=== PATIENT | female | born 1950 | race Caucasian/White ===

== ENCOUNTER 2016-06-30 11:40 | Emergency (ER) | payer OTHER ==
[2016-06-30 11:46] VITALS: BP 141/83; PULSE 83; TEMP 97.4; BMI 33.4
[2016-06-30 13:00] LABS: PROTHROMBIN TIME (PATIENT) 47.1 SEC (10.2-13.0)
[2016-06-30 13:02] LABS: INR 4.33 (0.82-1.09)
[2016-06-30 13:04] LABS: MEAN CELL VOLUME 87.9 fl (80-96); MEAN PLT VOLUME 10.8 fl (7.5-11.1); PLATELET COUNT 291 K/MM3 (134-434); WHITE BLOOD COUNT 7.3 K/mm3 (4.0-10.0)
[2016-06-30 13:07] LABS: ALBUMIN 3.8 g/dl (3.5-5.0); BILIRUBIN,TOTAL 0.4 mg/dl (0.2-1.0); CALCIUM 9.3 mg/dl (8.4-10.2); CREATININE 1.1 mg/dl (0.6-1.3); TOT PROT 6.5 g/dl (6.4-8.3)
[2016-06-30 13:09] LABS: RDW 14.8 % (11.6-15.6)
[2016-06-30 13:45] LABS: PLATELET ESTIMATE ADEQUATE (NORMAL)
[2016-06-30 13:49] LABS: PLATELET COMMENT2 MOD GIANT PLTS
--- NOTE | 2016-06-30 13:51 | PDOC ---
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 Yesterday, she was sitting on the toilet for a prolonged period of time, using her phone and her legs got numb because of sitting for too long. When she stood up, she was surprised that her legs were so numb and she stumbled , twisting her right ankle and foot. She now complains of swelling in the right lateral ankle as well as the entire foot. She also has pain to that area , moderate, increased with weightbearing. The swelling has progressed since yesterday. She also has some ecchymosis down in the area of the toes. She denies falling or hitting her head. She states she stumbled and held onto the wall and did not fall. There was no chest pain, no dizziness, and no syncope. The numbness in her bilateral legs resolved after a few minutes after getting up from the toilet. Patient takes 10 mg of Coumadin every day, and then she takes a day off on Sundays. Today is supposed to be her day off. REVIEW OF SYSTEMS: GENERAL/CONSTITUTIONAL: No fever or chills. No weakness. No weight change. No head injury. HEAD, EYES, EARS, NOSE AND THROAT: No change in vision. No ear pain or discharge. No sore throat. CARDIOVASCULAR: No chest pain or shortness of breath. Positive history of prior valve replacements. RESPIRATORY: No cough, wheezing, or hemoptysis. GASTROINTESTINAL: No nausea, vomiting, diarrhea or constipation. No rectal bleeding. GENITOURINARY: No dysuria, frequency, or change in urination. MUSCULOSKELETAL: No joint or muscle swelling or pain. No neck or back pain. Positive for right ankle and foot swelling and pain, increased with walking. SKIN AND BREASTS: No rash or easy bruising. NEUROLOGIC: No headache, vertigo, loss of consciousness, or loss of sensation. PSYCHIATRIC: No depression or anxiety. ENDOCRINE: No increased thirst. No abnormal weight change. HEMATOLOGIC/LYMPHATIC: No anemia, easy bleeding, or history of blood clots. Patient takes anticoagulants for her valve replacement surgery. Currently on Coumadin. ALLERGIC/IMMUNOLOGIC: No hives or skin allergy. No latex allergy. Past History - Past Medical History Allergies/Adverse Reactions: Allergies Allergy/AdvReac Type Severity Reaction Status Date / Time No Known Allergies Allergy Verified 06/30/16 11:41 Home Medications: Ambulatory Orders Levothyroxine [Synthroid -] 150 mcg PO DAILY 06/05/15 Warfarin Sodium [Coumadin] 10 mg PO ASDIR 06/05/15 Metoprolol Tartrate [Lopressor -] 50 mg PO DAILY 06/30/16 Cardiac Disorders: Yes (RHEMATIC FEVER, MITRIAL AND AORTIC VALVE REPLACEMENT) Thyroid Disease: Yes - Surgical History Cardiac Surgery: Yes (AORTIC AND MITRIAL VALVE REPLACEMENT ARTIFICIAL) - Psycho/Social/Smoking Cessation Hx Anxiety: No Suicidal Ideation: No Smoking History: Never smoked Have you smoked in the past 12 months: No Hx Alcohol Use: No Drug/Substance Use Hx: No Substance Use Type: None Hx Substance Use Treatment: No *Physical Exam - Vital Signs Last Vital Signs Temp Pulse Resp BP Pulse Ox 97.4 F L 83 16 141/83 100 06/30/16 11:41 06/30/16 11:41 06/30/16 11:41 06/30/16 11:41 06/30/16 11:41 - Physical Exam Comments: 06/30/16 15:02 GENERAL: The patient is awake, alert, and fully oriented, in no acute distress. No signs of head trauma. HEAD: Normal with no signs of trauma. EYES: Pupils equal, round and reactive to light, extraocular movements intact, sclera anicteric, conjunctiva clear. ENT: Ears normal, nares patent, oropharynx clear without exudates. Moist mucous membranes. NECK: Normal range of motion, supple without lymphadenopathy, JVD, or masses. No cervical spine tenderness. LUNGS: Breath sounds equal, clear to auscultation bilaterally. No wheezes, and no crackles. HEART: Regular rate and rhythm, normal S1 and S2 without murmur, rub or gallop. Positive mechanical click. ABDOMEN: Soft, nontender, normoactive bowel sounds. No guarding, no rebound. No masses. EXTREMITIES: Normal range of motion, no edema in the left leg. No clubbing or cyanosis. No cords, erythema. The right calf is normal above the ankle. The right ankle is notable for intact skin, no medial tenderness, but positive swelling and tenderness over the lateral malleolus. The right foot is diffusely swollen, with increased tenderness over the lateral midfoot. There is ecchymosis of all of the toes. Sensation is intact. Pulses are 2+ throughout down to the dorsalis pedis. Capillary refill is less than 2 seconds , brisk in all of the toes. NEUROLOGICAL: Cranial nerves II through XII grossly intact. Normal speech, limping gait. PSYCH: Normal mood, normal affect. SKIN: Warm, Dry, normal turgor, no rashes or lesions noted. ED Treatment Course - LABORATORY CBC & Chemistry Diagram: 06/30/16 12:10 06/30/16 12:10 - ADDITIONAL ORDERS Additional order review: Laboratory Results 06/30/16 06/30/16 12:10 12:10 INR 4.33 H* D Sodium 139 Potassium 4.5 Chloride 106 Carbon Dioxide 28 Anion Gap 5 L BUN 19 H Creatinine 1.1 D Creat Clearance w eGFR 49.69 Random Glucose 114 H Calcium 9.3 Total Bilirubin 0.4 D AST 28 ALT 22 Alkaline Phosphatase 78 Total Protein 6.5 Albumin 3.8 06/30/16 12:10 RBC 4.90 MCV 87.9 MCHC 33.0 RDW 14.8 MPV 10.8 - RADIOLOGY Radiology Studies Ordered: Category Date Time Status ANKLE & FOOT-RIGHT* [RAD] Stat Radiology 06/30/16 11:54 Completed Medical Decision Making - Medical Decision Making 06/30/16 15:03 Patient is a 65-year-old woman who presents after twisting her right ankle and foot with a right lower extremity injury. She has been on Coumadin for a long time status post valve replacement 15 years ago. She states she has not checked her INR for a couple of months and she was overdue for blood work. On examination, there is mild to moderate swelling of the right lateral malleolus and the foot. There is no tense swelling. There is only very mild localized ecchymosis of the dorsal toes. X-rays of the right ankle and foot show an old healed avulsion fracture of the distal tip of the fibula. The right foot shows a comminuted mildly displaced fracture of the fifth metatarsal. Laboratory workup is notable for normal CBC and chemistries. The INR is elevated to 4.33. Patient states today's her day off so her INR should be done by tomorrow. She will not take Coumadin today and will restart tomorrow, and she states she will discuss these results with her customer account administrator tomorrow to consider any possible necessary dose changes. I discussed the x-ray findings with Dr. Jc, orthopedic surgery. Wei bandage was applied to the right foot with a stiff soled shoe and with crutches with partial weightbearing. Patient will follow-up with Dr. Jc this week. She will elevate, ice, and use the shoe with crutches. *DC/Admit/Observation/Transfer Diagnosis at time of Disposition: Fracture of metatarsal bone of right foot Qualifiers: Encounter type: initial encounter Metatarsal bone: fifth Fracture type: closed Fracture alignment: displaced Qualified Code(s): S92.351A - Displaced fracture of fifth metatarsal bone, right foot, initial encounter for closed fracture - Discharge Dispostion Condition at time of disposition: Stable Admit: No - Referrals Referrals: Antonio Jc MD [Staff Physician] - 3 days - Patient Instructions Printed Discharge Instructions: DI for Foot Fracture Additional Instructions: You were evaluated today for a fracture to your right foot. The ankle shows no new fracture, only an old healed fracture from the past. The foot x-ray shows a comminuted fracture of the shaft of the right fifth metatarsal. An Wei bandage and a hard soled shoe has been placed. Use this during the day. Take it off at night. Use crutches to help support your weight until the fracture pain and swelling improves. Rest at home. Elevate the foot as much as possible to reduce pain and swelling. Apply ice packs for 20 minutes every few hours for the first 2 or 3 days after the injury. Take Tylenol if needed for pain. Follow-up with Dr. Jc, orthopedic surgeon, in a few days. Called the number tomorrow after 9 AM to schedule your follow-up appointment. His office is on the lower level in the [facility]. For any severe or progressive problems, return to the emergency department. The INR level today is 4.33. This is a bit higher than it should be. Do not take any Coumadin today. Tomorrow you can restart your dose at 10 mg daily. Be sure to call Dr. Guthrie tomorrow to ask about adjusting your dose. Coumadin must be managed very carefully to make sure your blood is not too sick and not too thin. You have a copy of all of the blood results included in your discharge papers. These results should be shown to your doctor at your follow- up appointment.
== END 2016-06-30 13:59 | disposition short-term general hospital (02) ==
LOC: FER 11:40
DX: S92.351A Displaced fracture of fifth metatarsal bone, right foot, initial encounter for closed fracture (principal); X58.XXXA Exposure to other specified factors, initial encounter; Y93.89 Activity, other specified; Y92.002 Bathroom of unspecified non-institutional (private) residence as the place of occurrence of the external cause; I51.9 Heart disease, unspecified; Z95.2 Presence of prosthetic heart valve; Z79.01 Long term (current) use of anticoagulants; E07.9 Disorder of thyroid, unspecified
CPT/HCPCS: 36415; 73610-TC-RT; 73630-TC-RT; 80053; 85027; 85610; 99283-25

== ENCOUNTER 2016-12-14 07:22 | Emergency (ER) | payer OTHER ==
[2016-12-14 07:37] VITALS: BP 140/83; PULSE 89; TEMP 97.5; BMI 31.9
--- NOTE | 2016-12-14 07:43 | PDOC ---
History of Present Illness - General Chief Complaint: Injury Stated Complaint: LEFT LEG PAIN Time Seen by Provider: 12/14/16 07:36 History Source: Patient - History of Present Illness Initial Comments: 12/14/16 07:44 pt presents to the ED complaining of left ankle and knee pain after mechanical trip and fall yesterday. Patient was able to ambulate immediately after the injury and has been able to ambulate since then. Presents today because the swelling has gotten worse since the injury and she is concerned that she may have a fracture. Also complaining of dysuria, urgency and frequency, along with intermittent fevers for the last week. Patient was in [facility] last week and states that she was seen by a physician there and given augmentin for UTI, without relief of her symptoms. States that she was vomiting last week, but has not vomited for > 24 hours. Denies flank pain or abdominal pain. Past History - Travel Traveled outside of the country in the last 30 days: Yes If so, where?: [facility] - Past Medical History Allergies/Adverse Reactions: Allergies Allergy/AdvReac Type Severity Reaction Status Date / Time No Known Allergies Allergy Verified 12/14/16 07:24 Home Medications: Ambulatory Orders Levothyroxine [Synthroid -] 150 mcg PO DAILY 06/05/15 Warfarin Sodium [Coumadin] 10 mg PO ASDIR 06/05/15 Metoprolol Tartrate [Lopressor -] 50 mg PO PRN PRN 06/30/16 Cardiac Disorders: Yes (RHEMATIC FEVER, MITRIAL AND AORTIC VALVE REPLACEMENT) Thyroid Disease: Yes Other medical history: hypothyroidism, valve replacement - Surgical History Cardiac Surgery: Yes (AORTIC AND MITRIAL VALVE REPLACEMENT ARTIFICIAL) - Psycho/Social/Smoking Cessation Hx Anxiety: No Suicidal Ideation: No Smoking History: Never smoked Have you smoked in the past 12 months: No Information on smoking cessation initiated: No Hx Alcohol Use: No Drug/Substance Use Hx: No Substance Use Type: None Hx Substance Use Treatment: No Review of Systems - Review of Systems Able to Perform ROS?: Yes Is the patient limited Senegalese proficient: No Constitutional: Yes: Chills, Diaphoresis, Fever, Malaise HEENTM: No: Symptoms Reported, See HPI, Eye Pain, Blurred Vision, Tearing, Recent change in vision, Double Vision, Cataracts, Ear Pain, Ocular Prothesis, Ear Discharge, Nose Pain, Nose Congestion, Tinnitus, Nose Bleeding, Hearing Loss , Throat Pain, Throat Swelling, Mouth Pain, Dental Problems, Difficulty Swallowing, Mouth Swelling, Other Cardiac (ROS): No: Symptoms Reported, See HPI, Chest Pain, Edema, Irregular Heart Rate, Lightheadedness, Palpitations, Syncope, Chest Tightness, Other ABD/GI: Yes: Nausea, Vomiting : Yes: Burning, Dysuria, Frequency, Urgency Musculoskeletal: No: Symptoms Reported, See HPI, Back Pain, Gout, Joint Pain, Joint Swelling, Muscle Pain, Muscle Weakness, Neck Pain, Joint Stiffness, Other All Other Systems: Reviewed and Negative *Physical Exam - Vital Signs Last Vital Signs Temp Pulse Resp BP Pulse Ox 97.5 F L 89 20 140/83 96 12/14/16 07:23 12/14/16 07:23 12/14/16 07:23 12/14/16 07:23 12/14/16 07:23 - Physical Exam General Appearance: Yes: Nourished, Appropriately Dressed Neck: positive: Trachea midline, Supple Respiratory/Chest: positive: Lungs Clear, Normal Breath Sounds Cardiovascular: positive: Regular Rhythm, Regular Rate Gastrointestinal/Abdominal: positive: Flat, Soft. negative: Normal Bowel Sounds , Tender, Organomegaly, Pulsatile Mass, Increased Bowel Sounds, Decreased BS, Protuberent, Distended, Guarding, Rebound, Tenderness, Hernia, Mass, Hepatomegaly, Spleenomegaly, Other Musculoskeletal: positive: Normal Inspection, Other (L knee--full ROM without deformity, small lateral ecchymosis. L ankle full ROM, no deformity, + mild tenderness over the dorsum of the foot. ). negative: CVA Tenderness, CVA Tenderness (R), CVA Tenderness (L), Decreased Range of Motion, Muscle Spasm, Vertebral Tenderness Neurologic: positive: Fully Oriented, Alert, Normal Mood/Affect Medical Decision Making - Medical Decision Making 12/14/16 07:52 pt presents to the ED complaining of l knee and l ankle pain and dysuria, urgency and frequency. PAtient is able to ambulate and does not require xray by [place] ankle or knee rules, but is requesting xray. Since patient remains symptomatic after several days of augmentin for UTI, will check UA and change antibiotic if UA is positive. 12/14/16 09:24 xrays are negative for fracture. UA is negative. WIll discharge home. *DC/Admit/Observation/Transfer Diagnosis at time of Disposition: Knee pain Qualifiers: Chronicity: acute Laterality: left Qualified Code(s): M25.562 - Pain in left knee - Discharge Dispostion Disposition: HOME Condition at time of disposition: Good Admit: No - Patient Instructions Printed Discharge Instructions: DI for Knee Pain Additional Instructions: return to the ED for new or changing symptoms, severe knee or ankle pain unable to walk, severe abdominal pain, nausea, vomiting or fever. Take the antibiotic prescribed for your UTI until it is all gone. You can take motrin or tylenol for pain.
[2016-12-14 08:50] LABS: URINE APPEARANCE Clear; URINE BILIRUBIN Negative (NEGATIVE); URINE BLOOD Negative (NEGATIVE); URINE COLOR AMBER; URINE GLUCOSE (UA) Negative (NEGATIVE); URINE KETONE Negative (NEGATIVE); URINE LEUK ESTERASE Negative (NEGATIVE); URINE NITRITE Negative (NEGATIVE); URINE PROTEIN Negative (NEGATIVE); URINE UROBILINOGEN 0.2 (0.2-1.0)
== END 2016-12-14 09:44 | disposition home or self-care (01) ==
LOC: FER 07:22
DX: M25.562 Pain in left knee (principal); W18.39XA Other fall on same level, initial encounter; Y93.89 Activity, other specified; Y92.9 Unspecified place or not applicable; E07.9 Disorder of thyroid, unspecified; Z95.2 Presence of prosthetic heart valve; Z79.01 Long term (current) use of anticoagulants; I00 Rheumatic fever without heart involvement
CPT/HCPCS: 73562-TC-LT; 73610-TC-LT; 81003; 99282-25

== ENCOUNTER 2016-12-30 13:22 | Emergency (ER) | payer OTHER ==
--- NOTE | 2016-12-30 13:25 | PDOC ---
History of Present Illness <Emelyn Bergman - Last Filed: 12/30/16 15:08> - General History Source: Patient Exam Limitations: No Limitations - History of Present Illness Initial Comments: 12/30/16 13:47 66 yo female with rheumatic heart disease presents with swelling at the lateral and medial maleolus 2 weeks after leg injury. Also co intermittent fevers, saw her doctor, (s/pValve replacement) was told they think it is a virus but if the fevers persist she will need a blood culture. Last INR was 4.5 and that was on the 25 of December. Worried she may have a blood clot. Timing/Duration: changing over time, other (Roughly 2 weeks, Cough, Dyspnea and Fever) Severity: moderate Modifying Factors: improves with: other (Nothing seems to make it worse and better) Associated Symptoms: denies: denies symptoms Aspirin Received prior to arrival: No: no aspirin today <Bimal Elaine - Last Filed: 12/30/16 15:48> - General Chief Complaint: Pain, Acute Stated Complaint: LEFT LEG PAIN/SWELLING Time Seen by Provider: 12/30/16 13:25 Past History <Emelyn Bergman - Last Filed: 12/30/16 15:08> - Travel Traveled outside of the country in the last 30 days: Yes If so, where?: [facility] Close contact w/someone who was outside of country & ill: No - Past Medical History Cardiac Disorders: Yes (RHEMATIC FEVER, MITRIAL AND AORTIC VALVE REPLACEMENT) Thyroid Disease: Yes - Surgical History Cardiac Surgery: Yes (AORTIC AND MITRIAL VALVE REPLACEMENT ARTIFICIAL) - Suicide/Smoking/Psychosocial Hx Smoking History: Never smoked Have you smoked in the past 12 months: No Hx Alcohol Use: No Drug/Substance Use Hx: No Substance Use Type: None Hx Substance Use Treatment: No <Bimal Elaine - Last Filed: 12/30/16 15:48> - Past Medical History Allergies/Adverse Reactions: Allergies Allergy/AdvReac Type Severity Reaction Status Date / Time No Known Allergies Allergy Verified 12/30/16 13:23 Home Medications: Ambulatory Orders Levothyroxine [Synthroid -] 150 mcg PO DAILY 06/05/15 Warfarin Sodium [Coumadin] 10 mg PO ASDIR 06/05/15 Metoprolol Tartrate [Lopressor -] 50 mg PO PRN PRN 06/30/16 Review of Systems - Review of Systems Constitutional: Yes: See HPI HEENTM: No: Symptoms Reported Respiratory: Yes: See HPI, Cough Cardiac (ROS): Yes: See HPI ABD/GI: No: Symptoms Reported : No: Symptoms Reported Musculoskeletal: No: Symptoms Reported Integumentary: No: Symptoms Reported Neurological: No: Symptoms reported, Ataxia Psychiatric: No: Anxiety Endocrine: No: Symptoms Reported Hematologic/Lymphatic: No: Symptoms Reported All Other Systems: Reviewed and Negative <Bimal Elaine - Last Filed: 12/30/16 15:48> *Physical Exam - Vital Signs Last Vital Signs Temp Pulse Resp BP Pulse Ox 98.5 F 93 H 18 160/94 99 12/30/16 13:22 12/30/16 13:22 12/30/16 13:22 12/30/16 13:22 12/30/16 13:22 <Emelyn Bergman - Last Filed: 12/30/16 15:08> - Physical Exam General Appearance: Yes: Nourished. No: Apparent Distress HEENT: positive: Normal ENT Inspection Neck: positive: Supple. negative: Tender, Lymphadenopathy (R), Lymphadenopathy (L) Respiratory/Chest: positive: Lungs Clear, Normal Breath Sounds. negative: Chest Tender Cardiovascular: positive: Regular Rhythm, Regular Rate. negative: Murmur Gastrointestinal/Abdominal: positive: Normal Bowel Sounds, Flat, Soft Lymphatic: negative: Adenopathy, Tenderness Musculoskeletal: positive: Normal Inspection Extremity: positive: Normal Capillary Refill, Normal Inspection Integumentary: positive: Normal Color, Dry, Warm Neurologic: positive: Fully Oriented, Alert, Normal Mood/Affect <Bimal Elaine - Last Filed: 12/30/16 15:48> Heart Score/ECG Review - ECG Intrepretation Comment:: 12/30/16 14:[address] Elaine Normal sinus rhythm Normal EKG Vent rate 83 bpm <Emelyn Bergman - Last Filed: 12/30/16 15:08> ED Treatment Course - LABORATORY CBC & Chemistry Diagram: 12/30/16 14:06 12/30/16 14:06 - ADDITIONAL ORDERS Additional order review: Laboratory Results 12/30/16 12/30/16 14:06 14:06 PT with INR 24.8 H INR 2.25 H D Sodium 139 Potassium 3.9 Chloride 107 Carbon Dioxide 27 Anion Gap 5 L BUN 16 Creatinine 0.8 D Creat Clearance w eGFR > 60 Random Glucose 94 Calcium 8.8 Total Bilirubin 0.5 D AST 24 ALT 19 Alkaline Phosphatase 84 Creatine Kinase 60 Total Protein 7.0 Albumin 3.6 12/30/16 14:06 RBC 4.39 MCV 89.6 MCHC 31.6 L RDW 15.9 H MPV 9.0 D Neutrophils % 72.6 Lymphocytes % 17.2 D Monocytes % 8.5 Eosinophils % 1.4 Basophils % 0.3 - RADIOLOGY Radiograph Interpretation: 12/30/16 15:08 Chest X-Ray Reported by: Hiren Darling MD Impression: No significant change or acute lung disease is present. 12/30/16 15:10 Vascular Exam: Impression: There is no evidence of deep venous thrombosis in the left lower extremity Reported by: Hiren Darling M.D. <Emelyn Bergman - Last Filed: 12/30/16 15:08> - LABORATORY CBC & Chemistry Diagram: 12/30/16 14:06 12/30/16 14:06 <Bimal Elaine - Last Filed: 12/30/16 15:48> Medical Decision Making - Medical Decision Making 12/30/16 15:35 All testing here today is negative. Patient has no symptoms x swelling at lateral and medial maleoli left ankle. Will print all results for patient to take to her PMD. Will also refer her to Ortho here locally. <Bimal Elaine - Last Filed: 12/30/16 15:48> *DC/Admit/Observation/Transfer <Emelyn Bergman - Last Filed: 12/30/16 15:08> - Discharge Dispostion Admit: No <Bimal Elaine - Last Filed: 12/30/16 15:48> Diagnosis at time of Disposition: Ankle swelling Qualifiers: Laterality: left Qualified Code(s): M25.472 - Effusion, left ankle; M25.472 - Effusion, left ankle - Discharge Dispostion Disposition: HOME Condition at time of disposition: Stable - Referrals Referrals: Chivo Miles MD [Staff Physician] - - Patient Instructions Printed Discharge Instructions: DI for Ankle Sprain Additional Instructions: Mrs. العلي, Take all of your test results to your doctor..... or at least call her and let her know these results. We did take a blood culture. Those results are not available yet. Follow up with Dr. Miles regarding your ankle (Or call your insurance company to find out who you can see on their dime. Return to us if any problems. Best- Dr. Bimal Elaine
[2016-12-30 13:27] VITALS: TEMP 98.5; BMI 32.6
[2016-12-30 14:19] LABS: BASOPHIL 0.3 % (0-2.0); EOSINOPHIL 1.4 % (0-4.5); MCH 28.3 pg (25.7-33.7); MCHC 31.6 g/dl (32.0-36.0); MEAN CELL VOLUME 89.6 fl (80-96); NEUTROPHILS 72.6 % (42.8-82.8); PLATELET COUNT 317 K/MM3 (134-434); RDW 15.9 % (11.6-15.6); WHITE BLOOD COUNT 7.5 K/mm3 (4.0-10.8)
[2016-12-30 14:28] LABS: INR 2.25 (0.82-1.09); PROTHROMBIN TIME (PATIENT) 24.8 SEC (10.2-13.0)
[2016-12-30 14:33] LABS: ALBUMIN 3.6 g/dl (3.5-5.0); ALK PHOS 84 U/L (32-92); ANION GAP 5 (8-16); BILIRUBIN,TOTAL 0.5 mg/dl (0.2-1.0); CALCIUM 8.8 mg/dl (8.4-10.2); CO2 27 mmol/L (22-28); CPK 60 IU/L (26-192); CREATININE 0.8 mg/dl (0.6-1.3); GLUCOSE,RANDOM 94 mg/dl (74-106); SGOT/AST 24 U/L (10-42); SGPT/ALT 19 U/L (10-40)
[2016-12-30 15:11] LABS: PH,URINE 5.5 (4.5-8); URINE APPEARANCE Clear; URINE BILIRUBIN Negative (NEGATIVE); URINE GLUCOSE (UA) Negative (NEGATIVE); URINE KETONE Negative (NEGATIVE); URINE LEUK ESTERASE Negative (NEGATIVE); URINE NITRITE Negative (NEGATIVE); URINE PROTEIN Negative (NEGATIVE); URINE UROBILINOGEN 0.2 (0.2-1.0)
[2016-12-30 15:14] LABS: URINE BLOOD 1+ (NEGATIVE); URINE COLOR YELLOW
[2016-12-30 15:34] LABS: URINE MUCUS 2+
[2016-12-30 16:32] VITALS: BP 116/75; PULSE 72
[2016-12-30 19:03] LABS: TROPONIN I (DFP) < 0.03 ng/ml (0.03-0.50)
--- NOTE | 2016-12-31 20:21 | EKG ---
Test Reason : Blood Pressure : / mmHG Vent. Rate : 083 BPM Atrial Rate : 083 BPM P-R Int : 148 ms QRS Dur : 098 ms QT Int : 404 ms P-R-T Axes : 072 040 074 degrees QTc Int : 474 ms NORMAL SINUS RHYTHM NONSPECIFIC ST AND T WAVE ABNORMALITY NO PREVIOUS ECGS AVAILABLE REPEAT EKG IF CLINICALLY INDICATED Confirmed by MARGIE KUNZ MD ([id number]) on 12/31/2016 8:20:43 PM Referred By: CARLOTTA SANTIAGO Confirmed By:MARGIE KUNZ MD
== END 2016-12-30 15:55 | disposition home or self-care (01) ==
LOC: FER 13:22
DX: M25.472 Effusion, left ankle (principal); I34.1 Nonrheumatic mitral (valve) prolapse; E07.9 Disorder of thyroid, unspecified
CPT/HCPCS: 36415; 71010-TC; 80053; 81003; 81015; 83605; 83880; 84484; 85025; 85610; 87040; 87086; 93005; 93971-TC; 99283-25

== ENCOUNTER 2017-03-14 03:07 | Inpatient (IN) | payer OTHER ==
--- NOTE | 2017-03-14 03:09 | PDOC ---
History of Present Illness <Brayan Cunningham - Last Filed: 03/14/17 09:24> <Dhara Ramirez - Last Filed: 03/15/17 23:50> - General Chief Complaint: Irregular Heart Beat Stated Complaint: RAPID HEART BEAT Time Seen by Provider: 03/14/17 03:08 - History of Present Illness Initial Comments: 03/14/17 03:56 This 66-year-old woman with a history of rheumatic heart disease (AVR[place]VR [place] [facility] [place] and atrial fibrillation with RVR last year presents with 2 day history of palpitations. Patient states that 2 days ago she had relatively sudden onset of sensation of rapid heartbeat. No clear history of exertion/exercise prior to onset. Patient states that she has had intermittent cough/fever for the last 2 months and thinks the arrhythmia may be related to the cough. The palpitations have been continuous and last 48 hours; she denies shortness of breath/lightheadedness/chest pain/LE edema. She had originally planned to come to the hospital yesterday but changed her mind. The patient is taking her warfarin and thyroxine as prescribed but has not been taking her metoprolol daily (denied side effects,stating that she was not sure she was supposed to be taking it every day). Besides intermittent cough and fever for the last few months, patient has had a few episodes of minor trauma (first when she was visiting [facility] in the summer and more recently when she returned and slipped in her bathroom). Because of the pain in her lower extremities, the patient's activity has decreased and she has gained a significant amount of weight recently The patient's supervisor compounding and finishing is Dr. Maria Luisa Guthrie; she saw her approximately one month ago ;there was no change in medications Patient denies smoking/daily alcohol use/other recreational drug use 03/14/17 04:46 (Dhara Ramirez) Past History <Brayan Cunningham - Last Filed: 03/14/17 09:24> - Past Medical History Cardiac Disorders: Yes (RHEMATIC FEVER, MITRIAL AND AORTIC VALVE REPLACEMENT) Thyroid Disease: Yes - Surgical History Cardiac Surgery: Yes (AORTIC AND MITRIAL VALVE REPLACEMENT ARTIFICIAL) - Suicide/Smoking/Psychosocial Hx Smoking History: Never smoked Have you smoked in the past 12 months: No Hx Alcohol Use: No Drug/Substance Use Hx: No Substance Use Type: None Hx Substance Use Treatment: No <JamesDhara Conrad - Last Filed: 03/15/17 23:50> - Past Medical History Allergies/Adverse Reactions: Allergies Allergy/AdvReac Type Severity Reaction Status Date / Time No Known Allergies Allergy Verified 12/30/16 13:23 Home Medications: Ambulatory Orders Levothyroxine [Synthroid -] 150 mcg PO DAILY 06/05/15 Warfarin Sodium [Coumadin] 10 mg PO ASDIR 06/05/15 Metoprolol Succinate [Toprol XL -] 25 mg PO BID #60 tab.sr.24h 03/15/17 Review of Systems <OctavioBrayan - Last Filed: 03/14/17 09:24> - Review of Systems Able to Perform ROS?: Yes <Dhara Ramirez - Last Filed: 03/15/17 23:50> - Review of Systems Comments:: 12 point review of systems is negative except for what is noted in the history of present illness (Dhara Ramirez) *Physical Exam <OctavioBrayan - Last Filed: 03/14/17 09:24> <Dhara Ramirez - Last Filed: 03/15/17 23:50> - Vital Signs Last Vital Signs Temp Pulse Resp BP Pulse Ox 98.2 F 77 18 111/62 96 03/15/17 13:00 03/15/17 13:00 03/15/17 13:00 03/15/17 13:00 03/15/17 09:00 - Physical Exam Comments: GENERAL: Adult female, alert and oriented 3, in no acute distress HEAD: Normal with no signs of trauma. EYES: PERRLA, EOMI, sclera anicteric, conjunctiva clear. ENT: Ears normal, nares patent, oropharynx clear without exudates. Dry mucous membranes. NECK: Normal range of motion, supple without lymphadenopathy, JVD, or masses. LUNGS: Breath sounds equal, clear to auscultation bilaterally. No wheezes, and no crackles. HEART: Rapid rate, faint mechanical click at systole; no murmurs or rubs ABDOMEN:.normal bowel sounds No guarding,tenderness or rebound.No masses No distention. EXTREMITIES: Normal range of motion, no edema. No clubbing or cyanosis. No erythema, or tenderness. NEUROLOGICAL: Cranial nerves II through XII grossly intact. Normal speech. No focal neurological deficits. MUSCULOSKELETAL: Back non-tender to palpation, no CVA tenderness SKIN: Warm, Dry, normal turgor, no rashes or lesions noted. 12-lead electrocardiogram performed. This shows an atrial flutter rhythm with 2 :1 AV conduction Morphology is very similar to electrocardiogram tracing dated 02/26/16 when patient presented with previous episode of palpitations (Dhara Ramirez) ED Treatment Course - LABORATORY CBC & Chemistry Diagram: 03/14/17 03:17 03/14/17 03:36 <Brayan Cunningham - Last Filed: 03/14/17 09:24> - LABORATORY CBC & Chemistry Diagram: 03/15/17 05:05 03/15/17 10:30 <Dhara Ramirez - Last Filed: 03/15/17 23:50> - ADDITIONAL ORDERS Additional order review: 03/14/17 03:17 RBC 4.78 MCV 86.0 MCHC 32.3 RDW 16.3 H MPV 10.3 Neutrophils % 57.9 D Lymphocytes % 28.8 D Monocytes % 9.8 Eosinophils % 2.6 D Basophils % 0.9 - RADIOLOGY Radiology Studies Ordered: Category Date Time Status CHEST X-RAY PORTABLE* [RAD] Stat Radiology 03/14/17 06:34 Completed - Medications Given in the ED: ED Medications Discontinued Medications Generic Name Dose Route Start Last Admin Trade Name Freq PRN Reason Stop Dose Admin Diltiazem HCl 10 mg 03/14/17 03:51 03/14/17 03:54 Cardizem Injection - IVPUSH 03/14/17 03:52 10 mg ONCE ONE Administration Diltiazem HCl 10 mg 03/14/17 04:03 03/14/17 04:06 Cardizem Injection - IVPUSH 03/14/17 04:04 10 mg ONCE ONE Administration Diltiazem HCl 25 mg 03/14/17 04:29 03/14/17 04:32 Cardizem Injection - IVPUSH 03/14/17 04:30 25 mg ONCE ONE Administration Diltiazem HCl 125 mg/ Dextrose 125 mls @ 5 mls/hr 03/14/17 04:45 03/14/17 13: 27 IVPB 10 mg/hr TITR JOSH 10 mls/hr Protocol Administration 5 MG/HR Sodium Chloride 500 mls @ 500 mls/hr 03/14/17 05:53 12/15/17 05:57 Normal Saline - IV 03/14/17 06:52 500 mls/hr ASDIR STA Administration Levothyroxine Sodium 150 mcg 03/15/17 07:00 03/15/17 06:01 Synthroid - PO 150 mcg DAILY@0700 JOSH Administration Metoprolol Succinate 25 mg 03/14/17 11:30 03/15/17 09:31 Toprol Xl - PO 25 mg BID JOSH Administration Metoprolol Tartrate 5 mg 03/14/17 09:23 03/14/17 09:30 Lopressor Injection - IVPUSH 5 mg Q4H PRN Administration TACHYCARDIA Warfarin Sodium 10 mg 03/14/17 18:00 03/14/17 17:29 Coumadin - PO 10 mg [id number]@1800 JOSH Administration Progress Note <Brayan Cunningham - Last Filed: 03/14/17 09:24> <Dhara Ramirez - Last Filed: 03/15/17 23:50> - Progress Note Progress Note: 66-year-old woman with a history of atrial fibrillation with rapid ventricular response approximately 1 year ago. During that admission, rate control was achieved with diltiazem but patient ultimately required elective cardioversion for return to normal sinus rhythm [ seen by Colin/Rosy/Vikram group]. Patient had no episodes of palpitations or rapid/irregular heartbeat from her discharge last year until 2 days ago. Of note, patient has not been taking her beta saúl as prescribed (reasons unclear; states that she was unsure it was supposed to be a daily medication) On presentation, the patient is in no distress and denies associated symptoms . Vital signs notable for blood pressure of 132/93 and pulse oximetry of 98% on room air on presentation. (Dhara Ramirez) Medical Decision Making <Brayan Cunningham - Last Filed: 03/14/17 09:24> <Dhara Ramirez - Last Filed: 03/15/17 23:50> - Medical Decision Making 03/14/17 09:24 Received a call from [facility] patient. Recommends Lopressor IV 5 mg every 4 hours for elevated (Brayan Cunningham) 03/14/17 04:04 Because patient had episode of hypotension after 20 mg diltiazem IV push last year, initial dose of diltiazem given now was 10 mg IVP. After 15 minutes, rhythm continues to be a flutter with a rate of 148/minute Second dose of 10 mg diltiazem IVP ordered 03/14/17 04:29 No change in rhythm or rate after second dose of diltiazem 10 mg IVP Blood pressure stable at 118/97 Diltiazem 25 mg IVP to be given. 03/14/17 04:38 Heart rhythm/rate responds to bolus of diltiazem 25 mg with decrease of rate to 80s/min. Monitor appears to be NSR with PACs . BP stable at 115/79 03/14/17 04:44 Heart rate now 100-120/min with rare brief runs to 140/min Diltiazem infusion at 5 mg per hour to be started, with titration to rate and BP 03/14/17 04:57 Laboratory evaluation reveals essentially normal CBC INR is therapeutic at 3.45 Electrolytes unremarkable; renal function normal (17/0.8); troponin not elevated at 0.03 Interestingly, TSH is markedly elevated at 15.4 [pt now admits to variable compliance with daily thyroxine] 03/14/17 05:34 Case discussed with DARIUSZ Rainey. Patient to be admitted to telemetry, Kosta Gonzalez (Dr. Samuel), 4W Room 421 03/14/17 05:54 Heart rate now consistently at 148/minute; blood pressure 101/78 Patient given normal saline bolus 500 mL IV Diltiazem infusion had been at 5 mg/hr for the last hour; infusion increased now to 10mg/hr;BP 117/77 03/14/17 06:[address] Shaw. Patient will be kept NPO for cardioversion, planned for today. 03/14/17 06:38 Heart rate continues to be an 146/minute and blood pressure 120/85 Diltiazem infusion increased to 15 mg/hr (Dhara Ramirez) *DC/Admit/Observation/Transfer <Brayan Cunningham - Last Filed: 03/14/17 09:24> - Discharge Dispostion Admit: Yes <Dhara Ramirez - Last Filed: 03/15/17 23:50> Diagnosis at time of Disposition: Atrial flutter with rapid ventricular response - Discharge Dispostion Condition at time of disposition: Improved
[2017-03-14 03:19] VITALS: BMI 31.9
[2017-03-14] MEDS ORDERED: dilTIAZem HCL 50 MG/10 ML - 10 ML VIAL ONE ×2 (03:50→04:46)
[2017-03-14] MEDS ORDERED: dilTIAZem HCL 50 MG/10 ML - 10 ML VIAL IVPUSH ONE ×3 (03:51→04:29)
[2017-03-14 04:11] LABS: BASO % 0.9 % (0-2.0); EOS % 2.6 % (0-4.5); MCH 27.8 pg (25.7-33.7); MCHC 32.3 g/dl (32.0-36.0); MEAN PLT VOLUME 10.3 fl (7.5-11.1); NEUT % 57.9 % (42.8-82.8); PLATELET COUNT 347 K/MM3 (134-434); RDW 16.3 % (11.6-15.6); WHITE BLOOD COUNT 7.4 K/mm3 (4.0-10.0)
[2017-03-14 04:45] LABS: INR 3.45 (0.82-1.09)
[2017-03-14 04:48] LABS: CPK 124 IU/L (26-192); TROPONIN I 0.03 ng/ml (0.00-0.05)
[2017-03-14 04:51] LABS: ANION GAP 5 (8-16); CO2 28 mmol/L (22-28); CREATININE 0.8 mg/dl (0.6-1.3); GLUCOSE,RANDOM 130 mg/dl (74-106)
[2017-03-14 04:52] LABS: ALBUMIN 3.1 g/dl (3.5-5.0); ALK PHOS 96 U/L (32-92); BILIRUBIN,TOTAL 0.4 mg/dl (0.2-1.0); CALCIUM 8.5 mg/dl (8.4-10.2); SGOT/AST 31 U/L (10-42); SGPT/ALT 26 U/L (10-40); TOT PROT 6.8 g/dl (6.4-8.3)
[2017-03-14] MEDS: DILTIAZEM INJECTION 125 MG in DEXTROSE 5%-WATER - 100 ML IVPB SCH ×2 (04:56→13:27)
[2017-03-14] MEDS ORDERED: SODIUM CHLORIDE 500 ML IV STA (05:53)
[2017-03-14] MEDS ORDERED: WARFARIN NA 10 MG TABLET (FP) PO SCH ×2 (08:15→18:00)
[2017-03-14 09:13] LABS: URINE APPEARANCE Clear; URINE BILIRUBIN Negative (NEGATIVE); URINE GLUCOSE (UA) Negative (NEGATIVE); URINE KETONE Negative (NEGATIVE); URINE NITRITE Negative (NEGATIVE); URINE PROTEIN Negative (NEGATIVE); URINE UROBILINOGEN 0.2 (0.2-1.0)
[2017-03-14 09:16] LABS: URINE BACTERIA MODERATE /hpf (NEGATIVE); URINE BLOOD 1+ (NEGATIVE); URINE COLOR YELLOW; URINE LEUK ESTERASE 1+ (NEGATIVE)
[2017-03-14] MEDS ORDERED: METOPROLOL TARTRATE 5 MG/5 ML VIAL IVPUSH PRN ×2 (09:23→18:00)
[2017-03-14] MEDS ORDERED: METOPROLOL TARTRATE 5 MG/5 ML VIAL ONE (09:27)
[2017-03-14 09:34] LABS: ANION GAP 5 (8-16); CHOLESTEROL 124 mg/dl; CO2 23 mmol/L (22-28); CPK 70 IU/L (26-192); CREATININE 0.7 mg/dl (0.6-1.3); GLUCOSE,RANDOM 106 mg/dl (74-106); MAGNESIUM 1.8 mg/dL (1.8-2.4); PHOSPHOROUS 3.6 mg/dl (2.5-4.6)
[2017-03-14 09:44] LABS: TROPONIN I 0.03 ng/ml (0.00-0.05)
[2017-03-14] MEDS ORDERED: LEVOTHYROXINE NA 150 MCG TABLET PO SCH (10:00)
[2017-03-14] MEDS: METOPROLOL SUCCINATE 25 MG TAB.SR.24H (FP) PO SCH ×2 (11:29→21:27)
--- NOTE | 2017-03-14 11:48 | HP ---
CHIEF COMPLAINT: Palpitations Director Of Student Aid: Dr Maria Luisa Guthrie HISTORY OF PRESENT ILLNESS: Ms. العلي is a 66yo F with a PMHx of Paroxysmal Atrial Fibrillation (s/p cardioversion by Dr Santiago in Jan 2016 on last admission with conversion to sinus rhythm), Rheumatic Heart Disease (s/p AVR and MVR mechanical valve replacement), and Hypothyroidism who presented with palpitations and irregular heart rate for the past 2-3 days associated with fatigue. She sees Director Of Student Aid regularly, and has been told her rhythm was normal. Prior EKG from December 2016 shows normal sinus rhythm. Recently, she denies alcohol binge, overtaking synthyroid tablets, dehydration, etc. She states she had mild cough a couple of days ago with residual clear/white sputum, but denies any other signs of infection, and denies sick contacts. In the ER, her EKG showed atrial flutter with 2:1 AV conduction with rapid ventricular response in the 140s, with stable BPs. She was given Lopressor and Cardizem pushes with some resolution, and ultimately started on Cardizem drip when transferred to the floors. She currently still complains of intermittent palpitations, but is otherwise asymptomatic. Recent Travel: [facility] in Nov 2016 PAST MEDICAL HISTORY: Atrial Fibrillation, Hypothyroidism PAST SURGICAL HISTORY: Cardioversion in Jan 2016 Social History: Smoking: Denies Alcohol: Denies Drugs: Denies Allergies: No Known Allergies Allergy (Verified 12/30/16 13:23) HOME MEDICATIONS: Home Medications Medication Instructions Recorded Levothyroxine [Synthroid -] 150 mcg PO DAILY 06/05/15 Warfarin Sodium [Coumadin] 10 mg PO ASDIR 06/05/15 REVIEW OF SYSTEMS CONSTITUTIONAL: Absent: fever, chills, diaphoresis, generalized weakness, malaise, loss of appetite, weight change HEENT: Absent: rhinorrhea, nasal congestion, throat pain, throat swelling, difficulty swallowing, mouth swelling, ear pain, eye pain, visual changes CARDIOVASCULAR: Absent: chest pain, syncope, lightheadedness, peripheral edema Present: palpitations, irregular heart rate RESPIRATORY: Absent: cough, shortness of breath, dyspnea with exertion, orthopnea, wheezing, stridor, hemoptysis GASTROINTESTINAL: Absent: abdominal pain, abdominal distension, nausea, vomiting, diarrhea, constipation, melena, hematochezia GENITOURINARY: Absent: dysuria, frequency, urgency, hesitancy, hematuria, flank pain, genital pain MUSCULOSKELETAL: Absent: myalgia, arthralgia, joint swelling, back pain, neck pain SKIN: Absent: rash, itching, pallor HEMATOLOGIC/IMMUNOLOGIC: Absent: easy bleeding, easy bruising, lymphadenopathy, frequent infections ENDOCRINE: Absent: unexplained weight gain, unexplained weight loss, heat intolerance, cold intolerance NEUROLOGIC: Absent: headache, focal weakness or paresthesias, dizziness, unsteady gait, seizure, mental status changes, bladder or bowel incontinence PSYCHIATRIC: Absent: anxiety, depression, suicidal or homicidal ideation, hallucinations. PHYSICAL EXAMINATION Vital Signs Temperature 98 F 03/14/17 11:15 Pulse Rate 95 H 03/14/17 11:15 Respiratory Rate 18 03/14/17 11:15 Blood Pressure 100/60 03/14/17 11:15 O2 Sat by Pulse Oximetry (%) 100 03/14/17 12:08 GEN: AAOx3, NAD, lying comfortably, smiling HEENT: PERRLA, EOMi CV: S1, S2, tachycardic rate, irregularly irregular rhythm, no murmur LUNG: CTABL ABD: Soft, NT, ND, normoactive BS MSK: No edema, no erythema NEURO: CN 2-12 intact, no sensation or MSK deficits Laboratory Last Values WBC 7.4 K/mm3 (4.0-10.0) 03/14/17 03:17 RBC 4.78 M/mm3 (3.60-5.2) 03/14/17 03:17 Hgb 13.3 GM/dL (10.7-15.3) 03/14/17 03:17 Hct 41.1 % (32.4-45.2) 03/14/17 03:17 MCV 86.0 fl (80-96) 03/14/17 03:17 MCH 27.8 pg (25.7-33.7) 03/14/17 03:17 MCHC 32.3 g/dl (32.0-36.0) 03/14/17 03:17 RDW 16.3 % (11.6-15.6) H 03/14/17 03:17 Plt Count 347 K/MM3 (134-434) 03/14/17 03:17 MPV 10.3 fl (7.5-11.1) 03/14/17 03:17 Neutrophils % 57.9 % (42.8-82.8) D 03/14/17 03:17 Lymphocytes % 28.8 % (8-40) D 03/14/17 03:17 Monocytes % 9.8 % (3.8-10.2) 03/14/17 03:17 Eosinophils % 2.6 % (0-4.5) D 03/14/17 03:17 Basophils % 0.9 % (0-2.0) 03/14/17 03:17 PT with INR 39.00 SEC (9.98-11.88) H 03/14/17 03:36 INR 3.45 (0.82-1.09) H D 03/14/17 03:36 Sodium 143 mmol/L (136-145) 03/14/17 03:36 Potassium 4.4 mmol/L (3.5-5.1) 03/14/17 03:36 Chloride 110 mmol/L (98-107) H 03/14/17 03:36 Carbon Dioxide 28 mmol/L (22-28) 03/14/17 03:36 Anion Gap 5 (8-16) L 03/14/17 03:36 BUN 17 mg/dl (7-18) 03/14/17 03:36 Creatinine 0.8 mg/dl (0.6-1.3) 03/14/17 03:36 Creat Clearance w eGFR > 60 (>60) 03/14/17 03:36 Random Glucose 130 mg/dl (74-106) H D 03/14/17 03:36 Calcium 8.5 mg/dl (8.4-10.2) 03/14/17 03:36 Phosphorus 3.6 mg/dl (2.5-4.6) 03/14/17 05:02 Magnesium 1.8 mg/dL (1.8-2.4) 03/14/17 05:02 Total Bilirubin 0.4 mg/dl (0.2-1.0) 03/14/17 03:36 AST 31 U/L (10-42) D 03/14/17 03:36 ALT 26 U/L (10-40) D 03/14/17 03:36 Alkaline Phosphatase 96 U/L (32-92) H 03/14/17 03:36 Creatine Kinase Cancelled 03/14/17 08:50 Troponin I 0.03 ng/ml (0.00-0.05) 03/14/17 05:02 Total Protein 6.8 g/dl (6.4-8.3) 03/14/17 03:36 Albumin 3.1 g/dl (3.5-5.0) L 03/14/17 03:36 Triglycerides 54 mg/dl (35-160) 03/14/17 05:02 Cholesterol 124 mg/dl 03/14/17 05:02 Total LDL Cholesterol 74 mg/dL (5-100) 03/14/17 05:02 HDL Cholesterol 39 mg/dl (29-89) 03/14/17 05:02 TSH 15.40 uIU/ml (0.358-3.74) H D 03/14/17 03:36 Urine Color Yellow 03/14/17 09:06 Urine Appearance Clear 03/14/17 09:06 Urine pH 5.0 (4.5-8) 03/14/17 09:06 Ur Specific Dewart >= 1.030 (1.005-1.025) H 03/14/17 09:06 Urine Protein Negative (NEGATIVE) 03/14/17 09:06 Urine Glucose (UA) Negative (NEGATIVE) 03/14/17 09:06 Urine Ketones Negative (NEGATIVE) 03/14/17 09:06 Urine Blood 1+ (NEGATIVE) H 03/14/17 09:06 Urine Nitrite Negative (NEGATIVE) 03/14/17 09:06 Urine Bilirubin Negative (NEGATIVE) 03/14/17 09:06 Urine Urobilinogen 0.2 (0.2-1.0) 03/14/17 09:06 Ur Leukocyte Esterase 1+ (NEGATIVE) H 03/14/17 09:06 Urine RBC 3-5 /hpf (0-3) 03/14/17 09:06 Urine WBC 3-5 (0-5) 03/14/17 09:06 Ur Epithelial Cells Few /HPF 03/14/17 09:06 Urine Bacteria Moderate /hpf (NEGATIVE) 03/14/17 09:06 Active Medications Generic Name Dose Route Start Last Admin Trade Name Freq PRN Reason Stop Dose Admin Diltiazem HCl 125 mg/ Dextrose 125 mls @ 5 mls/hr 03/14/17 04:45 03/14/17 13: 27 IVPB 10 mg/hr TITR JOSH 10 mls/hr Protocol Administration 5 MG/HR Metoprolol Succinate 25 mg 03/14/17 11:30 03/14/17 11:29 Toprol Xl - PO 25 mg BID JOSH Administration Metoprolol Tartrate 5 mg 03/14/17 09:23 03/14/17 09:30 Lopressor Injection - IVPUSH 5 mg Q4H PRN Administration TACHYCARDIA Warfarin Sodium 10 mg 03/14/17 18:00 Coumadin - PO [email or web address] [facility] ASSESSMENT/PLAN: 66yo F with PMHx of Paroxysmal Atrial Fibrillation who had a cardioversion procedure Jan 2016 with successful conversion to normal sinus rhythm. She presented to the ER with conversion back into Atrial flutter with RVR # Atrial Flutter w/ RVR - Patient had cardioversion procedure in Jan 2016, now re-converted into Aflutter. Likely secondary to noncompliance with home Metoprolol, patient admits to forgetting to take her medications. Was started on Cardizem drip. Since cardioversion has converted into NSR, weaned off Cardizem drip and switched to Toprol XL 25 BID. Lopressor PRN for tachycardia # Rheumatic HD - S/p MVR and AVR mechanical valve replacement. INR goal 2.5-3.5. Currently therapeutic, can continue Coumadin schedule. Her schedule is 10mg daily except Friday. # Hypothyroidism - TSH is high, possibly due to some medication non-compliance and improper followup with Turntable Worker for medication adjustment. Complains of weight gain, but attributes that to subjective immobility since injury to L foot. Will obtain T3/T4. Will continue current dose, and encourage outpatient Endocrine followup # Asymptomatic Bacteriuria - Monitor for symptoms, no need for antibiotics # FEN - No IVF, elec WNL, NPO for cardioversion # PPx - On Coumadin, no GI needed, no PT needed as patient is ambulatory # Dispo - Admit to Telemetry. Cardioversion today. d/w Dr Barbara Mcgowan MD - PGy1 Internal Medicine Resident Visit type - Emergency Visit Emergency Visit: No - New Patient This patient is new to me today: No - Critical Care Critical Care patient: No
--- NOTE | 2017-03-14 12:30 | CON.CARD ---
Consult Consult Specialty:: Cardiology Referred by:: Hospitalist Medicine Reason for Consultation:: Palpitations - History of Present Illness Chief Complaint: Rapid afib History of Present Illness: 66 y/o female with a past medical history of rheumatic fever (childhood), replacement of aortic and mitral valves in 1999 (rebuck) with mechanical valves, paroxysmal atrial fibrillation presented with palpitations, found to be in rapid atrial flutter 140s with supratherapeutic INR started on Cardizem gtt. She denies associated sxs of dyspnea, chest tightness, near or true syncope, orthopnea, PND, LE edema, change in exercise capacity, admits to noncompliance with metoprolol and Synthroid. Plan for DCCV without LARS-guidance given therapeutic INR. - History Source History Provided By: Patient Limitations to Obtaining History: No Limitations - Past Medical History Cardio/Vascular: Yes: AFIB ...: No - Past Surgical History Past Surgical History: Yes: Valve Replacement - Alcohol/Substance Use Hx Alcohol Use: No - Smoking History Smoking history: Never smoked Have you smoked in the past 12 months: No Home Medications - Allergies Allergies/Adverse Reactions: Allergies Allergy/AdvReac Type Severity Reaction Status Date / Time No Known Allergies Allergy Verified 12/30/16 13:23 - Home Medications Home Medications: Ambulatory Orders Levothyroxine [Synthroid -] 150 mcg PO DAILY 06/05/15 Warfarin Sodium [Coumadin] 10 mg PO ASDIR 06/05/15 Review of Systems - Review of Systems Cardiovascular: reports: Palpitations Vital Signs: Vital Signs Temperature 98 F 03/14/17 11:15 Pulse Rate 95 H 03/14/17 11:15 Respiratory Rate 18 03/14/17 11:15 Blood Pressure 100/60 03/14/17 11:15 O2 Sat by Pulse Oximetry (%) 100 03/14/17 12:08 Constitutional: Yes: No Distress, Calm Neck: Yes: Supple Respiratory: Yes: Regular, CTA Bilaterally Gastrointestinal: Yes: Normal Bowel Sounds, Soft, Abdomen, Obese Cardiovascular: Yes: Tachycardia, Pulse Irregular JVD: No Carotid Bruit: No Heart Sounds: Yes: S1, S2 Murmur: Yes: Systolic Murmur, Grade 1 Edema: No - Other Data Labs, Other Data: CBC, BMP 03/14/17 03:17 03/14/17 05:02 INR, PTT INR 3.45 (0.82-1.09) H D 03/14/17 03:36 Troponin, BNP 03/14/17 03/14/17 03/14/17 03:36 05:02 05:02 Troponin I 0.03 0.03 0.03 03/14/17 08:50 Troponin I Cancelled Troponin, BNP 03/14/17 03/14/17 03/14/17 03:36 05:02 05:02 Troponin I 0.03 0.03 0.03 03/14/17 08:50 Troponin I Cancelled Imaging - Results Chest X-ray: Report Reviewed (Cardiomegaly, prior OHS) Problem List - Problems (1) Atrial flutter with rapid ventricular response Code(s): I48.92 - UNSPECIFIED ATRIAL FLUTTER (2) History of cardioversion Code(s): Z98.89 - OTHER SPECIFIED POSTPROCEDURAL STATES * DO NOT USE * (3) Hypothyroidism Code(s): E03.9 - HYPOTHYROIDISM, UNSPECIFIED Qualifiers: Hypothyroidism type: unspecified Qualified Code(s): E03.9 - Hypothyroidism , unspecified (4) Palpitations Code(s): R00.2 - PALPITATIONS (5) Rheumatic heart disease Code(s): I09.9 - RHEUMATIC HEART DISEASE, UNSPECIFIED (6) S/P heart valve replacement with mechanical valve Code(s): Z95.2 - PRESENCE OF PROSTHETIC HEART VALVE (7) Noncompliance with medication regimen Code(s): Z91.14 - PATIENT'S OTHER NONCOMPLIANCE WITH MEDICATION REGIMEN Assessment/Plan 05/23/2015 TTE: Normal LV and RV size and fxn with cLVH, LAE, normal mech mitral and aortic ([facility]), mild TR, tr AR, RVSP 24 mmHg 02/27/2016 Echo: Normal LV size with mild decrease LV fxn, mild LAE mech MVR, mod TR, RVSP 40-50 mmHg, mech AV, mild AR, [place] 1. Paroxysmal atrial flutter with recurrence -> NSR post DCCV referable to noncompliance 2. Rheumatic heart disease post mechanical AVR and MVR with therapeutic INR 3. Hypothyroidism 4. Medication noncompliance PLAN: 1. Resume Lopressor 50 bid, patient admitted not taking Toprol at home 2. Coumadin per INR goal 3.0-3.5, titrate Synthroid per TSH 3. July d/c with f/u with her industrial coffee grinder Dr. Maria Luisa Guthrie at [facility] , emphasized importance of medication compliance. 4. Initiate USHA-I/ARB per primary industrial coffee grinder
--- NOTE | 2017-03-14 14:44 | PN ---
Progress Note (short form) - Note Progress Note: Procedure Note: Cardioversion Indication: Rapid Aflutter with difficulty maintaining rate-control despite Cardizem gtt Procedure: After informed consent obtained, propofol induction provided by anesthesia, successful cardioversion after 2nd cardioversion attempt at 150J. LARS-guidance not warranted due to long-term therapeutic anticoagulation with coumadin for mechanical mitral and aortic valve Complications: None Telemetry: Shows spiritism of sinus rhythm, f/u EKG Recommendations: Wean off Cardizem gtt, continue Toprol XL, emphasized importance of compliance, consider PSG to r/o OSAS. Problem List - Problems (1) Atrial flutter with rapid ventricular response Code(s): I48.92 - UNSPECIFIED ATRIAL FLUTTER (2) History of cardioversion Code(s): Z98.89 - OTHER SPECIFIED POSTPROCEDURAL STATES * DO NOT USE * (3) Hypothyroidism Code(s): E03.9 - HYPOTHYROIDISM, UNSPECIFIED Qualifiers: Hypothyroidism type: unspecified Qualified Code(s): E03.9 - Hypothyroidism , unspecified (4) Palpitations Code(s): R00.2 - PALPITATIONS (5) Rheumatic heart disease Code(s): I09.9 - RHEUMATIC HEART DISEASE, UNSPECIFIED (6) S/P heart valve replacement with mechanical valve Code(s): Z95.2 - PRESENCE OF PROSTHETIC HEART VALVE (7) Noncompliance with medication regimen Code(s): Z91.14 - PATIENT'S OTHER NONCOMPLIANCE WITH MEDICATION REGIMEN
--- NOTE | 2017-03-14 15:58 | PN ---
Teaching Attending Note Name of Resident: Huang Mcgowan ATTENDING PHYSICIAN STATEMENT I saw and evaluated the patient. I reviewed the resident's note and discussed the case with the resident. I agree with the resident's findings and plan as documented. SUBJECTIVE:66yo F with PMH rheumatic fever s/p mechanical AV and MV valves, afib on coumadin, hypothyroid presented to the ER with palpitations x2 days. assoc with generalized fatigue and chest discomfort during this time. states she is compliant with coumadin and LT4 but does not take her beta saúl becasue she did not want to. 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 states she suffered from URI like symptoms in november after traveling back from [facility] where she was for 2 months. did not take any abx and no sick contacts. states she had cardioversion January 2016 which was successful. denies CP, sob, fever, chilsl, cough, orthopena, N/V/C/D, dysuria. denies Tobacco, ETOH or illicit drug use dose also admit to 30 lb weight gain this year after injury to her ankle which made her less mobile. + dry scaly skin OBJECTIVE: Last Vital Signs Temp Pulse Resp BP Pulse Ox 97.5 F L 65 18 110/55 100 03/14/17 14:50 03/14/17 15:30 03/14/17 15:30 03/14/17 15:30 03/14/17 15:30 General NAD CV tachycardic irregular Lungs CTA B/L no wheezing/rales/rhonchi Abdomen SOft NT/ND obese Extremities no pedal edema ASSESSMENT AND PLAN: 66yo F with PMH rheumatic fever s/p mechanical AV and MV valves, afib on coumadin, hypothyroid presented to the ER with palpitations x2 days and found to be in afib with RVR 1. Afib with RVR- Tele admission. HR 140's after multiple cardizem IVP doses and started on cardizem ggt. trend cardiac enzymes. NPO for cardioversion today. INR therapeutic for goal 2.5-3.5. will resume coumadin. Cardio consulted. f/u recommends post procedure. CXR and UA negative. no signs suggestive of infection 2. Hypothyroid- TSH elevated. claims compliance and have some symptoms suggestive of hypothyroidism. check T3/T4. if low will increase synthroid dose. 3. Obesity- BMI 32. counseled on need for weight reduction and excercise. risks regarding weight discussed. verbalized agreement and wishes to adhere to heathy lifestyle. dietary teaching 4. DVT ppx- coumadin
[2017-03-15] MEDS ORDERED: LEVOTHYROXINE NA 150 MCG TABLET PO SCH ×3 (07:00)
[2017-03-15 07:05] LABS: BASO % 0.9 % (0-2.0); EOS % 2.7 % (0-4.5); MCH 27.1 pg (25.7-33.7); MCHC 31.4 g/dl (32.0-36.0); MEAN PLT VOLUME 9.7 fl (7.5-11.1); NEUT % 57.2 % (42.8-82.8); PLATELET COUNT 301 K/MM3 (134-434); RDW 16.1 % (11.6-15.6); WHITE BLOOD COUNT 5.5 K/mm3 (4.0-10.0)
[2017-03-15 07:22] LABS: PROTHROMBIN TIME (PATIENT) 48.8 SEC (9.98-11.88)
[2017-03-15 07:25] LABS: INR 4.32 (0.82-1.09)
[2017-03-15] MEDS: METOPROLOL SUCCINATE 25 MG TAB.SR.24H (FP) PO SCH (09:31)
[2017-03-15 11:04] LABS: ANION GAP 6 (8-16); CALCIUM 8.2 mg/dL (8.5-10.1); CO2 27 mmol/L (21-32); CREATININE 0.8 mg/dL (0.55-1.02); GLUCOSE,RANDOM 87 mg/dL (74-106)
[2017-03-15 11:06] LABS: FREE T4 1.03 ng/dl (0.76-1.46)
--- NOTE | 2017-03-15 12:28 | PN ---
Progress Note, Physician Chief Complaint: Not in distress History of Present Illness: Patient was seen and examined. Awake and alert. Chart was reviewed Denies chest pain, SOB or palpitations Remains in sinus rhythm - Current Medication List Current Medications: Active Medications Levothyroxine Sodium (Synthroid -) 150 mcg PO DAILY@0700 [facility] Last Admin: 03/15/17 06:01 Dose: 150 mcg Metoprolol Succinate (Toprol Xl -) 25 mg PO BID [facility] Last Admin: 03/15/17 09:31 Dose: 25 mg Metoprolol Tartrate (Lopressor Injection -) 5 mg IVPUSH Q4H PRN PRN Reason: TACHYCARDIA Warfarin Sodium (Coumadin -) 10 mg PO MoTuWeThFrSa@1800 [facility] Last Admin: 03/14/17 17:29 Dose: 10 mg - Objective Vital Signs: Vital Signs Temperature 98 F 03/15/17 05:00 Pulse Rate 77 03/15/17 05:00 Respiratory Rate 18 03/15/17 05:00 Blood Pressure 142/83 03/15/17 05:00 O2 Sat by Pulse Oximetry (%) 100 03/14/17 21:00 Constitutional: Yes: Well Nourished Eyes: Yes: PERRL HENT: Yes: Atraumatic Neck: Yes: Supple Cardiovascular: Yes: Regular Rate and Rhythm, S1, S2 Respiratory: Yes: Regular, CTA Bilaterally Gastrointestinal: Yes: Normal Bowel Sounds, Soft. No: Tenderness Edema: No Additional Findings/Remarks: Review of Systems Cardiovascular: As noted above Respiratory: denies: denies: Cough or Sputum Production Gastrointestinal: denies: Nausea, Vomiting, Diarrhea, Constipation or Abdominal Discomfort Musculoskeletal: No Symptoms Reported Endocrine: No Symptoms Reported Labs: CBC, BMP 03/15/17 05:05 03/15/17 10:30 INR, PTT INR 4.32 (0.82-1.09) H* 03/15/17 05:05 Problem List - Problems (1) Atrial fibrillation, rapid Code(s): I48.91 - UNSPECIFIED ATRIAL FIBRILLATION (2) Atrial flutter with rapid ventricular response Code(s): I48.92 - UNSPECIFIED ATRIAL FLUTTER (3) History of cardioversion Code(s): Z98.89 - OTHER SPECIFIED POSTPROCEDURAL STATES * DO NOT USE * (4) Hypothyroidism Code(s): E03.9 - HYPOTHYROIDISM, UNSPECIFIED Qualifiers: Hypothyroidism type: unspecified Qualified Code(s): E03.9 - Hypothyroidism , unspecified (5) Noncompliance with medication regimen Code(s): Z91.14 - PATIENT'S OTHER NONCOMPLIANCE WITH MEDICATION REGIMEN (6) Rheumatic heart disease Code(s): I09.9 - RHEUMATIC HEART DISEASE, UNSPECIFIED (7) S/P heart valve replacement with mechanical valve Code(s): Z95.2 - PRESENCE OF PROSTHETIC HEART VALVE Assessment/Plan 1. Paroxysmal atrial flutter with recurrence - in sinus rhythm post synchronized cardioversion 2. Rheumatic heart disease post mechanical AVR and MVR with therapeutic INR 3. Hypothyroidism 4. Medication noncompliance PLAN: 1. Continue Lopressor 50 bid 2. Coumadin per INR goal 3.0-3.5 3. Follow up with her dispatcher street department Dr. Maria Luisa Guthrie at [facility] and emphasized the importance of medication compliance. 4. Initiate USHA-I/ARB as per primary dispatcher street department Further plans are to follow Discharge planning Dani Gallegos MD
--- NOTE | 2017-03-15 13:54 | PN ---
Progress Note (short form) - Note Progress Note: c/o Current Medications Generic Name Dose Route Start Last Admin Trade Name Harpal PRN Reason Stop Dose Admin Levothyroxine Sodium 150 mcg 03/15/17 07:00 03/15/17 06:01 Synthroid - PO 150 mcg DAILY@0700 [facility] Administration Metoprolol Succinate 25 mg 03/14/17 11:30 03/15/17 09:31 Toprol Xl - PO 25 mg BID [facility] Administration Metoprolol Tartrate 5 mg 03/14/17 18:00 Lopressor Injection - IVPUSH Q4H PRN TACHYCARDIA Warfarin Sodium 10 mg 03/14/17 18:00 03/14/17 17:29 Coumadin - PO 10 mg MoTuWeThFrSa@1800 [facility] Administration Last Vital Signs Temp Pulse Resp BP Pulse Ox 98 F 77 18 142/83 100 03/15/17 05:00 03/15/17 05:00 03/15/17 05:00 03/15/17 05:00 03/14/17 21:00 General NAD CV tachycardic irregular Lungs CTA B/L no wheezing/rales/rhonchi Abdomen SOft NT/ND obese Extremities no pedal edema ASSESSMENT AND PLAN: 66yo F with PMH rheumatic fever s/p mechanical AV and MV valves, afib on coumadin, hypothyroid presented to the ER with palpitations x2 days and found to be in afib with RVR 1. Afib with RVR- Tele admission. HR 140's after multiple cardizem IVP doses and started on cardizem ggt. trend cardiac enzymes. NPO for cardioversion today. INR therapeutic for goal 2.5-3.5. will resume coumadin. Cardio consulted. f/u recommends post procedure. CXR and UA negative. no signs suggestive of infection 2. Hypothyroid- TSH elevated. claims compliance and have some symptoms suggestive of hypothyroidism. check T3/T4. if low will increase synthroid dose. 3. Obesity- BMI 32. counseled on need for weight reduction and excercise. risks regarding weight discussed. verbalized agreement and wishes to adhere to heathy lifestyle. dietary teaching 4. DVT ppx- coumadin
--- NOTE | 2017-03-15 14:16 | DS ---
Physical Exam: SUBJECTIVE: Patient seen and examined. asymptomatic. denies CP, SOB, fever, chills, palpitations, N/V/C/D OBJECTIVE: Vital Signs Period Temp Pulse Resp BP Sys/Gonzalez Pulse Ox Last 24 Hr 97.5 F-98.9 F 65-77 18-20 93-142/47-83 100-100 PHYSICAL EXAM GENERAL: The patient is awake, alert, and fully oriented, in no acute distress. HEAD: Normal with no signs of trauma. EYES: PERRL, extraocular movements intact, sclera anicteric, conjunctiva clear. ENT: Ears normal, nares patent, oropharynx clear without exudates, moist mucous membranes. NECK: Trachea midline, full range of motion, supple. LUNGS: Breath sounds equal, clear to auscultation bilaterally, no wheezes, no crackles, no accessory muscle use. HEART: Regular rate and rhythm, S1, S2 without murmur, rub or gallop. ABDOMEN: Soft, nontender, nondistended, normoactive bowel sounds, no guarding, no rebound, no hepatosplenomegaly, no masses. EXTREMITIES: 2+ pulses, warm, well-perfused, no edema. NEUROLOGICAL: Cranial nerves II through XII grossly intact. Normal speech, gait not observed. PSYCH: Normal mood, normal affect. SKIN: Warm, dry, normal turgor, no rashes or lesions noted. LABS Laboratory Results - last 24 hr 03/15/17 03/15/17 03/15/17 05:05 05:05 10:30 WBC 5.5 RBC 4.36 Hgb 11.8 D Hct 37.5 MCV 86.0 MCH 27.1 MCHC 31.4 L RDW 16.1 H Plt Count 301 MPV 9.7 Neutrophils % 57.2 Lymphocytes % 29.2 Monocytes % 10.0 Eosinophils % 2.7 Basophils % 0.9 PT with INR 48.80 H INR 4.32 H* Sodium 143 Potassium 4.7 Chloride 110 H Carbon Dioxide 27 Anion Gap 6 L BUN 18 Creatinine 0.8 Random Glucose 87 D Calcium 8.2 L Free T4 1.03 HOSPITAL COURSE: Date of Admission:03/14/17 Date of Discharge: 03/15/17 Admitting diagnosis: Afib with RVR Pre hospital course 66yo F with PMH rheumatic fever s/p mechanical AV and MV valves, afib on coumadin, hypothyroid presented to the ER with palpitations x2 days. assoc with generalized fatigue and chest discomfort during this time. states she is compliant with coumadin and LT4 but does not take her beta saúl becasue she did not want to. 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 states she suffered from URI like symptoms in november after traveling back from [facility] where she was for 2 months. did not take any abx and no sick contacts. states she had cardioversion January 2016 which was successful. denies CP, sob, fever, chilsl, cough, orthopena, N/V/C/D, dysuria. denies Tobacco, ETOH or illicit drug use dose also admit to 30 lb weight gain this year after injury to her ankle which made her less mobile. + dry scaly skin Subsequent hospital course Admitted to telemetry. was unable to control HR on Cardizem IVP or drip. went for cardioversion x 2nd cardioversion attempt at 150J. Currently in NSR. re- started on toprol. INR became elevated on day of discharge to 4.3. instructed to hold tonights coumadin and have INR repeated on Friday. TSH also elevated however T4 normal. continued home synthroid dose. d/c home Minutes to complete discharge: 40 Discharge Summary Reason For Visit: RAPID HEART BEAT Current Active Problems Atrial flutter with rapid ventricular response (Acute) Noncompliance with medication regimen (Acute) Condition: Improved - Instructions Diet, Activity, Other Instructions: You were admitted to the hospital due to your heart rate being very fast. You were cardioverted with good response and now in normal rhythm Your INR was high today. Hold tonights dose and have your level repeated on Friday It is important you take your medication as prescribed. refer to medication list for details Return to the ER if you develop chest pain, shortness of breath or palpitations Follow up for INR check on Friday. See your primary care doctor in 1 week. You should have your TSH repeated in 4 weeks. Your level here was elevated Referrals: Maria Luisa Guthrie [Non Staff, Medical] - Disposition: HOME - Home Medications Comprehensive Discharge Medication List: Ambulatory Orders Levothyroxine [Synthroid -] 150 mcg PO DAILY 06/05/15 Warfarin Sodium [Coumadin] 10 mg PO ASDIR 06/05/15 Metoprolol Succinate [Toprol XL -] 25 mg PO BID #60 tab.sr.24h 03/15/17 This patient is new to me today: No Emergency Visit: Yes ED Registration Date: 03/14/17 Care time: The patient presented to the Emergency Department on the above date and was hospitalized for further evaluation of their emergent condition. Critical Care patient: No - Discharge Referral Referred to [facility] No
[2017-03-15 15:44] VITALS: BP 111/62; PULSE 77; TEMP 98.2
--- NOTE | 2017-03-16 17:34 | EKG ---
Test Reason : Blood Pressure : / mmHG Vent. Rate : 148 BPM Atrial Rate : 296 BPM P-R Int : 000 ms QRS Dur : 096 ms QT Int : 290 ms P-R-T Axes : 000 020 159 degrees QTc Int : 455 ms POOR DATA QUALITY, INTERPRETATION MAY BE ADVERSELY AFFECTED ATRIAL FLUTTER WITH 2:1 A-V CONDUCTION NONSPECIFIC ST AND T WAVE ABNORMALITY ABNORMAL ECG WHEN COMPARED WITH ECG OF 30-DEC-2016 14:40, ATRIAL FLUTTER HAS REPLACED SINUS RHYTHM VENT. RATE HAS INCREASED BY [address] AND T WAVE ABNORMALITY are now present Confirmed by RASHEED VILLEGAS MD ([id number] on 03/16/2017 5:34:17 PM Referred By: MISSY Confirmed By:RASHEED VILLEGAS MD
--- NOTE | 2017-03-18 01:50 | EKG ---
Test Reason : Blood Pressure : / mmHG Vent. Rate : 066 BPM Atrial Rate : 066 BPM P-R Int : 140 ms QRS Dur : 092 ms QT Int : 456 ms P-R-T Axes : 095 034 109 degrees QTc Int : 478 ms SINUS RHYTHM WITH MARKED SINUS ARRHYTHMIA NONSPECIFIC ST AND T WAVE ABNORMALITY ABNORMAL ECG WHEN COMPARED WITH ECG OF 30-DEC-2016 14:40, NO SIGNIFICANT CHANGE WAS FOUND Confirmed by GENIE OBRIEN, ARTEM ([id number]) on 03/18/2017 1:50:13 AM Referred By: Confirmed By:ARTEM PRESCOTT MD
== END 2017-03-15 14:39 | disposition home or self-care (01) | DRG 310 ==
LOC: FER 03:07 → J4W 10:33
PROVIDERS: ADMIT Internal Medicine; ATTEND Internal Medicine
PROC: 5A2204Z Restoration of Cardiac Rhythm, Single (ICD-10-PCS; principal; 2017-03-14 13:30)
DX: I48.91 Unspecified atrial fibrillation (principal); I48.92 Unspecified atrial flutter; E03.9 Hypothyroidism, unspecified; I09.9 Rheumatic heart disease, unspecified; I10 Essential (primary) hypertension; E66.8 Other obesity; Z68.32 Body mass index [BMI] 32.0-32.9, adult; Z79.01 Long term (current) use of anticoagulants; Z91.14 Patient's other noncompliance with medication regimen; Z95.2 Presence of prosthetic heart valve
CPT/HCPCS: 36415; 71010-TC; 80048; 80053; 80061; 81003; 81015; 82550; 83036; 83721; 83735; 84100; 84439; 84443; 84481; 84484; 85025; 85610; 93005; 93010; 99285-25

== ENCOUNTER 2017-05-04 10:39 | Emergency (ER) | payer OTHER ==
[2017-05-04 10:46] VITALS: BMI 33.4
--- NOTE | 2017-05-04 11:34 | PDOC ---
History of Present Illness - General Chief Complaint: Cold Symptoms Stated Complaint: FEVER, COUGH Time Seen by Provider: 05/04/17 11:15 History Source: Patient Exam Limitations: No Limitations - History of Present Illness Initial Comments: 05/04/17 11:27 The patient is a 66F with a PMH of rheumatic heart disease (AVR/MVR mechanical [facility] 1999) and atrial fibrillation with RVR (on coumadin) who presents to the ER with 3 days of fevers and cough. The patient states that Friday during the day she worked out, showered, and went outside to wait for the bus. After waiting for a while, she felt extremely cold /2 weather. She then went home and continued to feel cold with a sore throat. She also had a nonproductive cough and fevers which peaked yesterday. She has been taking tylenol every 6 hours for her fever and aches and dayquil to feel better. She says she feels a little bit better today but is not 100% and is continuing to have fevers. She denies CP, SOB, nausea, vomiting, dysuria, abdominal pain, but admits to increased urinary frequency. Past History - Past Medical History Allergies/Adverse Reactions: Allergies Allergy/AdvReac Type Severity Reaction Status Date / Time No Known Allergies Allergy Verified 05/04/17 10:40 Home Medications: Ambulatory Orders Levothyroxine [Synthroid -] 150 mcg PO DAILY 06/05/15 Warfarin Sodium [Coumadin] 10 mg PO ASDIR 06/05/15 Metoprolol Succinate [Toprol XL -] 25 mg PO BID #60 tab.sr.24h 03/15/17 Oseltamivir Phosphate [Tamiflu -] 75 mg PO DAILY #10 capsule 05/04/17 Anemia: No Asthma: No Cancer: No Cardiac Disorders: Yes (RHEMATIC FEVER, MITRIAL AND AORTIC VALVE REPLACEMENT) CVA: No COPD: No CHF: No Dementia: No Diabetes: No GI Disorders: No HTN: No Hypercholesterolemia: No Liver Disease: No Seizures: No Thyroid Disease: Yes - Surgical History Abdominal Surgery: No Appendectomy: No Cardiac Surgery: Yes (AORTIC AND MITRIAL VALVE REPLACEMENT ARTIFICIAL) Cholecystectomy: No Lung Surgery: No Neurologic Surgery: No Orthopedic Surgery: No - Suicide/Smoking/Psychosocial Hx Smoking History: Never smoked Have you smoked in the past 12 months: No Hx Alcohol Use: No Drug/Substance Use Hx: No Substance Use Type: None Hx Substance Use Treatment: No Review of Systems - Review of Systems Able to Perform ROS?: Yes Comments:: 05/04/17 11:37 GENERAL/CONSTITUTIONAL: Positive for fevers. No chills. No weakness. HEAD, EYES, EARS, NOSE AND THROAT: No change in vision. No ear pain or discharge. No sore throat. CARDIOVASCULAR: No chest pain, palpitations, or lightheadedness. RESPIRATORY: Positive for nonproductive cough. No wheezing, shortness of breath , or hemoptysis. GASTROINTESTINAL: No nausea, vomiting, diarrhea, constipation, or abdominal pain. GENITOURINARY: Positive for increased frequency. No dysuria, hematuria, or change in urination. MUSCULOSKELETAL: No joint or muscle swelling or pain. No neck or back pain. SKIN: No rash or lesions. NEUROLOGIC: No headache, numbness, tingling, weakness, loss of consciousness, or change in strength/sensation. ENDOCRINE: No increased thirst. No abnormal weight change. HEMATOLOGIC/LYMPHATIC: No anemia, easy bleeding, or history of blood clots. ALLERGIC/IMMUNOLOGIC: No hives or skin allergy. Is the patient limited Amharic proficient: No *Physical Exam - Vital Signs Last Vital Signs Temp Pulse Resp BP Pulse Ox 101.8 F H 96 H 18 139/78 97 05/04/17 10:40 05/04/17 10:40 05/04/17 10:40 05/04/17 10:40 05/04/17 10:40 - Physical Exam Comments: 05/04/17 11:41 GENERAL: Well developed, well nourished. Awake and alert. No acute distress. HEENT: Normocephalic, atraumatic. Hearing grossly normal. Moist mucous membranes. PERRLA, EOMI. No conjunctival pallor. Sclera are non-icteric. Oropharynx is mildly erythematous. NECK: Supple. Full ROM. No JVD. No lymphadenopathy. CARDIOVASCULAR: Regular rate and rhythm, mechanical valves appreciated. No murmurs, rubs, or gallops. PULMONARY: No evidence of respiratory distress. Decreased lung sounds in LL lobe and SHEY lobe. No wheezing, rales or rhonchi. ABDOMINAL: Soft. Non-tender. Non-distended. No rebound or guarding. GENITOURINARY: No CVA tenderness bilaterally. MUSCULOSKELETAL: Normal range of motion at all joints. No bony deformities or tenderness. EXTREMITIES: No cyanosis. No clubbing. No edema. No calf tenderness. SKIN: Warm and dry. Normal capillary refill. No rashes. No jaundice. NEUROLOGICAL: Alert, awake, appropriate. Cranial nerves 2-12 intact. Normal speech. Gait is normal without ataxia. PSYCHIATRIC: Cooperative. Good eye contact. Appropriate mood and affect. ED Treatment Course - LABORATORY CBC & Chemistry Diagram: 05/04/17 11:31 05/04/17 11:31 - RADIOLOGY Radiology Studies Ordered: Category Date Time Status CHEST PA & LAT [RAD] Stat Radiology 05/04/17 11:26 Ordered Medical Decision Making - Medical Decision Making 05/04/17 11:42 The patient is a 66F with a PMH of valve replacement and a-fib on coumadin who presents with a fever and nonproductive cough x 3 days. She has been taking tylenol q 6 hours and her fever has not been broken. I am concerned for the flu , a pneumonia, or a URI. Pending labs and imaging. 05/04/17 12:31 Pt is Flu B positive. CXR negative. Will d/c with tamiflu and instructions on what to return for. 05/04/17 13:18 Due to the patient's recurrent fever and mechanical valve, I am concerned for endocarditis. Dr. Cleveland Mathias (pt's accounts payable supervisor) is technical assistance consultant. 05/04/17 13:30 [address] have spoken [address] Guthrie regarding our concern for endocarditis and she recommends sending blood cultures and calling the patient ([phone]) if the results are positive. I have ordered blood cx and will f/u with the patient if positive. Pt agrees and is ready for d/c. *DC/Admit/Observation/Transfer Diagnosis at time of Disposition: Influenza - Discharge Dispostion Disposition: HOME Condition at time of disposition: Stable Admit: No - Prescriptions Prescriptions: Oseltamivir Phosphate [Tamiflu -] 75 mg PO DAILY #10 capsule - Referrals - Patient Instructions Printed Discharge Instructions: Influenza Additional Instructions: Please return to the ER if symptoms persist, worsen, or new symptoms arise. Please follow up with your primary care physician in 2-3 days. Please return to the ER if you have any signs or symptoms of chest pain, shortness of breath, uncontrollable fever, chills, nausea, vomiting, numbness, tingling, or weakness in any part of your body, changes in vision, or slurred speech. - Post Discharge Activity
[2017-05-04] MEDS ORDERED: SODIUM CHLORIDE 0.9% 1000 ML INFUS.BAG IV ONE (11:35)
[2017-05-04 11:42] LABS: PH,URINE 5.5 (4.5-8); URINE BILIRUBIN Negative (NEGATIVE); URINE GLUCOSE (UA) Negative (NEGATIVE); URINE KETONE Negative (NEGATIVE); URINE NITRITE Negative (NEGATIVE); URINE UROBILINOGEN 0.2 (0.2-1.0)
[2017-05-04 11:45] LABS: URINE APPEARANCE HAZY; URINE BLOOD 3+ (NEGATIVE); URINE COLOR YELLOW; URINE LEUK ESTERASE 1+ (NEGATIVE); URINE PROTEIN 1+ (NEGATIVE)
[2017-05-04 11:51] LABS: AMORP URATES FEW /hpf (NONE SEEN); EPI CELLS MODERATE /HPF
[2017-05-04 11:52] LABS: URINE BACTERIA FEW /hpf (NEGATIVE)
[2017-05-04 12:35] LABS: BASO % 0.6 % (0-2.0); EOS % 1.4 % (0-4.5); HEMATOCRIT 39.7 % (32.4-45.2); HEMOGLOBIN 13.1 GM/dl (10.7-15.3); LYMPH % 13.1 % (8-40); MCH 28.4 pg (25.7-33.7); MEAN CELL VOLUME 86.2 fl (80-96); MEAN PLT VOLUME 10.2 fl (7.5-11.1); MONO % 14.4 % (3.8-10.2); NEUT % 70.5 % (42.8-82.8); PLATELET COUNT 252 K/MM3 (134-434); RBC 4.61 M/mm3 (3.60-5.2); RDW 15.4 % (11.6-15.6); WHITE BLOOD COUNT 4.4 K/mm3 (4.0-10.8)
[2017-05-04] MEDS ORDERED: OSELTAMIVIR PHOSPHATE 75 MG CAPSULE PO ONE (12:40)
[2017-05-04 12:44] LABS: PROTHROMBIN TIME (PATIENT) 48.8 SEC (10.2-13.0)
[2017-05-04 12:48] LABS: ALBUMIN 3.5 g/dl (3.5-5.0); ALK PHOS 71 U/L (32-92); ANION GAP 6 (8-16); BILIRUBIN,TOTAL 0.4 mg/dl (0.2-1.0); BLOOD UREA NITROGEN 11 mg/dl (7-18); CALCIUM 8.9 mg/dl (8.4-10.2); CHLORIDE 103 mmol/L (98-107); CO2 26 mmol/L (22-28); CREATININE 0.8 mg/dl (0.6-1.3); GLUCOSE,RANDOM 99 mg/dl (74-106); POTASSIUM 4.1 mmol/L (3.5-5.1); SGOT/AST 33 U/L (10-42); SGPT/ALT 25 U/L (10-40); SODIUM 135 mmol/L (136-145); TOT PROT 6.8 g/dl (6.4-8.3)
[2017-05-04 12:52] LABS: INR 4.49 (0.82-1.09)
[2017-05-04 13:04] VITALS: BP 109/45; PULSE 87; TEMP 100.1
[2017-05-04] MEDS ORDERED: OSELTAMIVIR PHOSPHATE 75 MG CAPSULE ONE (13:08)
== END 2017-05-04 14:03 | disposition home or self-care (01) ==
LOC: FER 10:39
PROC: 3E0337Z Introduction of Electrolytic and Water Balance Substance into Peripheral Vein, Percutaneous Approach (ICD-10-PCS; principal; 2017-05-04)
DX: J11.1 Influenza due to unidentified influenza virus with other respiratory manifestations (principal); I48.91 Unspecified atrial fibrillation; Z79.01 Long term (current) use of anticoagulants; I51.9 Heart disease, unspecified
CPT/HCPCS: 36415; 71046-TC-FY; 80053; 81003; 81015; 83605; 85025; 85610; 87040; 87804; 99283-25

== ENCOUNTER 2017-05-07 04:12 | Inpatient (IN) | payer OTHER ==
--- NOTE | 2017-05-07 04:40 | PDOC ---
History of Present Illness - General Chief Complaint: Irregular Heart Beat Stated Complaint: Palpitations Time Seen by Provider: 05/07/17 04:31 History Source: Patient Exam Limitations: No Limitations - History of Present Illness Initial Comments: 05/07/17 04:50 This is a 66-year-old female with history of hypertension, high cholesterol, atrial fibrillation that is intermittent and has required cardioversion 2 in the past. The most recent cardioversion was 2 months ago in February at [facility]. Patient was here a couple a days ago for a viral upper respiratory type illness and was started on Tamiflu patient said that she has had progressive palpitations over the last 2 days worse last night to the point she was unable to sleep secondary to the palpitations and feeling short of breath every time she laid down. Patient said she has some mild left-sided chest tightness but denies any nausea or diaphoresis. PAST MEDICAL HISTORY: As per history of present illness PAST SURGICAL HISTORY: no significant history FAMILY HISTORY: no pertinant history SOCIAL HISTORY: Pt lives with family and is retired MEDICATIONS: reviewed ALLERGIES: As per nursing notes Review of Systems General: No fevers or chills, no weakness, no weight loss HEENT: No change in vision. No sore throat,. No ear pain CardioVascular: + chest pain and shortness of breath Respiratory:+ cough, or wheezing. Gastrointestinal: no nausea, vomitting, diarrhea or constipation, No rectal bleeding Genitourinary: No dysuria, hematuria, or frequency Musculoskeletal: No joint or muscle pain or swelling Neurologic: No headache, vertigo, dizziness or loss of consciousness Psychiatric: nor depression Skin: No rashes or easy bruising Endocrine: no increased thirst or abnormal weight change Allergic: no skin or latex allergy All other systems reviewed and normal Exam: General: Well-nourished well-developed individual, no acute distress HEENT: Throat: Normal, tonsils normal, no erythema or exudate Neck: Supple, no meningeal signs, no lymphadenopathy Eyes::Pupils equal reactive and round, extraocular motion intact Chest: Nontender to palpation Cardiac: , irregularly irregular tachycardia, no murmurs rubs or gallops Respiratory: Lungs clear to auscultation bilateral Abdomen: Soft, nondistended, normal bowel sounds, nontender to palpation diffusely Extremities: Warm, dry, no cyanosis, clubbing, or edema Skin: No rashes Neuro: Alert and oriented x3, CN II - XII intact, nonfocal exam with normal strength, normal sensation, normal reflexes, normal gait, Psych: Normal mood and affect Medical decision making this is a 66-year-old female comes in complaining of palpitations. Patient has a history of rapid A. fib in the past 2 requiring cardioversion. Patient has some mild chest discomfort and shortness of breath otherwise her blood pressure is normal. Patient's heart rate is approximately 142 We'll obtain a workup including CBC, comp PT and cardiac enzymes Chest x-ray and EKG ordered We will give is to release by mouth Cardizem 120 mg We'll reassess and review the results of the workup 05/07/17 05:15 Chest x-ray shows some mild increase in pulmonary vasculature ?? Mild CHF EKG was done at 05/07/17 05:17 shows rapid atrial flutter with a 2-[address] conduction some mild ST depressions laterally most likely rate related 05/07/17 06:06 Reassessment: Patient remains unchanged but clinically stable. Heart rate still is rapid at approximately 150 patient is being given Cardizem at this time. 05/07/17 07:00 Patient remains clinically stable heart rate still approximately 150 Patient will be admitted to a observation telemetry bed may need cardioversion. Care of this patient was transferred to at 7am Case discussed in detail with oncoming Emergency Physician including history, physical exam and ancillary studies. Oncoming Emergency Physician has assumed care for the patient and will complete the evaluation and treatment. Patient is aware of the plan. Pt is clinically unchanged and stable. Past History - Past Medical History Allergies/Adverse Reactions: Allergies Allergy/AdvReac Type Severity Reaction Status Date / Time No Known Allergies Allergy Verified 05/07/17 04:16 Home Medications: Ambulatory Orders Levothyroxine [Synthroid -] 150 mcg PO DAILY 06/05/15 Warfarin Sodium [Coumadin] 10 mg PO ASDIR 06/05/15 Metoprolol Succinate [Toprol XL -] 25 mg PO BID #60 tab.sr.24h 03/15/17 Oseltamivir Phosphate [Tamiflu -] 75 mg PO DAILY #10 capsule 05/04/17 Anemia: No Asthma: No Cancer: No Cardiac Disorders: Yes (RHEMATIC FEVER, MITRIAL AND AORTIC VALVE REPLACEMENT) CVA: No COPD: No CHF: No Dementia: No Diabetes: No GI Disorders: No HTN: No Hypercholesterolemia: No Liver Disease: No Seizures: No Thyroid Disease: Yes - Surgical History Abdominal Surgery: No Appendectomy: No Cardiac Surgery: Yes (AORTIC AND MITRIAL VALVE REPLACEMENT ARTIFICIAL) Cholecystectomy: No Lung Surgery: No Neurologic Surgery: No Orthopedic Surgery: No - Suicide/Smoking/Psychosocial Hx Smoking History: Never smoked Have you smoked in the past 12 months: No Hx Alcohol Use: No Drug/Substance Use Hx: No Substance Use Type: None Hx Substance Use Treatment: No Cardiac Specific PMH - Complaint Specific PMHX Pacemaker: No *Physical Exam - Vital Signs Last Vital Signs Temp Pulse Resp BP Pulse Ox 98.7 F 154 H 22 117/75 98 05/07/17 04:19 05/07/17 06:05 05/07/17 06:05 05/07/17 06:05 05/07/17 06:05 ED Treatment Course - LABORATORY CBC & Chemistry Diagram: 05/07/17 05:26 05/07/17 05:26 - ADDITIONAL ORDERS Additional order review: Laboratory Results 05/07/17 05:26 Creatine Kinase 282 H Troponin I 0.04 - RADIOLOGY Radiology Studies Ordered: Category Date Time Status CHEST X-RAY PORTABLE* [RAD] Stat Radiology 05/07/17 04:41 Taken - Medications Given in the ED: ED Medications Discontinued Medications Generic Name Dose Route Start Last Admin Trade Name Freq PRN Reason Stop Dose Admin Diltiazem HCl 120 mg 05/07/17 05:31 05/07/17 06:04 Cardizem - PO 05/07/17 05:32 120 mg ONCE ONE Administration *DC/Admit/Observation/Transfer Diagnosis at time of Disposition: Atrial flutter with rapid ventricular response - Referrals Referrals: Grayson Perdue MD [Primary Care Provider] - - Patient Instructions - Post Discharge Activity
[2017-05-07] MEDS ORDERED: dilTIAZem HCL 60 MG TABLET (FP) PO ONE (05:31)
[2017-05-07 06:00] LABS: BASO % 0.5 % (0-2.0); EOS % 1.5 % (0-4.5); MCH 27.2 pg (25.7-33.7); MCHC 31.8 g/dl (32.0-36.0); MEAN CELL VOLUME 85.5 fl (80-96); MEAN PLT VOLUME 10.5 fl (7.5-11.1); MONO % 11.8 % (3.8-10.2); NEUT % 59.2 % (42.8-82.8); PLATELET COUNT 302 K/MM3 (134-434); RBC 4.79 M/mm3 (3.60-5.2); RDW 16.6 % (11.6-15.6); WHITE BLOOD COUNT 5.1 K/mm3 (4.0-10.0)
[2017-05-07 06:44] LABS: ALBUMIN 3.5 g/dl (3.4-5.0); ANION GAP 6 (8-16); BLOOD UREA NITROGEN 24 mg/dL (7-18); CALCIUM 8.4 mg/dL (8.5-10.1); CHLORIDE 109 mmol/L (98-107); CO2 29 mmol/L (21-32); GLUCOSE,RANDOM 102 mg/dL (74-106); POTASSIUM 4.3 mmol/L (3.5-5.1); SODIUM 144 mmol/L (136-145)
[2017-05-07 06:47] LABS: ALK PHOS 80 U/L (45-117); BILIRUBIN,TOTAL 0.7 mg/dL (0.2-1.0); CREATININE 0.8 mg/dL (0.55-1.02); SGOT/AST 38 U/L (15-37); SGPT/ALT 37 U/L (12-78); TOT PROT 6.9 g/dl (6.4-8.2)
[2017-05-07] MEDS ORDERED: METOPROLOL TARTRATE 50 MG TABLET (FP) PO STA (07:16)
[2017-05-07] MEDS ORDERED: SODIUM CHLORIDE 1,000 ML IV ONE (07:35)
--- NOTE | 2017-05-07 08:00 | PDOC ---
*Physical Exam - Vital Signs Last Vital Signs Temp Pulse Resp BP Pulse Ox 98.7 F 153 H 18 94/56 97 05/07/17 04:19 05/07/17 07:29 05/07/17 07:29 05/07/17 07:29 05/07/17 07:29 - Physical Exam General Appearance: Yes: Nourished, Moderate Distress, Obese HEENT: positive: WILMER Neck: positive: Supple Respiratory/Chest: positive: Normal Breath Sounds (except for few ronchi at the left base) Cardiovascular: positive: Tachycardia Musculoskeletal: positive: Normal Inspection Extremity: positive: Normal Capillary Refill, Normal Inspection, Normal Range of Motion Integumentary: positive: Normal Color, Dry, Warm Neurologic: positive: Fully Oriented, Alert, Normal Mood/Affect Heart Score/ECG Review - ECG Impressions Comment:: Atrial flutter with 2:1 conduction rate 155-160 05/08/17 17:37 ED Treatment Course - LABORATORY CBC & Chemistry Diagram: 05/07/17 05:26 05/07/17 05:26 - ADDITIONAL ORDERS Additional order review: Laboratory Results 05/07/17 05/07/17 05:26 05:26 Sodium 144 Potassium 4.3 Chloride 109 H Carbon Dioxide 29 Anion Gap 6 L BUN 24 H Creatinine 0.8 Creat Clearance w eGFR > 60 Random Glucose 102 Calcium 8.4 L Total Bilirubin 0.7 D AST 38 H ALT 37 Alkaline Phosphatase 80 Creatine Kinase 282 H Creatine Kinase Index 0.6 CK-MB (CK-2) 1.724 Troponin I 0.04 Total Protein 6.9 Albumin 3.5 05/07/17 05:26 RBC 4.79 MCV 85.5 MCHC 31.8 L RDW 16.6 H MPV 10.5 Neutrophils % 59.2 Lymphocytes % 27.0 Monocytes % 11.8 H Eosinophils % 1.5 Basophils % 0.5 - Medications Given in the ED: ED Medications Discontinued Medications Generic Name Dose Route Start Last Admin Trade Name Freq PRN Reason Stop Dose Admin Diltiazem HCl 120 mg 05/07/17 05:31 05/07/17 06:04 Cardizem - PO 05/07/17 05:32 120 mg ONCE ONE Administration Medical Decision Making - Critical Care Time Total Critical Care Time (minutes): 30 Critical Care Statement: The care of this patient involved high complexity decision making to prevent further life threatening deterioration of the patient 's condition and/or to evaluate & treat vital organ system(s) failure or risk of failure. - Medical Decision Making Patient seen by me at shift change in am from my colleague Dr Dickens. rate maintained in the high range despite po medication given earlier. Hypotensive .Fluid challenge iv given without any improvement in BP or heart rate. Called cardiology Consult, Given iv push diltiazem, then iv drip which was able to control the rate and to improve perfusion Patient decided to be admitted on a telemetry bed at [facility] Awaiting bed availability 05/08/17 17:40 05/08/17 17:42 *DC/Admit/Observation/Transfer Diagnosis at time of Disposition: Atrial flutter with rapid ventricular response - Discharge Dispostion Condition at time of disposition: Guarded Admit: Yes - Referrals - Patient Instructions - Post Discharge Activity
[2017-05-07 08:26] LABS: PROTHROMBIN TIME (PATIENT) 48.8 SEC (9.98-11.88)
[2017-05-07 08:30] LABS: INR 4.32 (0.82-1.09)
[2017-05-07] MEDS ORDERED: dilTIAZem HCL 50 MG/10 ML - 10 ML VIAL ONE (08:36)
[2017-05-07] MEDS: dilTIAZem HCL 50 MG/10 ML - 10 ML VIAL IVPUSH ONE ×2 (08:52→12:18)
[2017-05-07] MEDS ORDERED: dilTIAZem HCL 50 MG/10 ML - 10 ML VIAL IVPUSH ONE ×2 (09:29→09:32)
--- NOTE | 2017-05-07 10:00 | CON.CARD ---
Consult Consult Specialty:: Cardiology Referred by:: ER Reason for Consultation:: Palpitations, rapid aflutter - History of Present Illness Chief Complaint: Palpitations History of Present Illness: 66 y/o female with a past medical history of rheumatic fever (childhood), replacement of aortic and mitral valves in 1999 ([place]) with mechanical valves, paroxysmal atrial fibrillation/flutter post DCCV presented with palpitations, found to be in rapid atrial flutter 140s with supratherapeutic INR , given IV Cardizem for rate-control. She denies associated sxs of dyspnea, chest tightness, near or true syncope, orthopnea, PND, LE edema, change in exercise capacity, admits to noncompliance with metoprolol. - History Source History Provided By: Patient Limitations to Obtaining History: No Limitations - Past Medical History Cardio/Vascular: Yes: AFIB - Past Surgical History Past Surgical History: Yes: Valve Replacement - Alcohol/Substance Use Hx Alcohol Use: No - Smoking History Smoking history: Never smoked Have you smoked in the past 12 months: No Home Medications - Allergies Allergies/Adverse Reactions: Allergies Allergy/AdvReac Type Severity Reaction Status Date / Time No Known Allergies Allergy Verified 05/07/17 04:16 - Home Medications Home Medications: Ambulatory Orders Levothyroxine [Synthroid -] 150 mcg PO DAILY 06/05/15 Warfarin Sodium [Coumadin] 10 mg PO ASDIR 06/05/15 Metoprolol Succinate [Toprol XL -] 25 mg PO BID #60 tab.sr.24h 03/15/17 Oseltamivir Phosphate [Tamiflu -] 75 mg PO DAILY #10 capsule 05/04/17 Review of Systems - Review of Systems Cardiovascular: reports: Palpitations Vital Signs: Vital Signs Temperature 98.7 F 05/07/17 04:19 Pulse Rate 155 H 05/07/17 09:43 Respiratory Rate 18 05/07/17 09:43 Blood Pressure 96/59 05/07/17 09:43 O2 Sat by Pulse Oximetry (%) 100 05/07/17 08:53 Constitutional: Yes: No Distress, Calm Respiratory: Yes: Regular, Diminished Gastrointestinal: Yes: Normal Bowel Sounds, Soft Cardiovascular: Yes: Tachycardia, Pulse Irregular JVD: No Carotid Bruit: No Heart Sounds: Yes: S1, S2 ([place] mechanical valve sounds) Murmur: Yes: Systolic Murmur, Grade 1 Edema: No - Other Data Labs, Other Data: CBC, BMP 05/07/17 05:26 05/07/17 05:26 INR, PTT INR 4.32 (0.82-1.09) H* 05/07/17 05:26 Troponin, BNP 05/07/17 05/07/17 05:26 08:33 Troponin I 0.04 0.03 Troponin, BNP 05/07/17 05/07/17 05:26 08:33 Troponin I 0.04 0.03 Aflutter @ 153 Ejection Fraction %: LVEF > or = 40 % Imaging - Results Chest X-ray: Pending Problem List - Problems (1) Atrial flutter with rapid ventricular response Code(s): I48.92 - UNSPECIFIED ATRIAL FLUTTER (2) History of cardioversion Code(s): Z98.89 - OTHER SPECIFIED POSTPROCEDURAL STATES * DO NOT USE * (3) Hypothyroidism Code(s): E03.9 - HYPOTHYROIDISM, UNSPECIFIED Qualifiers: Hypothyroidism type: unspecified Qualified Code(s): E03.9 - Hypothyroidism , unspecified (4) Influenza Code(s): J11.1 - FLU DUE TO UNIDENTIFIED INFLUENZA VIRUS W OTH RESP MANIFEST (5) Noncompliance with medication regimen Code(s): Z91.14 - PATIENT'S OTHER NONCOMPLIANCE WITH MEDICATION REGIMEN (6) Palpitations Code(s): R00.2 - PALPITATIONS (7) Rheumatic heart disease Code(s): I09.9 - RHEUMATIC HEART DISEASE, UNSPECIFIED (8) S/P heart valve replacement with mechanical valve Code(s): Z95.2 - PRESENCE OF PROSTHETIC HEART VALVE (9) Supratherapeutic INR Code(s): R79.1 - ABNORMAL COAGULATION PROFILE Assessment/Plan 05/23/2015 TTE: Normal LV and RV size and fxn with cLVH, LAE, normal mech mitral and aortic ([facility]), mild TR, tr AR, RVSP 24 mmHg 02/27/2016 Echo: Normal LV size with mild decrease LV fxn, mild LAE mech MVR, mod TR, RVSP 40-50 mmHg, mech AV, mild AR, CO 1. Paroxysmal atrial flutter with recurrence and RVR 2. Rheumatic heart disease post mechanical AVR and MVR with supratherapeutic INR 3. Hypothyroidism 4. Medication noncompliance 5. Recent flu PLAN: 1. Continue Lopressor 25 bid, check TSH 2. Hold coumadin per INR goal 3.0-3.5 3. Follow up with her roadway technician Dr. Maria Luisa Guthrie at [facility] and emphasized the importance of medication compliance. 4. Initiate USHA-I/ARB as per primary roadway technician 5. Thank you for consulltatuive opportunity
[2017-05-07] MEDS ORDERED: METOPROLOL TARTRATE 50 MG TABLET (FP) ONE (10:20)
[2017-05-07] MEDS: METOPROLOL TARTRATE 25 MG TABLET (FP) PO SCH ×2 (10:24→21:43)
[2017-05-07] MEDS ORDERED: METOPROLOL TARTRATE 5 MG/5 ML VIAL IVPUSH ONE (11:33)
[2017-05-07] MEDS ORDERED: IPRATROPIUM BR 0.02% 0.5 MG/2.5 ML VIAL.NEB. NEB ONE (11:52)
[2017-05-07] MEDS ORDERED: SODIUM CHLORIDE 1,000 ML IV STA (12:00)
--- NOTE | 2017-05-07 15:49 | HP ---
CHIEF COMPLAINT: Palpitations, SOB PCP: HISTORY OF PRESENT ILLNESS: 66 year-old female with a PMH significant for HTN, HLD, rheumatic heart disease s/p mechanical atrial and mitral valves, afib/aflutter with RVR on coumadin, and hypothyroidism. Patient has undergone cardioversion x 2, most recently 2106. Patient has a history of noncompliance with meds. Patient presented to the ED on 05/04/17 with fever and cough. She was febrile to 101.8 and was found to be positive for Influenza B. She was discharged on Tamiflu. Blood cultures were drawn, no growth to date. An ECG was not done during that visit. Patient presented to the [place] ED today for evaluation of left-sided chest tightness, palpitations, and shortness of breath when lying down x 2 days. ECG showed rapid aflutter @ 150bpm with 2-1 AV conduction. Patient was afebrile. Repeat flu swab was negative. ER course was notable for: (1) ECG: rapid aflutter @ 150bpm with 2-1 AV conduction (2) CXR: mild cephalization (3) Diltazem 120 PO x 1; diltiazem 10mg IV x 2; metoprolol 5mg IVP x 1 Recent Travel: No PAST MEDICAL HISTORY: Hypertension Hyperlipidemia Rheumatic heart disease Hypothyroidism Afib/aflutter with RVR s/p cardioversion x 2 Influenza B (05/04/17) PAST SURGICAL HISTORY: Mechanical atrial and mitral valves ([facility] 1999) Social History: Smoking: Alcohol: Drugs: Family History: Allergies No Known Allergies Allergy (Verified 05/07/17 04:16) HOME MEDICATIONS: Home Medications Medication Instructions Recorded Levothyroxine [Synthroid -] 150 mcg PO DAILY 06/05/15 Warfarin Sodium [Coumadin] 10 mg PO ASDIR 06/05/15 Metoprolol Succinate [Toprol XL -] 25 mg PO BID #60 tab.sr.24h 03/15/17 Oseltamivir Phosphate [Tamiflu -] 75 mg PO DAILY #10 capsule 05/04/17 REVIEW OF SYSTEMS CONSTITUTIONAL: Absent: fever, chills, diaphoresis, generalized weakness, malaise, loss of appetite, weight change HEENT: Absent: rhinorrhea, nasal congestion, throat pain, throat swelling, difficulty swallowing, mouth swelling, ear pain, eye pain, visual changes CARDIOVASCULAR: +chest tightness, SOB, palpitations Absent: syncope, irregular heart rate, lightheadedness, peripheral edema RESPIRATORY: Absent: cough, shortness of breath, dyspnea with exertion, orthopnea, wheezing, stridor, hemoptysis GASTROINTESTINAL: Absent: abdominal pain, abdominal distension, nausea, vomiting, diarrhea, constipation, melena, hematochezia GENITOURINARY: Absent: dysuria, frequency, urgency, hesitancy, hematuria, flank pain, genital pain MUSCULOSKELETAL: Absent: myalgia, arthralgia, joint swelling, back pain, neck pain SKIN: Absent: rash, itching, pallor HEMATOLOGIC/IMMUNOLOGIC: Absent: easy bleeding, easy bruising, lymphadenopathy, frequent infections ENDOCRINE: Absent: unexplained weight gain, unexplained weight loss, heat intolerance, cold intolerance NEUROLOGIC: Absent: headache, focal weakness or paresthesias, dizziness, unsteady gait, seizure, mental status changes, bladder or bowel incontinence PSYCHIATRIC: Absent: anxiety, depression, suicidal or homicidal ideation, hallucinations. PHYSICAL EXAMINATION Vital Signs Temperature 98.7 F 05/07/17 11:50 Pulse Rate 128 H 05/07/17 15:30 Respiratory Rate 18 05/07/17 15:30 Blood Pressure 93/55 05/07/17 15:30 O2 Sat by Pulse Oximetry (%) 98 05/07/17 15:30 GENERAL: Awake, alert, and fully oriented, in no acute distress. HEAD: Normal with no signs of trauma. EYES: Pupils equal, round and reactive to light, extraocular movements intact, sclera anicteric, conjunctiva clear. No lid lag. EARS, NOSE, THROAT: Ears normal, nares patent, oropharynx clear without exudates. Moist mucous membranes. NECK: Normal range of motion, supple without lymphadenopathy, JVD, or masses. LUNGS: Breath sounds equal, clear to auscultation bilaterally. No wheezes, and no crackles. No accessory muscle use. HEART: Irregular, tachycardic, S1, S2 ABDOMEN: Soft, nontender, not distended, normoactive bowel sounds, no guarding, no rebound, no masses. MUSCULOSKELETAL: Normal range of motion at all joints. No bony deformities or tenderness. No CVA tenderness. UPPER EXTREMITIES: 2+ pulses, warm, well-perfused. No cyanosis. No clubbing. No peripheral edema. LOWER EXTREMITIES: 2+ pulses, warm, well-perfused. No calf tenderness. No peripheral edema. NEUROLOGICAL: Cranial nerves II-XII intact. Normal speech. Laboratory Results - last 24 hr 05/07/17 05/07/17 05/07/17 05:26 05:26 05:26 WBC 5.1 RBC 4.79 Hgb 13.0 D Hct 41.0 MCV 85.5 MCH 27.2 MCHC 31.8 L RDW 16.6 H Plt Count 302 MPV 10.5 Neutrophils % 59.2 Lymphocytes % 27.0 Monocytes % 11.8 H Eosinophils % 1.5 Basophils % 0.5 PT with INR 48.80 H INR 4.32 H* Sodium 144 Potassium 4.3 Chloride 109 H Carbon Dioxide 29 Anion Gap 6 L BUN 24 H Creatinine 0.8 Creat Clearance w eGFR > 60 Random Glucose 102 Calcium 8.4 L Total Bilirubin 0.7 D AST 38 H ALT 37 Alkaline Phosphatase 80 Creatine Kinase Creatine Kinase Index CK-MB (CK-2) Troponin I Total Protein 6.9 Albumin 3.5 TSH 05/07/17 05/07/17 05/07/17 05:26 08:33 08:33 WBC RBC Hgb Hct MCV MCH MCHC RDW Plt Count MPV Neutrophils % Lymphocytes % Monocytes % Eosinophils % Basophils % PT with INR INR Sodium Potassium Chloride Carbon Dioxide Anion Gap BUN Creatinine Creat Clearance w eGFR Random Glucose Calcium Total Bilirubin AST ALT Alkaline Phosphatase Creatine Kinase 282 H Creatine Kinase Index 0.6 CK-MB (CK-2) 1.724 Troponin I 0.04 0.03 Total Protein Albumin TSH 2.49 05/07/17 08:33 WBC RBC Hgb Hct MCV MCH MCHC RDW Plt Count MPV Neutrophils % Lymphocytes % Monocytes % Eosinophils % Basophils % PT with INR INR Sodium Potassium Chloride Carbon Dioxide Anion Gap BUN Creatinine Creat Clearance w eGFR Random Glucose Calcium Total Bilirubin AST ALT Alkaline Phosphatase Creatine Kinase 238 H Creatine Kinase Index 0.8 CK-MB (CK-2) 2.0 Troponin I Total Protein Albumin TSH Imaging 05/23/2015 TTE: Normal LV and RV size and fxn with cLVH, LAE, normal mech mitral and aortic ([facility]), mild TR, tr AR, RVSP 24 mmHg 02/27/2016 Echo: Normal LV size with mild decrease LV fxn, mild LAE, mech MVR, mod TR, RVSP 40-50 mmHg, mech AV, mild AR, ID ASSESSMENT/PLAN 66 year-old female with a PMH significant for HTN, HLD, rheumatic fever s/p mechanical atrial and mitral valves, afib/aflutter with RVR on coumadin, and hypothyroidism. Admitted for paroxysmal afib/aflutter with RVR. Also diagnosed on 05/04 with influenza B. 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 Maria Luisa Guthrie at [facility] Rheumatic heart disease s/p mechanical AVR and MVR --INR goal 3-3.5 Hypothyroidism --check TSH Influenza B --flu swab positive 05/04 --resume Tamiflu; will need to clarify with patient how many doses she has actually taken Hypertension --continue metoprolol Hyperlipidemia --not on statin FEN Fluids: PO intake adequate Electrolytes: replete as indicated Nutrition: low sodium DVT prophylaxis: on coumadin, INR supratherapeutic, hold dose tonight Dispo: continues to require inpatient care. Full code. Visit type - Emergency Visit Emergency Visit: Yes ED Registration Date: 05/07/17 Care time: The patient presented to the Emergency Department on the above date and was hospitalized for further evaluation of their emergent condition. - New Patient This patient is new to me today: Yes Date on this admission: 05/07/17 - Critical Care Critical Care patient: No
--- NOTE | 2017-05-07 16:53 | EKG ---
Test Reason : Blood Pressure : / mmHG Vent. Rate : 154 BPM Atrial Rate : 308 BPM P-R Int : 000 ms QRS Dur : 096 ms QT Int : 312 ms P-R-T Axes : 000 015 141 degrees QTc Int : 499 ms POOR DATA QUALITY, INTERPRETATION MAY BE ADVERSELY AFFECTED ATRIAL FLUTTER WITH 2:1 A-V CONDUCTION vs SVT WHEN COMPARED WITH ECG OF 14-MAR-2017 14:50, ATRIAL FLUTTER HAS REPLACED SINUS RHYTHM VENT. RATE HAS INCREASED BY [address] NOW DEPRESSED IN ANTERIOR LEADS T WAVE INVERSION NOW EVIDENT IN INFERIOR LEADS T WAVE INVERSION MORE EVIDENT IN LATERAL LEADS Confirmed by MD AMENA, RYNE ([id number]) on 05/07/2017 4:53:18 PM Referred By: MD YANCEY Confirmed By:RYNE BECKWITH MD
[2017-05-07 17:12] VITALS: BMI 33.4
[2017-05-07] MEDS ORDERED: DILTIAZEM INJECTION 125 MG in DEXTROSE 5%-WATER - 100 ML IVPB SCH ×2 (17:45→17:47)
[2017-05-07] MEDS: dilTIAZem HCL 50 MG/10 ML - 10 ML VIAL IVPUSH PRN (18:35)
[2017-05-08] MEDS: dilTIAZem HCL 50 MG/10 ML - 10 ML VIAL IVPUSH PRN (02:21)
--- NOTE | 2017-05-08 02:30 | HOSP ---
Subjective - Review of Symptoms Events since last encounter: Hospitalist Encounter Notified by RN that the patient reports feeling lightheaded and weak A 66 year-old female with a PMH significant for HTN, HLD, rheumatic fever s/p mechanical atrial and mitral valves, afib/aflutter with RVR on coumadin, and hypothyroidism. Admitted for paroxysmal afib/aflutter with RVR. Also diagnosed on 05/04 with influenza B. No focal deficits NIHSS 0 P- 142, R 18, BP 110/66 Pt denies CP, SOB P Cardizem IVP, per cardiology recommendation Pending Cardioversion today Will continue to monitor Cardiovascular: Yes: Palpitations, Light Headedness Neurological: Yes: Weakness Physical Examination Vital Signs: Vital Signs Temperature 98.2 F 05/07/17 20:05 Pulse Rate 142 H 05/08/17 02:26 Respiratory Rate 20 05/08/17 02:26 Blood Pressure 110/66 05/08/17 02:26 O2 Sat by Pulse Oximetry (%) 95 05/07/17 22:00 Constitutional: Yes: Well Nourished, Mild Distress, Obese Eyes: Yes: WNL, Conjunctiva Clear, PERRL HENT: Yes: WNL, Atraumatic, Normocephalic Neck: Yes: WNL, Supple, Trachea Midline Cardiovascular: Yes: Tachycardia, Pulse Irregular, S1, S2 Respiratory: Yes: CTA Bilaterally Gastrointestinal: Yes: Soft, Abdomen, Obese Edema: No Peripheral Pulses WNL: Yes Neurological: Yes: WNL, Alert, Oriented ...Motor Strength: WNL, LUE (5/5), LLE (5/5), RUE (5/5), RLE (5/5) Psychiatric: Yes: WNL, Alert, Oriented Labs: CBC, BMP 05/07/17 05:26 05/07/17 05:26 Laboratory Results - last 24 hr 05/07/17 05/07/17 05/07/17 05:26 05:26 05:26 WBC 5.1 RBC 4.79 Hgb 13.0 D Hct 41.0 MCV 85.5 MCH 27.2 MCHC 31.8 L RDW 16.6 H Plt Count 302 MPV 10.5 Neutrophils % 59.2 Lymphocytes % 27.0 Monocytes % 11.8 H Eosinophils % 1.5 Basophils % 0.5 PT with INR 48.80 H INR 4.32 H* Sodium 144 Potassium 4.3 Chloride 109 H Carbon Dioxide 29 Anion Gap 6 L BUN 24 H Creatinine 0.8 Creat Clearance w eGFR > 60 Random Glucose 102 Calcium 8.4 L Total Bilirubin 0.7 D AST 38 H ALT 37 Alkaline Phosphatase 80 Creatine Kinase Creatine Kinase Index CK-MB (CK-2) Troponin I Total Protein 6.9 Albumin 3.5 TSH 05/07/17 05/07/17 05/07/17 05:26 08:33 08:33 WBC RBC Hgb Hct MCV MCH MCHC RDW Plt Count MPV Neutrophils % Lymphocytes % Monocytes % Eosinophils % Basophils % PT with INR INR Sodium Potassium Chloride Carbon Dioxide Anion Gap BUN Creatinine Creat Clearance w eGFR Random Glucose Calcium Total Bilirubin AST ALT Alkaline Phosphatase Creatine Kinase 282 H Creatine Kinase Index 0.6 CK-MB (CK-2) 1.724 Troponin I 0.04 0.03 Total Protein Albumin TSH 2.49 05/07/17 08:33 WBC RBC Hgb Hct MCV MCH MCHC RDW Plt Count MPV Neutrophils % Lymphocytes % Monocytes % Eosinophils % Basophils % PT with INR INR Sodium Potassium Chloride Carbon Dioxide Anion Gap BUN Creatinine Creat Clearance w eGFR Random Glucose Calcium Total Bilirubin AST ALT Alkaline Phosphatase Creatine Kinase 238 H Creatine Kinase Index 0.8 CK-MB (CK-2) 2.0 Troponin I Total Protein Albumin TSH Current Medications Generic Name Dose Route Start Last Admin Trade Name Freq PRN Reason Stop Dose Admin Diltiazem HCl 10 mg 05/07/17 10:14 05/08/17 02:21 Cardizem Injection - IVPUSH 10 mg Q4H PRN Administration TACHYCARDIA Diltiazem HCl 125 mg/ Dextrose 125 mls @ 5 mls/hr 05/07/17 17:47 05/07/17 23: 23 IVPB 15 mg/hr TITR JOSH 15 mls/hr Protocol Titration 5 MG/HR Levothyroxine Sodium 150 mcg 05/08/17 07:00 Synthroid - PO DAILY@0700 [facility] Metoprolol Tartrate 25 mg 05/07/17 10:15 05/07/17 21:43 Lopressor - PO 25 mg BID JOSH Administration Oseltamivir Phosphate 75 mg 05/08/17 10:00 Tamiflu - PO 05/13/17 09:59 DAILY [facility] Critical Care Total Critical Care Time (in minutes): 35 Critical Care Statement: The care of this patient involved high complexity decision making to prevent further life threatening deterioration of the patient 's condition and/or to evaluate & treat vital organ system(s) failure or risk of failure.
[2017-05-08] MEDS: LEVOTHYROXINE NA 150 MCG TABLET PO SCH (06:31)
[2017-05-08] MEDS ORDERED: OSELTAMIVIR PHOSPHATE 75 MG CAPSULE PO SCH (10:00)
[2017-05-08] MEDS ORDERED: PROPOFOL 20 ML ONE ×2 (10:12)
--- NOTE | 2017-05-08 11:48 | PN ---
Progress Note, Physician Chief Complaint: Events noted Atrial flutter with rapid ventricular response for synchronized cardioversion History of Present Illness: Patient was seen and examined. Awake and alert. Chart was reviewed Denies chest pain or SOB Rapid ventricular response - Current Medication List Current Medications: Active Medications Diltiazem HCl (Cardizem Injection -) 10 mg IVPUSH Q4H PRN PRN Reason: TACHYCARDIA Last Admin: 05/08/17 02:21 Dose: 10 mg Diltiazem HCl 125 mg/ Dextrose 125 mls @ 5 mls/hr IVPB TITR JOSH; 5 MG/HR PRN Reason: Protocol Last Titration: 05/07/17 23:23 Dose: 15 mg/hr, 15 mls/hr Levothyroxine Sodium (Synthroid -) 150 mcg PO DAILY@0700 [facility] Last Admin: 05/08/17 06:31 Dose: 150 mcg Metoprolol Tartrate (Lopressor -) 25 mg PO BID [facility] Last Admin: 05/07/17 21:43 Dose: 25 mg Oseltamivir Phosphate (Tamiflu -) 75 mg PO DAILY [facility] Stop: 05/13/17 09:59 - Objective Vital Signs: Vital Signs Temperature 98.5 F 05/08/17 10:00 Pulse Rate 70 05/08/17 11:00 Respiratory Rate 18 05/08/17 11:00 Blood Pressure 108/75 05/08/17 11:00 O2 Sat by Pulse Oximetry (%) 100 05/08/17 11:00 Constitutional: Yes: Well Nourished Eyes: Yes: PERRL HENT: Yes: Atraumatic Neck: Yes: Supple Cardiovascular: Yes: Regular Rate and Rhythm, Tachycardia, S1, S2 Respiratory: Yes: CTA Bilaterally Gastrointestinal: Yes: Normal Bowel Sounds, Soft. No: Tenderness Edema: No Additional Findings/Remarks: - Review of Systems Constitutional: denies: Chills, Fever Cardiovascular: denies: Shortness of Breath. denies: Chest Pain, Palpitations Respiratory: Denies: SOB, SOB on Exertion. denies: Cough, denies: Hemoptysis, PND Gastrointestinal: denies: Vomiting. denies: Abdominal Pain, Constipation, Diarrhea, Melena, Nausea, Rectal Bleeding Genitourinary: denies: Dysuria, Hematuria Musculoskeletal: denies: Back Pain, Joint Pain Neurological: denies: Weakness. denies: Dizziness, Headache, Seizure, Syncope Labs: CBC, BMP 05/07/17 05:26 05/07/17 05:26 INR, PTT INR 4.32 (0.82-1.09) H* 05/07/17 05:26 Problem List - Problems (1) Atrial flutter with rapid ventricular response Code(s): I48.92 - UNSPECIFIED ATRIAL FLUTTER (2) History of cardioversion Code(s): Z98.89 - OTHER SPECIFIED POSTPROCEDURAL STATES * DO NOT USE * (3) Hypothyroidism Code(s): E03.9 - HYPOTHYROIDISM, UNSPECIFIED Qualifiers: Hypothyroidism type: unspecified Qualified Code(s): E03.9 - Hypothyroidism , unspecified (4) Influenza Code(s): J11.1 - FLU DUE TO UNIDENTIFIED INFLUENZA VIRUS W OTH RESP MANIFEST (5) Noncompliance with medication regimen Code(s): Z91.14 - PATIENT'S OTHER NONCOMPLIANCE WITH MEDICATION REGIMEN (6) Palpitations Code(s): R00.2 - PALPITATIONS (7) Rheumatic heart disease Code(s): I09.9 - RHEUMATIC HEART DISEASE, UNSPECIFIED (8) S/P heart valve replacement with mechanical valve Code(s): Z95.2 - PRESENCE OF PROSTHETIC HEART VALVE Assessment/Plan 1. Paroxysmal atrial flutter with recurrence - rapid ventricular response 2. Rheumatic heart disease post mechanical AVR and MVR with supratherapeutic INR 3. Hypothyroidism 4. Medication noncompliance 5. Recent influenza PLAN: 1. Continue Metoprolol but switch to ER 25 mg BID for now and emphasized importance of compliance. Otherwise, in view of multiple episode of AF and cardioversion attempt, anti-arrhythmic such as Sotalol may be considered. Discontinue Cardizem drip 2. Continue Coumadin per INR goal 3.0-3.5 3. Follow up with her surgical nurse practitioner Dr. Maria Luisa Guthrie at [facility] who will resume further care as outpatient 4. Can be initiated on ACEI or ARB at the discretion of primary surgical nurse practitioner as outpatient 5. Continue Tamiflu Further plans are to follow Dani Gallegos MD
[2017-05-08] MEDS: METOPROLOL TARTRATE 25 MG TABLET (FP) PO SCH (11:54)
--- NOTE | 2017-05-08 12:00 | EKG ---
Test Reason : Blood Pressure : / mmHG Vent. Rate : 063 BPM Atrial Rate : 063 BPM P-R Int : 146 ms QRS Dur : 094 ms QT Int : 442 ms P-R-T Axes : 071 043 119 degrees QTc Int : 452 ms SINUS RHYTHM WITH PREMATURE SUPRAVENTRICULAR COMPLEXES NONSPECIFIC ST AND T WAVE ABNORMALITY ABNORMAL ECG WHEN COMPARED WITH ECG OF 08-MAY-2017 09:11, SINUS RHYTHM HAS REPLACED ATRIAL FLUTTER VENT. RATE HAS DECREASED BY 77 BPM Confirmed by BRYANT CRUZ MD ([id number]) on 05/08/2017 11:59:32 AM Referred By: ARTEM PRESCOTT Confirmed By:BRYANT CRUZ MD
--- NOTE | 2017-05-08 12:50 | PN ---
Physical Exam: SUBJECTIVE: Patient seen and examined oob to chair eating lunch. Feels quite well. 24 hours events: Rapid afib/aflutter overnight to 150's Cardizem drip started, rate remained elevated Cardioverted this morning In sinus rhythm OBJECTIVE: Vital Signs Period Temp Pulse Resp BP Sys/Gonzalez Pulse Ox Last 24 Hr 97.4 F-98.5 F 63-142 18-22 92-140/55-83 95-100 Neuro: A&Ox 3; speech clear, moving all extremities CV: S1, S2, rrr Pulm: CTA Abd: soft, not tender, not distended Upper Ext: 2+ pulses, warm, well-perfused, no edema Lower Ext: 2+ pulses, warm, well-perfused, no edema CBCD WBC 5.1 K/mm3 (4.0-10.0) 05/07/17 05:26 RBC 4.79 M/mm3 (3.60-5.2) 05/07/17 05:26 Hgb 13.0 GM/dL (10.7-15.3) D 05/07/17 05:26 Hct 41.0 % (32.4-45.2) 05/07/17 05:26 MCV 85.5 fl (80-96) 05/07/17 05:26 MCHC 31.8 g/dl (32.0-36.0) L 05/07/17 05:26 RDW 16.6 % (11.6-15.6) H 05/07/17 05:26 Plt Count 302 K/MM3 (134-434) 05/07/17 05:26 MPV 10.5 fl (7.5-11.1) 05/07/17 05:26 CMP Sodium 144 mmol/L (136-145) 05/07/17 05:26 Potassium 4.3 mmol/L (3.5-5.1) 05/07/17 05:26 Chloride 109 mmol/L (98-107) H 05/07/17 05:26 Carbon Dioxide 29 mmol/L (21-32) 05/07/17 05:26 Anion Gap 6 (8-16) L 05/07/17 05:26 BUN 24 mg/dL (7-18) H 05/07/17 05:26 Creatinine 0.8 mg/dL (0.55-1.02) 05/07/17 05:26 Creat Clearance w eGFR > 60 (>60) 05/07/17 05:26 Calcium 8.4 mg/dL (8.5-10.1) L 05/07/17 05:26 Total Bilirubin 0.7 mg/dL (0.2-1.0) D 05/07/17 05:26 AST 38 U/L (15-37) H 05/07/17 05:26 ALT 37 U/L (12-78) 05/07/17 05:26 Alkaline Phosphatase 80 U/L (45-117) 05/07/17 05:26 Total Protein 6.9 g/dl (6.4-8.2) 05/07/17 05:26 Albumin 3.5 g/dl (3.4-5.0) 05/07/17 05:26 Laboratory Results - last 24 hr 05/08/17 05/08/17 05:23 20:35 PT with INR 35.90 H INR 3.18 H TSH 3.09 Active Medications Generic Name Dose Route Start Last Admin Trade Name Freq PRN Reason Stop Dose Admin Diltiazem HCl 10 mg 05/07/17 10:14 05/08/17 02:21 Cardizem Injection - IVPUSH 10 mg Q4H PRN Administration TACHYCARDIA Levothyroxine Sodium 150 mcg 05/08/17 07:00 05/08/17 06:31 Synthroid - PO 150 mcg DAILY@0700 JOSH Administration Metoprolol Succinate 25 mg 05/08/17 12:00 Toprol Xl - PO BID JOSH Oseltamivir Phosphate 75 mg 05/08/17 10:00 Tamiflu - PO 05/13/17 09:59 DAILY JOSH Imaging 05/23/2015 TTE: Normal LV and RV size and fxn with cLVH, LAE, normal mech mitral and aortic ([facility]), mild TR, tr AR, RVSP 24 mmHg 02/27/2016 Echo: Normal LV size with mild decrease LV fxn, mild LAE, mech MVR, mod TR, RVSP 40-50 mmHg, mech AV, mild AR, VT ASSESSMENT/PLAN 66 year-old female with a PMH significant for HTN, HLD, rheumatic fever s/p mechanical atrial and mitral valves, afib/aflutter with RVR on coumadin, and hypothyroidism. Admitted for paroxysmal afib/aflutter with RVR. Also diagnosed on 05/04 with influenza B. Paroxysmal Afib/aflutter with RVR --rate to 150's on admission with systolic BP's in 90's; PO and IVP diltiazem given in ED with little improvement in rate --cardioverted this morning, now in sinus rhythm --switch metoprolol to Toprol XL 25mg BID --INR therapeutic @ 3.14; give warfarin 7.5mg tonight; recheck INR in am and adjust dosing --outpatient follow up with blind hanger Dr. Maria Luisa Guthrie at [facility] Rheumatic heart disease s/p mechanical AVR and MVR --INR goal 3-3.5 Hypothyroidism --TSH wnl; continue current dosing Influenza B --flu swab positive 05/04 --afebrile, no leukocytosis, 05/07 CXR negative for infiltrate, no antibiotics --Tamiflu: 5th and 6th doses given today; last dose 05/10 evening Hypertension --Toprol XL Hyperlipidemia --not on statin FEN Fluids: PO intake adequate Electrolytes: replete as indicated Nutrition: low sodium DVT prophylaxis: on coumadin, INR therapeutic Dispo: continues to require inpatient care. Full code. Visit type - Emergency Visit Emergency Visit: Yes ED Registration Date: 05/08/17 Care time: The patient presented to the Emergency Department on the above date and was hospitalized for further evaluation of their emergent condition. - New Patient This patient is new to me today: No - Critical Care Critical Care patient: No
[2017-05-08] MEDS: metoPROLOL SUCCINATE 25 MG TAB.SR.24H (FP) PO SCH ×2 (13:36→22:14)
--- NOTE | 2017-05-08 16:55 | EKG ---
Test Reason : Blood Pressure : / mmHG Vent. Rate : 153 BPM Atrial Rate : 312 BPM P-R Int : 000 ms QRS Dur : 084 ms QT Int : 328 ms P-R-T Axes : 000 043 164 degrees QTc Int : 523 ms Likely ATRIAL FLUTTER WITH VARIABLE A-V BLOCK WHEN COMPARED WITH ECG OF 07-MAY-2017 05:17, NO SIGNIFICANT CHANGE WAS FOUND Confirmed by MD AMENA, RYNE ([id number]) on 05/08/2017 4:54:45 PM Referred By: DONATO DRISCOLL Confirmed By:RYNE BECKWITH MD
[2017-05-08 21:39] LABS: INR 3.18 (0.82-1.09); PROTHROMBIN TIME (PATIENT) 35.9 SEC (9.98-11.88)
[2017-05-08] MEDS ORDERED: WARFARIN NA 7.5 MG TABLET (FP) PO ONE (22:00)
[2017-05-08] MEDS: OSELTAMIVIR PHOSPHATE 75 MG CAPSULE PO SCH (22:19)
[2017-05-09] MEDS ORDERED: PT OWN MED DRAWER 7, Y5N ONE (06:20)
[2017-05-09] MEDS: LEVOTHYROXINE NA 150 MCG TABLET PO SCH (06:25)
[2017-05-09 07:47] LABS: INR 2.78 (0.82-1.09); PROTHROMBIN TIME (PATIENT) 31.4 SEC (9.98-11.88)
[2017-05-09 08:20] LABS: BASO % 0.3 % (0-2.0); EOS % 2.1 % (0-4.5); HEMATOCRIT 36.2 % (32.4-45.2); HEMOGLOBIN 11.4 GM/dL (10.7-15.3); LYMPH % 35.1 % (8-40); MCH 26.9 pg (25.7-33.7); MCHC 31.5 g/dl (32.0-36.0); MEAN CELL VOLUME 85.5 fl (80-96); MEAN PLT VOLUME 10.3 fl (7.5-11.1); MONO % 9.4 % (3.8-10.2); NEUT % 53.1 % (42.8-82.8); PLATELET COUNT 262 K/MM3 (134-434); RBC 4.23 M/mm3 (3.60-5.2); RDW 16.8 % (11.6-15.6); WHITE BLOOD COUNT 4.3 K/mm3 (4.0-10.0)
--- NOTE | 2017-05-09 09:06 | PN ---
Physical Exam: SUBJECTIVE: Patient seen and examined at the bedside. She c/o of persistent cough, non productive, causes chest discomfort. OBJECTIVE: Saline mist treatment for dry cough Tele shows R with PVCs s/p cardioversion on 05/08/17 INR 2.78, increased Coumadin to 10mg Vital Signs Period Temp Pulse Resp BP Sys/Gonzalez Pulse Ox Last 24 Hr 97.1 F-99.0 F 63-140 18-22 92-140/55-75 98-100 GENERAL: The patient is awake, alert, and fully oriented, in no acute distress. HEAD: Normal with no signs of trauma. EYES: PERRL, extraocular movements intact, sclera anicteric, conjunctiva clear. No ptosis. ENT: Ears normal, nares patent, oropharynx clear without exudates, moist mucous membranes. NECK: Trachea midline, full range of motion, supple. LUNGS: Breath sounds equal, diminished bilaterally, dry cough, no wheezing, no accessory muscle use HEART: Regular rate and rhythm, S1, S2 without murmur, rub or gallop. ABDOMEN: Soft, nontender, nondistended, normoactive bowel sounds, no guarding, no rebound, no hepatosplenomegaly, no masses. EXTREMITIES: no edema. NEUROLOGICAL: Normal speech, steady gait PSYCH: Normal mood, normal affect. SKIN: Warm, dry, normal turgor, no rashes or lesions noted Laboratory Results - last 24 hr 05/08/17 05/09/17 05/09/17 20:35 06:20 06:20 WBC 4.3 RBC 4.23 Hgb 11.4 D Hct 36.2 MCV 85.5 MCH 26.9 MCHC 31.5 L RDW 16.8 H Plt Count 262 MPV 10.3 Neutrophils % 53.1 Lymphocytes % 35.1 D Monocytes % 9.4 Eosinophils % 2.1 Basophils % 0.3 PT with INR 35.90 H 31.40 H INR 3.18 H 2.78 H Magnesium 05/09/17 06:20 WBC RBC Hgb Hct MCV MCH MCHC RDW Plt Count MPV Neutrophils % Lymphocytes % Monocytes % Eosinophils % Basophils % PT with INR INR Magnesium 2.0 Active Medications Generic Name Dose Route Start Last Admin Trade Name Freq PRN Reason Stop Dose Admin Diltiazem HCl 10 mg 05/07/17 10:14 05/08/17 02:21 Cardizem Injection - IVPUSH 10 mg Q4H PRN Administration TACHYCARDIA Levothyroxine Sodium 150 mcg 05/08/17 07:00 05/09/17 06:25 Synthroid - PO 150 mcg DAILY@0700 JOSH Administration Metoprolol Succinate 25 mg 05/08/17 12:00 05/08/17 22:14 Toprol Xl - PO 25 mg BID JOSH Administration Oseltamivir Phosphate 75 mg 05/08/17 22:00 05/08/17 22:19 Tamiflu - PO 05/13/17 21:59 Not Given BID JOSH ASSESSMENT/PLAN:
[2017-05-09] MEDS: OSELTAMIVIR PHOSPHATE 75 MG CAPSULE PO SCH (09:09)
[2017-05-09] MEDS: metoPROLOL SUCCINATE 25 MG TAB.SR.24H (FP) PO SCH (09:09)
[2017-05-09] MEDS ORDERED: guaiFENesin 200 MG/10 ML 10 ML UNIT-DOSE CUPS PO PRN (09:09)
[2017-05-09 09:35] LABS: ALBUMIN 3.2 g/dl (3.4-5.0); ANION GAP 8 (8-16); BILIRUBIN,TOTAL 0.4 mg/dL (0.2-1.0); BLOOD UREA NITROGEN 20 mg/dL (7-18); CALCIUM 8.1 mg/dL (8.5-10.1); CHLORIDE 109 mmol/L (98-107); CO2 26 mmol/L (21-32); CREATININE 0.8 mg/dL (0.55-1.02); GLUCOSE,RANDOM 91 mg/dL (74-106); POTASSIUM 4.7 mmol/L (3.5-5.1); SGOT/AST 62 U/L (15-37); SGPT/ALT 78 U/L (12-78); SODIUM 143 mmol/L (136-145); TOT PROT 6.4 g/dl (6.4-8.2)
[2017-05-09 09:36] LABS: ALK PHOS 84 U/L (45-117)
--- NOTE | 2017-05-09 10:53 | PN ---
Progress Note, Physician History of Present Illness: No further palpitations and remains in sinus rhythm post DCCV. - Current Medication List Current Medications: Active Medications Diltiazem HCl (Cardizem Injection -) 10 mg IVPUSH Q4H PRN PRN Reason: TACHYCARDIA Last Admin: 05/08/17 02:21 Dose: 10 mg Guaifenesin (Robitussin -) 10 ml PO Q6H PRN PRN Reason: COUGH Levothyroxine Sodium (Synthroid -) 150 mcg PO DAILY@0700 [facility] Last Admin: 05/09/17 06:25 Dose: 150 mcg Metoprolol Succinate (Toprol Xl -) 25 mg PO BID [facility] Last Admin: 05/09/17 09:09 Dose: 25 mg Oseltamivir Phosphate (Tamiflu -) 75 mg PO BID [facility] Stop: 05/13/17 21:59 Last Admin: 05/09/17 09:09 Dose: 75 mg Sodium Chloride (Normal Saline For Inhalation -) 3 ml IH RQID [facility] Warfarin Sodium (Coumadin -) 10 mg PO DAILY@1800 [facility] - Objective Vital Signs: Vital Signs Temperature 97.1 F L 05/09/17 05:55 Pulse Rate 68 05/09/17 05:55 Respiratory Rate 20 05/09/17 05:55 Blood Pressure 110/58 05/09/17 05:55 O2 Sat by Pulse Oximetry (%) 98 05/08/17 22:00 Constitutional: Yes: No Distress, Calm Neck: Yes: Supple Cardiovascular: Yes: Regular Rate and Rhythm, Other ([place] mechanical valve sounds) Respiratory: Yes: Regular, CTA Bilaterally Gastrointestinal: Yes: Normal Bowel Sounds, Soft, Abdomen, Obese Edema: No Labs: CBC, BMP 05/09/17 06:20 05/09/17 09:10 INR, PTT INR 2.78 (0.82-1.09) H 05/09/17 06:20 - ....Imaging EKG: Report Reviewed (SR @ 63 Tele: PAF->SR) Problem List - Problems (1) Atrial flutter with rapid ventricular response Code(s): I48.92 - UNSPECIFIED ATRIAL FLUTTER (2) History of cardioversion Code(s): Z98.89 - OTHER SPECIFIED POSTPROCEDURAL STATES * DO NOT USE * (3) Hypothyroidism Code(s): E03.9 - HYPOTHYROIDISM, UNSPECIFIED Qualifiers: Hypothyroidism type: unspecified Qualified Code(s): E03.9 - Hypothyroidism , unspecified (4) Influenza Code(s): J11.1 - FLU DUE TO UNIDENTIFIED INFLUENZA VIRUS W OTH RESP MANIFEST (5) Noncompliance with medication regimen Code(s): Z91.14 - PATIENT'S OTHER NONCOMPLIANCE WITH MEDICATION REGIMEN (6) Palpitations Code(s): R00.2 - PALPITATIONS (7) Rheumatic heart disease Code(s): I09.9 - RHEUMATIC HEART DISEASE, UNSPECIFIED (8) S/P heart valve replacement with mechanical valve Code(s): Z95.2 - PRESENCE OF PROSTHETIC HEART VALVE Assessment/Plan 05/23/2015 TTE: Normal LV and RV size and fxn with cLVH, LAE, normal mech mitral and aortic ([facility]), mild TR, tr AR, RVSP 24 mmHg 02/27/2016 Echo: Normal LV size with mild decrease LV fxn, mild LAE mech MVR, mod TR, RVSP 40-50 mmHg, mech AV, mild AR, NE 1. Paroxysmal atrial flutter with recurrence and RVR 2. Rheumatic heart disease post mechanical AVR and MVR with supratherapeutic INR 3. Hypothyroidism 4. Medication noncompliance 5. Recent flu PLAN: 1. Continue Toprol XL 25 bid 2. Continue coumadin per INR goal 3.0-3.5 3. Follow up with her elevator serviceman Dr. Maria Luisa Guthrie at [facility] 2017 and emphasized the importance of medication compliance. 4. Initiate USHA-I/ARB as per primary elevator serviceman 5. Complete Tamiflu course
[2017-05-09] MEDS: SODIUM CHLORIDE FOR INHALATION 3 ML VIAL.NEB IH SCH ×2 (11:44→15:52)
--- NOTE | 2017-05-09 14:17 | EKG ---
Test Reason : Blood Pressure : / mmHG Vent. Rate : 140 BPM Atrial Rate : 280 BPM P-R Int : 000 ms QRS Dur : 088 ms QT Int : 298 ms P-R-T Axes : 000 041 167 degrees QTc Int : 454 ms ATRIAL FLUTTER WITH 2:1 A-V CONDUCTION ST ELEVATION CONSIDER INFERIOR INJURY OR ACUTE INFARCT Consider right ventricular involvement in acute inferior infarct ABNORMAL ECG WHEN COMPARED WITH ECG OF 07-MAY-2017 08:20, ST NOW DEPRESSED IN LATERAL LEADS Confirmed by BUDDY DOUGLAS MD ([id number]) on 05/09/2017 2:17:26 PM Referred By: [facility] Confirmed By:BUDDY DOUGLAS MD
--- NOTE | 2017-05-09 15:32 | PN ---
Physical Exam: SUBJECTIVE: Patient seen and examined OBJECTIVE: Vital Signs Period Temp Pulse Resp BP Sys/Gonzalez Pulse Ox Last 24 Hr 97.1 F-98.8 F 63-82 20-20 109-137/58-73 96-98 GENERAL: The patient is awake, alert, and fully oriented, in no acute distress. HEAD: Normal with no signs of trauma. EYES: PERRL, extraocular movements intact, sclera anicteric, conjunctiva clear. No ptosis. ENT: Ears normal, nares patent, oropharynx clear without exudates, moist mucous membranes. NECK: Trachea midline, full range of motion, supple. LUNGS: Breath sounds equal, clear to auscultation bilaterally, no wheezes, no crackles, no accessory muscle use. HEART: Regular rate and rhythm, S1, S2 without murmur, rub or gallop. ABDOMEN: Soft, nontender, nondistended, normoactive bowel sounds, no guarding, no rebound, no hepatosplenomegaly, no masses. EXTREMITIES: 2+ pulses, warm, well-perfused, no edema. NEUROLOGICAL: Cranial nerves II through XII grossly intact. Normal speech, gait not observed. PSYCH: Normal mood, normal affect. SKIN: Warm, dry, normal turgor, no rashes or lesions noted Laboratory Results - last 24 hr 05/08/17 05/09/17 05/09/17 20:35 06:20 06:20 WBC 4.3 RBC 4.23 Hgb 11.4 D Hct 36.2 MCV 85.5 MCH 26.9 MCHC 31.5 L RDW 16.8 H Plt Count 262 MPV 10.3 Neutrophils % 53.1 Lymphocytes % 35.1 D Monocytes % 9.4 Eosinophils % 2.1 Basophils % 0.3 PT with INR 35.90 H 31.40 H INR 3.18 H 2.78 H Sodium Potassium Chloride Carbon Dioxide Anion Gap BUN Creatinine Creat Clearance w eGFR Random Glucose Calcium Magnesium Total Bilirubin AST ALT Alkaline Phosphatase Total Protein Albumin 05/09/17 05/09/17 06:20 09:10 WBC RBC Hgb Hct MCV MCH MCHC RDW Plt Count MPV Neutrophils % Lymphocytes % Monocytes % Eosinophils % Basophils % PT with INR INR Sodium 143 Potassium 4.7 Chloride 109 H Carbon Dioxide 26 Anion Gap 8 BUN 20 H Creatinine 0.8 Creat Clearance w eGFR > 60 Random Glucose 91 Calcium 8.1 L Magnesium 2.0 Total Bilirubin 0.4 D AST 62 H ALT 78 Alkaline Phosphatase 84 Total Protein 6.4 Albumin 3.2 L Active Medications Generic Name Dose Route Start Last Admin Trade Name Freq PRN Reason Stop Dose Admin Diltiazem HCl 10 mg 05/07/17 10:14 05/08/17 02:21 Cardizem Injection - IVPUSH 10 mg Q4H PRN Administration TACHYCARDIA Guaifenesin 10 ml 05/09/17 09:09 Robitussin - PO Q6H PRN COUGH Levothyroxine Sodium 150 mcg 05/08/17 07:00 05/09/17 06:25 Synthroid - PO 150 mcg DAILY@0700 JOSH Administration Metoprolol Succinate 25 mg 05/08/17 12:00 05/09/17 09:09 Toprol Xl - PO 25 mg BID JOSH Administration Oseltamivir Phosphate 75 mg 05/08/17 22:00 05/09/17 09:09 Tamiflu - PO 05/13/17 21:59 75 mg BID JOSH Administration Sodium Chloride 3 ml 05/09/17 12:00 05/09/17 11:44 Normal Saline For Inhalation - IH 3 ml RQID JOSH Administration Warfarin Sodium 10 mg 05/09/17 18:00 Coumadin - PO DAILY@1800 [facility] ASSESSMENT/PLAN:
--- NOTE | 2017-05-09 15:35 | DS ---
Physical Exam: SUBJECTIVE: Patient seen and examined OBJECTIVE: Saline mist treatment for dry cough Tele shows R with PVCs s/p cardioversion on 05/08/17 INR 2.78, increased Coumadin to 10mg (home dose), recheck INR outpatient Vital Signs Period Temp Pulse Resp BP Sys/Gonzalez Pulse Ox Last 24 Hr 97.1 F-98.8 F 63-82 20-20 109-137/58-73 96-98 PHYSICAL EXAM GENERAL: The patient is awake, alert, and fully oriented, in no acute distress. HEAD: Normal with no signs of trauma. EYES: PERRL, extraocular movements intact, sclera anicteric, conjunctiva clear. ENT: Ears normal, nares patent, oropharynx clear without exudates, moist mucous membranes. NECK: Trachea midline, full range of motion, supple. LUNGS: Breath sounds equal, clear to auscultation bilaterally, no wheezes, no crackles, no accessory muscle use. HEART: Regular rate and rhythm, S1, S2 without murmur, rub or gallop. ABDOMEN: Soft, nontender, nondistended, normoactive bowel sounds, no guarding, no rebound, no hepatosplenomegaly, no masses. EXTREMITIES: 2+ pulses, warm, well-perfused, no edema. NEUROLOGICAL: Cranial nerves II through XII grossly intact. Normal speech, gait not observed. PSYCH: Normal mood, normal affect. SKIN: Warm, dry, normal turgor, no rashes or lesions noted. LABS Laboratory Results - last 24 hr 05/08/17 05/09/17 05/09/17 20:35 06:20 06:20 WBC 4.3 RBC 4.23 Hgb 11.4 D Hct 36.2 MCV 85.5 MCH 26.9 MCHC 31.5 L RDW 16.8 H Plt Count 262 MPV 10.3 Neutrophils % 53.1 Lymphocytes % 35.1 D Monocytes % 9.4 Eosinophils % 2.1 Basophils % 0.3 PT with INR 35.90 H 31.40 H INR 3.18 H 2.78 H Sodium Potassium Chloride Carbon Dioxide Anion Gap BUN Creatinine Creat Clearance w eGFR Random Glucose Calcium Magnesium Total Bilirubin AST ALT Alkaline Phosphatase Total Protein Albumin 05/09/17 05/09/17 06:20 09:10 WBC RBC Hgb Hct MCV MCH MCHC RDW Plt Count MPV Neutrophils % Lymphocytes % Monocytes % Eosinophils % Basophils % PT with INR INR Sodium 143 Potassium 4.7 Chloride 109 H Carbon Dioxide 26 Anion Gap 8 BUN 20 H Creatinine 0.8 Creat Clearance w eGFR > 60 Random Glucose 91 Calcium 8.1 L Magnesium 2.0 Total Bilirubin 0.4 D AST 62 H ALT 78 Alkaline Phosphatase 84 Total Protein 6.4 Albumin 3.2 L HOSPITAL COURSE: Date of Admission:05/08/17 Date of Discharge: 05/09/17 Patient is a 66 year old female with a significant past medical history of hypertensin, hld, rheumatic fever s/p mechanical atrial and mitral valves, afib/ aflutter with RVR on coumadin, and hypothyroidism. She was admitted for paroxysmal afib/aflutter with RVR. Also found to test postive for influenza B and was placed on Tamiflu. Cardiology: Paroxysmal Afib/aflutter with RVR, Cardioverted on , now in SR 80s On Toprol XL 25mg twice per day to continue INR suptherapeutic today @ 2.78, will continue Coumadin 10mg and have INR checked with PCP/corn breeder as an outpatient outpatient follow up with corn breeder Dr. Maria Luisa Guthrie at [facility] on 05/14/2017. Rheumatic heart disease s/p mechanical AVR and MVR On Coumadin 10mg daily, INR goal 3-3.5, 2.78 today Hypothyroidism, chornic On Synthorid Hypertension, controlled On Toprol XL BID ID: Influenza B Last dose of tamiflu on 05/10/2017 Minutes to complete discharge: 60 Discharge Summary Reason For Visit: ATRIAL FLUTTER W RAPID VENTRICULAR RESPONSE Current Active Problems Atrial flutter with rapid ventricular response (Acute) Condition: Stable - Instructions Diet, Activity, Other Instructions: Mrs. Nino: You were admitted to [facility] for rapid atrial fibrillation (rapid irregular heart rate) and influenza B. You are now on a new medication called Toprol XL, this medications is ordered for twice per day. Please do not miss a dose as this is controlling your heart rate. Your INR is 2.78 today, please continue your home dose of Coumadin as ordered and have your INR checked with your primary care doctor or corn breeder. You have 3 more doses left of the Tamiflu for your Influenza B. One dose is due tonight, and two doses are due tomorrow (8am and 8pm) Please continue the medications as outlined on your discharge instructions. Please see your corn breeder: Dr. Maria Luisa Guthrie at [facility] 05/14/2017 , for your appointment. Please call me with any questions [facility] @ [facility] [phone] Referrals: Grayson Perdue MD [Primary Care Provider] - Maria Luisa Guthrie [Non Staff, Medical] - (Dr. Maria Luisa Guthrie at [facility] 05/14/2017 ) Disposition: HOME - Home Medications Comprehensive Discharge Medication List: Ambulatory Orders Levothyroxine [Synthroid -] 150 mcg PO DAILY 06/05/15 Warfarin Sodium [Coumadin] 10 mg PO ASDIR 06/05/15 Metoprolol Succinate [Toprol XL -] 25 mg PO BID #60 tab.sr.24h 03/15/17 Oseltamivir Phosphate [Tamiflu -] 75 mg PO DAILY #10 capsule 05/04/17 This patient is new to me today: Yes Date on this admission: 05/09/17 Emergency Visit: Yes ED Registration Date: 05/08/17 Care time: The patient presented to the Emergency Department on the above date and was hospitalized for further evaluation of their emergent condition. Critical Care patient: No - Discharge Referral Referred to [facility] No
[2017-05-09] MEDS ORDERED: WARFARIN NA 10 MG TABLET (FP) PO SCH (18:00)
[2017-05-09 19:12] VITALS: BP 134/80; PULSE 76; TEMP 97.2
== END 2017-05-09 19:17 | disposition home or self-care (01) | DRG 310 ==
LOC: FER 04:12 → INTOOBSV 16:25 → J4W 16:25 → UNDOADMOB 16:25 → J4W 18:50 → OBSVTOIN 05-08 19:28
PROVIDERS: ADMIT Internal Medicine; ATTEND Nurse Practitioner Family
PROC: 5A2204Z Restoration of Cardiac Rhythm, Single (ICD-10-PCS; principal; 2017-05-08 11:00)
DX: I48.92 Unspecified atrial flutter (principal); J11.1 Influenza due to unidentified influenza virus with other respiratory manifestations; I48.91 Unspecified atrial fibrillation; Z91.14 Patient's other noncompliance with medication regimen; I10 Essential (primary) hypertension; E78.5 Hyperlipidemia, unspecified; Z95.4 Presence of other heart-valve replacement; E66.9 Obesity, unspecified; Z68.33 Body mass index [BMI] 33.0-33.9, adult; Z86.19 Personal history of other infectious and parasitic diseases; E03.9 Hypothyroidism, unspecified
CPT/HCPCS: 36415; 71045-TC; 80053; 82550; 82553; 83735; 84443; 84484; 85025; 85027; 85610; 87804; 93005; 93010; 99285-25; G0378

== ENCOUNTER 2017-05-24 22:08 | Inpatient (IN) | payer OTHER ==
--- NOTE | 2017-05-24 22:11 | PDOC ---
History of Present Illness - General Chief Complaint: Tachycardia Stated Complaint: RAPID HEART BEAT - History of Present Illness Initial Comments: This 66-year-old woman with a history of paroxysmal atrial flutter with RVR, aVR /MVR mechanical valve 2000, HTN, HLD, hypothyroidism and recent flu presents with a few hour history of palpitations. Patient states that she had an increase in cough productive of scant whitish sputum tonight but denies shortness of breath; she also had posterior neck pain and minimal chest pain with onset of palpitations. No nausea/diaphoresis/arm pain. Patient has been taking her medication as prescribed; because of sub therapeutic INR she took a double dose (20 mg) warfarin as per her heavy equipment rental manager's recommendation on 05/14 but otherwise has been taking her usual dose of 10 mg daily. Only other significant change is that she began using elliptical exercise machine yesterday for 15 minutes and 20 minutes today (last exercised about one month ago) Patient was diagnosed with influenza about 3 weeks ago and started on Tamiflu; within 2 days, she was seen here with her usual atrial flutter with RVR and was admitted for 2 days. She ultimately required cardioversion. She followed up with her heavy equipment rental manager, Dr. Maria Luisa Guthrie on 05/14; there were no changes in her medication regimen after her follow-up visit. Past History - Past Medical History Allergies/Adverse Reactions: Allergies Allergy/AdvReac Type Severity Reaction Status Date / Time No Known Allergies Allergy Verified 05/07/17 04:16 Home Medications: Ambulatory Orders Levothyroxine [Synthroid -] 150 mcg PO DAILY 06/05/15 Warfarin Sodium [Coumadin] 10 mg PO ASDIR 06/05/15 Oseltamivir Phosphate [Tamiflu -] 75 mg PO DAILY #10 capsule 05/04/17 Metoprolol Succinate [Toprol XL -] 25 mg PO BID #60 tab.sr.24h 05/09/17 Anemia: No Asthma: No Cancer: No Cardiac Disorders: Yes (RHEUMATIC FEVER, MITRAL AND AORTIC VALVE REPLACEMENT, AFlutter) CVA: No COPD: No CHF: No Dementia: No Diabetes: No GI Disorders: No HTN: No Hypercholesterolemia: No Liver Disease: No Seizures: No Thyroid Disease: Yes - Surgical History Abdominal Surgery: No Appendectomy: No Cardiac Surgery: Yes (AORTIC AND MITRIAL VALVE REPLACEMENT ARTIFICIAL) Cholecystectomy: No Lung Surgery: No Neurologic Surgery: No Orthopedic Surgery: No - Suicide/Smoking/Psychosocial Hx Smoking History: Never smoked Have you smoked in the past 12 months: No Hx Alcohol Use: No Drug/Substance Use Hx: No Substance Use Type: None Hx Substance Use Treatment: No Cardiac Specific PMH - Complaint Specific PMHX Pacemaker: No Review of Systems - Review of Systems Able to Perform ROS?: Yes Comments:: 12 point review of systems is negative except for what is noted in the history of present illness *Physical Exam - Vital Signs Last Vital Signs Temp Pulse Resp BP Pulse Ox 98.7 F 126 H 18 114/80 98 05/24/17 22:14 05/25/17 02:21 05/25/17 02:21 05/25/17 02:21 05/25/17 02:21 - Physical Exam Comments: GENERAL: Adult female, alert and oriented 3, no acute distress; blood pressure 129/84/heart rate 150/oxygenation 99% on room air HEAD: Normal with no signs of trauma. EYES: PERRLA, EOMI, sclera anicteric, conjunctiva clear. ENT: Ears normal, nares patent, oropharynx clear without exudates. Moist mucous membranes. NECK: Normal range of motion, supple without lymphadenopathy, JVD, or masses. LUNGS: Breath sounds equal, clear to auscultation bilaterally. No wheezes, and no crackles. HEART:Regul rhythm, normal S1 and S2 without murmur, rub or gallop. ABDOMEN:.normal bowel sounds No guarding,tenderness or rebound.No masses No distention. EXTREMITIES: Normal range of motion, no edema. No clubbing or cyanosis. No erythema, or tenderness. NEUROLOGICAL: Cranial nerves II through XII grossly intact. Normal speech. No focal neurological deficits. MUSCULOSKELETAL: Back non-tender to palpation, no CVA tenderness SKIN: Warm, Dry, normal turgor, no rashes or lesions noted. 12-lead electrocardiogram performed and interpreted by me: Tracing is consistent with previous episodes of atrial flutter with 2-1 AV conduction at 152 bpm. 05/25/17 00:32 ED Treatment Course - LABORATORY CBC & Chemistry Diagram: 05/24/17 22:26 05/24/17 22:26 - ADDITIONAL ORDERS Additional order review: Laboratory Results 05/24/17 05/24/17 05/24/17 22:26 22:26 22:26 PT with INR 72.7 H INR 6.74 H* Sodium 134 L Potassium 3.6 Chloride 102 Carbon Dioxide 25 Anion Gap 7 L BUN 19 H D Creatinine 0.9 Creat Clearance w eGFR > 60 Random Glucose 114 H Calcium 8.5 Total Bilirubin < 0.5 D AST 29 ALT 25 Alkaline Phosphatase 77 Creatine Kinase 136 Troponin I 0.97 H* Total Protein 6.7 Albumin 3.5 05/24/17 22:26 RBC 4.60 MCV 83.2 MCHC 32.9 RDW 15.6 MPV 9.7 Neutrophils % 69.9 Lymphocytes % 18.1 Monocytes % 10.0 Eosinophils % 1.2 Basophils % 0.8 - RADIOLOGY Radiology Studies Ordered: Category Date Time Status CHEST X-RAY PORTABLE* [RAD] Stat Radiology 05/24/17 22:46 Taken - Medications Given in the ED: ED Medications Discontinued Medications Generic Name Dose Route Start Last Admin Trade Name Freq PRN Reason Stop Dose Admin Diltiazem HCl 10 mg 05/24/17 23:15 05/24/17 23:15 Cardizem Injection - IVPUSH 05/24/17 23:16 10 mg NOW ONE Administration Diltiazem HCl 10 mg 05/25/17 00:27 05/25/17 00:32 Cardizem Injection - IVPUSH 05/25/17 00:28 10 mg ONCE ONE Administration Metoprolol Tartrate 25 mg 05/25/17 01:10 05/25/17 01:15 Lopressor - PO 05/25/17 01:11 25 mg ONCE ONE Administration Medical Decision Making - Medical Decision Making CBC/chemistry profile/cardiac enzymes/INR sent Portable chest x-ray was performed and showed possible mild cephalization of flow; no pneumonia/effusion/pulmonary edema/masses Diltiazem IV has been effective in this patient for rate control. Diltiazem 10 mg IV of administered. Laboratory evaluation notable for supratherapeutic INR 6.4/troponin is elevated at 0.97 Patient was seen by Robb Laws NP for admission to [facility] service 05/25/17 00:49 After patient had first dose of diltiazem 10 mg IV, she had decrease in heart rate to approximately 115-120/min for approximately 1 hour, rising to 140s after this. Since the plan is to keep patient here at [facility] and patients with IV diltiazem drips are not admitted here, will attempt to administer intermittent bolus doses of diltiazem for rate control. Second dose of diltiazem 10 mg IV at approximately 12:30 AM 05/25/17 01:[address] Leiva of [facility] hospitalist service. Heart rate continues to be in 140s/min range, approximately half hour after diltiazem IV bolus. Blood pressure currently 106/89; will add metoprolol 25 mg PO now 05/25/17 02:51 Additional dose of metoprolol 25 mg by mouth will be given now: Heart rate approximately 125-130/min with BP 114/83 *DC/Admit/Observation/Transfer Diagnosis at time of Disposition: Atrial flutter with rapid ventricular response, Supratherapeutic INR - Discharge Dispostion Condition at time of disposition: Guarded Admit: Yes Decision to Admit order Date/Time: Decision to Admit Order Category Date Time Status Decision to Admit to Hospital Routine Admission 05/25/17 01:13 Active - Referrals - Patient Instructions - Post Discharge Activity
[2017-05-24 22:36] LABS: BASO % 0.8 % (0-2.0); EOS % 1.2 % (0-4.5); HEMATOCRIT 38.3 % (32.4-45.2); HEMOGLOBIN 12.6 GM/dl (10.7-15.3); LYMPH % 18.1 % (8-40); MCH 27.4 pg (25.7-33.7); MCHC 32.9 g/dl (32.0-36.0); MEAN CELL VOLUME 83.2 fl (80-96); MEAN PLT VOLUME 9.7 fl (7.5-11.1); NEUT % 69.9 % (42.8-82.8); PLATELET COUNT 370 K/MM3 (134-434); RDW 15.6 % (11.6-15.6); WHITE BLOOD COUNT 7.9 K/mm3 (4.0-10.8)
[2017-05-24 22:51] LABS: ANION GAP 7 (8-16); CALCIUM 8.5 mg/dl (8.4-10.2); CHLORIDE 102 mmol/L (98-107); CO2 25 mmol/L (22-28); GLUCOSE,RANDOM 114 mg/dl (74-106); POTASSIUM 3.6 mmol/L (3.5-5.1); PROTHROMBIN TIME (PATIENT) 72.7 SEC (10.2-13.0); SODIUM 134 mmol/L (136-145)
[2017-05-24 22:54] LABS: INR 6.74 (0.82-1.09)
[2017-05-24 23:06] LABS: ALBUMIN 3.5 g/dl (3.5-5.0); ALK PHOS 77 U/L (32-92); BLOOD UREA NITROGEN 19 mg/dl (7-18); CREATININE 0.9 mg/dl (0.6-1.3); SGOT/AST 29 U/L (10-42); SGPT/ALT 25 U/L (10-40); TOT PROT 6.7 g/dl (6.4-8.3)
[2017-05-24] MEDS ORDERED: dilTIAZem HCL 50 MG/10 ML - 10 ML VIAL IVPUSH ONE (23:15)
[2017-05-24 23:25] LABS: BILIRUBIN,TOTAL < 0.5 mg/dl (0.2-1.0)
[2017-05-25] MEDS ORDERED: ACETAMINOPHEN 325 MG TABLET (FP) PO PRN (00:19)
[2017-05-25] MEDS ORDERED: ONDANSETRON 4 MG/2 ML VIAL IVPB PRN (00:19)
[2017-05-25] MEDS ORDERED: dilTIAZem HCL 50 MG/10 ML - 10 ML VIAL IVPUSH ONE (00:27)
--- NOTE | 2017-05-25 00:27 | HP ---
Admitting History and Physical - Admission Chief Complaint: heart palps History of Present Illness: 66-year-old woman with a history of paroxysmal atrial flutter with RVR, aVR/MVR mechanical valve 1999, HTN, HLD, hypothyroidism and recent flu presents with a few hour history of palpitation. Patient reports symptom onset starting ~8Pm yesterday. She reports just prior to event she was eating spicey foods and began coughing vigorously after. She then felt her heart palpitations. She also reports associated LH, and posterior neck discomfort. She reports earlier in the day she was at the Gym and did light weights and the elliptical machine. She denies associated jaw claudication, sob,CP, vomiting, nausea, sweats. She thinks she might of had some numbness to her L upper shoulder. She reports cardioversion may 102017 She denies melena, or any other bleeding. 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 marked St abn, possible inferior subendocardial injury a/p- 66-year-old woman with a history of paroxysmal atrial flutter with RVR, aVR /MVR mechanical valve 1999, HTN, HLD, hypothyroidism 1. A-flutter w / rvr on AC: 150s in Er, given 20mg cardizem IV. S/P Cardioversion may 10 2017. Cont home BB. Cards consult. 2. Positive Trop in setting of tachyarrhythmia: No sob, CP, ekg jessica/std. Trend trops, Cards consult 3. Supratherapeutic INR: no s/s of bleeding. Trend INR 4. HTN: Cont metoprolol 5. Hypothyroidism: Cont synthroid, check Tsh dvt prophy scd oob, hold chemoprophy given high INR Dispo- obs for aflutter, and supratherapeutic History Source: Patient Limitations to Obtaining History: No Limitations - Past Medical History Cardiovascular: Yes: AFIB - Past Surgical History Past Surgical History: Yes: Valve Replacement - Smoking History Smoking history: Never smoked Have you smoked in the past 12 months: No - Alcohol/Substance Use Hx Alcohol Use: No Home Medications - Allergies Allergies/Adverse Reactions: Allergies Allergy/AdvReac Type Severity Reaction Status Date / Time No Known Allergies Allergy Verified 05/07/17 04:16 - Home Medications Home Medications: Ambulatory Orders Levothyroxine [Synthroid -] 150 mcg PO DAILY 06/05/15 Warfarin Sodium [Coumadin] 10 mg PO ASDIR 06/05/15 Oseltamivir Phosphate [Tamiflu -] 75 mg PO DAILY #10 capsule 05/04/17 Metoprolol Succinate [Toprol XL -] 25 mg PO BID #60 tab.sr.24h 05/09/17 Physical Examination Vital Signs: Vital Signs Temperature 98.7 F 05/24/17 22:14 Pulse Rate 126 H 05/24/17 23:24 Respiratory Rate 17 05/24/17 23:03 Blood Pressure 126/83 05/24/17 23:24 O2 Sat by Pulse Oximetry (%) 98 05/24/17 23:03 Labs: CBC, BMP 05/24/17 22:26 05/24/17 22:26 Visit type - Emergency Visit Emergency Visit: Yes ED Registration Date: 05/25/17 Care time: The patient presented to the Emergency Department on the above date and was hospitalized for further evaluation of their emergent condition. - New Patient This patient is new to me today: Yes Date on this admission: 05/25/17 - Critical Care Critical Care patient: No Hospitalist Screening - Colonoscopy Questionnaire Colonoscopy Questionnaire: Colonoscopy Questionnaire - Patient: 50 - 75 years old and never had a screening colonoscopy: Unknown History of colon or rectal polyps, or CA: Unknown History of IBD, Crohn's disease or UC: Unknown History of abdominal radiation therapy as a child: Unknown - Relative: 1 with colon or rectal CA, or polyps at age 60 or younger: Unknown Colon or rectal CA diagnosed at age 45 or younger: Unknown Multiple relatives with colon or rectal CA: Unknown - Outcome: Screening Result: Negative Screen
[2017-05-25] MEDS ORDERED: METOPROLOL TARTRATE 25 MG TABLET (FP) PO ONE ×3 (01:10→06:08)
[2017-05-25] MEDS ORDERED: METOPROLOL TARTRATE 50 MG TABLET (FP) ONE ×2 (01:13→02:53)
[2017-05-25 04:01] VITALS: BMI 33.3
[2017-05-25 04:08] LABS: URINE APPEARANCE CLEAR; URINE BILIRUBIN NEGATIVE (NEGATIVE); URINE BLOOD 2+ (NEGATIVE); URINE COLOR YELLOW; URINE GLUCOSE (UA) NEGATIVE (NEGATIVE); URINE KETONE NEGATIVE (NEGATIVE); URINE LEUK ESTERASE TRACE (NEGATIVE); URINE NITRITE NEGATIVE (NEGATIVE); URINE PROTEIN NEGATIVE (NEGATIVE); URINE UROBILINOGEN NEGATIVE mg/dL (0.2-1.0)
[2017-05-25 04:28] LABS: ANION GAP 8 (8-16); BILIRUBIN,TOTAL 0.4 mg/dL (0.2-1.0); BLOOD UREA NITROGEN 19 mg/dL (7-18); CALCIUM 7.8 mg/dL (8.5-10.1); CHLORIDE 109 mmol/L (98-107); CO2 24 mmol/L (21-32); CREATININE 0.8 mg/dL (0.55-1.02); GLUCOSE,RANDOM 111 mg/dL (74-106); MAGNESIUM 1.9 mg/dL (1.8-2.4); POTASSIUM 4.2 mmol/L (3.5-5.1); SGOT/AST 23 U/L (15-37); SGPT/ALT 26 U/L (12-78); SODIUM 141 mmol/L (136-145); TOT PROT 6.1 g/dl (6.4-8.2)
[2017-05-25 04:35] LABS: EPI CELLS FEW /HPF (FEW); URINE BACTERIA RARE /hpf (NONE SEEN); URINE MUCUS RARE
[2017-05-25 04:36] LABS: ALK PHOS 80 U/L (45-117)
[2017-05-25] MEDS: LEVOTHYROXINE NA 150 MCG TABLET PO SCH (06:43)
[2017-05-25 09:43] LABS: BASO % 0.7 % (0-2.0); EOS % 1.3 % (0-4.5); HEMATOCRIT 39.3 % (32.4-45.2); HEMOGLOBIN 12.5 GM/dl (10.7-15.3); LYMPH % 21.1 % (8-40); MCH 26.9 pg (25.7-33.7); MCHC 31.8 g/dl (32.0-36.0); MEAN CELL VOLUME 84.6 fl (80-96); MEAN PLT VOLUME 10.1 fl (7.5-11.1); MONO % 9.6 % (3.8-10.2); NEUT % 67.3 % (42.8-82.8); PLATELET COUNT 370 K/MM3 (134-434); RBC 4.64 M/mm3 (3.60-5.2); RDW 15.8 % (11.6-15.6)
[2017-05-25 09:48] LABS: ALBUMIN 3.2 g/dl (3.5-5.0); ALK PHOS 75 U/L (32-92); ANION GAP 4 (8-16); BILIRUBIN,TOTAL 0.6 mg/dl (0.2-1.0); BLOOD UREA NITROGEN 16 mg/dl (7-18); CHLORIDE 108 mmol/L (98-107); CO2 24 mmol/L (22-28); CREATININE 0.8 mg/dl (0.6-1.3); GLUCOSE,RANDOM 115 mg/dl (74-106); SGOT/AST 30 U/L (10-42); SGPT/ALT 28 U/L (10-40); SODIUM 136 mmol/L (136-145); TOT PROT 6.5 g/dl (6.4-8.3)
[2017-05-25] MEDS ORDERED: metoPROLOL SUCCINATE 25 MG TAB.SR.24H (FP) PO SCH (10:00)
[2017-05-25] MEDS ORDERED: METOPROLOL TARTRATE 5 MG/5 ML VIAL IVPUSH ONE (10:23)
[2017-05-25] MEDS ORDERED: METOPROLOL TARTRATE 5 MG/5 ML VIAL ONE (10:32)
--- NOTE | 2017-05-25 10:33 | HOSP ---
Subjective - Review of Symptoms Events since last encounter: Patient known to me from previous admission. In afib with RVR. Received 2 doses diltiazem and 3 doses PO metoprolol in ED. Rate 90-->120s at rest, 150s with ambulation. BP stable. Have arranged for transfer to telemetry in order to start cardizem drip. Spoke with equity manager Dr. Sue. Keep patient NPO for likely cardioversion. INR 7.46, hold anticoagulation. Physical Examination Vital Signs: Vital Signs Temperature 98.1 F 05/25/17 08:07 Pulse Rate 122 H 05/25/17 08:07 Respiratory Rate 20 05/25/17 08:07 Blood Pressure 120/87 05/25/17 08:07 O2 Sat by Pulse Oximetry (%) 99 05/25/17 03:40 Labs: CBC, BMP 05/25/17 07:30 05/25/17 07:30
[2017-05-25] MEDS ORDERED: dilTIAZem HCL 50 MG/10 ML - 10 ML VIAL ONE ×2 (10:44→10:50)
[2017-05-25] MEDS: DILTIAZEM INJECTION 125 MG in DEXTROSE 5%-WATER - 100 ML IVPB SCH (11:13)
[2017-05-25 11:39] LABS: PROTHROMBIN TIME (PATIENT) 80.3 SEC (10.2-13.0)
[2017-05-25 11:40] LABS: INR 7.46 (0.82-1.09)
--- NOTE | 2017-05-25 12:13 | CON.CARD ---
Consult Consult Specialty:: Cardiology Referred by:: Hospitalist Medicine Reason for Consultation:: Recurrent PAF - History of Present Illness Chief Complaint: Palpitations History of Present Illness: 66 y/o female with a past medical history of rheumatic fever (childhood), replacement of aortic and mitral valves in 1999 ([place]) with mechanical valves, paroxysmal atrial fibrillation/flutter post DCCV presented after coughing fit with recurrent palpitations and light-headedness, found to be in rapid atrial flutter 150s with supratherapeutic INR w/o bleeding, started Cardizem gtt for rate-control. She denies associated sxs of dyspnea, chest tightness, true syncope, orthopnea, PND, LE edema, change in exercise capacity, reports compliance with metoprolol, last cardioversion 05/10/2017. 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 formerly [facility], later [facility]- [place] Cargo And Container Inspector : Dr Maria Luisa Almanza - History Source History Provided By: Patient Limitations to Obtaining History: No Limitations - Past Medical History Cardio/Vascular: Yes: AFIB ...: No - Past Surgical History Past Surgical History: Yes: Valve Replacement - Alcohol/Substance Use Hx Alcohol Use: No - Smoking History Smoking history: Never smoked Have you smoked in the past 12 months: No Home Medications - Allergies Allergies/Adverse Reactions: Allergies Allergy/AdvReac Type Severity Reaction Status Date / Time No Known Allergies Allergy Verified 05/07/17 04:16 - Home Medications Home Medications: Ambulatory Orders Levothyroxine [Synthroid -] 150 mcg PO DAILY 06/05/15 Warfarin Sodium [Coumadin] 10 mg PO ASDIR 06/05/15 Oseltamivir Phosphate [Tamiflu -] 75 mg PO DAILY #10 capsule 05/04/17 Metoprolol Succinate [Toprol XL -] 25 mg PO BID #60 tab.sr.24h 05/09/17 Review of Systems - Review of Systems Cardiovascular: reports: Palpitations Neurological: reports: Dizziness Vital Signs: Vital Signs Temperature 98.1 F 05/25/17 08:07 Pulse Rate 92 H 05/25/17 11:57 Respiratory Rate 20 05/25/17 10:45 Blood Pressure 94/60 05/25/17 11:57 O2 Sat by Pulse Oximetry (%) 99 05/25/17 03:40 Constitutional: Yes: No Distress, Calm Neck: Yes: Supple Respiratory: Yes: Regular, CTA Bilaterally Gastrointestinal: Yes: Normal Bowel Sounds, Soft Cardiovascular: Yes: Tachycardia JVD: No Carotid Bruit: No Heart Sounds: Yes: S1, S2 Edema: No - Other Data Labs, Other Data: CBC, BMP 05/25/17 07:30 05/25/17 07:30 INR, PTT INR 7.46 (0.82-1.09) H* 05/25/17 09:00 Troponin, BNP 05/24/17 05/25/17 05/25/17 22:26 02:55 02:55 Troponin I 0.97 H* 0.03 Cancelled Troponin, BNP 05/24/17 05/25/17 05/25/17 22:26 02:55 02:55 Troponin I 0.97 H* 0.03 Cancelled Aflutter @ 152 Imaging - Results Chest X-ray: Report Reviewed (ATX left base) Problem List - Problems (1) Atrial flutter with rapid ventricular response Code(s): I48.92 - UNSPECIFIED ATRIAL FLUTTER (2) Supratherapeutic INR Code(s): R79.1 - ABNORMAL COAGULATION PROFILE (3) History of cardioversion Code(s): Z98.89 - OTHER SPECIFIED POSTPROCEDURAL STATES * DO NOT USE * (4) Hypothyroidism Code(s): E03.9 - HYPOTHYROIDISM, UNSPECIFIED Qualifiers: Hypothyroidism type: unspecified Qualified Code(s): E03.9 - Hypothyroidism , unspecified (5) Palpitations Code(s): R00.2 - PALPITATIONS (6) Rheumatic heart disease Code(s): I09.9 - RHEUMATIC HEART DISEASE, UNSPECIFIED (7) S/P heart valve replacement with mechanical valve Code(s): Z95.2 - PRESENCE OF PROSTHETIC HEART VALVE (8) Demand ischemia Code(s): I24.8 - OTHER FORMS OF ACUTE ISCHEMIC HEART DISEASE Assessment/Plan 05/23/2015 TTE: Normal LV and RV size and fxn with cLVH, LAE, normal mech mitral and aortic ([place]), mild TR, tr AR, RVSP 24 mmHg 02/27/2016 Echo: Normal LV size with mild decrease LV fxn, mild LAE mech MVR, mod TR, RVSP 40-50 mmHg, mech AV, mild AR, [place] 1. Paroxysmal atrial flutter with recurrence and RVR 2. Rheumatic heart disease post mechanical AVR and MVR with supratherapeutic INR 3. Hypothyroidism 4. Previous medication noncompliance 5. Demand ischemia PLAN: 1. Given recurrent PAF on Toprol XL (reports compliance this time), trial of sotalol 80 bid pending LV fxn reassessment, monitor QTc 2. Hold coumadin per INR goal 3.0-3.5 3. Cardizem gtt for rate-control, NPO for DCCV in AM 4. Initiate USHA-I/ARB as per primary residential lawn specialist as hemodynamics tolerate 5. Follow up with her residential lawn specialist Dr. Maria Luisa Guthrie at [facility] and emphasized the importance of medication compliance 6. Thank you for consultative oppportunity
[2017-05-25] MEDS: SOTALOL HCL 80 MG TABLET (FP) PO SCH ×2 (12:25→22:03)
--- NOTE | 2017-05-25 15:23 | HOSP ---
Physical Examination Vital Signs: Vital Signs Temperature 98.1 F 05/25/17 08:07 Pulse Rate 92 H 05/25/17 11:57 Respiratory Rate 20 05/25/17 10:45 Blood Pressure 94/60 05/25/17 11:57 O2 Sat by Pulse Oximetry (%) 99 05/25/17 03:40 Labs: CBC, BMP 05/25/17 07:30 05/25/17 07:30 Hospitalist Encounter Assessment: Received signout from Surjit Hudson NP regarding patient transfer from [facility] to [facility] for likely cardioversion tomorrow. Patient seen, state she feels well, in no distress. Remains in afib with avr 130s, basal rate of cardizem increased to 5 mg as per protocol by primary RN BP stable, close monitoring of same by RN patient NPO for likely cardioversion. INR 7.46, hold anticoagulation, repeat labs in a.m.
[2017-05-25] MEDS ORDERED: SODIUM CHLORIDE 250 ML IV STA (16:53)
--- NOTE | 2017-05-25 18:27 | EKG ---
Test Reason : Blood Pressure : / mmHG Vent. Rate : 098 BPM Atrial Rate : 278 BPM P-R Int : 000 ms QRS Dur : 100 ms QT Int : 390 ms P-R-T Axes : 090 022 125 degrees QTc Int : 497 ms ATRIAL FLUTTER WITH VARIABLE A-V BLOCK WITH PREMATURE VENTRICULAR OR ABERRANTLY CONDUCTED COMPLEXES NONSPECIFIC ST AND T WAVE ABNORMALITY PROLONGED QT ABNORMAL ECG WHEN COMPARED WITH ECG OF 24-MAY-2017 22:12, SIGNIFICANT CHANGES HAVE OCCURRED Confirmed by MD IRLANDA, ADRIEN ([id number]) on 05/25/2017 6:26:38 PM Referred By: Tommy TAVAREZ Confirmed By:ADRIEN FOURNIER MD
--- NOTE | 2017-05-25 18:44 | EKG ---
Test Reason : Blood Pressure : / mmHG Vent. Rate : 152 BPM Atrial Rate : 152 BPM P-R Int : 000 ms QRS Dur : 092 ms QT Int : 326 ms P-R-T Axes : 000 020 238 degrees QTc Int : 518 ms ATRIAL FLUTTER WITH 2 TO [address] ABNORMALITY, POSSIBLE INFERIOR SUBENDOCARDIAL INJURY ABNORMAL ECG WHEN COMPARED WITH ECG OF 08-MAY-2017 10:28, HEART RATE HAS INCREASED BY [address] NOW DEPRESSED IN INFERIOR LEADS ST MORE DEPRESSED LATERAL LEADS T WAVE INVERSION NOW EVIDENT IN INFERIOR LEADS Confirmed by MD IRLANDA, ADRIEN ([id number]) on 05/25/2017 6:44:11 PM Referred By: MISSY Confirmed By:ADRIEN FOURNIER MD
[2017-05-25] MEDS: guaiFENesin 200 MG/10 ML 10 ML UNIT-DOSE CUPS PO PRN (22:03)
[2017-05-26] MEDS: LEVOTHYROXINE NA 150 MCG TABLET PO SCH (06:30)
[2017-05-26 07:15] LABS: PROTHROMBIN TIME (PATIENT) 66.5 SEC (9.98-11.88)
[2017-05-26 08:19] LABS: INR 5.88 (0.82-1.09)
[2017-05-26 08:28] LABS: BASO % 0.5 % (0-2.0); EOS % 2.5 % (0-4.5); HEMATOCRIT 37.2 % (32.4-45.2); HEMOGLOBIN 11.7 GM/dL (10.7-15.3); LYMPH % 27.7 % (8-40); MCH 27.1 pg (25.7-33.7); MCHC 31.3 g/dl (32.0-36.0); MEAN CELL VOLUME 86.5 fl (80-96); MEAN PLT VOLUME 10.2 fl (7.5-11.1); MONO % 11.9 % (3.8-10.2); NEUT % 57.4 % (42.8-82.8); PLATELET COUNT 283 K/MM3 (134-434); RBC 4.31 M/mm3 (3.60-5.2); RDW 16.8 % (11.6-15.6); WHITE BLOOD COUNT 5.5 K/mm3 (4.0-10.0)
[2017-05-26 08:32] LABS: ALBUMIN 2.9 g/dl (3.4-5.0); ALK PHOS 78 U/L (45-117); ANION GAP 5 (8-16); BILIRUBIN,TOTAL 0.5 mg/dL (0.2-1.0); BLOOD UREA NITROGEN 19 mg/dL (7-18); CHLORIDE 111 mmol/L (98-107); CO2 28 mmol/L (21-32); CREATININE 0.8 mg/dL (0.55-1.02); GLUCOSE,RANDOM 88 mg/dL (74-106); POTASSIUM 4.1 mmol/L (3.5-5.1); SGOT/AST 22 U/L (15-37); SGPT/ALT 31 U/L (12-78); SODIUM 144 mmol/L (136-145); TOT PROT 6.1 g/dl (6.4-8.2)
--- NOTE | 2017-05-26 10:25 | PN ---
Progress Note, Physician Chief Complaint: Sinus rhythm has been restored History of Present Illness: Patient was seen and examined. Awake and alert. Chart was reviewed Denies chest pain, SOB or palpitations Sinus rhythm has been restored - Current Medication List Current Medications: Active Medications Acetaminophen (Tylenol -) 650 mg PO Q6H PRN PRN Reason: PAIN Guaifenesin (Robitussin -) 10 ml PO Q6H PRN PRN Reason: COUGH Last Admin: 05/25/17 22:03 Dose: 10 ml Diltiazem HCl 125 mg/ Dextrose 125 mls @ 5 mls/hr IVPB TITR JOSH; 5 MG/HR PRN Reason: Protocol Last Admin: 05/25/17 11:13 Dose: 5 mg/hr, 5 mls/hr Levothyroxine Sodium (Synthroid -) 150 mcg PO DAILY@0700 [facility] Last Admin: 05/26/17 06:30 Dose: 150 mcg Sotalol HCl (Betapace -) 80 mg PO BID [facility] Last Admin: 05/25/17 22:03 Dose: 80 mg - Objective Vital Signs: Vital Signs Temperature 98.1 F 05/26/17 05:35 Pulse Rate 60 05/26/17 05:35 Respiratory Rate 20 05/26/17 05:35 Blood Pressure 105/60 05/26/17 05:35 O2 Sat by Pulse Oximetry (%) 94 L 05/25/17 21:00 Constitutional: Yes: Well Nourished Eyes: Yes: Conjunctiva Clear, PERRL HENT: Yes: Atraumatic Neck: Yes: Supple Cardiovascular: Yes: Regular Rate and Rhythm, Murmur (Soft SM), S1, S2 Respiratory: Yes: CTA Bilaterally Gastrointestinal: Yes: Normal Bowel Sounds, Soft. No: Tenderness Edema: No Labs: CBC, BMP 05/26/17 06:00 05/26/17 06:00 INR, PTT INR 5.88 (0.82-1.09) H* D 05/26/17 06:25 Problem List - Problems (1) Atrial flutter with rapid ventricular response Code(s): I48.92 - UNSPECIFIED ATRIAL FLUTTER (2) Demand ischemia Code(s): I24.8 - OTHER FORMS OF ACUTE ISCHEMIC HEART DISEASE (3) Supratherapeutic INR Code(s): R79.1 - ABNORMAL COAGULATION PROFILE (4) History of cardioversion Code(s): Z98.89 - OTHER SPECIFIED POSTPROCEDURAL STATES * DO NOT USE * (5) Hypothyroidism Code(s): E03.9 - HYPOTHYROIDISM, UNSPECIFIED Qualifiers: Hypothyroidism type: unspecified Qualified Code(s): E03.9 - Hypothyroidism , unspecified (6) Noncompliance with medication regimen Code(s): Z91.14 - PATIENT'S OTHER NONCOMPLIANCE WITH MEDICATION REGIMEN (7) Rheumatic heart disease Code(s): I09.9 - RHEUMATIC HEART DISEASE, UNSPECIFIED (8) S/P heart valve replacement with mechanical valve Code(s): Z95.2 - PRESENCE OF PROSTHETIC HEART VALVE Assessment/Plan 1. Paroxysmal atrial flutter now converted back to sinus rhythm 2. Rheumatic heart disease post mechanical AVR and MVR with supratherapeutic INR 3. Hypothyroidism 4. Previous medication noncompliance 5. Demand ischemia PLAN: 1. Continue Sotalol 80 mg BID and monitor QTc 2. Hold Coumadin per INR goal 3.0-3.5 3. No need for synchronized cardioversion 4. Initiate USHA-I/ARB as per primary picker machine operator as hemodynamics tolerate 5. Follow up with her picker machine operator Dr. Maria Luisa Guthrie at [facility] and emphasized the importance of medication compliance Dani Gallegos MD
[2017-05-26] MEDS: SOTALOL HCL 80 MG TABLET (FP) PO SCH ×2 (11:12→21:43)
[2017-05-26] MEDS: DILTIAZEM INJECTION 125 MG in DEXTROSE 5%-WATER - 100 ML IVPB SCH (11:19)
[2017-05-26] MEDS ORDERED: SODIUM CHLORIDE FOR INHALATION 3 ML VIAL.NEB IH PRN (16:05)
--- NOTE | 2017-05-26 16:05 | PN ---
Physical Exam: SUBJECTIVE: Patient seen and examined at the bedside. Feels good, having dry cough after getting over the flu weeks ago lungs clear, states robitussin helps Denies chest pain, denies shortness of breath OBJECTIVE: converted back to NRS @ 66, cardioversion cancelled by cardiology Saline mists for comfort Monitor INR (goal 3-3.5) Vital Signs Period Temp Pulse Resp BP Sys/Gonzalez Pulse Ox Last 24 Hr 97.3 F-98.6 F 60-118 20-20 80-132/45-77 94-97 GENERAL: The patient is awake, alert, and fully oriented, in no acute distress. HEAD: Normal with no signs of trauma. EYES: PERRL, extraocular movements intact, sclera anicteric, conjunctiva clear. No ptosis. ENT: Ears normal, nares patent, oropharynx clear without exudates, moist mucous membranes. NECK: Trachea midline, full range of motion, supple. LUNGS: Breath sounds equal, clear to auscultation bilaterally, no wheezes, no crackles, no accessory muscle use. HEART: NSR 66s ABDOMEN: Soft, nontender, nondistended, normoactive bowel sounds, no guarding, no rebound, no hepatosplenomegaly, no masses. NEUROLOGICAL: Normal speech, gait not observed. PSYCH: Normal mood, normal affect. SKIN: Warm, dry, normal turgor, no rashes or lesions noted Laboratory Results - last 24 hr 05/26/17 05/26/17 05/26/17 06:00 06:00 06:25 WBC 5.5 RBC 4.31 Hgb 11.7 Hct 37.2 MCV 86.5 MCH 27.1 MCHC 31.3 L RDW 16.8 H Plt Count 283 MPV 10.2 Neutrophils % 57.4 Lymphocytes % 27.7 D Monocytes % 11.9 H Eosinophils % 2.5 Basophils % 0.5 PT with INR 66.50 H INR 5.88 H* D Sodium 144 Potassium 4.1 Chloride 111 H Carbon Dioxide 28 Anion Gap 5 L BUN 19 H Creatinine 0.8 Creat Clearance w eGFR > 60 Random Glucose 88 Calcium 8.0 L Magnesium 2.0 Total Bilirubin 0.5 D AST 22 ALT 31 Alkaline Phosphatase 78 Total Protein 6.1 L Albumin 2.9 L Active Medications Generic Name Dose Route Start Last Admin Trade Name Freq PRN Reason Stop Dose Admin Acetaminophen 650 mg 05/25/17 00:19 Tylenol - PO Q6H PRN PAIN Guaifenesin 10 ml 05/25/17 21:44 05/25/17 22:03 Robitussin - PO 10 ml Q6H PRN Administration COUGH Diltiazem HCl 125 mg/ Dextrose 125 mls @ 5 mls/hr 05/25/17 10:30 05/26/17 11: 19 IVPB Not Given TITR JOSH Protocol 5 MG/HR Levothyroxine Sodium 150 mcg 05/25/17 07:00 05/26/17 06:30 Synthroid - PO 150 mcg DAILY@0700 JOSH Administration Sotalol HCl 80 mg 05/25/17 12:30 05/26/17 11:12 Betapace - PO 80 mg BID JOSH Administration ASSESSMENT/PLAN: Patient is a 66 year old female with a significant past medical history of rheumatic fever in childhood, 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 She presents to the ED on 05/25 with coughing, palpitations and lightheadedness. She was found to be in rapid aflutter in the 150s. Her INR was found to be supratherapeutic on admission. Her last cardioversion was on 05/10/2017. She was recently diagnosed with influenza B on May 04 2017 and treated with tamiflu. Patient states that she was told by her PCP to double up on her Coumadin 10mg after she missed a dose. She normally takes Coumadin 10mg daily, but does not take Coumadin on Sundays. Cardiology: Paroxysmal Afib/aflutter with RVR in 150s Was for a cardioversion today, but cancelled when she converted to NSR 60s Was on a cardizem drip, but stopped after patient converted On Sotalol HCL 80mg BID Continuous cardiac monitoring Echo done, awaiting official read Rheumatic heart disease s/p mechanical AVR and MVR On Coumadin 10mg home dose, INR supratherapeutic on admission, now trending down to 5.88 from 7.46 Continue to hold Coumadin until INR is at goal @ (3-3.5) Patient card hand is at [facility] (Maria Luisa Guthrie) and pt will need close f/u on discharge Hypothyroidism on Synthroid, TSH Hypertension, controlled On Sotalol Hyperlipidemia No not on statin, will need outpatient follow up F.E.N. Fluids: Po intake adequate Electrolytes: monitor Nutrition: low sodium Prophylaxis: DVT: on coumadin, INR supratherapeutic, hold dose tonight and repeat INR in a.m. GI: deferred Disposition: continues to require inpatient care. Full code. Visit type - Emergency Visit Emergency Visit: Yes ED Registration Date: 05/25/17 Care time: The patient presented to the Emergency Department on the above date and was hospitalized for further evaluation of their emergent condition. - New Patient This patient is new to me today: No - Critical Care Critical Care patient: No - Discharge Referral Referred to [facility] Med P.C.: No
[2017-05-26] MEDS: guaiFENesin 200 MG/10 ML 10 ML UNIT-DOSE CUPS PO PRN (21:43)
[2017-05-27] MEDS: LEVOTHYROXINE NA 150 MCG TABLET PO SCH (06:06)
--- NOTE | 2017-05-27 07:04 | EKG ---
Test Reason : Blood Pressure : / mmHG Vent. Rate : 067 BPM Atrial Rate : 067 BPM P-R Int : 150 ms QRS Dur : 096 ms QT Int : 438 ms P-R-T Axes : 072 031 100 degrees QTc Int : 462 ms NORMAL SINUS RHYTHM NONSPECIFIC ST ABNORMALITY WHEN COMPARED WITH ECG OF 25-MAY-2017 15:43, SINUS RHYTHM HAS REPLACED ATRIAL FLUTTER NON-SPECIFIC CHANGE IN ST SEGMENT IN INFERIOR LEADS Confirmed by DELIA MAXWELL MD ([id number]) on 05/26/2017 4:54:47 PM Referred By: ALISSA LIN DR Confirmed By:DELIA MAXWELL MD
[2017-05-27 07:09] LABS: INR 3.35 (0.82-1.09); PROTHROMBIN TIME (PATIENT) 37.9 SEC (9.98-11.88)
[2017-05-27 07:10] LABS: BASO % 0.7 % (0-2.0); EOS % 2.2 % (0-4.5); HEMATOCRIT 37.4 % (32.4-45.2); LYMPH % 26.7 % (8-40); MCH 27.1 pg (25.7-33.7); MCHC 32.1 g/dl (32.0-36.0); MEAN CELL VOLUME 84.5 fl (80-96); MEAN PLT VOLUME 10.1 fl (7.5-11.1); MONO % 10.8 % (3.8-10.2); NEUT % 59.6 % (42.8-82.8); PLATELET COUNT 291 K/MM3 (134-434); RBC 4.43 M/mm3 (3.60-5.2); RDW 16.8 % (11.6-15.6); WHITE BLOOD COUNT 5.9 K/mm3 (4.0-10.0)
[2017-05-27 07:42] LABS: ANION GAP 6 (8-16); BLOOD UREA NITROGEN 20 mg/dL (7-18); CALCIUM 8.1 mg/dL (8.5-10.1); CHLORIDE 108 mmol/L (98-107); CO2 27 mmol/L (21-32); CREATININE 0.8 mg/dL (0.55-1.02); GLUCOSE,RANDOM 87 mg/dL (74-106); POTASSIUM 4.5 mmol/L (3.5-5.1); SGOT/AST 20 U/L (15-37); SGPT/ALT 27 U/L (12-78); SODIUM 141 mmol/L (136-145)
[2017-05-27 07:44] LABS: ALK PHOS 80 U/L (45-117); BILIRUBIN,TOTAL 0.5 mg/dL (0.2-1.0); TOT PROT 6.1 g/dl (6.4-8.2)
--- NOTE | 2017-05-27 08:08 | PN ---
Progress Note (short form) - Note Progress Note: Chief Complaint: Events noted, notes reviewed, denies any chest pain or dyspnea , sinus rhythm is maintained, paroxysmal atrial fibrillation/flutter with spontaneous conversion to sinus rhythm History of Present Illness: Seen and examined on telemetry. Events noted, notes reviewed, denies any chest pain or dyspnea, sinus rhythm is maintained, paroxysmal atrial fibrillation/ flutter with spontaneous conversion to sinus rhythm Patient to be D/C home today and F/U with her parts puller at [facility]/Maria Luisa Guthrie MD, and to discuss option of future RFA of the above noted recurrent arrhythmia Medications: Current Medications Acetaminophen (Tylenol -) 650 mg PO Q6H PRN PRN Reason: PAIN Guaifenesin (Robitussin -) 10 ml PO Q6H PRN PRN Reason: COUGH Last Admin: 05/26/17 21:43 Dose: 10 ml Diltiazem HCl 125 mg/ Dextrose 125 mls @ 5 mls/hr IVPB TITR JOSH; 5 MG/HR PRN Reason: Protocol Last Admin: 05/26/17 11:19 Dose: Not Given Levothyroxine Sodium (Synthroid -) 150 mcg PO DAILY@0700 [facility] Last Admin: 05/27/17 06:06 Dose: 150 mcg Sodium Chloride (Normal Saline For Inhalation -) 3 ml IH Q6H PRN PRN Reason: coughing Sotalol HCl (Betapace -) 80 mg PO BID [facility] Last Admin: 05/26/17 21:43 Dose: 80 mg Review of Systems Cardiovascular: As noted above Respiratory: denies: denies: Cough or Sputum Production Gastrointestinal: denies: Nausea, Vomiting, Diarrhea, Constipation or Abdominal Discomfort Musculoskeletal: No Symptoms Reported Endocrine: No Symptoms Reported Vital Signs: Last Vital Signs Temp Pulse Resp BP Pulse Ox 97.8 F 62 20 120/66 96 05/27/17 06:00 05/27/17 06:00 05/27/17 06:00 05/27/17 06:00 05/26/17 21:00 Intake & Output 05/24/17 05/25/17 05/26/17 05/27/17 23:59 23:59 23:59 23:59 Intake Total 950 840 200 Balance 950 840 200 Weight 220 lb 226 lb 227 lb 227 lb 2 oz Constitutional: No Distress, Calm Neck: Supple negative JVD No bruit Respiratory: Clear to A&P Bilaterally Cardiovascular: Mechanical Clicks Regular Rate Rhythm Grade 1-2/6 CLIFF Gastrointestinal: Soft Benign Normal Bowel Sounds Ext: No Edema Labs: CBC, BMP 05/27/17 06:25 05/27/17 06:25 INR, PTT INR 3.35 (0.82-1.09) H D 05/27/17 06:25 Assessment/Plan ASSESSMENT: 1. Paroxysmal atrial flutter with spontaneous conversion to sinus rhythm on A/C therapy 2. 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 Probale diastolic LV dysfunction with class 0 NYHA calssification lV failure 4. CAD with evidence of demand ischemic injury in context of recurrent paroxysmal atrial flutter with rapid ventricular response 5. Hypothyroidism 6. Prior history of medication administration noncompliance PLAN: 1. Continue Coumadin as per INR, maintain between 2.5-3.5 2. Continue Betapace with close monitoring of QTc 3. As outlined above patient to F/U with her parts puller Dr. Maria Luisa Guthrie/ [facility] [place] for further management and referral for possible atrial flutter RFA, discussed in detail with the patient Beatriz Santiago M.D.
[2017-05-27] MEDS: SOTALOL HCL 80 MG TABLET (FP) PO SCH (10:10)
--- NOTE | 2017-05-27 11:20 | DS ---
Physical Exam: SUBJECTIVE: Patient seen and examined at the bedside. Denies chest pain, denies further coughing. Denies shortness of breath. OBJECTIVE: INR stable @ 3.35 converted back to NRS @ 66, cardioversion cancelled by cardiology Vital Signs Period Temp Pulse Resp BP Sys/Gonzalez Pulse Ox Last 24 Hr 97.3 F-98.9 F 62-71 20-20 90-132/50-73 96 PHYSICAL EXAM GENERAL: The patient is awake, alert, and fully oriented, in no acute distress. HEAD: Normal with no signs of trauma. EYES: PERRL, extraocular movements intact, sclera anicteric, conjunctiva clear. No ptosis. ENT: Ears normal, nares patent, oropharynx clear without exudates, moist mucous membranes. NECK: Trachea midline, full range of motion, supple. LUNGS: Breath sounds equal, clear to auscultation bilaterally, no wheezes, no crackles, no accessory muscle use. HEART: NSR 66s ABDOMEN: Soft, nontender, nondistended, normoactive bowel sounds, no guarding, no rebound, no hepatosplenomegaly, no masses. NEUROLOGICAL: Normal speech, gait not observed. PSYCH: Normal mood, normal affect. SKIN: Warm, dry, normal turgor, no rashes or lesions noted LABS Laboratory Results - last 24 hr 05/27/17 05/27/17 05/27/17 06:25 06:25 06:25 WBC 5.9 RBC 4.43 Hgb 12.0 Hct 37.4 MCV 84.5 MCH 27.1 MCHC 32.1 RDW 16.8 H Plt Count 291 MPV 10.1 Neutrophils % 59.6 Lymphocytes % 26.7 Monocytes % 10.8 H Eosinophils % 2.2 Basophils % 0.7 PT with INR 37.90 H INR 3.35 H D Sodium 141 Potassium 4.5 Chloride 108 H Carbon Dioxide 27 Anion Gap 6 L BUN 20 H Creatinine 0.8 Creat Clearance w eGFR > 60 Random Glucose 87 Calcium 8.1 L Total Bilirubin 0.5 AST 20 ALT 27 Alkaline Phosphatase 80 Total Protein 6.1 L Albumin 3.0 L HOSPITAL COURSE: Date of Admission:05/25/17 Date of Discharge: 05/27/17 Patient is a 66 year old female with a significant past medical history of rheumatic fever in childhood, 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 She presents to the ED on 05/25 with coughing, palpitations and lightheadedness. She was found to be in rapid aflutter in the 150s. Her INR was found to be supratherapeutic on admission. Her last cardioversion was on 05/10/2017. She was recently diagnosed with influenza B on May 04 2017 and treated with tamiflu. Patient states that she was told by her PCP to double up on her Coumadin 10mg after she missed a dose. She normally takes Coumadin 10mg daily, but does not take Coumadin on Sundays. Cardiology: Paroxysmal Afib/aflutter with RVR in 150s Was for a cardioversion yesterday, but cancelled when she converted to NSR 60s Was on a cardizem drip, but stopped after patient converted On Sotalol HCL 80mg BID to continue as an outpatient Echo reviewed Cleared for discharge by cardiology Elevated trop on admission, likely secondary to demand ischemia Cardiology following Rheumatic heart disease s/p mechanical AVR and MVR On Coumadin 10mg home dose, INR supratherapeutic on admission, now @ 3.35 Patient meat boner and slicer is at [facility] (Maria Luisa Guthrie) and pt will need close f/u on discharge Patient to continue home dose of Coumadin with an INR follow up with her PCP Hypothyroidism on Synthroid Hypertension, controlled Hyperlipidemia not on statin, will need outpatient follow up Disposition: Discharge home, outpatient cardiology follow up. full code. Minutes to complete discharge: 60 Discharge Summary Reason For Visit: AFLUTTER WITH RVR/SUPRATHERAPEUTIC INR Current Active Problems Atrial flutter with rapid ventricular response (Acute) Demand ischemia (Acute) Supratherapeutic INR (Acute) Condition: Improved - Instructions Diet, Activity, Other Instructions: Mrs العلي Please continue the Coumadin as you were doing at home, but only take one tablet per day and maintain INR between 2.5-3.5. Continue the Betapace medications (called into you pharmacy) Your INR today is 3.35, therefore, you can re-start the Coumadin tonight. Please see your meat boner and slicer Dr. Maria Luisa Guthrie/[facility]/ [place] for further management. Please call us back with any questions that you may have. Mary Nunez CIRCULAR RIPSAW OPERATOR [facility] [phone] Referrals: Grayson Perdue MD [Primary Care Provider] - (3 - 5 days) Maria Luisa Guthrie [Non Staff, Medical] - (within 3 days after discharge) Disposition: HOME - Home Medications Comprehensive Discharge Medication List: Ambulatory Orders Levothyroxine [Synthroid -] 150 mcg PO DAILY 06/05/15 Warfarin Sodium [Coumadin] 10 mg PO ASDIR 06/05/15 Oseltamivir Phosphate [Tamiflu -] 75 mg PO DAILY #10 capsule 05/04/17 Metoprolol Succinate [Toprol XL -] 25 mg PO BID #60 tab.sr.24h 05/09/17 This patient is new to me today: No Emergency Visit: Yes ED Registration Date: 05/25/17 Care time: The patient presented to the Emergency Department on the above date and was hospitalized for further evaluation of their emergent condition. Critical Care patient: No - Discharge Referral Referred to [facility] Med P.C.: No
--- NOTE | 2017-05-27 11:28 | EKG ---
Test Reason : Blood Pressure : / mmHG Vent. Rate : 066 BPM Atrial Rate : 066 BPM P-R Int : 150 ms QRS Dur : 098 ms QT Int : 468 ms P-R-T Axes : 066 033 092 degrees QTc Int : 490 ms NORMAL SINUS RHYTHM PROLONGED QT ABNORMAL ECG WHEN COMPARED WITH ECG OF 26-MAY-2017 11:06, NO SIGNIFICANT CHANGE WAS FOUND Confirmed by MD Tompkins Daniel ([id number]) on 05/27/2017 11:28:08 AM [facility] Confirmed By:Migue Tompkins MD
[2017-05-27 11:29] VITALS: BP 132/84; PULSE 70; TEMP 98
== END 2017-05-27 13:38 | disposition home or self-care (01) | DRG 309 ==
LOC: FER 22:08 → FM/S 05-25 02:25 → J4W 05-25 14:51
PROVIDERS: ADMIT Internal Medicine; ATTEND Nurse Practitioner Family
DX: I48.92 Unspecified atrial flutter (principal); I24.8 Other forms of acute ischemic heart disease; I10 Essential (primary) hypertension; E78.5 Hyperlipidemia, unspecified; E03.9 Hypothyroidism, unspecified; Z95.2 Presence of prosthetic heart valve; I48.0 Paroxysmal atrial fibrillation; Z91.14 Patient's other noncompliance with medication regimen; R79.1 Abnormal coagulation profile
CPT/HCPCS: 36415; 71045-TC-FY; 80053; 81003; 81015; 82550; 83735; 84443; 84484; 85025; 85610; 93005; 93010; 93306-TC; 99284-25

== ENCOUNTER 2018-01-27 13:55 | Emergency (ER) | payer OTHER ==
--- NOTE | 2018-01-27 13:57 | PDOC ---
History of Present Illness - General Chief Complaint: Vomiting/Diarrhea Stated Complaint: VOMITING,DIARHHEA Time Seen by Provider: 01/27/18 13:57 - History of Present Illness Initial Comments: 01/27/18 14:58 The patient is a 67 year old female with a history of prostatic mitral valve who presents for evaluation of chest pain, nausea, vomiting, and diarrhea. The patient reports lower right back pain with radiation down her right leg over the past 2 days. She reports an episode of left sided chest pressure as well as nausea and 1 episode of non-bloody, non-bilious vomiting and an episode of diarrhea earlier today prompting her presentation to the ED for further evaluation. She otherwise denies fevers, chills, SOB, abdominal pain, numbness , tingling, weakness, or changes with urination or bowel movements. Past History - Past Medical History Allergies/Adverse Reactions: Allergies Allergy/AdvReac Type Severity Reaction Status Date / Time No Known Allergies Allergy Verified 01/27/18 13:57 Home Medications: Ambulatory Orders Levothyroxine [Synthroid -] 150 mcg PO DAILY 06/05/15 Warfarin Sodium [Coumadin] 10 mg PO ASDIR 06/05/15 Sotalol HCl [Betapace -] 80 mg PO BID #60 tablet 05/27/17 Cholecalciferol (Vitamin D3) [Vitamin D3 -] 2,000 unit PO DAILY 01/27/18 Anemia: No Asthma: No Cancer: No Cardiac Disorders: Yes (RHEUMATIC FEVER, MITRAL AND AORTIC VALVE REPLACEMENT, AFlutter) CVA: No COPD: No CHF: No Dementia: No Diabetes: No GI Disorders: No HTN: No Hypercholesterolemia: No Liver Disease: No Seizures: No Thyroid Disease: Yes - Surgical History Abdominal Surgery: No Appendectomy: No Cardiac Surgery: Yes (AORTIC AND MITRIAL VALVE REPLACEMENT ARTIFICIAL) Cholecystectomy: No Lung Surgery: No Neurologic Surgery: No Orthopedic Surgery: No - Suicide/Smoking/Psychosocial Hx Smoking History: Never smoked Have you smoked in the past 12 months: No Hx Alcohol Use: No Drug/Substance Use Hx: No Substance Use Type: None Hx Substance Use Treatment: No Review of Systems - Review of Systems Comments:: 01/27/18 15:01 Constitutional: No fevers, chills, fatigue, malaise HEENT: No Rhinorrhea, nasal congestion, visual changes Cardiovascular: Chest pressure. No syncope, palpitations, lightheadedness Respiratory: No Cough, SOB, Hemoptysis, Gastrointestinal: Nausea, vomiting, diarrhea. No Abdominal pain, Constipation, Melena Genitourinary: No Dysuria, Frequency, Urgency, Hesitancy, Hematuria, Flank pain Musculoskeletal: Lower back pain. No Myalgia, arthralgia Skin: No rashes, itching, bruising, pallor Neurologic: No Headache, Dizziness, Numbness, Weakness, or Tingling Psychiatric: No Hallucinations. No SI or HI *Physical Exam - Physical Exam Comments: 01/27/18 15:01 General Appearance: Nourished. No Apparent Distress HEENT: No Pharyngeal Erythema, Tonsillar Exudate, Tonsillar Erythema Neck: No Cervical Lymphadenopathy Respiratory/Chest: Lungs Clear, Normal Breath Sounds. No Crackles, Rales, Rhonchi, Wheezing Cardiovascular: Regular Rhythm, Regular Rate. No Murmur, Gallops, Rubs Gastrointestinal/Abdominal: Normal Bowel Sounds, Soft. No Guarding, Rebound, Tenderness Musculoskeletal: No CVA Tenderness Extremity: Normal Capillary Refill Integumentary: Normal Color, Dry, Warm Neurologic: Fully Oriented, Alert, Normal Mood/Affect, Normal Response, Motor Strength 5/5. Heart Score/ECG Review #1 ECG reviewed & interpreted by me at: 15:03 General ECG Interpretation: Sinus Rhythm, Normal Rate, Normal Intervals, No acute ischemic changes Compared to previous ECG there are: No significant change (05/26/17) ED Treatment Course - LABORATORY CBC & Chemistry Diagram: 01/27/18 14:28 01/27/18 14:28 Medical Decision Making - Medical Decision Making 01/27/18 15:03 The patient is a 67 year old female with a history of prostatic mitral valve who presents for evaluation of chest pain, nausea, vomiting, and diarrhea. Differential includes but is not limited to: ACS, Gastroenteritis, Pancreatitis , UTI, Infectious, Metabolic Derangement. Given the patient's history and physical exam, we will obtain a cbc, cmp, troponin, lipase, ekg, chest plain film, UA to evaluate further. We will treat the patient with iv fluids, tylenol and zofran and continue to monitor and reassess while here in the ED. 01/27/18 18:21 CBC, cmp, troponin, lipase are unremarkable. UA is unremarkable. Chest plain film is unremarkable. The patient reports improvement in her symptoms. We are comfortable discharging the patient home with primary care provider follow up. We discussed the results, plan, and return precautions with the patient who voiced understanding and is agreeable with the plan. *DC/Admit/Observation/Transfer Diagnosis at time of Disposition: Nausea vomiting and diarrhea - Discharge Dispostion Disposition: HOME Condition at time of disposition: Stable - Referrals Referrals: Grayson Perdue MD [Primary Care Provider] - - Patient Instructions Printed Discharge Instructions: DI for Nausea -- Adult, DI for Vomiting -- Adult Additional Instructions: Please return to the ER if you experience concerning or worsening symptoms including worsening difficulty breathing, weakness, or chest pain, vomiting. Your lab results were normal here in the ER. Please call to schedule a follow up appointment with your primary care provider within 2-3 days to discuss your ER visit and further management of your symptoms. - Post Discharge Activity
[2018-01-27 14:02] VITALS: BP 157/93; PULSE 87; TEMP 98.1; BMI 33.4
[2018-01-27] MEDS ORDERED: SODIUM CHLORIDE 1,000 ML IV STA (14:16)
[2018-01-27] MEDS ORDERED: ONDANSETRON 4 MG/2 ML VIAL IVPUSH ONE (14:25)
[2018-01-27 14:27] LABS: PH,URINE 5.5 (4.5-8); URINE APPEARANCE Clear; URINE BILIRUBIN 1+ (NEGATIVE); URINE COLOR Amber; URINE GLUCOSE (UA) Negative (NEGATIVE); URINE KETONE Trace (NEGATIVE); URINE LEUK ESTERASE Negative (NEGATIVE); URINE NITRITE Negative (NEGATIVE); URINE PROTEIN 2+ (NEGATIVE); URINE UROBILINOGEN 0.2 (0.2-1.0)
[2018-01-27] MEDS ORDERED: ACETAMINOPHEN 1000 MG/100 ML VIAL (NON FORMULARY) IVPB ONE (14:28)
[2018-01-27] MEDS ORDERED: ACETAMINOPHEN INJECTION 100 ML IVPB ONE (14:33)
[2018-01-27] MEDS ORDERED: ONDANSETRON 4 MG/2 ML VIAL ONE (14:34)
[2018-01-27 14:42] LABS: BASO % 0.5 % (0-2.0); EOS % 0.8 % (0-4.5); HEMATOCRIT 42.6 % (32.4-45.2); HEMOGLOBIN 13.7 GM/dl (10.7-15.3); LYMPH % 6.4 % (8-40); MCH 28.5 pg (25.7-33.7); MCHC 32.3 g/dl (32.0-36.0); MEAN CELL VOLUME 88.3 fl (80-96); MEAN PLT VOLUME 10.4 fl (7.5-11.1); MONO % 8.1 % (3.8-10.2); NEUT % 84.2 % (42.8-82.8); PLATELET COUNT 295 K/MM3 (134-434); RBC 4.82 M/mm3 (3.60-5.2); RDW 14.8 % (11.6-15.6); WHITE BLOOD COUNT 12.6 K/mm3 (4.0-10.8)
[2018-01-27 14:51] LABS: INR 1.79 (0.82-1.09); PROTHROMBIN TIME (PATIENT) 19.8 SEC (10.2-13.0)
[2018-01-27 14:55] LABS: ALBUMIN 3.6 g/dl (3.5-5.0); ALK PHOS 82 U/L (32-92); ANION GAP 5 MMOL/L (8-16); BILIRUBIN,TOTAL 0.8 mg/dl (0.2-1.0); BLOOD UREA NITROGEN 21 mg/dl (7-18); CALCIUM 9.1 mg/dl (8.4-10.2); CHLORIDE 105 mmol/L (98-107); CO2 26 mmol/L (22-28); GLUCOSE,RANDOM 115 mg/dl (74-106); POTASSIUM 5.1 mmol/L (3.5-5.1); SGOT/AST 29 U/L (10-42); SGPT/ALT 27 U/L (10-40); SODIUM 136 mmol/L (136-145); TOT PROT 6.9 g/dl (6.4-8.3)
--- NOTE | 2018-01-27 15:17 | PDOC ---
Attending Attestation - Resident Resident Name: Migue Mark - ED Attending Attestation I have performed the following: I have examined & evaluated the patient, The case was reviewed & discussed with the resident, I agree w/resident's findings & plan - HPI HPI: 01/27/18 15:12 67y/o F p/w one episode each of v/d today. pt has had atraumatic R low back pain , presumed msk v. herniated disc by her pcp. today developed n/v/d without abdominal pain or f/c. has been on ezra justin diet for 3 weeks, last night ate heavy/greasy meal and feels that was the cause. no travel, no known sick contacts, no recent abx. no h/o recurring gi illness or post-prandial abd pain. - Physicial Exam PE: 01/27/18 15:17 afebrile no jaundice/pallor s1s2 rrr, ctab abd soft/nd/nt. mild epigastric discomfort to palpation without guarding/rebound , ns nl to hyperactive. no cvat. - Medical Decision Making 01/27/18 15:18 67y/o F with v/d x1, no abd pain and benign abd exam. low back pain likely unrelated and musculoskeletal in etiology. labs, ua ivf, anti-emetic, pain control no indication for emergent imaging given benign exam reassess and dispo accordingly
[2018-01-27 15:19] LABS: EPI CELLS 4+ /HPF
[2018-01-27 15:20] LABS: URINE BACTERIA FEW /hpf (NEGATIVE)
[2018-01-27 16:05] LABS: LIPASE 236 U/L (73-393)
--- NOTE | 2018-01-29 15:09 | EKG ---
Test Reason : Blood Pressure : / mmHG Vent. Rate : 082 BPM Atrial Rate : 082 BPM P-R Int : 146 ms QRS Dur : 094 ms QT Int : 390 ms P-R-T Axes : 086 040 105 degrees QTc Int : 455 ms NORMAL SINUS RHYTHM NONSPECIFIC ST AND T WAVE ABNORMALITY ABNORMAL ECG WHEN COMPARED WITH ECG OF 27-MAY-2017 08:49, NO SIGNIFICANT CHANGE WAS FOUND Confirmed by ANTHONY OBRIEN, BRYANT ([id number]) on 01/29/2018 3:09:22 PM Referred By: ANTIONETTE ULLOA Confirmed By:BRYANT CRUZ MD
== END 2018-01-27 16:28 | disposition home or self-care (01) ==
LOC: FER 13:55
PROC: 3E033NZ Introduction of Analgesics, Hypnotics, Sedatives into Peripheral Vein, Percutaneous Approach (ICD-10-PCS; principal; 2018-01-27)
PROC: 3E033GC Introduction of Other Therapeutic Substance into Peripheral Vein, Percutaneous Approach (ICD-10-PCS; 2018-01-27)
PROC: 3E0337Z Introduction of Electrolytic and Water Balance Substance into Peripheral Vein, Percutaneous Approach (ICD-10-PCS; 2018-01-27)
DX: R11.2 Nausea with vomiting, unspecified (principal); R19.7 Diarrhea, unspecified; I48.91 Unspecified atrial fibrillation; Z79.01 Long term (current) use of anticoagulants; Z95.2 Presence of prosthetic heart valve; E07.9 Disorder of thyroid, unspecified
CPT/HCPCS: 36415; 71045-TC-FY; 80053; 81003; 81015; 82550; 83690; 84484; 85025; 85610; 87086; 93005; 96361; 96374; 96375; 99284-25; J0131; J7030

== ENCOUNTER 2018-08-28 08:33 | Emergency (ER) | payer OTHER ==
[2018-08-28 08:43] VITALS: PULSE 84; TEMP 98.1; BMI 33.4
[2018-08-28] MEDS ORDERED: LORATADINE 10 MG TABLET PO ONE (08:50)
[2018-08-28] MEDS ORDERED: LORATADINE 10 MG TABLET ONE (08:51)
[2018-08-28] MEDS ORDERED: SODIUM CHLORIDE FOR INHALATION 3 ML VIAL.NEB IH ONE ×2 (08:52→08:56)
--- NOTE | 2018-08-28 08:52 | PDOC ---
History of Present Illness - General Chief Complaint: Respiratory Stated Complaint: COUGH POST NASAL DRIP 2 WEEKS Time Seen by Provider: 08/28/18 08:38 - History of Present Illness Initial Comments: 08/28/18 08:52 67 F with h/o AVR/MVR, afib, HTN, HLD, hypothyroid, presenting with 10 days of cough. Pt notes dry cough that is worse at night, keeping her up. Pt endorses nasal congestion, as well as eye crusting when she wakes up. Denies CP/SOB. She states that she may have had a fever when cough initially started but denies any recently. Denies leg swelling. Past History - Past Medical History Allergies/Adverse Reactions: Allergies Allergy/AdvReac Type Severity Reaction Status Date / Time No Known Allergies Allergy Verified 08/28/18 08:37 Home Medications: Ambulatory Orders Levothyroxine [Synthroid -] 175 mcg PO DAILY 06/05/15 Warfarin Sodium [Coumadin] 10 mg PO ASDIR 06/05/15 Sotalol HCl [Betapace -] 80 mg PO BID #60 tablet 05/27/17 Cholecalciferol (Vitamin D3) [Vitamin D3 -] 2,000 unit PO DAILY 01/27/18 Anemia: No Asthma: No Cancer: No Cardiac Disorders: Yes (RHEUMATIC FEVER, MITRAL AND AORTIC VALVE REPLACEMENT, AFlutter) CVA: No COPD: No CHF: No Dementia: No Diabetes: No GI Disorders: No HTN: No Hypercholesterolemia: No Liver Disease: No Seizures: No Thyroid Disease: Yes - Surgical History Abdominal Surgery: No Appendectomy: No Cardiac Surgery: Yes (AORTIC AND MITRIAL VALVE REPLACEMENT ARTIFICIAL) Cholecystectomy: No Lung Surgery: No Neurologic Surgery: No Orthopedic Surgery: No - Suicide/Smoking/Psychosocial Hx Smoking History: Never smoked Have you smoked in the past 12 months: No Information on smoking cessation initiated: No Hx Alcohol Use: No Drug/Substance Use Hx: No Substance Use Type: None Hx Substance Use Treatment: No Review of Systems - Review of Systems Comments:: 08/28/18 08:54 "GENERAL/CONSTITUTIONAL: No fever or chills. No weakness. HEAD, EYES, EARS, NOSE AND THROAT: No change in vision. No ear pain or discharge. No sore throat. CARDIOVASCULAR: No chest pain, no shortness of breath, no loss of consciousness RESPIRATORY: + cough, no wheezing, or hemoptysis. GASTROINTESTINAL: No nausea, vomiting, diarrhea or constipation. GENITOURINARY: No dysuria, frequency, or change in urination. MUSCULOSKELETAL: No joint or muscle swelling or pain. No neck or back pain. SKIN: No rash NEUROLOGIC: No vertigo, no change in strength/sensation. ENDOCRINE: No increased thirst. No abnormal weight change. HEMATOLOGIC/LYMPHATIC: No anemia, easy bleeding, or history of blood clots. ALLERGIC/IMMUNOLOGIC: No hives or skin allergy. *Physical Exam - Vital Signs Last Vital Signs Temp Pulse Resp BP Pulse Ox 98.1 F 84 16 169/97 99 08/28/18 08:35 08/28/18 08:35 08/28/18 08:35 08/28/18 08:35 08/28/18 08:35 - Physical Exam Comments: 08/28/18 08:54 "GENERAL: Awake, alert, and fully oriented, in no acute distress. HEAD: No signs of trauma EYES: PERRLA, EOMI, sclera anicteric, conjunctiva clear ENT: Auricles normal inspection, hearing grossly normal, nares patent, oropharynx clear without exudates. Moist mucosa NECK: Nontender, no stepoffs, Normal ROM, supple, no lymphadenopathy, JVD, or masses LUNGS: Breath sounds equal, clear to auscultation bilaterally. No wheezes, and no crackles HEART: Regular rate and rhythm, normal S1 and S2, no murmurs, rubs or gallops ABDOMEN: Soft, nontender, normoactive bowel sounds. No guarding, no rebound. No masses EXTREMITIES: Normal range of motion, no edema. No clubbing or cyanosis. No cords, erythema, or tenderness NEUROLOGICAL: Cranial nerves II through XII intact. 5/5 strength and sensation in all extremities, Normal speech, normal gait, normal cerebellar function SKIN: Warm, Dry, normal turgor, no rashes or lesions noted. ED Treatment Course - RADIOLOGY Radiology Studies Ordered: Category Date Time Status CHEST PA & LAT [RAD] Stat Radiology 08/28/18 08:51 Ordered Medical Decision Making - Medical Decision Making 08/28/18 08:55 67 F with cough and nasal congestion x 10 days. Suspect allergic rhinitis with postnasal drip. Will r/o PNA with CXR. Pt without any evidence of volume overload on exam. Denies CP/SOB. - CXR - Claritin - Saline neb 08/28/18 09:39 CXR clear Pt reassessed after claritin and saline neb - now feels significantly improved. Pt is well appearing, with normal vitals. Clinically stable for DC at this time. I discussed the physical exam findings, ancillary test results and final diagnoses with the patient. I answered all of the patient's questions. The patient was satisfied with the care received and felt comfortable with the discharge plan and treatment plan. The patient agrees to follow up with the primary care physician within 24-72 hours. *DC/Admit/Observation/Transfer Diagnosis at time of Disposition: Cough - Discharge Dispostion Disposition: HOME Condition at time of disposition: Stable - Referrals Referrals: Grayson Perdue MD [Primary Care Provider] - - Patient Instructions Printed Discharge Instructions: DI for Cough -- Adult Additional Instructions: Your cough may be related to seasonal allergies. Take one benadryl at night prior to sleeping. If you experience worsening cough, fevers, chest pain, shortness of breath, or any other concerning symptoms, return to the ER immediately. Otherwise, follow up with your primary doctor on Friday. - Post Discharge Activity - Attestations Physician Attestion: 08/28/18 09:42 I, Dr. Antonio Thomas MD, attest that this document has been prepared under my direction and personally reviewed by me in its entirety. I further attest, that it accurately reflects all work, treatment, procedures and medical decision -making performed by me.
[2018-08-28 09:59] VITALS: BP 160/91
== END 2018-08-28 09:52 | disposition home or self-care (01) ==
LOC: FER 08:33
PROC: 3E0337Z Introduction of Electrolytic and Water Balance Substance into Peripheral Vein, Percutaneous Approach (ICD-10-PCS; principal; 2018-08-28)
DX: R05 Cough (principal)
CPT/HCPCS: 71046-TC-FY; 96360; 99282-25

== ENCOUNTER 2019-02-04 07:11 | Inpatient (IN) | payer OTHER ==
[2019-01-25 17:55] VITALS: BMI 32.2
[~2019-02-04 07:11] MED LIST: BUPIVICAINE 0.25%/MORPH PF/KETOROLAC - 51ML DISP.SYRINGE IA ONE; TRANEXAMIC ACID 1000 MG/10 ML VIAL IVPUSH ONE; VANCOMYCIN 1,000 MG VIAL (RESTRICTED TO ID ONLY) IVPB ONE
[2019-02-04] MEDS ORDERED: TRANEXAMIC ACID 1000 MG/10 ML VIAL ONE ×2 (07:16→11:13)
[2019-02-04] MEDS ORDERED: SODIUM CHLORIDE 0.9% P/F 10 ML VIAL IJ ONE (07:16)
[2019-02-04] MEDS ORDERED: PROPOFOL 20 ML ONE ×3 (07:16→12:19)
[2019-02-04] MEDS ORDERED: ceFAZolin SODIUM 1 GM VIAL ONE ×2 (07:16→09:52)
[2019-02-04] MEDS ORDERED: oxyCODONE HCL 10 MG SUSTAINED ACTING TABLET PO ONE (07:55)
[2019-02-04] MEDS ORDERED: CELECOXIB 200 MG CAPSULE PO ONE (07:55)
[2019-02-04] MEDS ORDERED: TRANEXAMIC ACID 1000 MG/10 ML VIAL IVPUSH ONE ×2 (07:55→12:26)
[2019-02-04] MEDS ORDERED: BUPIVICAINE 0.25%/MORPH PF/KETOROLAC - 51ML DISP.SYRINGE IA ONE ×3 (07:55→12:26)
[2019-02-04] MEDS ORDERED: PANTOPRAZOLE 40 MG TABLET (FP) PO ONE (07:56)
--- NOTE | 2019-02-04 07:56 | HP ---
Admitting History and Physical - Admission Chief Complaint: right hip osteoarthritis x years History of Present Illness: 68 year old female presents in regard to their right hip. Long-standing history of right hip osteoarthritis. Patient complains of pain, limited range of motion , difficulty ambulating, and difficulty with activities of daily living. Patient has failed conservative treatment options including PO medications, activity modification, injections, and exercise programs. At this point, patient like to proceed with surgical intervention, right total hip arthroplasty MAKOplasty. History Source: Patient - Past Medical History Cardiovascular: Yes: AFIB Psych: Yes: Depression Endocrine: Yes: Hypothyroidism - Past Surgical History Past Surgical History: Yes: Valve Replacement Additional Past Surgical History: See written history & physical. - Smoking History Smoking history: Never smoked Have you smoked in the past 12 months: No - Alcohol/Substance Use Hx Alcohol Use: No Home Medications - Allergies Allergies/Adverse Reactions: Allergies Allergy/AdvReac Type Severity Reaction Status Date / Time No Known Allergies Allergy Verified 02/04/19 07:41 - Home Medications Home Medications: Ambulatory Orders Levothyroxine [Synthroid -] 175 mcg PO DAILY 06/05/15 Warfarin Sodium [Coumadin] 10 mg PO ASDIR 06/05/15 Sotalol HCl [Betapace -] 80 mg PO BID #60 tablet 05/27/17 Cholecalciferol (Vitamin D3) [Vitamin D3 -] 2,000 unit PO DAILY 01/27/18 Duloxetine HCl 30 mg PO DAILY 01/25/19 Enoxaparin Sodium [Lovenox] 100 mg SQ BID 02/04/19 Review of Systems - Review of Systems Musculoskeletal: reports: Decreased ROM (right hip), Joint Pain (right hip) Physical Examination Constitutional: Yes: Well Nourished, No Distress Eyes: Yes: Conjunctiva Clear HENT: Yes: Atraumatic Neck: Yes: Supple Cardiovascular: Yes: Regular Rate and Rhythm Respiratory: Yes: Regular Gastrointestinal: Yes: Soft ...Rectal Exam: Yes: Deferred Musculoskeletal: Yes: Joint Stiffness (right hip), Joint Swelling (right hip) Assessment/Plan 68 year old female presents in regard to their right hip. Long-standing history of right hip osteoarthritis. Patient complains of pain, limited range of motion , difficulty ambulating, and difficulty with activities of daily living. Patient has failed conservative treatment options including PO medications, activity modification, injections, and exercise programs. At this point, patient like to proceed with surgical intervention, right total hip arthroplasty MAKOplasty. Pros, cons, risks, benefits, and alternatives of a right total hip arthroplasty MAKOplasty were discussed with the patient at length. Patient confirms their understanding and consents to proceed with a right total hip arthroplasty MAKOplasty.
[2019-02-04 09:01] LABS: INR 1.28 (0.82-1.09); PROTHROMBIN TIME (PATIENT) 14.3 SEC (10.2-13.0)
[2019-02-04] MEDS ORDERED: MIDAZOLAM HCL 2 MG/2 ML SINGLE DOSE VIAL ONE (09:11)
[2019-02-04] MEDS ORDERED: EPINEPHrine/PF 1 MG/1 ML (1:1,000) AMPULE ONE (09:11)
[2019-02-04] MEDS ORDERED: ROPIVACAINE HCL 0.5% 30ML VIAL ONE (09:12)
[2019-02-04] MEDS ORDERED: CEFAZOLIN 2 GM in DEXTROSE 5%-WATER - 50 ML IVPB ONE (09:30)
[2019-02-04] MEDS ORDERED: VANCOMYCIN 1,000 MG VIAL (RESTRICTED TO ID ONLY) ONE (09:52)
[2019-02-04] MEDS ORDERED: PHENYLEPHRINE HCL 10 MG/1 ML SINGLE DOSE VIAL ONE (11:13)
[2019-02-04] MEDS ORDERED: VANCOMYCIN 1,000 MG VIAL (RESTRICTED TO ID ONLY) IVPB ONE (11:54)
[2019-02-04] MEDS ORDERED: ACETAMINOPHEN INJECTION 100 ML IVPB ONE (12:56)
[2019-02-04] MEDS ORDERED: oxyCODONE HCL 5 MG TABLET PO PRN ×2 (12:56)
[2019-02-04] MEDS ORDERED: ONDANSETRON 4 MG/2 ML VIAL IVPUSH PRN ×2 (12:56→13:56)
[2019-02-04] MEDS ORDERED: ACETAMINOPHEN 1000 MG/100 ML VIAL (NON FORMULARY) IVPB ONE ×2 (13:00)
[2019-02-04] MEDS ORDERED: LACTATED RINGERS SOLUTION 1,000 ML IV SCH ×2 (13:00→14:00)
--- NOTE | 2019-02-04 13:43 | OP ---
Operative Note - Note: Operative Date: 02/04/19 Pre-Operative Diagnosis: Right hip OA Operation: Right SOBEIDA ALON Post-Operative Diagnosis: Same as Pre-op Surgeon: Pancho Thomason Brake Reliner: Gracia Olsen Anesthesia: Spinal Estimated Blood Loss (mls): 200
[2019-02-04] MEDS: KETOROLAC TROMETHAMINE 30 MG/1 ML VIAL IVPUSH SCH ×2 (13:50→19:48)
[2019-02-04] MEDS: traMADol HCL 50 MG TABLET PO SCH ×2 (13:50→19:49)
[2019-02-04] MEDS ORDERED: KETOROLAC TROMETHAMINE 30 MG/1 ML VIAL ONE (13:50)
[2019-02-04] MEDS ORDERED: traMADol HCL 50 MG TABLET ONE (13:51)
[2019-02-04] MEDS ORDERED: MAGNESIUM HYDROX 2400MG/30ML ORAL SUSPENSION 30 ML CUP PO PRN (13:56)
[2019-02-04] MEDS ORDERED: MAG HYDROX/AL HYDROX/SIMETH 30 ML UNIT-DOSE CUP PO PRN (13:56)
--- NOTE | 2019-02-04 14:53 | SPEC ---
DATE OF OPERATION: 02/04/2019 PREOPERATIVE DIAGNOSIS: Right hip osteoarthritis. POSTOPERATIVE DIAGNOSIS: Right hip osteoarthritis. PROCEDURE: Right total hip replacement with MAKOplasty robotic navigation. ATTENDING: Mell Lockhart MD CARE MANAGER: AMEYA Kim ANESTHESIA: Spinal plus sedation. ESTIMATED BLOOD LOSS: 200 mL. COMPLICATIONS: None. DISPOSITION: The patient was transferred to the PACU in stable condition. IMPLANTS USED: Yaima Accolade II size 7 femoral component, Yaima Trident II 52-mm acetabular component, 25- and 30-mm acetabular screws, MDM bipolar head ball and liner with inner +4 mm offset ceramic head ball. INDICATIONS: This is a 68-year-old female who presented to the office complaining of severe right hip pain. She was seen and examined by Dr. Lockhart and diagnosed with severe right hip osteoarthritis. The patient was initially treated conservatively, but continued to have severe pain and ambulatory dysfunction. She was, therefore, indicated for a right total hip replacement. The risks, benefits, and alternatives to the procedure were explained to the patient in great detail, and she elected to proceed with the surgery. On the day of surgery, the patient was taken to the operating room and placed on the OR table. Spinal anesthesia was administered by the anesthesiologist. The patient was then positioned in the lateral decubitus position on the table and all bony prominences were padded. An axillary roll was placed. The operative hip was then prepped and draped in the usual sterile fashion and intravenous antibiotics were given for infection prophylaxis. A surgical time-out was then performed with the team, and the patients identity, procedure, side, availability of implants, and the administration of antibiotics were confirmed. An approximately 15-cm longitudinal incision was made through the skin centered on the greater trochanter of the hip. This dissection was carried down through the subcutaneous tissues to the deep fascia. This fascia was then incised and a Cobra was placed around the inferior femoral neck. Electrocautery was used to reflect the anterior 40% of the gluteus medius and minimus starting at the musculotendinous junction and leaving a cuff for closure. This was reflected to reveal the capsule of the hip joint. An anterior capsulectomy was performed and the femoral head and neck were visualized. Grade 4 changes were noted diffusely throughout the joint. At this point, three small stab incisions were made superior to the main incision along the iliac crest. Three self-drilling Steinmann pins were then placed and the [employer] pelvic array was attached. Reference points on the limb were then entered into the robotic device and the limb length deficiency, offset, and femoral neck resection level were then calculated by the software. The hip was then dislocated with traction and external rotation. An oscillating saw was used to make the femoral neck cut at the level previously templated, and the femoral head was removed. Attention was then turned to the acetabulum. Retractors were then placed around the acetabulum and the labrum was removed. An acetabular checkpoint pin and the [employer] software were used to register the contours of the acetabulum. The acetabulum was then reamed in a single stage to the preoperatively templated size using the [employer] robotic arm. The appropriately sized cup was then impacted and had solid fixation as well as the preset inclination and version of 40 and 20 degrees, respectively. A polyethylene liner was then placed in the cup. Attention was then turned back to the femur, which was externally rotated for improved visualization. A femoral neck elevator was used to present the femoral neck cut, a box osteotome was used to enter the femoral canal, and a canal finder was used to go down the femoral shaft. The Pete broaches were used sequentially until the optimal scratch fit was achieved. This correlated with the preoperatively templated size. From here, several different offset head and neck configurations were tested until excellent stability and length were obtained. These measurements were quantified using the [employer] software. All trial components were then removed, the femur was copiously irrigated, and the final components were placed. Leg length and stability were checked again and found to be excellent. Irrigation was performed again. Wound closure was started by repairing the abductor muscles with a no. 2 FiberWire stitch in a Krackow configuration passed through bone tunnels in the greater trochanter and tied over a bony bridge. This repair was then reinforced with a 0 V-Loc 180 barbed suture. Next, no. 1 Polysorb and 0 V-Loc 180 were used to close the fascia. The deep subcutaneous tissue was closed with no. 1 Polysorb sutures, and 2-0 Polysorb was used for the superficial subcutaneous tissue. The skin was closed using both 3-0 V-Loc 90 suture in a running subcuticular fashion and SwiftSet skin adhesive. The Pete array and pins were removed from the iliac crest and the stab incision sites were irrigated and closed with 4-0 Polysorb sutures and SwiftSet skin adhesive. Once this was completed, a sterile dressing was applied. The patient was then awakened and taken to the PACU in stable condition. ADDENDUM: After final implants were placed, a 3-minute dilute Betadine lavage was performed. Following this, the wound was thoroughly irrigated with normal saline via pulsatile lavage, and wound closure was begun. MELL LOCKHART M.D. BLAISE/[id number]
[2019-02-04] MEDS: WARFARIN NA 10 MG TABLET (FP) PO SCH (17:29)
[2019-02-04] MEDS: CEFAZOLIN 2 GM/D5W 2 GM/50 ML ML IVPB SCH (19:13)
[2019-02-04] MEDS: ACETAMINOPHEN 325 MG TABLET (FP) PO SCH (19:48)
[2019-02-04] MEDS ORDERED: DEXAMETHASONE SOD PHOSPHATE 10 MG/1 ML VIAL IVPB ONE (20:00)
[2019-02-04] MEDS: oxyCODONE HCL 10 MG SUSTAINED ACTING TABLET PO SCH (21:47)
[2019-02-04] MEDS: ASCORBIC ACID 500 MG TABLET (FP) PO SCH (21:48)
[2019-02-04] MEDS: SOTALOL HCL 80 MG TABLET (FP) PO SCH (21:48)
[2019-02-04] MEDS: SENNOSIDES/DOCUSATE COMBO (SENNA PLUS) TABLET (UD) PO SCH (21:48)
[2019-02-04] MEDS: ENOXAPARIN NA (PORCINE) 100 MG/1 ML DISP.SYRIN SQ SCH (21:49)
[2019-02-04] MEDS: GABAPENTIN 300 MG CAPSULE (FP) PO SCH (21:49)
[2019-02-04] MEDS ORDERED: WARFARIN NA 10 MG TABLET (FP) PO SCH (22:00)
[2019-02-05] MEDS: KETOROLAC TROMETHAMINE 30 MG/1 ML VIAL IVPUSH SCH ×2 (01:29→08:15)
[2019-02-05] MEDS: CEFAZOLIN 2 GM/D5W 2 GM/50 ML ML IVPB SCH (01:32)
[2019-02-05] MEDS: ACETAMINOPHEN 325 MG TABLET (FP) PO SCH ×4 (01:39→20:17)
[2019-02-05] MEDS: traMADol HCL 50 MG TABLET PO SCH ×4 (01:39→20:16)
[2019-02-05] MEDS ORDERED: LEVOTHYROXINE NA 100 MCG TABLET (FP) ONE (05:47)
[2019-02-05] MEDS ORDERED: LEVOTHYROXINE NA 75 MCG TABLET (FP) ONE (05:47)
[2019-02-05] MEDS: LEVOTHYROXINE 75 MCG, LEVOTHYROXINE 100 MCG PO SCH (06:03)
[2019-02-05 07:55] LABS: HEMOGLOBIN 12.6 GM/dl (10.7-15.3); MCH 28.9 pg (25.7-33.7); MCHC 31.6 g/dl (32.0-36.0); MEAN CELL VOLUME 91.4 fl (80-96); MEAN PLT VOLUME 10.3 fl (7.5-11.1); PLATELET COUNT 266 K/MM3 (134-434); RBC 4.37 M/mm3 (3.60-5.2); RDW 14.3 % (11.6-15.6); WHITE BLOOD COUNT 9.6 K/mm3 (4.0-10.8)
[2019-02-05 08:10] LABS: INR 1.35 (0.82-1.09)
[2019-02-05 08:19] LABS: CALCIUM 9.2 mg/dl (8.5-10); CREATININE 0.9 mg/dl (0.55-1.3)
[2019-02-05] MEDS: SENNOSIDES/DOCUSATE COMBO (SENNA PLUS) TABLET (UD) PO SCH ×2 (09:48→21:23)
[2019-02-05] MEDS: ASCORBIC ACID 500 MG TABLET (FP) PO SCH ×2 (09:50→21:23)
[2019-02-05] MEDS: ENOXAPARIN NA (PORCINE) 100 MG/1 ML DISP.SYRIN SQ SCH ×2 (09:50→21:23)
[2019-02-05] MEDS ORDERED: LEVOTHYROXINE NA 150 MCG TABLET PO SCH (10:00)
[2019-02-05] MEDS: MULTIVITAMINS (DAILY MVI) TABLET (FP) PO SCH (10:05)
[2019-02-05] MEDS: SOTALOL HCL 80 MG TABLET (FP) PO SCH ×2 (10:05→21:23)
[2019-02-05] MEDS: DULoxetine HCL 30 MG CAPSULE.DR PO SCH (10:05)
[2019-02-05] MEDS: oxyCODONE HCL 10 MG SUSTAINED ACTING TABLET PO SCH ×2 (10:05→22:54)
[2019-02-05] MEDS: GABAPENTIN 300 MG CAPSULE (FP) PO SCH ×2 (10:05→21:23)
[2019-02-05] MEDS: PANTOPRAZOLE 40 MG TABLET (FP) PO SCH (10:15)
--- NOTE | 2019-02-05 15:20 | PN ---
Progress Note (short form) - Note Progress Note: POD 1 s/p R total hip replacement, under spinal with L2 paravertebral block. Patient doing well, BIRD, pain well controlled. All questions answered.
[2019-02-05] MEDS: WARFARIN NA 10 MG TABLET (FP) PO SCH (18:35)
--- NOTE | 2019-02-05 19:13 | PN ---
Progress Note (short form) - Note Progress Note: Pt seen and examined. Doing well. AVSS Selected Entries 02/05/19 02/05/19 09:00 14:27 Temperature 98.7 F Pulse Rate 75 Respiratory 16 Rate Blood Pressure 121/59 L O2 Sat by Pulse 98 Oximetry (%) Oxygen Delivery Room Air Method Laboratory Tests 02/05/19 02/05/19 02/05/19 07:21 07:21 07:21 WBC 9.6 Hgb 12.6 Hct 40.0 Plt Count 266 INR 1.35 H Sodium 141 Potassium 5.0 Chloride 106 Carbon Dioxide 27 Anion Gap 8 BUN 25.0 H Creatinine 0.9 Est GFR (CKD-EPI)AfAm 75.61 Est GFR (CKD-EPI)NonAf 65.24 Random Glucose 138 H Calcium 9.2 Gen: NAD RLE: c/d/i, NVID A/P POD#1 s/p R ALON PT/OOB - WBAT RLE Lovenox 100mg sq BID until INR therapeutic D/C planning to SNF/rehab -d/c tomorrow if bed available.
--- NOTE | 2019-02-06 00:49 | DS ---
Physical Examination Vital Signs: Vital Signs Temperature 98.7 F 02/05/19 14:27 Pulse Rate 75 02/05/19 14:27 Respiratory Rate 16 02/05/19 21:00 Blood Pressure 121/59 L 02/05/19 14:27 O2 Sat by Pulse Oximetry (%) 95 02/05/19 21:00 Labs: CBC, BMP 02/05/19 07:21 02/05/19 07:21 Discharge Summary Problems reviewed: Yes Reason For Visit: RIGHT HIP OSTEOARTHRITIS Current Active Problems Osteoarthritis of right hip (Acute) Procedures: Principal: right jonas ALON Hospital Course: Admitted for elective surgery. Procedure performed without complications. Pt received postoperative antibiotic prophylaxis and DVT ppx. Ambulated with physical therapy. Stable for discharge home with outpatient followup. Condition: Stable - Instructions Diet, Activity, Other Instructions: Dr Thomason - Hip Replacement Instructions Keep the Aquacel dressing on until removed by Dr. Thomason in 14 days - it is antibacterial and waterproof and you can shower with it on. Call the office for a follow-up appointment with Dr. Thomason in 14 days. [phone] Lovenox 100mg SQ daily until INR therapeutic (2.5-3.5). Coumadin 10mg daily Friday through Friday. Check INR daily. Take one Pantoprazole 40mg daily for 6 weeks to protect against heartburn and ulcers. Take Cephalexin (antibiotic) 3x/day for 10 days to help prevent skin infection. Take a multivitamin, stool softener and extra Vitamin C supplement daily. For pain: *Mild pain (1-3/10): Take 1 Tramadol tablet every 4 hours as needed. Moderate pain (4-6/10): Take 1 Tramadol tablet and 1 Percocet tablet every 4 hours as needed. Severe pain (7-10/10): Take 1 Tramadol tablet and 2 Percocet tablets every 4 hours as needed. Activity: You can put as much weight on the operative leg as you want. For the first 6 weeks, all you need to do is walk around the house, go up/down stairs, and sit down/get up. After 6 weeks when everything is healed (and bone has grown into the implant) you will be sent for more intensive outpatient physical therapy. Always use a walker or cane for balance and to prevent falls. Expect to see swelling / bruising from the operative site all the way down to your toes. Wear the Compression stocking on the operative side during the day to minimize how much swelling there is in your foot/ankle. Don't wear the stocking at night. You don't have to wear the stocking on the other side. Disposition: RETIREMENT FACILITY - Home Medications Comprehensive Discharge Medication List: Ambulatory Orders Levothyroxine [Synthroid -] 175 mcg PO DAILY 06/05/15 Sotalol HCl [Betapace -] 80 mg PO BID #60 tablet 05/27/17 Cholecalciferol (Vitamin D3) [Vitamin D -] 2,000 unit PO DAILY 01/27/18 Duloxetine HCl 30 mg PO DAILY 01/25/19 Enoxaparin Sodium [Lovenox] 100 mg SQ BID 02/04/19 Ascorbic Acid [Vitamin C -] 500 mg PO BID tablet 02/06/19 Cephalexin Monohydrate [Keflex -] 500 mg PO TID #30 capsule 02/06/19 Multivitamins [Multivit ([facility] Formulary)] 1 tab PO DAILY tab 02/06/19 Oxycodone HCl/Acetaminophen [Percocet 5-325 mg Tablet] 1 - 2 tab PO Q4H PRN #60 tablet MDD 10 02/06/19 Pantoprazole Sodium [Protonix -] 40 mg PO DAILY #40 tablet.ec 02/06/19 Sennosides/Docusate Sodium [Pericolace -] 2 tablet PO BID tablet 02/06/19 Warfarin Na [Coumadin -] 10 mg PO DAILY@1800 tablet 02/06/19 traMADol HCL [Ultram -] 50 mg PO Q4H PRN #42 tablet MDD 6 02/06/19
[2019-02-06] MEDS: traMADol HCL 50 MG TABLET PO SCH ×2 (02:05→08:03)
[2019-02-06] MEDS: ACETAMINOPHEN 325 MG TABLET (FP) PO SCH ×2 (02:05→08:04)
[2019-02-06] MEDS ORDERED: LEVOTHYROXINE NA 100 MCG TABLET (FP) ONE (06:27)
[2019-02-06] MEDS ORDERED: LEVOTHYROXINE NA 75 MCG TABLET (FP) ONE (06:28)
[2019-02-06] MEDS: LEVOTHYROXINE 75 MCG, LEVOTHYROXINE 100 MCG PO SCH (06:34)
[2019-02-06 08:24] LABS: HEMATOCRIT 33.9 % (32.4-45.2); HEMOGLOBIN 11.1 GM/dl (10.7-15.3); MCH 29.9 pg (25.7-33.7); MCHC 32.7 g/dl (32.0-36.0); MEAN CELL VOLUME 91.6 fl (80-96); MEAN PLT VOLUME 10.3 fl (7.5-11.1); PLATELET COUNT 244 K/MM3 (134-434); RDW 14.3 % (11.6-15.6); WHITE BLOOD COUNT 9.5 K/mm3 (4.0-10.8)
[2019-02-06 08:25] LABS: CALCIUM 8.6 mg/dl (8.5-10); POTASSIUM 4.9 mmol/L (3.5-5.1)
[2019-02-06] MEDS: SOTALOL HCL 80 MG TABLET (FP) PO SCH (09:17)
[2019-02-06] MEDS: GABAPENTIN 300 MG CAPSULE (FP) PO SCH (09:17)
[2019-02-06] MEDS: MULTIVITAMINS (DAILY MVI) TABLET (FP) PO SCH (09:17)
[2019-02-06] MEDS: PANTOPRAZOLE 40 MG TABLET (FP) PO SCH (09:17)
[2019-02-06] MEDS: DULoxetine HCL 30 MG CAPSULE.DR PO SCH (09:17)
[2019-02-06] MEDS: ASCORBIC ACID 500 MG TABLET (FP) PO SCH (09:17)
[2019-02-06] MEDS: SENNOSIDES/DOCUSATE COMBO (SENNA PLUS) TABLET (UD) PO SCH (09:18)
[2019-02-06] MEDS: oxyCODONE HCL 10 MG SUSTAINED ACTING TABLET PO SCH (09:18)
[2019-02-06] MEDS: ENOXAPARIN NA (PORCINE) 100 MG/1 ML DISP.SYRIN SQ SCH (09:18)
[2019-02-06 09:48] VITALS: BP 101/56; PULSE 77; TEMP 98.9
--- NOTE | 2019-02-10 12:52 | PATH ---
Surgical Pathology Report Patient Name: MARCIO MANRIQUEZ Med. Rec. #: [id number] /Age/Gender: 1950 (Age: 68) / F Account: [id number] Location: [facility] MED-SURG Taken: 02/04/2019 Received: 02/04/2019 Reported: 02/10/2019 Physicians: Pancho Thomason M.D. Specimen(s) Received RIGHT FEMORAL HEAD Clinical History Right hip osteoarthritis Final Diagnosis FEMORAL HEAD, RIGHT, TOTAL HIP REPLACEMENT: DEGENERATIVE JOINT DISEASE. Electronically Signed Chinyere Barraza M.D. Gross Description Received in formalin, labeled "right femoral head," is a 4.7 x 4.7 x 4.0 cm. femoral head with a 1.1 cm in length portion of femoral neck attached. The margin of resection is smooth. There is a 2.2 cm greatest dimension area of eburnation identified. The remaining articular surface is rodas-brown and diffusely granular. The underlying trabecular bone is yellow and hard. A high school admissions representative section is submitted in one cassette, following decalcification. 02/05/2019 [facility]02/05/2019
== END 2019-02-06 12:55 | DRG 470 ==
LOC: FM/S 07:11
PROVIDERS: ADMIT Student in an Organized Health Care Education/Training Program; ATTEND Student in an Organized Health Care Education/Training Program
PROC: 8E0W0CZ Robotic Assisted Procedure of Trunk Region, Open Approach (ICD-10-PCS; 2019-02-04)
PROC: 0SR903A Replacement of Right Hip Joint with Ceramic Synthetic Substitute, Uncemented, Open Approach (ICD-10-PCS; principal; 2019-02-04 09:30)
DX: M16.11 Unilateral primary osteoarthritis, right hip (principal); I48.91 Unspecified atrial fibrillation; E03.9 Hypothyroidism, unspecified; F32.9 Major depressive disorder, single episode, unspecified
CPT/HCPCS: 36415; 73502-TC-RT-FY; 80048; 85027; 85610; 88305-TC; 88311-TC; 94760; 97116-GP; 97163-GP; J0131; J1100

== ENCOUNTER 2019-05-20 06:21 | Inpatient (IN) | payer OTHER ==
--- NOTE | 2019-05-20 06:25 | PDOC ---
History of Present Illness - General Chief Complaint: Tachycardia Stated Complaint: "MY HEART IS BEATING FAST" Time Seen by Provider: 05/20/19 06:24 - History of Present Illness Initial Comments: 05/20/19 06:52 This 68-year-old woman with a history of A. fib/a flutter with previous episodes of RVR, mechanical aortic/mitral heart valves (1999), HTN, HLD and hip replacement (02/16) presents with rapid heartbeat awakening her at approximately 2:45 AM today. Patient denies chest pain, shortness of breath or lightheadedness. She recently has been feeling a little bit more fatigued than previously. She had echocardiogram yesterday and she believes that her heart rate was normal at that time. No recent fever, cough, other symptoms of acute infectious disease. She has been taking her medications as prescribed. No recent change in meds Dr. Davies is her oxygraph operator Medications as noted below 05/20/19 07:08 Past History - Past Medical History Allergies/Adverse Reactions: Allergies Allergy/AdvReac Type Severity Reaction Status Date / Time No Known Allergies Allergy Verified 02/04/19 07:41 Home Medications: Ambulatory Orders Sotalol HCl [Betapace -] 80 mg PO BID #60 tablet 05/27/17 Pantoprazole Sodium [Protonix -] 40 mg PO DAILY #40 tablet.ec 02/06/19 Warfarin Na [Coumadin -] 10 mg PO DAILY 05/20/19 Duloxetine HCl [Cymbalta -] 30 mg PO DAILY 05/24/19 Docusate Sodium [Colace -] 100 mg PO TID #90 capsule 05/25/19 Levothyroxine [Synthroid -] 125 mcg PO DAILY@0700 tablet 05/25/19 Lidocaine 5% Patch [Lidoderm -] 1 patch TP DAILY #30 patch 05/25/19 Polyethylene Glycol 3350 [Miralax 119 gm Btl -] 17 gm PO DAILY #1 bottle Warfarin Na [Coumadin -] 10 mg PO DAILY@1800 tablet 05/25/19 Anemia: No Asthma: No Cancer: No Cardiac Disorders: Yes (RHEUMATIC FEVER, MITRAL AND AORTIC VALVE REPLACEMENT, AFlutter, AFIB) CVA: No COPD: No CHF: No Dementia: No Diabetes: No GI Disorders: No Disorders: No HTN: Yes Hypercholesterolemia: No Liver Disease: No Seizures: No Thyroid Disease: Yes (HYPOTHYROIDISM) - Surgical History Abdominal Surgery: No Appendectomy: No Cardiac Surgery: Yes (AORTIC AND MITRIAL VALVE REPLACEMENT ARTIFICIAL 1999) Cholecystectomy: No Lung Surgery: No Neurologic Surgery: No Orthopedic Surgery: No - Psycho Social/Smoking Cessation Hx Smoking History: Never smoked Have you smoked in the past 12 months: No Hx Alcohol Use: No Drug/Substance Use Hx: No Substance Use Type: None Hx Substance Use Treatment: No Cardiac Specific PMH - Complaint Specific PMHX Pacemaker: No Review of Systems - Review of Systems Able to Perform ROS?: Yes Comments:: 12 point review of systems is negative except for what is noted in the history of present illness *Physical Exam - Vital Signs Last Vital Signs Temp Pulse Resp BP Pulse Ox 98.2 F 74 16 142/79 99 05/26/19 12:00 05/26/19 12:00 05/26/19 12:00 05/26/19 12:05/26/19 08:15 - Physical Exam GENERAL: Adult female, alert and oriented x3 in no acute distress; diagnostic cardiac sonographer indicating heart rate of 015952/min 630 mL's HEAD: Normal with no signs of trauma. EYES: PERRLA, EOMI, sclera anicteric, conjunctiva clear. ENT: Ears normal, nares patent, oropharynx clear without exudates. Moist mucous membranes. NECK: Normal range of motion, supple without lymphadenopathy, JVD, or masses. LUNGS: Breath sounds equal, clear to auscultation bilaterally. No wheezes, and no crackles. HEART:Regular rate and rhythm, normal S1 and S2 without murmur; mechanical valve click ABDOMEN:.normal bowel sounds No guarding,tenderness or rebound.No masses No distention. EXTREMITIES: Normal range of motion, no edema. No clubbing or cyanosis. No erythema, or tenderness. NEUROLOGICAL: Cranial nerves II through XII grossly intact. Normal speech. No focal neurological deficits. MUSCULOSKELETAL: Back non-tender to palpation, no CVA tenderness SKIN: Warm, Dry, normal turgor, no rashes or lesions noted. ED Treatment Course - LABORATORY CBC & Chemistry Diagram: 05/26/19 05:25 05/26/19 05:25 - ADDITIONAL ORDERS Additional order review: 05/20/19 07:20 RBC 4.61 MCV 87.6 MCHC 32.9 RDW 15.4 MPV 10.1 Neutrophils % No Result Required. Lymphocytes % No Result Required. - RADIOLOGY Radiology Studies Ordered: Category Date Time Status CHEST X-RAY PORTABLE* [RAD] Stat Radiology 05/20/19 06:59 Completed - Medications Given in the ED: ED Medications Discontinued Medications Generic Name Dose Route Start Last Admin Trade Name Freq PRN Reason Stop Dose Admin Acetaminophen 1,000 mg 05/24/19 22:59 05/24/19 23:32 Ofirmev Injection - IVPB 05/24/19 23:00 1,000 mg ONCE ONE Administration Acetaminophen 1,000 mg 05/25/19 10:18 05/25/19 11:00 Ofirmev Injection - IVPB 05/26/19 10:18 1,000 mg Q6H PRN Administration PAIN LEVEL 4 - 6 Adenosine 6 mg 05/20/19 14:10 05/20/19 14:20 Adenocard - IVPUSH 05/20/19 14:11 6 mg ONCE ONE Administration Adenosine 12 mg 05/20/19 14:28 05/20/19 14:25 Adenocard - IVPUSH 05/20/19 14:29 12 mg ONCE ONE Administration Aspirin 162 mg 05/20/19 08:55 05/20/19 09:25 Asa - PO 05/20/19 08:56 162 mg ONCE ONE Administration Diltiazem HCl 10 mg 05/20/19 12:19 05/20/19 12:39 Cardizem Injection - IVPUSH 05/20/19 12:20 10 mg ONCE ONE Administration Diltiazem HCl 10 mg 05/20/19 13:04 05/20/19 13:14 Cardizem Injection - IVPUSH 05/20/19 13:05 10 mg ONCE ONE Administration Diltiazem HCl 10 mg 05/20/19 13:25 05/20/19 13:47 Cardizem Injection - IVPUSH 05/20/19 13:26 10 mg ONCE ONE Administration Diltiazem HCl 10 mg 05/20/19 14:29 05/20/19 14:45 Cardizem Injection - IVPUSH 05/20/19 14:30 10 mg ONCE ONE Administration Diltiazem HCl 60 mg 05/20/19 14:41 05/20/19 15:20 Cardizem - PO 05/20/19 14:42 60 mg ONCE ONE Administration Diltiazem HCl 10 mg 05/21/19 14:25 05/21/19 15:00 Cardizem Injection - IVPUSH 05/21/19 14:26 10 mg ONCE ONE Administration Docusate Sodium 100 mg 05/22/19 14:00 05/26/19 06:40 Colace - PO 100 mg TID JOSH Administration Sodium Chloride 500 mls @ 500 mls/hr 05/20/19 09:21 05/20/19 09:41 Normal Saline - IV 05/20/19 10:20 500 mls/hr ASDIR STA Administration Diltiazem HCl 125 mg/ Sodium 125 mls @ 5 mls/hr 05/20/19 14:30 05/20/19 15:41 Chloride IVPB 5 mg/hr TITR JOSH 5 mls/hr Administration Protocol 5 MG/HR Diltiazem HCl 125 mg/ Sodium 125 mls @ 10 mls/hr 05/21/19 14:24 05/25/19 14: 48 Chloride IVPB Not Given TITR JOSH Protocol 10 MG/HR Levothyroxine Sodium 125 mcg/ 175 mcg 05/21/19 07:00 05/26/19 06:40 Levothyroxine Sodium 50 mcg PO 175 mcg DAILY@0700 [facility] Administration Lidocaine 1 patch 05/24/19 11:45 05/26/19 09:23 Lidoderm Patch - TP 1 patch DAILY JOSH Administration Metoprolol Tartrate 5 mg 05/20/19 11:33 05/20/19 11:44 Lopressor Injection - IVPUSH 05/20/19 11:34 5 mg ONCE ONE Administration Metoprolol Tartrate 5 mg 05/20/19 11:53 05/20/19 12:16 Lopressor Injection - IVPUSH 05/20/19 11:54 5 mg ONCE ONE Administration Metoprolol Tartrate 5 mg 05/20/19 18:42 05/22/19 10:11 Lopressor Injection - IVPUSH 5 mg Q4H PRN Administration TACHYCARDIA Miscellaneous 1 each 05/24/19 22:00 05/25/19 22:45 Lidoderm Patch Removal MC Not Given DAILY@2200 [facility] Nitroglycerin 0.4 mg 05/20/19 08:56 05/20/19 09:25 Nitrostat - SL 05/20/19 08:57 0.4 mg ONCE ONE Administration Pantoprazole Sodium 40 mg 05/21/19 10:00 05/26/19 09:23 Protonix - PO 40 mg DAILY JOSH Administration Polyethylene Glycol 17 gm 05/22/19 10:00 05/26/19 10:08 Miralax (For Daily Use) - PO 17 grams DAILY JOSH Administration Sotalol HCl 80 mg 05/20/19 22:00 05/26/19 10:30 Betapace - PO 80 mg BID JOSH Administration Sotalol HCl 40 mg 05/22/19 11:48 05/22/19 12:46 Betapace - PO 05/22/19 11:49 40 mg ONCE ONE Administration Warfarin Sodium 10 mg 05/20/19 18:00 05/24/19 18:43 Coumadin - PO 10 mg DAILY@1800 [facility] Administration Warfarin Sodium 10 mg 05/25/19 18:00 05/25/19 21:44 Coumadin - PO Not Given DAILY@1800 [facility] Medical Decision Making - Medical Decision Making 05/20/19 07:00 68-year-old woman with a history of rheumatic heart disease, mechanical aortic and mitral valves and history of A. fib/flutter with RVR (last episode approximately 1 year ago) presents with several hour history of rapid heartbeat. No symptoms of chest pain, lightheadedness or shortness of breath. sr. manager [id number]/min; twelve-lead electrocardiogram pending CBC/chemistry profile/troponin/INR/UA ordered Case signed out to Dr Duarte at end of shift Discharge - Discharge Information Problems reviewed: Yes Clinical Impression/Diagnosis: Atrial fibrillation with rapid ventricular response Condition: Improved - Follow up/Referral - Patient Discharge Instructions - Post Discharge Activity
[2019-05-20 06:36] VITALS: BMI 33.4
--- NOTE | 2019-05-20 07:18 | PDOC ---
*Physical Exam - Vital Signs Last Vital Signs Temp Pulse Resp BP Pulse Ox 97.2 F L 127 H 14 157/111 H 98 05/20/19 06:33 05/20/19 06:33 05/20/19 06:33 05/20/19 06:33 05/20/19 06:33 - Physical Exam 05/20/19 14:31 Repeat cardiac enzymes negative Rhythm fluctuates from sinus tachycardia to atrial fibrillation with rapid ventricular response. During episode of sinus tach at 133 bpm, 2 doses of adenosine were administered. After the first dose of 6 mg, the rate slowed transiently to approximately 90-100, then immediately increased again to 140. After a second dose the rate slowed to approximately 110 bpm with sustained atrial fibrillation. An additional dose of Cardizem was administered intravenously, making the total dose 40 mg, and monitored/observed. 05/20/19 14:34 Patient remains clinically and hemodynamically stable except for the rapid heart rate. She is asymptomatic. No chest pain, shortness of breath, or palpitations. Repeat EKG shows atrial fibrillation at a controlled rate of 97. Nonspecific ST -T wave changes are present and unchanged. Rhythm is sustained atrial fibrillation at a rate of 80-90, controlled. Remains asymptomatic. Admitted for telemetry, cardiac consultation. 05/20/19 15:28 Upon consultation with hospitalist and on-call health science writer, it was decided to transfer to telemetry at [facility] for further observation, evaluation, and treatment, since cardioversion has been undertaken numerous times in the past, and may again be necessary. ED Treatment Course - LABORATORY CBC & Chemistry Diagram: 05/20/19 07:20 05/20/19 13:00 Discharge - Discharge Information Problems reviewed: Yes Clinical Impression/Diagnosis: Atrial fibrillation with rapid ventricular response Condition: Stable Disposition: HOME - Admission Yes - Follow up/Referral - Patient Discharge Instructions - Post Discharge Activity
[2019-05-20 08:10] LABS: HEMATOCRIT 40.4 % (32.4-45.2); HEMOGLOBIN 13.3 GM/dl (10.7-15.3); MCH 28.8 pg (25.7-33.7); MCHC 32.9 g/dl (32.0-36.0); MEAN CELL VOLUME 87.6 fl (80-96); MEAN PLT VOLUME 10.1 fl (7.5-11.1); PLATELET COUNT 356 K/MM3 (134-434); RBC 4.61 M/mm3 (3.60-5.2); RDW 15.4 % (11.6-15.6)
[2019-05-20 08:14] LABS: ALBUMIN 3.4 g/dl (3.4-5.0); BILIRUBIN,TOTAL 0.5 mg/dl (0.2-1); CALCIUM 8.9 mg/dl (8.5-10); CREATININE 0.8 mg/dl (0.55-1.3); TOT PROT 6.7 g/dl (6.4-8.2)
[2019-05-20 08:23] LABS: INR 3.36 (0.82-1.09); PROTHROMBIN TIME (PATIENT) 36.7 SEC (10.2-13.0)
[2019-05-20] MEDS ORDERED: ASPIRIN 81 MG CHEWABLE TABLETS PO ONE (08:55)
[2019-05-20] MEDS ORDERED: NITROGLYCERIN SUBLINGUAL 1/150 0.4 MG TAB SL ONE (08:56)
[2019-05-20] MEDS ORDERED: SODIUM CHLORIDE 500 ML IV STA (09:21)
[2019-05-20] MEDS ORDERED: ASPIRIN 81 MG CHEWABLE TABLETS ONE (09:22)
[2019-05-20] MEDS ORDERED: NITROGLYCERIN SUBLINGUAL 1/150 0.4 MG TAB ONE (09:22)
[2019-05-20 09:39] LABS: ANISOCYTOSIS 1+; PLATELET ESTIMATE ADEQUATE
[2019-05-20] MEDS ORDERED: ADENOSINE 6 MG/2 ML VIAL IVPUSH ONE ×5 (11:31→14:28)
[2019-05-20] MEDS ORDERED: METOPROLOL TARTRATE 5 MG/5 ML VIAL IVPUSH ONE ×2 (11:33→11:53)
[2019-05-20] MEDS ORDERED: METOPROLOL TARTRATE 5 MG/5 ML VIAL ONE ×2 (11:35→12:04)
[2019-05-20] MEDS ORDERED: dilTIAZem HCL 50 MG/10 ML - 10 ML VIAL IVPUSH ONE ×4 (12:19→14:29)
[2019-05-20] MEDS ORDERED: dilTIAZem HCL 50 MG/10 ML - 10 ML VIAL ONE (12:32)
[2019-05-20 13:24] LABS: ALBUMIN 3.4 g/dl (3.4-5.0); BILIRUBIN,TOTAL 0.7 mg/dl (0.2-1); CALCIUM 8.3 mg/dl (8.5-10); CREATININE 0.8 mg/dl (0.55-1.3); POTASSIUM 5.2 mmol/L (3.5-5.1); TOT PROT 6.5 g/dl (6.4-8.2)
[2019-05-20 14:08] LABS: EPITHELIAL CELLS FEW /hpf
[2019-05-20 14:09] LABS: URINE MUCUS 1+
--- NOTE | 2019-05-20 14:21 | EKG ---
Test Reason : Blood Pressure : / mmHG Vent. Rate : 125 BPM Atrial Rate : 125 BPM P-R Int : 152 ms QRS Dur : 092 ms QT Int : 354 ms P-R-T Axes : 000 037 143 degrees QTc Int : 510 ms SINUS TACHYCARDIA NONSPECIFIC ST AND T WAVE ABNORMALITY ABNORMAL ECG WHEN COMPARED WITH ECG OF 27-JAN-2018 14:26, VENT. RATE HAS INCREASED BY 43 BPM NON-SPECIFIC CHANGE IN ST SEGMENT IN INFERIOR LEADS NONSPECIFIC T WAVE ABNORMALITY NOW EVIDENT IN INFERIOR LEADS Confirmed by BRYANT CRUZ MD ([id number]) on 05/20/2019 2:21:18 PM Referred By: MD LOUIS Confirmed By:BRYANT CRUZ MD
[2019-05-20] MEDS ORDERED: DILTIAZEM INJECTION 125 MG in SODIUM CHLORIDE 100 ML IVPB SCH (14:30)
[2019-05-20] MEDS ORDERED: dilTIAZem HCL 60 MG TABLET (FP) PO ONE (14:41)
--- NOTE | 2019-05-20 14:46 | HP ---
Admitting History and Physical - Primary Care Physician PCP: ON STAFF,NOT (Dr Davies Driller [employer] Reamer) - Admission Chief Complaint: palpitations History of Present Illness: 66 year-old female with a PMH significant for HTN, HLD, rheumatic heart disease s/p mechanical aortic and mitral valves, afib/aflutter with RVR on coumadin, and hypothyroidism, multiple cardioversions in past most recently 02/2107. Multiple admissions for arrhythmias secondary to noncompliance with meds. Stated she was awoken from sleep around 2:45am with palpitations. She decreased her home sotolol dose in half .Taking all her other her medications as prescribed She had TTE yesterday and she believed was normal No recent fever , cough, other symptoms of acute infectious disease. No recent prescribed change in meds Dr. Davies is her health professor. Multiple attempts to rate control unsuccessfully , remains hemodynamically stable. History Source: Patient Limitations to Obtaining History: No Limitations - Past Medical History Cardiovascular: Yes: AFIB, Other (multiple cardioversions) Psych: Yes: Depression Endocrine: Yes: Hypothyroidism - Past Surgical History Past Surgical History: Yes: Joint Replacement (right SOBEIDA ALON 02/16), Valve Replacement (mechanical AVR/MVR 1999) - Smoking History Smoking history: Never smoked Have you smoked in the past 12 months: No Aproximately how many cigarettes per day: 0 - Alcohol/Substance Use Hx Alcohol Use: No - Social History Usual Living Arrangement: Yes: Alone ADL: Independent 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 History of Recent Travel: No Home Medications - Allergies Allergies/Adverse Reactions: Allergies Allergy/AdvReac Type Severity Reaction Status Date / Time No Known Allergies Allergy Verified 02/04/19 07:41 - Home Medications Home Medications: Ambulatory Orders Levothyroxine [Synthroid -] 175 mcg PO DAILY 06/05/15 Sotalol HCl [Betapace -] 80 mg PO BID #60 tablet 05/27/17 Pantoprazole Sodium [Protonix -] 40 mg PO DAILY #40 tablet.ec 02/06/19 Warfarin Na [Coumadin -] 10 mg PO DAILY 05/20/19 Family Medical History Family History: Denies Review of Systems - Review of Systems Constitutional: reports: No Symptoms Eyes: reports: No Symptoms HENT: reports: No Symptoms Neck: reports: No Symptoms Cardiovascular: reports: Palpitations, Shortness of Breath Respiratory: reports: No Symptoms Gastrointestinal: reports: No Symptoms Genitourinary: reports: No Symptoms Breasts: reports: No Symptoms Reported Musculoskeletal: reports: No Symptoms Integumentary: reports: No Symptoms Neurological: reports: No Symptoms Endocrine: reports: No Symptoms Hematology/Lymphatic: reports: No Symptoms Psychiatric: reports: Altered Sleep Pattern (insomnia) Physical Examination Vital Signs: Vital Signs Temperature 97.2 F L 05/20/19 06:33 Pulse Rate 129 H 05/20/19 11:45 Respiratory Rate 18 05/20/19 11:45 Blood Pressure 131/84 05/20/19 12:16 O2 Sat by Pulse Oximetry (%) 98 05/20/19 11:45 Constitutional: Yes: No Distress, Calm, Obese Eyes: Yes: WNL, Conjunctiva Clear, EOM Intact HENT: Yes: WNL, Atraumatic, Normocephalic Neck: Yes: WNL, Supple, Trachea Midline Cardiovascular: Yes: Tachycardia, Pulse Irregular, Other (AFib with RVR HR 100- 140s) Respiratory: Yes: WNL, Regular, CTA Bilaterally Gastrointestinal: Yes: WNL, Normal Bowel Sounds, Soft, Abdomen, Obese ...Rectal Exam: Yes: Deferred Renal/: Yes: WNL Breast(s): Yes: WNL Musculoskeletal: Yes: WNL Extremities: Yes: WNL Edema: Yes Edema: LLE: 1+, RLE: 1+ Integumentary: Yes: Incision (healed sternolomy incision, healed hip incision) Neurological: Yes: WNL, Alert, Oriented ...Motor Strength: WNL Psychiatric: Yes: WNL Labs: CBC, BMP 05/20/19 07:20 05/20/19 13:00 Imaging - Results Chest X-ray: Report Reviewed, Image Reviewed (No effusion/infiltrates) Problem List - Problems (1) HTN (hypertension) Assessment/Plan: home sotolol dose 80mg BID continue if BP allows while on diltaizem gtt Code(s): I10 - ESSENTIAL (PRIMARY) HYPERTENSION (2) Atrial flutter with rapid ventricular response Assessment/Plan: On Sotalol HCL 80mg BID-stop her evening dose 2 days ago given several dose of dilatizem/metoprolol/adensosine with some slowing started on diltiazem gtt continue gtt to mainatin HR <[address] Sue consulted (has seen in past) will make NPO past MN if cardioversion is needed in am Code(s): I48.92 - UNSPECIFIED ATRIAL FLUTTER (3) History of cardioversion Assessment/Plan: cardioversion x 2 most recent 05/17 Code(s): Z98.89 - OTHER SPECIFIED POSTPROCEDURAL STATES * DO NOT USE * (4) Hypothyroidism Assessment/Plan: TSH 7.80 on synthroid 125mcg at home Y3/T4 sent and pending will adjust dose according to levels Code(s): E03.9 - HYPOTHYROIDISM, UNSPECIFIED Qualifiers: Hypothyroidism type: unspecified Qualified Code(s): E03.9 - Hypothyroidism , unspecified (5) Prophylactic measure Assessment/Plan: FEN Fluids: adequate PO intake at home. IV bolos given in ED Electrolytes: monitor & replete as needed Nutrition: Sodium controlled diet DVT moderate risk on warfarin Dispo admit to telemetry as inpatient full code discharge planning to home Code(s): Z29.9 - ENCOUNTER FOR PROPHYLACTIC MEASURES, UNSPECIFIED (6) HLD (hyperlipidemia) Assessment/Plan: diet controlled Code(s): E78.5 - HYPERLIPIDEMIA, UNSPECIFIED (7) Rheumatic heart disease Assessment/Plan: history of s/p MVR/AVR mechanical Code(s): I09.9 - RHEUMATIC HEART DISEASE, UNSPECIFIED (8) Noncompliance with medication regimen Assessment/Plan: cut home sotolol dose in half last 2 nights multiple admissions in past d/t non compliance counseled pr on importance to adhering to regimine verbalized understanding Code(s): Z91.14 - PATIENT'S OTHER NONCOMPLIANCE WITH MEDICATION REGIMEN (9) Obesity (BMI 30.0-34.9) Assessment/Plan: counseled on weight reduction recently had THR and has begun to lose weight Code(s): E66.9 - OBESITY, UNSPECIFIED Visit type - Emergency Visit Emergency Visit: Yes Care time: The patient presented to the Emergency Department on the above date and was hospitalized for further evaluation of their emergent condition. - New Patient This patient is new to me today: Yes Date on this admission: 05/20/19 - Critical Care Critical Care patient: No
[2019-05-20] MEDS ORDERED: dilTIAZem HCL 30 MG TABLET (FP) ONE (15:11)
[2019-05-20] MEDS ORDERED: METOPROLOL TARTRATE 5 MG/5 ML VIAL IVPUSH PRN (18:42)
[2019-05-20] MEDS: WARFARIN NA 10 MG TABLET (FP) PO SCH (20:30)
--- NOTE | 2019-05-20 22:34 | HOSP ---
Subjective - Review of Symptoms Events since last encounter: hospitalist encounter Patient was transferred from [facility] to [facility] for cardiac monitoring- Dx Afib with RVR Cardiovascular: Yes: Palpitations Physical Examination Vital Signs: Vital Signs Temperature 97.9 F 05/20/19 14:43 Pulse Rate 88 05/20/19 19:00 Respiratory Rate 18 05/20/19 19:00 Blood Pressure 94/74 05/20/19 19:00 O2 Sat by Pulse Oximetry (%) 98 05/20/19 20:00 Constitutional: Yes: Well Nourished, No Distress Eyes: Yes: WNL, Conjunctiva Clear, EOM Intact, PERRL HENT: Yes: WNL, Atraumatic, Pharyngeal Erythema Neck: Yes: WNL, Supple, Trachea Midline Cardiovascular: Yes: Tachycardia, Pulse Irregular, Murmur, S1, S2, Other (click) Respiratory: Yes: WNL, Regular, CTA Bilaterally Gastrointestinal: Yes: WNL, Normal Bowel Sounds, Soft, Abdomen, Obese ...Rectal Exam: Yes: Deferred Renal/: Yes: WNL Breast(s): Yes: WNL Musculoskeletal: Yes: WNL Extremities: Yes: WNL Edema: Yes Edema: LLE: 1+, RLE: 1+ Peripheral Pulses WNL: Yes Integumentary: Yes: WNL Neurological: Yes: WNL, Alert, Oriented, Cran Nerves II-XII Intact ...Motor Strength: WNL Psychiatric: Yes: WNL, Alert, Oriented Labs: CBC, BMP 05/20/19 07:20 05/20/19 13:00 Intake & Output 05/18/19 05/19/19 05/20/19 05/21/19 23:59 23:59 23:59 23:59 Weight 99.79 kg Current Medications Generic Name Dose Route Start Last Admin Trade Name Freq PRN Reason Stop Dose Admin Diltiazem HCl 125 mg/ Sodium 125 mls @ 5 mls/hr 05/20/19 14:30 05/20/19 15:41 Chloride IVPB 5 mg/hr TITR JOSH 5 mls/hr Administration Protocol 5 MG/HR Levothyroxine Sodium 100 mcg/ 175 mcg 05/21/19 07:00 Levothyroxine Sodium 75 mcg PO DAILY@0700 JOSH Metoprolol Tartrate 5 mg 05/20/19 18:42 Lopressor Injection - IVPUSH Q4H PRN TACHYCARDIA Pantoprazole Sodium 40 mg 05/21/19 10:00 Protonix - PO DAILY [facility] Sotalol HCl 80 mg 05/20/19 22:00 05/20/19 22:50 Betapace - PO 80 mg BID JOSH Administration Warfarin Sodium 10 mg 05/20/19 18:00 05/20/19 20:30 Coumadin - PO 10 mg DAILY@1800 [facility] Administration Hospitalist Encounter Assessment: This is a 68 y/o woman a past medical history of Afib (on Coumadin), Aflutter with previous episodes of RVR, mechanical aortic/mitral heart valves (1999), HTN , HLD and hip replacement (01/2019). Admitted to Telemetry Afib with RVR Plan: Continue cardiac monitoring Cardizem Drip with titration Appreciate Cardiology consult Serial Enzymes neg x2, 3rd pending Continue Coumadin goal INR (2.5-3.5), last 3.36 Continue home meds NPO at midnight- probable testing O2 Bedrest DVT ppx Critical Care Total Critical Care Time (in minutes): 32 Critical Care Statement: The care of this patient involved high complexity decision making to prevent further life threatening deterioration of the patient 's condition and/or to evaluate & treat vital organ system(s) failure or risk of failure.
[2019-05-20] MEDS: SOTALOL HCL 80 MG TABLET (FP) PO SCH (22:50)
[2019-05-21] MEDS ORDERED: LEVOTHYROXINE NA 125 MCG TABLET (FP) ONE (06:20)
[2019-05-21] MEDS ORDERED: LEVOTHYROXINE NA 50 MCG TABLET (FP) ONE (06:20)
[2019-05-21] MEDS: LEVOTHYROXINE 125 MCG, LEVOTHYROXINE 50 MCG PO SCH (06:21)
[2019-05-21 08:16] LABS: BILIRUBIN,TOTAL 0.3 mg/dL (0.2-1); BLOOD UREA NITROGEN 22.1 mg/dL (7-18); CALCIUM 8.8 mg/dL (8.5-10.1); CREATININE 0.7 mg/dL (0.55-1.3); MAGNESIUM 2.2 mg/dL (1.8-2.4); POTASSIUM 4.4 mmol/L (3.5-5.1)
[2019-05-21 08:25] LABS: BASO % 0.7 % (0-2.0); EOS % 1.9 % (0-4.5); HEMOGLOBIN 12.3 GM/dL (10.7-15.3); LYMPH % 25.4 % (8-40); MCHC 32.3 g/dl (32.0-36.0); MEAN CELL VOLUME 86.8 fl (80-96); MEAN PLT VOLUME 9.8 fl (7.5-11.1); MONO % 11.1 % (3.8-10.2); NEUT % 60.9 % (42.8-82.8); PLATELET COUNT 301 K/MM3 (134-434); RBC 4.38 M/mm3 (3.60-5.2); RDW 16.5 % (11.6-15.6); WHITE BLOOD COUNT 6.3 K/mm3 (4.0-10.0)
[2019-05-21 08:39] LABS: INR 2.48 (0.83-1.09); PROTHROMBIN TIME (PATIENT) 29.5 SEC (9.7-13.0)
--- NOTE | 2019-05-21 09:01 | CON.CARD ---
Consult Consult Specialty:: Cardiology Referred by:: Hospitalist Medicine Reason for Consultation:: PAF with RVR, h/o the [facility] MVR/AVR (RHD) - History of Present Illness Chief Complaint: Palpitations History of Present Illness: 68 y/o female with a past medical history of rheumatic fever (childhood), replacement of aortic and mitral valves in 1999 ([place]) with mechanical valves, paroxysmal atrial fibrillation/flutter post DCCV with recurrence due to medication noncompliance presented with palpitations, light-headedness, had decreased sotalol dose by half. Placed on cardizem gtt for rate-control. She denies associated sxs of dyspnea, chest tightness, true syncope, orthopnea, PND , LE edema, change in exercise capacity, reports compliance with metoprolol, last cardioversion 05/10/2017. Previously saw Dr Maria Luisa Guthrie last office visit 03/22/2019, now sees Meet Davies. 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 Meet Davies [facility] - History Source History Provided By: Patient Limitations to Obtaining History: No Limitations - Past Medical History Cardio/Vascular: Yes: AFIB, Other (multiple cardioversions) Psych: Yes: Depression Endocrine: Yes: Hypothyroidism - Past Surgical History Past Surgical History: Yes: Joint Replacement (right SOBEIDA ALON 02/16), Valve Replacement (mechanical AVR/MVR 1999) - Alcohol/Substance Use Hx Alcohol Use: No - Smoking History Smoking history: Never smoked Have you smoked in the past 12 months: No Aproximately how many cigarettes per day: 0 - Social History ADL: Independent 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 History of Recent Travel: No Home Medications - Allergies Allergies/Adverse Reactions: Allergies Allergy/AdvReac Type Severity Reaction Status Date / Time No Known Allergies Allergy Verified 02/04/19 07:41 - Home Medications Home Medications: Ambulatory Orders Levothyroxine [Synthroid -] 175 mcg PO DAILY 06/05/15 Sotalol HCl [Betapace -] 80 mg PO BID #60 tablet 05/27/17 Pantoprazole Sodium [Protonix -] 40 mg PO DAILY #40 tablet.ec 02/06/19 Warfarin Na [Coumadin -] 10 mg PO DAILY 05/20/19 Review of Systems - Review of Systems Cardiovascular: reports: Palpitations Neurological: reports: Dizziness Vital Signs: Vital Signs Temperature 98.2 F 05/21/19 06:41 Pulse Rate 114 H 05/21/19 06:41 Respiratory Rate 17 05/21/19 08:27 Blood Pressure 108/78 05/21/19 06:41 O2 Sat by Pulse Oximetry (%) 98 05/21/19 08:27 Constitutional: Yes: No Distress, Calm, Thin Neck: Yes: Supple Respiratory: Yes: Regular, CTA Bilaterally Gastrointestinal: Yes: Normal Bowel Sounds, Soft Cardiovascular: Yes: Pulse Irregular JVD: No Carotid Bruit: No Heart Sounds: Yes: S1, S2, Clicks ([place] mechanical valve sounds) Edema: No - Other Data Labs, Other Data: CBC, BMP 05/21/19 06:15 05/21/19 06:15 INR, PTT INR 2.48 (0.83-1.09) H 05/21/19 06:15 Troponin, BNP 05/20/19 05/20/19 13:00 22:00 Troponin I < 0.03 0.02 Troponin, BNP 05/20/19 05/20/19 13:00 22:00 Troponin I < 0.03 0.02 Rapid afib @ 125 Ejection Fraction %: LVEF > or = 40 % Imaging - Results Chest X-ray: Report Reviewed (NAD) Problem List - Problems (1) Atrial fibrillation with rapid ventricular response Code(s): I48.91 - UNSPECIFIED ATRIAL FIBRILLATION (2) HTN (hypertension) Code(s): I10 - ESSENTIAL (PRIMARY) HYPERTENSION Qualifiers: Hypertension type: essential hypertension Qualified Code(s): I10 - Essential (primary) hypertension (3) History of cardioversion Code(s): Z98.89 - OTHER SPECIFIED POSTPROCEDURAL STATES * DO NOT USE * (4) Noncompliance with medication regimen Code(s): Z91.14 - PATIENT'S OTHER NONCOMPLIANCE WITH MEDICATION REGIMEN (5) Palpitations Code(s): R00.2 - PALPITATIONS (6) Rheumatic heart disease Code(s): I09.9 - RHEUMATIC HEART DISEASE, UNSPECIFIED (7) S/P heart valve replacement with mechanical valve Code(s): Z95.2 - PRESENCE OF PROSTHETIC HEART VALVE (8) Hypothyroidism Code(s): E03.9 - HYPOTHYROIDISM, UNSPECIFIED Qualifiers: Hypothyroidism type: unspecified Qualified Code(s): E03.9 - Hypothyroidism , unspecified Assessment/Plan 01/20/2019 Echo: Normal LV size and fxn LVEF 61%, abnormal septal motion post OHS, cannot assess E/A due to MVR, E/E' 18 LVH (1.2) normal RV size and fxn, normal fxn mech MV and AV replacements unchanged from 01/15/2018 ASSESSMENT: 1. Paroxysmal atrial fibrillation with RVR on A/C therapy 2. 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 Probable diastolic LV dysfunction with class 0 NYHA calssification lV failure 4. CAD h/o demand ischemic injury in context of recurrent paroxysmal atrial fib with rapid ventricular response 5. Hypothyroidism 6. Medication noncompliance with sotalol PLAN: 1. Ruled out for NE, continue Coumadin as per INR, maintain between 2.5-3.5 2. Continue Betapace 80 bid with close monitoring of QTc, Cardizem gtt for rate- control, hope for spontaneous cardioversion with rate-control 3. May require repeat DCCV if rate-control suboptimal 4. Patient to F/U with her storage solutions architect Dr. Meet Davies/Barbra upon d/c, f/u recent echo report from her office 5. Thank you for consultative opportunity
[2019-05-21] MEDS: SOTALOL HCL 80 MG TABLET (FP) PO SCH ×2 (09:23→21:01)
[2019-05-21] MEDS: PANTOPRAZOLE 40 MG TABLET PO SCH (09:24)
[2019-05-21] MEDS ORDERED: LEVOTHYROXINE NA 150 MCG TABLET PO SCH (10:00)
--- NOTE | 2019-05-21 10:49 | EKG ---
Test Reason : Blood Pressure : / mmHG Vent. Rate : 112 BPM Atrial Rate : 127 BPM P-R Int : 000 ms QRS Dur : 090 ms QT Int : 384 ms P-R-T Axes : 000 038 241 degrees QTc Int : 524 ms ATRIAL FIBRILLATION WITH RAPID VENTRICULAR RESPONSE NONSPECIFIC ST ABNORMALITY ABNORMAL ECG Confirmed by BUDDY DOUGLAS MD ([id number]) on 05/21/2019 10:49:25 AM Referred By: COLIN ALLEN Confirmed By:BUDDY DOUGLAS MD
[2019-05-21] MEDS ORDERED: dilTIAZem HCL 50 MG/10 ML - 10 ML VIAL IVPUSH ONE (14:25)
[2019-05-21] MEDS: DILTIAZEM INJECTION 125 MG in SODIUM CHLORIDE 100 ML IVPB SCH (14:25)
--- NOTE | 2019-05-21 14:48 | PN ---
Physical Exam: SUBJECTIVE: Patient seen and examined at the bedside. sitting up, feels well and denies chest pain. OBJECTIVE: Patient is 66 year-old female with a significant for HTN, HLD, rheumatic heart disease s/p mechanical aortic and mitral valves, afib/aflutter with RVR on coumadin, and hypothyroidism, multiple cardioversions in past most recently 2106. Multiple admissions for arrhythmias secondary to noncompliance with meds. Vital Signs Period Temp Pulse Resp BP Sys/Gonzalez Pulse Ox Last 24 Hr 97.9 F-98.2 F 88-130 15-25 93-108/70-84 98-98 GENERAL: The patient is awake, alert, and fully oriented, in no acute distress. HEAD: Normal with no signs of trauma. EYES: PERRL, extraocular movements intact, sclera anicteric, conjunctiva clear. No ptosis. ENT: Ears normal, nares patent, oropharynx clear without exudates, moist mucous membranes. NECK: Trachea midline, full range of motion, supple. LUNGS: Breath sounds equal, clear to auscultation bilaterally HEART: Regular rate and rhythm, has a mechanical valve ABDOMEN: Soft, nontender, nondistended, normoactive bowel sounds EXTREMITIES: no edema. NEUROLOGICAL: Normal speech, gait not observed. PSYCH: Normal mood, normal affect. SKIN: Warm, dry, normal turgor, no rashes or lesions noted Laboratory Results - last 24 hr 05/20/19 05/20/19 05/20/19 16:05 16:05 22:00 WBC RBC Hgb Hct MCV MCH MCHC RDW Plt Count MPV Absolute Neuts (auto) Neutrophils % Lymphocytes % Monocytes % Eosinophils % Basophils % Nucleated RBC % PT with INR INR Sodium Potassium Chloride Carbon Dioxide Anion Gap BUN Creatinine Est GFR (CKD-EPI)AfAm Est GFR (CKD-EPI)NonAf Random Glucose Calcium Magnesium Total Bilirubin AST ALT Alkaline Phosphatase Troponin I 0.02 Total Protein Albumin Free T4 1.18 Thyroxine (T4) 9.3 Free T3 2.2 Resin T3 Uptake 33.7 05/21/19 05/21/19 05/21/19 06:15 06:15 06:15 WBC 6.3 RBC 4.38 Hgb 12.3 Hct 38.0 MCV 86.8 MCH 28.0 MCHC 32.3 RDW 16.5 H Plt Count 301 MPV 9.8 Absolute Neuts (auto) 3.8 Neutrophils % 60.9 Lymphocytes % 25.4 Monocytes % 11.1 H Eosinophils % 1.9 Basophils % 0.7 Nucleated RBC % 0 PT with INR 29.50 H INR 2.48 H Sodium 141 Potassium 4.4 Chloride 111 H Carbon Dioxide 26 Anion Gap 5 L BUN 22.1 H Creatinine 0.7 Est GFR (CKD-EPI)AfAm 102.46 Est GFR (CKD-EPI)NonAf 88.40 Random Glucose 103 Calcium 8.8 Magnesium 2.2 Total Bilirubin 0.3 AST 23 ALT 25 Alkaline Phosphatase 93 Troponin I Total Protein 6.0 L Albumin 3.0 L Free T4 Thyroxine (T4) Free T3 Resin T3 Uptake Active Medications Generic Name Dose Route Start Last Admin Trade Name Freq PRN Reason Stop Dose Admin Diltiazem HCl 125 mg/ Sodium 125 mls @ 10 mls/hr 05/21/19 14:24 Chloride IVPB TITR JOSH Protocol 10 MG/HR Levothyroxine Sodium 125 mcg/ 175 mcg 05/21/19 07:00 05/21/19 06:21 Levothyroxine Sodium 50 mcg PO 175 mcg DAILY@0700 JOSH Administration Metoprolol Tartrate 5 mg 05/20/19 18:42 Lopressor Injection - IVPUSH Q4H PRN TACHYCARDIA Pantoprazole Sodium 40 mg 05/21/19 10:00 05/21/19 09:24 Protonix - PO 40 mg DAILY JOSH Administration Sotalol HCl 80 mg 05/20/19 22:00 05/21/19 09:23 Betapace - PO 80 mg BID JOSH Administration Warfarin Sodium 10 mg 05/20/19 18:00 05/20/19 20:30 Coumadin - PO 10 mg DAILY@1800 [facility] Administration ASSESSMENT/PLAN: Problem List - Problems (1) Atrial fibrillation with rapid ventricular response Assessment/Plan: On Sotalol HCL 80mg BID, she reports non compliance with her home meds. started on diltiazem gtt continue gtt to mainatin HR <100 Monitor on tele Code(s): I48.91 - UNSPECIFIED ATRIAL FIBRILLATION (2) HLD (hyperlipidemia) Assessment/Plan: controlled with diet Code(s): E78.5 - HYPERLIPIDEMIA, UNSPECIFIED (3) HTN (hypertension) Code(s): I10 - ESSENTIAL (PRIMARY) HYPERTENSION Qualifiers: Hypertension type: essential hypertension Qualified Code(s): I10 - Essential (primary) hypertension (4) Obesity (BMI 30.0-34.9) Code(s): E66.9 - OBESITY, UNSPECIFIED (5) Hypothyroidism Assessment/Plan: continue home meds, elevated tsh likely secondary to non compliance Code(s): E03.9 - HYPOTHYROIDISM, UNSPECIFIED Qualifiers: Hypothyroidism type: unspecified Qualified Code(s): E03.9 - Hypothyroidism , unspecified (6) Noncompliance with medication regimen Code(s): Z91.14 - PATIENT'S OTHER NONCOMPLIANCE WITH MEDICATION REGIMEN (7) S/P heart valve replacement with mechanical valve Assessment/Plan: keep inr between 2.5-3.5 Code(s): Z95.2 - PRESENCE OF PROSTHETIC HEART VALVE (8) Prophylactic measure Assessment/Plan: low salt diet on coumadin Code(s): Z29.9 - ENCOUNTER FOR PROPHYLACTIC MEASURES, UNSPECIFIED Visit type - Emergency Visit Emergency Visit: Yes ED Registration Date: 05/20/19 Care time: The patient presented to the Emergency Department on the above date and was hospitalized for further evaluation of their emergent condition. - New Patient This patient is new to me today: Yes Date on this admission: 05/21/19 - Critical Care Critical Care patient: No - Discharge Referral Referred to [facility] Med P.C.: No
[2019-05-21] MEDS ORDERED: PT OWN MED DRAWER 7, Y5N ONE (17:36)
[2019-05-21] MEDS: WARFARIN NA 10 MG TABLET (FP) PO SCH (18:54)
[2019-05-21] MEDS ORDERED: dilTIAZem HCL 25 MG/5 ML - 5 ML VIAL ONE (23:08)
[2019-05-22] MEDS ORDERED: LEVOTHYROXINE NA 125 MCG TABLET (FP) ONE (06:22)
[2019-05-22] MEDS ORDERED: LEVOTHYROXINE NA 50 MCG TABLET (FP) ONE (06:23)
[2019-05-22] MEDS: LEVOTHYROXINE 125 MCG, LEVOTHYROXINE 50 MCG PO SCH (06:24)
[2019-05-22 06:25] LABS: BASO % 0.5 % (0-2.0); EOS % 1.8 % (0-4.5); HEMATOCRIT 38.5 % (32.4-45.2); HEMOGLOBIN 12.4 GM/dL (10.7-15.3); LYMPH % 21.3 % (8-40); MCH 27.8 pg (25.7-33.7); MCHC 32.3 g/dl (32.0-36.0); MEAN CELL VOLUME 86.1 fl (80-96); MEAN PLT VOLUME 10.1 fl (7.5-11.1); MONO % 9.6 % (3.8-10.2); NEUT % 66.8 % (42.8-82.8); PLATELET COUNT 289 K/MM3 (134-434); RBC 4.47 M/mm3 (3.60-5.2); RDW 16.4 % (11.6-15.6); WHITE BLOOD COUNT 6.6 K/mm3 (4.0-10.0)
[2019-05-22 06:32] LABS: INR 2.59 (0.83-1.09); PROTHROMBIN TIME (PATIENT) 30.8 SEC (9.7-13.0)
[2019-05-22 07:36] LABS: ALBUMIN 3.2 g/dl (3.4-5.0); BILIRUBIN,TOTAL 0.3 mg/dL (0.2-1); BLOOD UREA NITROGEN 19.5 mg/dL (7-18); CREATININE 0.8 mg/dL (0.55-1.3); MAGNESIUM 2.1 mg/dL (1.8-2.4); POTASSIUM 4.5 mmol/L (3.5-5.1); TOT PROT 6.1 g/dl (6.4-8.2)
--- NOTE | 2019-05-22 08:18 | PN ---
Physical Exam: SUBJECTIVE: Patient seen and examined at the bedside. denies any chest pain or shortness of breath. tolerating room air OBJECTIVE: Patient is 66 year-old female with a significant for HTN, HLD, rheumatic heart disease s/p mechanical aortic and mitral valves, afib/aflutter with RVR on coumadin, and hypothyroidism, multiple cardioversions in past most recently 2106. Multiple admissions for arrhythmias secondary to noncompliance with meds. Vital Signs Period Temp Pulse Resp BP Sys/Gonzalez Pulse Ox Last 24 Hr 97.1 F-98.1 F 112-118 17-22 93-109/54-84 98-98 GENERAL: The patient is awake, alert, and fully oriented, in no acute distress. HEAD: Normal with no signs of trauma. EYES: PERRL, extraocular movements intact, sclera anicteric, conjunctiva clear. No ptosis. ENT: Ears normal, nares patent, oropharynx clear without exudates, moist mucous membranes. NECK: Trachea midline, full range of motion, supple. LUNGS: Breath sounds equal, clear to auscultation bilaterally HEART: Regular rate and rhythm, has a mechanical valve ABDOMEN: Soft, nontender, nondistended, normoactive bowel sounds EXTREMITIES: no edema. NEUROLOGICAL: Normal speech, gait not observed. PSYCH: Normal mood, normal affect. SKIN: Warm, dry, normal turgor, no rashes or lesions noted Laboratory Results - last 24 hr 05/21/19 05/21/19 05/22/19 06:15 06:15 05:20 WBC 6.3 6.6 RBC 4.38 4.47 Hgb 12.3 12.4 Hct 38.0 38.5 MCV 86.8 86.1 MCH 28.0 27.8 MCHC 32.3 32.3 RDW 16.5 H 16.4 H Plt Count 301 289 MPV 9.8 10.1 Absolute Neuts (auto) 3.8 4.4 Neutrophils % 60.9 66.8 Lymphocytes % 25.4 21.3 Monocytes % 11.1 H 9.6 Eosinophils % 1.9 1.8 Basophils % 0.7 0.5 Nucleated RBC % 0 0 PT with INR 29.50 H INR 2.48 H Sodium Potassium Chloride Carbon Dioxide Anion Gap BUN Creatinine Est GFR (CKD-EPI)AfAm Est GFR (CKD-EPI)NonAf Random Glucose Calcium Magnesium Total Bilirubin AST ALT Alkaline Phosphatase Total Protein Albumin 05/22/19 05/22/19 05:20 05:20 WBC RBC Hgb Hct MCV MCH MCHC RDW Plt Count MPV Absolute Neuts (auto) Neutrophils % Lymphocytes % Monocytes % Eosinophils % Basophils % Nucleated RBC % PT with INR 30.80 H INR 2.59 H Sodium 142 Potassium 4.5 Chloride 110 H Carbon Dioxide 25 Anion Gap 6 L BUN 19.5 H Creatinine 0.8 Est GFR (CKD-EPI)AfAm 87.18 Est GFR (CKD-EPI)NonAf 75.22 Random Glucose 102 Calcium 9.0 Magnesium 2.1 Total Bilirubin 0.3 AST 26 ALT 27 Alkaline Phosphatase 93 Total Protein 6.1 L Albumin 3.2 L Active Medications Generic Name Dose Route Start Last Admin Trade Name Freq PRN Reason Stop Dose Admin Diltiazem HCl 125 mg/ Sodium 125 mls @ 10 mls/hr 05/21/19 14:24 05/21/19 14: 25 Chloride IVPB 10 mg/hr TITR JOSH 10 mls/hr Administration Protocol 10 MG/HR Levothyroxine Sodium 125 mcg/ 175 mcg 05/21/19 07:00 05/22/19 06:24 Levothyroxine Sodium 50 mcg PO 175 mcg DAILY@0700 JOSH Administration Metoprolol Tartrate 5 mg 05/20/19 18:42 Lopressor Injection - IVPUSH Q4H PRN TACHYCARDIA Pantoprazole Sodium 40 mg 05/21/19 10:00 05/21/19 09:24 Protonix - PO 40 mg DAILY JOSH Administration Sotalol HCl 80 mg 05/20/19 22:00 05/21/19 21:01 Betapace - PO 80 mg BID JOSH Administration Warfarin Sodium 10 mg 05/20/19 18:00 05/21/19 18:54 Coumadin - PO 10 mg DAILY@1800 JOSH Administration ASSESSMENT/PLAN: Problem List - Problems (1) Atrial fibrillation with rapid ventricular response Assessment/Plan: On Sotalol HCL 80mg BID, she reports non compliance with her home meds. started [facility] Monitor on tele possible cardioversion on Friday Code(s): I48.91 - UNSPECIFIED ATRIAL FIBRILLATION (2) HLD (hyperlipidemia) Assessment/Plan: controlled with diet Code(s): E78.5 - HYPERLIPIDEMIA, UNSPECIFIED (3) HTN (hypertension) Assessment/Plan: bp stable Code(s): I10 - ESSENTIAL (PRIMARY) HYPERTENSION Qualifiers: Hypertension type: essential hypertension Qualified Code(s): I10 - Essential (primary) hypertension (4) Obesity (BMI 30.0-34.9) Assessment/Plan: dietary consult Code(s): E66.9 - OBESITY, UNSPECIFIED (5) Hypothyroidism Assessment/Plan: continue home meds, elevated tsh likely secondary to non compliance Code(s): E03.9 - HYPOTHYROIDISM, UNSPECIFIED Qualifiers: Hypothyroidism type: unspecified Qualified Code(s): E03.9 - Hypothyroidism , unspecified (6) Noncompliance with medication regimen Assessment/Plan: patient reports non compliance with home sotalol adherence with medical regimen discussed with patient Code(s): Z91.14 - PATIENT'S OTHER NONCOMPLIANCE WITH MEDICATION REGIMEN (7) S/P heart valve replacement with mechanical valve Assessment/Plan: keep inr between 2.5-3.5 while on coumadin Code(s): Z95.2 - PRESENCE OF PROSTHETIC HEART VALVE (8) Prophylactic measure Assessment/Plan: low salt diet on coumadin Code(s): Z29.9 - ENCOUNTER FOR PROPHYLACTIC MEASURES, UNSPECIFIED Visit type - Emergency Visit Emergency Visit: Yes ED Registration Date: 05/20/19 Care time: The patient presented to the Emergency Department on the above date and was hospitalized for further evaluation of their emergent condition. - New Patient This patient is new to me today: No - Critical Care Critical Care patient: No - Discharge Referral Referred to [facility] Med P.C.: No
[2019-05-22] MEDS: PANTOPRAZOLE 40 MG TABLET PO SCH (10:05)
[2019-05-22] MEDS: SOTALOL HCL 80 MG TABLET (FP) PO SCH ×2 (10:05→21:03)
[2019-05-22] MEDS: POLYETHYLENE GLYCOL 3350 119 GM BTL PO SCH (11:15)
--- NOTE | 2019-05-22 11:45 | PN ---
Progress Note, Physician Chief Complaint: Events noted Remains in atrial fibrillation with RVR History of Present Illness: Patient was seen and examined. Awake and alert. Chart was reviewed Denies chest pain or SOB RVR - Current Medication List Current Medications: Active Medications Docusate Sodium (Colace -) 100 mg PO TID [facility] Diltiazem HCl 125 mg/ Sodium (Chloride) 125 mls @ 10 mls/hr IVPB TITR [facility]; Protocol Last Admin: 05/21/19 14:25 Dose: 10 mg/hr, 10 mls/hr Levothyroxine Sodium 125 mcg/ (Levothyroxine Sodium 50 mcg) 175 mcg PO DAILY@ 0700 [facility] Last Admin: 05/22/19 06:24 Dose: 175 mcg Metoprolol Tartrate (Lopressor Injection -) 5 mg IVPUSH Q4H PRN PRN Reason: TACHYCARDIA Last Admin: 05/22/19 10:11 Dose: 5 mg Pantoprazole Sodium (Protonix -) 40 mg PO DAILY [facility] Last Admin: 05/22/19 10:05 Dose: 40 mg Polyethylene Glycol (Miralax (For Daily Use) -) 17 gm PO DAILY [facility] Sotalol HCl (Betapace -) 80 mg PO BID [facility] Last Admin: 05/22/19 10:05 Dose: 80 mg Warfarin Sodium (Coumadin -) 10 mg PO DAILY@1800 [facility] Last Admin: 05/21/19 18:54 Dose: 10 mg - Objective Vital Signs: Vital Signs Temperature 97.1 F L 05/22/19 06:00 Pulse Rate 120 H 05/22/19 10:11 Respiratory Rate 18 05/22/19 08:24 Blood Pressure 108/78 05/22/19 10:11 O2 Sat by Pulse Oximetry (%) 98 05/22/19 08:24 Eyes: Yes: PERRL HENT: Yes: Atraumatic Neck: Yes: Supple Cardiovascular: Yes: Tachycardia, Pulse Irregular, S1, S2, Other (Mechanical click) Respiratory: Yes: CTA Bilaterally Gastrointestinal: Yes: Normal Bowel Sounds, Soft. No: Tenderness Edema: No Additional Findings/Remarks: - Review of Systems Constitutional: denies: Chills, Fever Cardiovascular: reports: Palpitations, denies: Shortness of Breath. denies: Chest Pain Respiratory: denies Cough, SOB. denies: Hemoptysis, Orthopnea, PND Gastrointestinal: denies: Abdominal Pain, Constipation, Diarrhea, Melena, Nausea , Rectal Bleeding, Vomiting Genitourinary: denies: Dysuria, Hematuria Musculoskeletal: denies Joint Pain. denies: Back Pain Neurological: denies: Dizziness, Headache, Seizure, Syncope Labs: CBC, BMP 05/22/19 05:20 05/22/19 05:20 INR, PTT INR 2.59 (0.83-1.09) H 05/22/19 05:20 Problem List - Problems (1) Atrial fibrillation with rapid ventricular response Code(s): I48.91 - UNSPECIFIED ATRIAL FIBRILLATION (2) HLD (hyperlipidemia) Code(s): E78.5 - HYPERLIPIDEMIA, UNSPECIFIED (3) HTN (hypertension) Code(s): I10 - ESSENTIAL (PRIMARY) HYPERTENSION Qualifiers: Hypertension type: essential hypertension Qualified Code(s): I10 - Essential (primary) hypertension (4) Demand ischemia Code(s): I24.8 - OTHER FORMS OF ACUTE ISCHEMIC HEART DISEASE (5) Hypothyroidism Code(s): E03.9 - HYPOTHYROIDISM, UNSPECIFIED Qualifiers: Hypothyroidism type: unspecified Qualified Code(s): E03.9 - Hypothyroidism , unspecified (6) Noncompliance with medication regimen Code(s): Z91.14 - PATIENT'S OTHER NONCOMPLIANCE WITH MEDICATION REGIMEN (7) Rheumatic heart disease Code(s): I09.9 - RHEUMATIC HEART DISEASE, UNSPECIFIED (8) S/P heart valve replacement with mechanical valve Code(s): Z95.2 - PRESENCE OF PROSTHETIC HEART VALVE Assessment/Plan 1. Paroxysmal atrial fibrillation with RVR on A/C therapy 2. 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 Diastolic LV dysfunction with class 0 NYHA classification LV failure 4. CAD, demand ischemic injury in context of recurrent paroxysmal AF with RVR 5. Hypothyroidism 6. Medication noncompliance with Sotalol PLAN: 1. Continue Coumadin as per INR, maintain between 2.5-3.5 in view of mechanical valves 2. Continue Betapace 80 bid with close monitoring of QTc, Cardizem gtt for rate- control. If remains in AF, consider synchronized cardioversion tentatively Friday. May give addition dose of Betapace today. Lopressor IV PRN 3. Patient to F/U with her gas furnace installer Dr. Meet Davies/Barbra upon discharge. Follow up recent echocardiography report from her office Further plans are to follow Dani Gallegos MD
[2019-05-22] MEDS ORDERED: SOTALOL HCL 80 MG TABLET (FP) PO ONE (11:48)
[2019-05-22] MEDS ORDERED: PT OWN MED DRAWER 7, Y5N ONE ×3 (12:45→20:56)
[2019-05-22] MEDS: DOCUSATE SODIUM 100 MG CAPSULE (FP) PO SCH ×2 (14:42→21:03)
[2019-05-22] MEDS: DILTIAZEM INJECTION 125 MG in SODIUM CHLORIDE 100 ML IVPB SCH (14:42)
[2019-05-22] MEDS: WARFARIN NA 10 MG TABLET (FP) PO SCH (18:53)
[2019-05-23] MEDS ORDERED: LEVOTHYROXINE NA 50 MCG TABLET (FP) ONE (05:11)
[2019-05-23] MEDS ORDERED: LEVOTHYROXINE NA 125 MCG TABLET (FP) ONE (05:11)
[2019-05-23] MEDS: DOCUSATE SODIUM 100 MG CAPSULE (FP) PO SCH ×3 (06:11→21:20)
[2019-05-23] MEDS: LEVOTHYROXINE 125 MCG, LEVOTHYROXINE 50 MCG PO SCH (06:11)
[2019-05-23 06:32] LABS: BASO % 0.3 % (0-2.0); EOS % 1.9 % (0-4.5); HEMATOCRIT 38.3 % (32.4-45.2); HEMOGLOBIN 12.4 GM/dL (10.7-15.3); LYMPH % 24.1 % (8-40); MCH 28.2 pg (25.7-33.7); MCHC 32.4 g/dl (32.0-36.0); MEAN CELL VOLUME 86.9 fl (80-96); MEAN PLT VOLUME 10.2 fl (7.5-11.1); MONO % 11.9 % (3.8-10.2); NEUT % 61.8 % (42.8-82.8); PLATELET COUNT 285 K/MM3 (134-434); RDW 16.5 % (11.6-15.6); WHITE BLOOD COUNT 6.6 K/mm3 (4.0-10.0)
[2019-05-23 06:42] LABS: ALBUMIN 3.1 g/dl (3.4-5.0); BILIRUBIN,TOTAL 0.3 mg/dL (0.2-1); BLOOD UREA NITROGEN 18.9 mg/dL (7-18); CALCIUM 9.2 mg/dL (8.5-10.1); CREATININE 0.9 mg/dL (0.55-1.3); MAGNESIUM 2.2 mg/dL (1.8-2.4); POTASSIUM 4.8 mmol/L (3.5-5.1); TOT PROT 6.1 g/dl (6.4-8.2)
[2019-05-23 06:44] LABS: INR 3.08 (0.83-1.09); PROTHROMBIN TIME (PATIENT) 36.8 SEC (9.7-13.0)
[2019-05-23] MEDS: SOTALOL HCL 80 MG TABLET (FP) PO SCH ×2 (09:25→21:20)
[2019-05-23] MEDS: PANTOPRAZOLE 40 MG TABLET PO SCH (09:25)
--- NOTE | 2019-05-23 09:58 | PN ---
Progress Note, Physician Chief Complaint: Events noted Remains in atrial fibrillation with RVR History of Present Illness: Patient was seen and examined. Awake and alert. Chart was reviewed Denies chest pain or SOB - Current Medication List Current Medications: Active Medications Docusate Sodium (Colace -) 100 mg PO TID [facility] Last Admin: 05/23/19 06:11 Dose: 100 mg Diltiazem HCl 125 mg/ Sodium (Chloride) 125 mls @ 10 mls/hr IVPB TITR [facility]; Protocol Last Titration: 05/22/19 20:00 Dose: 15 mg/hr, 15 mls/hr Levothyroxine Sodium 125 mcg/ (Levothyroxine Sodium 50 mcg) 175 mcg PO DAILY@ 0700 [facility] Last Admin: 05/23/19 06:11 Dose: 175 mcg Metoprolol Tartrate (Lopressor Injection -) 5 mg IVPUSH Q4H PRN PRN Reason: TACHYCARDIA Last Admin: 05/22/19 10:11 Dose: 5 mg Pantoprazole Sodium (Protonix -) 40 mg PO DAILY [facility] Last Admin: 05/23/19 09:25 Dose: 40 mg Polyethylene Glycol (Miralax (For Daily Use) -) 17 gm PO DAILY [facility] Last Admin: 05/22/19 11:15 Dose: 17 grams Sotalol HCl (Betapace -) 80 mg PO BID [facility] Last Admin: 05/23/19 09:25 Dose: 80 mg Warfarin Sodium (Coumadin -) 10 mg PO DAILY@1800 [facility] Last Admin: 05/22/19 18:53 Dose: 10 mg - Objective Vital Signs: Vital Signs Temperature 97.8 F 05/23/19 09:27 Pulse Rate 117 H 05/23/19 09:27 Respiratory Rate 18 05/23/19 09:27 Blood Pressure 108/82 05/23/19 09:27 O2 Sat by Pulse Oximetry (%) 98 05/23/19 08:18 Eyes: Yes: PERRL HENT: Yes: Atraumatic Neck: Yes: Supple Cardiovascular: Yes: Tachycardia, Pulse Irregular, S1, S2 Respiratory: Yes: CTA Bilaterally Gastrointestinal: Yes: Normal Bowel Sounds, Soft. No: Tenderness Edema: No Additional Findings/Remarks: - Review of Systems Constitutional: denies: Chills, Fever Cardiovascular: reports: Palpitations, denies: Shortness of Breath. denies: Chest Pain Respiratory: denies Cough, SOB. denies: Hemoptysis, Orthopnea, PND Gastrointestinal: denies: Abdominal Pain, Constipation, Diarrhea, Melena, Nausea , Rectal Bleeding, Vomiting Genitourinary: denies: Dysuria, Hematuria Musculoskeletal: denies Joint Pain. denies: Back Pain Neurological: denies: Dizziness, Headache, Seizure, Syncope Labs: CBC, BMP 05/23/19 05:15 05/23/19 05:15 INR, PTT INR 3.08 (0.83-1.09) H 05/23/19 05:15 Problem List - Problems (1) Atrial fibrillation with rapid ventricular response Code(s): I48.91 - UNSPECIFIED ATRIAL FIBRILLATION (2) HLD (hyperlipidemia) Code(s): E78.5 - HYPERLIPIDEMIA, UNSPECIFIED (3) HTN (hypertension) Code(s): I10 - ESSENTIAL (PRIMARY) HYPERTENSION Qualifiers: Hypertension type: essential hypertension Qualified Code(s): I10 - Essential (primary) hypertension (4) Demand ischemia Code(s): I24.8 - OTHER FORMS OF ACUTE ISCHEMIC HEART DISEASE (5) Hypothyroidism Code(s): E03.9 - HYPOTHYROIDISM, UNSPECIFIED Qualifiers: Hypothyroidism type: unspecified Qualified Code(s): E03.9 - Hypothyroidism , unspecified (6) Noncompliance with medication regimen Code(s): Z91.14 - PATIENT'S OTHER NONCOMPLIANCE WITH MEDICATION REGIMEN (7) Rheumatic heart disease Code(s): I09.9 - RHEUMATIC HEART DISEASE, UNSPECIFIED (8) S/P heart valve replacement with mechanical valve Code(s): Z95.2 - PRESENCE OF PROSTHETIC HEART VALVE Assessment/Plan 1. Paroxysmal atrial fibrillation with RVR on A/C therapy 2. 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 Diastolic LV dysfunction with class 0 NYHA classification LV failure 4. CAD, demand ischemic injury in context of recurrent paroxysmal AF with RVR 5. Hypothyroidism 6. Medication noncompliance with Sotalol - currently restarted PLAN: 1. Continue Coumadin as per INR, maintain between 2.5-3.5 in view of mechanical valves 2. Continue Betapace 80 bid with close monitoring of QTc, Cardizem gtt for rate- control. If remains in AF, consider synchronized cardioversion tentatively Friday. NPO after MN. May give addition dose of Betapace if needed. Lopressor IV PRN 3. Patient to F/U with her preflight inspector Dr. Meet Davies/Barbra upon discharge. Follow up recent echocardiography report from her office Further plans are to follow Dani Gallegos MD
--- NOTE | 2019-05-23 09:58 | EKG ---
Test Reason : Blood Pressure : / mmHG Vent. Rate : 118 BPM Atrial Rate : 118 BPM P-R Int : 282 ms QRS Dur : 092 ms QT Int : 382 ms P-R-T Axes : 095 048 142 degrees QTc Int : 535 ms SINUS TACHYCARDIA WITH 1ST DEGREE A-V BLOCK ST ELEVATION CONSIDER INFERIOR INJURY OR ACUTE INFARCT PROLONGED QT Consider right ventricular involvement in acute inferior infarct ABNORMAL ECG WHEN COMPARED WITH ECG OF 20-MAY-2019 14:32, SINUS RHYTHM HAS REPLACED ATRIAL FIBRILLATION ST ELEVATION NOW PRESENT IN INFERIOR LEADS T WAVE INVERSION NOW EVIDENT IN ANTERIOR LEADS Confirmed by BRYANT CRUZ MD ([id number]) on 05/23/2019 9:57:48 AM Referred By: Tommy TAVAREZ Confirmed By:BRYANT CRUZ MD
[2019-05-23] MEDS: POLYETHYLENE GLYCOL 3350 119 GM BTL PO SCH (11:52)
[2019-05-23] MEDS: DILTIAZEM INJECTION 125 MG in SODIUM CHLORIDE 100 ML IVPB SCH (14:21)
--- NOTE | 2019-05-23 16:56 | PN ---
Physical Exam: SUBJECTIVE: Patient seen and examined at the bedside. denies any shortness of breath, or chest pain. comfortable at rest. OBJECTIVE: patient for a synchronized cardioversion tomorrow. npo at midnight. --------- Patient is 66 year-old female with a significant for HTN, HLD, rheumatic heart disease s/p mechanical aortic and mitral valves, afib/aflutter with RVR on coumadin, and hypothyroidism, multiple cardioversions in past most recently 2106. Multiple admissions for arrhythmias secondary to noncompliance with meds. Period Temp Pulse Resp BP Sys/Gonzalez Pulse Ox Last 24 Hr 97.7 F-98.6 F 72-118 17-25 91-146/64-82 96-98 GENERAL: The patient is awake, alert, and fully oriented, in no acute distress. HEAD: Normal with no signs of trauma. EYES: PERRL, extraocular movements intact, sclera anicteric, conjunctiva clear. No ptosis. ENT: Ears normal, nares patent, oropharynx clear without exudates, moist mucous membranes. NECK: Trachea midline, full range of motion, supple. LUNGS: Breath sounds equal, clear to auscultation bilaterally HEART: Regular rate and rhythm, has a mechanical valve ABDOMEN: Soft, nontender, nondistended, normoactive bowel sounds EXTREMITIES: no edema. NEUROLOGICAL: Normal speech, gait not observed. PSYCH: Normal mood, normal affect. SKIN: Warm, dry, normal turgor, no rashes or lesions noted Laboratory Results - last 24 hr 05/23/19 05/23/19 05/23/19 05:15 05:15 05:15 WBC 6.6 RBC 4.40 Hgb 12.4 Hct 38.3 MCV 86.9 MCH 28.2 MCHC 32.4 RDW 16.5 H Plt Count 285 MPV 10.2 Absolute Neuts (auto) 4.1 Neutrophils % 61.8 Lymphocytes % 24.1 Monocytes % 11.9 H Eosinophils % 1.9 Basophils % 0.3 Nucleated RBC % 0 PT with INR 36.80 H INR 3.08 H Sodium 141 Potassium 4.8 Chloride 109 H Carbon Dioxide 28 Anion Gap 5 L BUN 18.9 H Creatinine 0.9 Est GFR (CKD-EPI)AfAm 75.61 Est GFR (CKD-EPI)NonAf 65.24 Random Glucose 97 Calcium 9.2 Magnesium 2.2 Total Bilirubin 0.3 AST 28 ALT 33 Alkaline Phosphatase 97 Total Protein 6.1 L Albumin 3.1 L Active Medications Generic Name Dose Route Start Last Admin Trade Name Freq PRN Reason Stop Dose Admin Docusate Sodium 100 mg 05/22/19 14:00 05/23/19 14:21 Colace - PO 100 mg TID [facility] Administration Diltiazem HCl 125 mg/ Sodium 125 mls @ 10 mls/hr 05/21/19 14:24 05/23/19 14: 21 Chloride IVPB 10 mg/hr TITR [facility] 10 mls/hr Administration Protocol 10 MG/HR Levothyroxine Sodium 125 mcg/ 175 mcg 05/21/19 07:00 05/23/19 06:11 Levothyroxine Sodium 50 mcg PO 175 mcg DAILY@0700 [facility] Administration Metoprolol Tartrate 5 mg 05/20/19 18:42 05/22/19 10:11 Lopressor Injection - IVPUSH 5 mg Q4H PRN Administration TACHYCARDIA Pantoprazole Sodium 40 mg 05/21/19 10:00 05/23/19 09:25 Protonix - PO 40 mg DAILY [facility] Administration Polyethylene Glycol 17 gm 05/22/19 10:00 05/23/19 11:52 Miralax (For Daily Use) - PO 17 grams DAILY [facility] Administration Sotalol HCl 80 mg 05/20/19 22:00 05/23/19 09:25 Betapace - PO 80 mg BID [facility] Administration Warfarin Sodium 10 mg 05/20/19 18:00 05/22/19 18:53 Coumadin - PO 10 mg DAILY@1800 [facility] Administration ASSESSMENT/PLAN: Problem List - Problems (1) Atrial fibrillation with rapid ventricular response Assessment/Plan: AF w/ RVR. patient stopped home pm dose of sotolol. Given metoprolol/diltiazem/ adensoine in ED on admission in attempt to rate control. on dilt gtt and sotalol. for possible cardioversion tomorrow. npo at midnight. Code(s): I48.91 - UNSPECIFIED ATRIAL FIBRILLATION (2) HLD (hyperlipidemia) Assessment/Plan: controlled with diet Code(s): E78.5 - HYPERLIPIDEMIA, UNSPECIFIED (3) HTN (hypertension) Assessment/Plan: bp stable Code(s): I10 - ESSENTIAL (PRIMARY) HYPERTENSION Qualifiers: Hypertension type: essential hypertension Qualified Code(s): I10 - Essential (primary) hypertension (4) Obesity (BMI 30.0-34.9) Assessment/Plan: dietary consult Code(s): E66.9 - OBESITY, UNSPECIFIED (5) Hypothyroidism Assessment/Plan: continue home meds, elevated tsh likely secondary to non compliance Code(s): E03.9 - HYPOTHYROIDISM, UNSPECIFIED Qualifiers: Hypothyroidism type: unspecified Qualified Code(s): E03.9 - Hypothyroidism , unspecified (6) Noncompliance with medication regimen Assessment/Plan: patient reports non compliance with home sotalol adherence with medical regimen discussed with patient Code(s): Z91.14 - PATIENT'S OTHER NONCOMPLIANCE WITH MEDICATION REGIMEN (7) S/P heart valve replacement with mechanical valve Assessment/Plan: keep inr between 2.5-3.5 while on coumadin Code(s): Z95.2 - PRESENCE OF PROSTHETIC HEART VALVE (8) Prophylactic measure Assessment/Plan: low salt diet on coumadin Code(s): Z29.9 - ENCOUNTER FOR PROPHYLACTIC MEASURES, UNSPECIFIED Visit type - Emergency Visit Emergency Visit: Yes ED Registration Date: 05/20/19 Care time: The patient presented to the Emergency Department on the above date and was hospitalized for further evaluation of their emergent condition. - New Patient This patient is new to me today: No - Critical Care Critical Care patient: No - Discharge Referral Referred to [facility] Med P.C.: No
[2019-05-23] MEDS: WARFARIN NA 10 MG TABLET (FP) PO SCH ×2 (17:34→17:41)
[2019-05-24] MEDS ORDERED: LEVOTHYROXINE NA 125 MCG TABLET (FP) ONE (05:16)
[2019-05-24] MEDS ORDERED: LEVOTHYROXINE NA 50 MCG TABLET (FP) ONE (05:16)
[2019-05-24] MEDS: DOCUSATE SODIUM 100 MG CAPSULE (FP) PO SCH ×3 (06:33→22:30)
[2019-05-24 07:15] LABS: BASO % 0.5 % (0-2.0); EOS % 1.8 % (0-4.5); HEMATOCRIT 39.1 % (32.4-45.2); HEMOGLOBIN 12.6 GM/dL (10.7-15.3); LYMPH % 20.5 % (8-40); MCHC 32.2 g/dl (32.0-36.0); MEAN CELL VOLUME 86.8 fl (80-96); NEUT % 66.2 % (42.8-82.8); PLATELET COUNT 286 K/MM3 (134-434); RBC 4.51 M/mm3 (3.60-5.2); RDW 16.2 % (11.6-15.6); WHITE BLOOD COUNT 6.4 K/mm3 (4.0-10.0)
[2019-05-24 07:28] LABS: INR 2.93 (0.83-1.09); PROTHROMBIN TIME (PATIENT) 34.9 SEC (9.7-13.0)
[2019-05-24] MEDS: LEVOTHYROXINE 125 MCG, LEVOTHYROXINE 50 MCG PO SCH ×2 (07:33→09:43)
[2019-05-24 07:43] LABS: ALBUMIN 3.2 g/dl (3.4-5.0); BILIRUBIN,TOTAL 0.3 mg/dL (0.2-1); BLOOD UREA NITROGEN 18.6 mg/dL (7-18); CREATININE 0.9 mg/dL (0.55-1.3); MAGNESIUM 2.3 mg/dL (1.8-2.4); TOT PROT 6.2 g/dl (6.4-8.2)
--- NOTE | 2019-05-24 09:27 | PN ---
Progress Note, Physician History of Present Illness: Remains in atrial fibrillation with RVR, denies chest pain, SOB, palpitations, near or true syncope. - Current Medication List Current Medications: Active Medications Docusate Sodium (Colace -) 100 mg PO TID [facility] Last Admin: 05/24/19 06:33 Dose: Not Given Diltiazem HCl 125 mg/ Sodium (Chloride) 125 mls @ 10 mls/hr IVPB TITR [facility]; Protocol Last Admin: 05/23/19 14:21 Dose: 10 mg/hr, 10 mls/hr Levothyroxine Sodium 125 mcg/ (Levothyroxine Sodium 50 mcg) 175 mcg PO DAILY@ 0700 [facility] Last Admin: 05/24/19 07:33 Dose: Not Given Metoprolol Tartrate (Lopressor Injection -) 5 mg IVPUSH Q4H PRN PRN Reason: TACHYCARDIA Last Admin: 05/22/19 10:11 Dose: 5 mg Pantoprazole Sodium (Protonix -) 40 mg PO DAILY [facility] Last Admin: 05/23/19 09:25 Dose: 40 mg Polyethylene Glycol (Miralax (For Daily Use) -) 17 gm PO DAILY [facility] Last Admin: 05/23/19 11:52 Dose: 17 grams Sotalol HCl (Betapace -) 80 mg PO BID [facility] Last Admin: 05/23/19 21:20 Dose: 80 mg Warfarin Sodium (Coumadin -) 10 mg PO DAILY@1800 [facility] Last Admin: 05/23/19 17:41 Dose: Not Given - Objective Vital Signs: Vital Signs Temperature 97.9 F 05/24/19 06:00 Pulse Rate 114 H 05/24/19 06:00 Respiratory Rate 18 05/24/19 06:00 Blood Pressure 96/59 L 05/24/19 06:00 O2 Sat by Pulse Oximetry (%) 99 05/24/19 09:00 Labs: CBC, BMP 05/24/19 06:10 05/24/19 06:10 INR, PTT INR 2.93 (0.83-1.09) H 05/24/19 06:10 Problem List - Problems (1) Atrial fibrillation with rapid ventricular response Code(s): I48.91 - UNSPECIFIED ATRIAL FIBRILLATION (2) HTN (hypertension) Code(s): I10 - ESSENTIAL (PRIMARY) HYPERTENSION Qualifiers: Hypertension type: essential hypertension Qualified Code(s): I10 - Essential (primary) hypertension (3) History of cardioversion Code(s): Z98.89 - OTHER SPECIFIED POSTPROCEDURAL STATES * DO NOT USE * (4) Noncompliance with medication regimen Code(s): Z91.14 - PATIENT'S OTHER NONCOMPLIANCE WITH MEDICATION REGIMEN (5) Palpitations Code(s): R00.2 - PALPITATIONS (6) Rheumatic heart disease Code(s): I09.9 - RHEUMATIC HEART DISEASE, UNSPECIFIED (7) S/P heart valve replacement with mechanical valve Code(s): Z95.2 - PRESENCE OF PROSTHETIC HEART VALVE (8) Hypothyroidism Code(s): E03.9 - HYPOTHYROIDISM, UNSPECIFIED Qualifiers: Hypothyroidism type: unspecified Qualified Code(s): E03.9 - Hypothyroidism , unspecified Assessment/Plan 05/19/2019 Normal LV size and fxn LVEF 55-60%, normal RV size and fxn, RVSP 32 mmHg, mild SAEID, mod LAE, mech MV with tr MR, mech AV with mild AR, mild-mod TR 01/20/2019 Echo: Normal LV size and fxn LVEF 61%, abnormal septal motion post OHS, cannot assess E/A due to MVR, E/E' 18 LVH (1.2) normal RV size and fxn, normal fxn mech MV and AV replacements unchanged from 01/15/2018 ASSESSMENT: 1. Paroxysmal atrial fibrillation with RVR on A/C therapy 2. 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 Diastolic LV dysfunction with class 0 NYHA classification LV failure 4. CAD, demand ischemic injury in context of recurrent paroxysmal AF with RVR 5. Hypothyroidism 6. Medication noncompliance with Sotalol - currently restarted PLAN: 1. Continue Coumadin as per INR, maintain between 2.5-3.5 in view of mechanical valves 2. Continue Betapace 80 bid with close monitoring of QTc, Cardizem gtt for rate- control. If remains in AF, consider synchronized cardioversion tentatively Friday. NPO after MN. May give addition dose of Betapace if needed. Lopressor IV PRN 3. 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 Meet Davies/Barbra upon discharge. Follow up recent echocardiography report from her office Docusate Sodium (Colace -) 100 mg PO TID [facility] Last Admin: 05/24/19 06:33 Dose: Not Given Diltiazem HCl 125 mg/ Sodium (Chloride) 125 mls @ 10 mls/hr IVPB TITR [facility]; Protocol Last Admin: 05/23/19 14:21 Dose: 10 mg/hr, 10 mls/hr Levothyroxine Sodium 125 mcg/ (Levothyroxine Sodium 50 mcg) 175 mcg PO DAILY@ 0700 [facility] Last Admin: 05/24/19 07:33 Dose: Not Given Metoprolol Tartrate (Lopressor Injection -) 5 mg IVPUSH Q4H PRN PRN Reason: TACHYCARDIA Last Admin: 05/22/19 10:11 Dose: 5 mg Pantoprazole Sodium (Protonix -) 40 mg PO DAILY [facility] Last Admin: 05/23/19 09:25 Dose: 40 mg Polyethylene Glycol (Miralax (For Daily Use) -) 17 gm PO DAILY [facility] Last Admin: 05/23/19 11:52 Dose: 17 grams Sotalol HCl (Betapace -) 80 mg PO BID [facility] Last Admin: 05/23/19 21:20 Dose: 80 mg Warfarin Sodium (Coumadin -) 10 mg PO DAILY@1800 [facility] Last Admin: 05/23/19 17:41 Dose: Not Given
[2019-05-24] MEDS ORDERED: PT OWN MED DRAWER 7, Y5N ONE ×2 (09:37→17:20)
[2019-05-24] MEDS: SOTALOL HCL 80 MG TABLET (FP) PO SCH ×2 (09:42→22:30)
[2019-05-24] MEDS: PANTOPRAZOLE 40 MG TABLET PO SCH (09:43)
--- NOTE | 2019-05-24 10:03 | PN ---
Progress Note, Physician Chief Complaint: Events noted Remains in atrial fibrillation with RVR History of Present Illness: Patient was seen and examined. Awake and alert. Chart was reviewed Denies chest pain or SOB Anxiously waiting for synchronized cardioversion - Current Medication List Current Medications: Active Medications Docusate Sodium (Colace -) 100 mg PO TID [facility] Last Admin: 05/24/19 06:33 Dose: Not Given Diltiazem HCl 125 mg/ Sodium (Chloride) 125 mls @ 10 mls/hr IVPB TITR [facility]; Protocol Last Titration: 05/24/19 08:00 Dose: 10 mg/hr, 10 mls/hr Levothyroxine Sodium 125 mcg/ (Levothyroxine Sodium 50 mcg) 175 mcg PO DAILY@ 0700 [facility] Last Admin: 05/24/19 09:43 Dose: 175 mcg Metoprolol Tartrate (Lopressor Injection -) 5 mg IVPUSH Q4H PRN PRN Reason: TACHYCARDIA Last Admin: 05/22/19 10:11 Dose: 5 mg Pantoprazole Sodium (Protonix -) 40 mg PO DAILY [facility] Last Admin: 05/24/19 09:43 Dose: 40 mg Polyethylene Glycol (Miralax (For Daily Use) -) 17 gm PO DAILY [facility] Last Admin: 05/23/19 11:52 Dose: 17 grams Sotalol HCl (Betapace -) 80 mg PO BID [facility] Last Admin: 05/24/19 09:42 Dose: 80 mg Warfarin Sodium (Coumadin -) 10 mg PO DAILY@1800 [facility] Last Admin: 05/23/19 17:41 Dose: Not Given - Objective Vital Signs: Vital Signs Temperature 97.9 F 05/24/19 06:00 Pulse Rate 117 H 05/24/19 08:00 Respiratory Rate 18 05/24/19 06:00 Blood Pressure 108/79 05/24/19 08:00 O2 Sat by Pulse Oximetry (%) 99 05/24/19 09:00 Eyes: Yes: PERRL HENT: Yes: Atraumatic Neck: Yes: Supple Cardiovascular: Yes: Tachycardia, Pulse Irregular, S1, S2 Respiratory: Yes: CTA Bilaterally Gastrointestinal: Yes: Normal Bowel Sounds, Soft. No: Tenderness Edema: No Additional Findings/Remarks: - Review of Systems Constitutional: denies: Chills, Fever Cardiovascular: reports: Palpitations, denies: Shortness of Breath. denies: Chest Pain Respiratory: denies Cough, SOB. denies: Hemoptysis, Orthopnea, PND Gastrointestinal: denies: Abdominal Pain, Constipation, Diarrhea, Melena, Nausea , Rectal Bleeding, Vomiting Genitourinary: denies: Dysuria, Hematuria Musculoskeletal: denies Joint Pain. denies: Back Pain Neurological: denies: Dizziness, Headache, Seizure, Syncope Labs: CBC, BMP 05/24/19 06:10 05/24/19 06:10 INR, PTT INR 2.93 (0.83-1.09) H 05/24/19 06:10 Problem List - Problems (1) Atrial fibrillation with rapid ventricular response Code(s): I48.91 - UNSPECIFIED ATRIAL FIBRILLATION (2) HLD (hyperlipidemia) Code(s): E78.5 - HYPERLIPIDEMIA, UNSPECIFIED (3) HTN (hypertension) Code(s): I10 - ESSENTIAL (PRIMARY) HYPERTENSION Qualifiers: Hypertension type: essential hypertension Qualified Code(s): I10 - Essential (primary) hypertension (4) Demand ischemia Code(s): I24.8 - OTHER FORMS OF ACUTE ISCHEMIC HEART DISEASE (5) Hypothyroidism Code(s): E03.9 - HYPOTHYROIDISM, UNSPECIFIED Qualifiers: Hypothyroidism type: unspecified Qualified Code(s): E03.9 - Hypothyroidism , unspecified (6) Noncompliance with medication regimen Code(s): Z91.14 - PATIENT'S OTHER NONCOMPLIANCE WITH MEDICATION REGIMEN (7) Rheumatic heart disease Code(s): I09.9 - RHEUMATIC HEART DISEASE, UNSPECIFIED (8) S/P heart valve replacement with mechanical valve Code(s): Z95.2 - PRESENCE OF PROSTHETIC HEART VALVE Assessment/Plan 1. Paroxysmal atrial fibrillation with RVR on A/C therapy 2. 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 Diastolic LV dysfunction with class 0 NYHA classification LV failure 4. CAD, demand ischemic injury in context of recurrent paroxysmal AF with RVR 5. Hypothyroidism 6. Medication noncompliance with Sotalol - currently restarted PLAN: 1. Continue Coumadin as per INR, maintain between 2.5-3.5 in view of mechanical valves 2. Continue Betapace 80 mg BID with close monitoring of QTc, Cardizem gtt for rate-control. Synchronized cardioversion this afternoon. Keep NPO. May give addition dose of Betapace if needed. Lopressor IV PRN. Eventually switch IV Cardizem to PO 3. 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 Meet Davies/Barbra upon discharge. Follow up recent echocardiography report from her office Further plans are to follow. Spoke with patient Dani Gallegos MD
--- NOTE | 2019-05-24 11:27 | PN ---
Physical Exam: SUBJECTIVE: Patient seen and examined. left knee pain, soft tissue swelling that began last night. no falls, has had cortisone injection a year ago for left knee and was told she may need a knee replacement. No chest pain, no shortness of breath. she is pending synchronized cardioversion today OBJECTIVE: lidoderm patch for left knee now will order left knee xray for a.m. as patient is going for a synchronized cardioversion today Patient is 66 year-old female with a significant for HTN, HLD, rheumatic heart disease s/p mechanical aortic and mitral valves, afib/aflutter with RVR on coumadin, and hypothyroidism, multiple cardioversions in past most recently 2106. Multiple admissions for arrhythmias secondary to noncompliance with meds. She is scheduled for a synchronized cardioversion today for persistent afib/ aflutter. Vital Signs Period Temp Pulse Resp BP Sys/Gonzalez Pulse Ox Last 24 Hr 97.8 F-98.6 F 114-118 18-18 90-146/59-79 99-99 GENERAL: The patient is awake, alert, and fully oriented, in no acute distress. HEAD: Normal with no signs of trauma. EYES: PERRL, extraocular movements intact, sclera anicteric, conjunctiva clear. No ptosis. ENT: Ears normal, nares patent, oropharynx clear without exudates, moist mucous membranes. NECK: Trachea midline, full range of motion, supple. LUNGS: Breath sounds equal, clear to auscultation bilaterally HEART: Regular rate and rhythm, has a mechanical valve ABDOMEN: Soft, nontender, nondistended, normoactive bowel sounds EXTREMITIES: no edema. NEUROLOGICAL: Normal speech, gait not observed. PSYCH: Normal mood, normal affect. SKIN: Warm, dry, normal turgor, no rashes or lesions noted Laboratory Results - last 24 hr 05/24/19 05/24/19 05/24/19 06:10 06:10 06:10 WBC 6.4 RBC 4.51 Hgb 12.6 Hct 39.1 MCV 86.8 MCH 28.0 MCHC 32.2 RDW 16.2 H Plt Count 286 MPV 10.0 Absolute Neuts (auto) 4.2 Neutrophils % 66.2 Lymphocytes % 20.5 Monocytes % 11.0 H Eosinophils % 1.8 Basophils % 0.5 Nucleated RBC % 0 PT with INR 34.90 H INR 2.93 H Sodium 140 Potassium 5.0 Chloride 107 Carbon Dioxide 30 Anion Gap 3 L BUN 18.6 H Creatinine 0.9 Est GFR (CKD-EPI)AfAm 75.61 Est GFR (CKD-EPI)NonAf 65.24 Random Glucose 104 Calcium 9.0 Magnesium 2.3 Total Bilirubin 0.3 AST 26 ALT 30 Alkaline Phosphatase 98 Total Protein 6.2 L Albumin 3.2 L Active Medications Generic Name Dose Route Start Last Admin Trade Name Freq PRN Reason Stop Dose Admin Docusate Sodium 100 mg 05/22/19 14:00 05/24/19 06:33 Colace - PO Not Given TID JOSH Diltiazem HCl 125 mg/ Sodium 125 mls @ 10 mls/hr 05/21/19 14:24 05/24/19 08: 00 Chloride IVPB 10 mg/hr TITR JOSH 10 mls/hr Titration Protocol 10 MG/HR Levothyroxine Sodium 125 mcg/ 175 mcg 05/21/19 07:00 05/24/19 09:43 Levothyroxine Sodium 50 mcg PO 175 mcg DAILY@0700 JOSH Administration Metoprolol Tartrate 5 mg 05/20/19 18:42 05/22/19 10:11 Lopressor Injection - IVPUSH 5 mg Q4H PRN Administration TACHYCARDIA Pantoprazole Sodium 40 mg 05/21/19 10:00 05/24/19 09:43 Protonix - PO 40 mg DAILY JOSH Administration Polyethylene Glycol 17 gm 05/22/19 10:00 05/23/19 11:52 Miralax (For Daily Use) - PO 17 grams DAILY JOSH Administration Sotalol HCl 80 mg 05/20/19 22:00 05/24/19 09:42 Betapace - PO 80 mg BID JOSH Administration Warfarin Sodium 10 mg 05/20/19 18:00 05/23/19 17:41 Coumadin - PO Not Given DAILY@1800 [facility] ASSESSMENT/PLAN: Problem List - Problems (1) Atrial fibrillation with rapid ventricular response Assessment/Plan: AF w/ RVR. patient stopped home pm dose of sotolol. Given metoprolol/diltiazem/ adensoine in ED on admission in attempt to rate control. on dilt gtt and sotalol. for cardioversion today Code(s): I48.91 - UNSPECIFIED ATRIAL FIBRILLATION (2) HLD (hyperlipidemia) Assessment/Plan: controlled with diet Code(s): E78.5 - HYPERLIPIDEMIA, UNSPECIFIED (3) HTN (hypertension) Assessment/Plan: bp stable Code(s): I10 - ESSENTIAL (PRIMARY) HYPERTENSION Qualifiers: Hypertension type: essential hypertension Qualified Code(s): I10 - Essential (primary) hypertension (4) Obesity (BMI 30.0-34.9) Assessment/Plan: dietary consult Code(s): E66.9 - OBESITY, UNSPECIFIED (5) Hypothyroidism Assessment/Plan: continue home meds, elevated tsh likely secondary to non compliance Code(s): E03.9 - HYPOTHYROIDISM, UNSPECIFIED Qualifiers: Hypothyroidism type: unspecified Qualified Code(s): E03.9 - Hypothyroidism , unspecified (6) Noncompliance with medication regimen Assessment/Plan: patient reports non compliance with home sotalol adherence with medical regimen discussed with patient Code(s): Z91.14 - PATIENT'S OTHER NONCOMPLIANCE WITH MEDICATION REGIMEN (7) S/P heart valve replacement with mechanical valve Assessment/Plan: keep inr between 2.5-3.5 while on coumadin Code(s): Z95.2 - PRESENCE OF PROSTHETIC HEART VALVE (8) Prophylactic measure Assessment/Plan: low salt diet on coumadin Code(s): Z29.9 - ENCOUNTER FOR PROPHYLACTIC MEASURES, UNSPECIFIED Visit type - Emergency Visit Emergency Visit: Yes ED Registration Date: 05/20/19 Care time: The patient presented to the Emergency Department on the above date and was hospitalized for further evaluation of their emergent condition. - New Patient This patient is new to me today: No - Critical Care Critical Care patient: No - Discharge Referral Referred to [facility] Med P.C.: No
[2019-05-24] MEDS: LIDOCAINE 5% TOPICAL PATCH TP SCH (12:20)
[2019-05-24] MEDS: POLYETHYLENE GLYCOL 3350 119 GM BTL PO SCH (13:51)
[2019-05-24] MEDS: DILTIAZEM INJECTION 125 MG in SODIUM CHLORIDE 100 ML IVPB SCH (15:00)
[2019-05-24] MEDS ORDERED: RAPID SEQUENCE INTUBATION KIT NR ONE (15:32)
[2019-05-24] MEDS ORDERED: LIDOCAINE HCL 2% 100 MG/5 ML DISP.SYRIN ONE (15:32)
[2019-05-24] MEDS: WARFARIN NA 10 MG TABLET (FP) PO SCH (18:43)
[2019-05-24] MEDS: LIDOCAINE PATCH REMOVAL MC SCH (22:30)
[2019-05-24] MEDS ORDERED: ACETAMINOPHEN 1000 MG/100 ML VIAL (NON FORMULARY) IVPB ONE (22:59)
[2019-05-25] MEDS ORDERED: LEVOTHYROXINE NA 50 MCG TABLET (FP) ONE (05:57)
[2019-05-25] MEDS ORDERED: LEVOTHYROXINE NA 125 MCG TABLET (FP) ONE (05:57)
[2019-05-25] MEDS: LEVOTHYROXINE 125 MCG, LEVOTHYROXINE 50 MCG PO SCH (06:24)
[2019-05-25] MEDS: DOCUSATE SODIUM 100 MG CAPSULE (FP) PO SCH ×3 (06:24→22:45)
[2019-05-25 06:36] LABS: BASO % 0.3 % (0-2.0); EOS % 0.9 % (0-4.5); HEMATOCRIT 36.9 % (32.4-45.2); LYMPH % 17.5 % (8-40); MCHC 32.6 g/dl (32.0-36.0); MEAN CELL VOLUME 85.9 fl (80-96); MEAN PLT VOLUME 10.2 fl (7.5-11.1); MONO % 11.5 % (3.8-10.2); NEUT % 69.8 % (42.8-82.8); PLATELET COUNT 259 K/MM3 (134-434); RBC 4.29 M/mm3 (3.60-5.2); WHITE BLOOD COUNT 8.2 K/mm3 (4.0-10.0)
[2019-05-25 06:44] LABS: INR 2.21 (0.83-1.09); PROTHROMBIN TIME (PATIENT) 26.3 SEC (9.7-13.0)
[2019-05-25 06:49] LABS: BILIRUBIN,TOTAL 0.4 mg/dL (0.2-1); BLOOD UREA NITROGEN 20.8 mg/dL (7-18); CALCIUM 8.9 mg/dL (8.5-10.1); CREATININE 0.9 mg/dL (0.55-1.3); MAGNESIUM 2.3 mg/dL (1.8-2.4); POTASSIUM 4.3 mmol/L (3.5-5.1); TOT PROT 6.1 g/dl (6.4-8.2)
--- NOTE | 2019-05-25 07:53 | PN ---
Progress Note, Physician Chief Complaint: Observed sitting in chair at bedside. c/o left knee pain. Anxious to go home History of Present Illness: Patient is 66 year-old female with a significant for HTN, HLD, rheumatic heart disease s/p mechanical aortic and mitral valves, afib/aflutter with RVR on coumadin, and hypothyroidism, multiple cardioversions in past most recently 2106. Multiple admissions for arrhythmias secondary to noncompliance with meds. - Current Medication List Current Medications: Active Medications Docusate Sodium (Colace -) 100 mg PO TID [facility] Last Admin: 05/25/19 06:24 Dose: 100 mg Diltiazem HCl 125 mg/ Sodium (Chloride) 125 mls @ 10 mls/hr IVPB TITR [facility]; Protocol Last Titration: 05/24/19 15:50 Dose: 0 mg/hr, 0 mls/hr Levothyroxine Sodium 125 mcg/ (Levothyroxine Sodium 50 mcg) 175 mcg PO DAILY@ 0700 [facility] Last Admin: 05/25/19 06:24 Dose: 175 mcg Lidocaine (Lidoderm Patch -) 1 patch TP DAILY [facility] Last Admin: 05/24/19 12:20 Dose: 1 patch Metoprolol Tartrate (Lopressor Injection -) 5 mg IVPUSH Q4H PRN PRN Reason: TACHYCARDIA Last Admin: 05/22/19 10:11 Dose: 5 mg Miscellaneous (Lidoderm Patch Removal) 1 each MC DAILY@2200 [facility] Last Admin: 05/24/19 22:30 Dose: 1 each Pantoprazole Sodium (Protonix -) 40 mg PO DAILY [facility] Last Admin: 05/24/19 09:43 Dose: 40 mg Polyethylene Glycol (Miralax (For Daily Use) -) 17 gm PO DAILY [facility] Last Admin: 05/24/19 13:51 Dose: Not Given Sotalol HCl (Betapace -) 80 mg PO BID [facility] Last Admin: 05/24/19 22:30 Dose: 80 mg Warfarin Sodium (Coumadin -) 10 mg PO DAILY@1800 [facility] Last Admin: 05/24/19 18:43 Dose: 10 mg - Objective Vital Signs: Vital Signs Temperature 98.6 F 05/24/19 18:00 Pulse Rate 85 05/25/19 04:00 Respiratory Rate 22 H 05/25/19 04:00 Blood Pressure 109/66 05/25/19 04:00 O2 Sat by Pulse Oximetry (%) 98 05/24/19 21:00 Additional Findings/Remarks: Constitutional: Yes: No Distress, Calm, Obese Eyes: Yes: WNL, Conjunctiva Clear, EOM Intact HENT: Yes: WNL, Atraumatic, Normocephalic Neck: Yes: WNL, Supple, Trachea Midline Cardiovascular: Yes: 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 Respiratory: Yes: WNL, Regular, CTA Bilaterally Gastrointestinal: Yes: WNL, Normal Bowel Sounds, Soft, Abdomen, Obese ...Rectal Exam: Yes: Deferred Renal/: Yes: WNL Breast(s): Yes: WNL Musculoskeletal: Yes: WNL Extremities: Yes: WNL Edema: Yes Edema: LLE: 1+, RLE: 1+ Integumentary: Yes: Incision (healed sternolomy incision, healed hip incision) Neurological: Yes: WNL, Alert, Oriented ...Motor Strength: WNL Psychiatric: Yes: WNL Labs: CBC, BMP 05/25/19 05:20 05/25/19 05:20 INR, PTT INR 2.21 (0.83-1.09) H 05/25/19 05:20 - ....Imaging Other: Report Reviewed (05/19/2019 Normal LV size and fxn LVEF 55-60%, normal RV size and fxn, RVSP 32 mmHg, mild SAEID, mod LAE, mech MV with tr MR, mech AV with mild AR, mild-mod TR) Problem List - Problems (1) HTN (hypertension) Assessment/Plan: c/w sotolol home dose 80mg BID Code(s): I10 - ESSENTIAL (PRIMARY) HYPERTENSION Qualifiers: Hypertension type: essential hypertension Qualified Code(s): I10 - Essential (primary) hypertension (2) Atrial flutter with rapid ventricular response Assessment/Plan: s/p cardioversion with return to SR close monitor of BP and Qtc appreciate cardiology input Code(s): I48.92 - UNSPECIFIED ATRIAL FLUTTER (3) History of cardioversion Assessment/Plan: Continue Betapace 80 mg BID with close monitoring of QTc Code(s): Z98.89 - OTHER SPECIFIED POSTPROCEDURAL STATES * DO NOT USE * (4) Hypothyroidism Assessment/Plan: c/w synthroid 125mcg Code(s): E03.9 - HYPOTHYROIDISM, UNSPECIFIED Qualifiers: Hypothyroidism type: unspecified Qualified Code(s): E03.9 - Hypothyroidism , unspecified (5) Prophylactic measure Assessment/Plan: FEN Fluids: adequate PO intake Electrolytes: monitor & replete as needed Nutrition: Sodium controlled diet DVT moderate risk on warfarin Dispo admit to telemetry as inpatient full code discharge planning to home Code(s): Z29.9 - ENCOUNTER FOR PROPHYLACTIC MEASURES, UNSPECIFIED (6) HLD (hyperlipidemia) Assessment/Plan: diet controlled Code(s): E78.5 - HYPERLIPIDEMIA, UNSPECIFIED (7) Rheumatic heart disease Assessment/Plan: history of s/p MVR/AVR mechanical Code(s): I09.9 - RHEUMATIC HEART DISEASE, UNSPECIFIED (8) Noncompliance with medication regimen Assessment/Plan: cut home sotolol dose prior to admission multiple admissions in past d/t non compliance counseled pr on importance to adhering to regimine verbalized understanding Code(s): Z91.14 - PATIENT'S OTHER NONCOMPLIANCE WITH MEDICATION REGIMEN (9) Obesity (BMI 30.0-34.9) Assessment/Plan: counseled on weight reduction recently had THR and has begun to lose weight Code(s): E66.9 - OBESITY, UNSPECIFIED (10) Atrial fibrillation with rapid ventricular response Assessment/Plan: On Sotalol HCL 80mg BID-stop her evening dose 2 days ago given several dose of dilatizem/metoprolol/adensosine with some slowing started on diltiazem gtt continue gtt to mainatin HR <[address] Sue consulted (has seen in past) will make NPO past MN if cardioversion is needed in am Continue Betapace 80 mg BID with close monitoring of QTc, Cardizem gtt for rate- control. Synchronized cardioversion this afternoon. Keep NPO. May give addition dose of Betapace if needed. Lopressor IV PRN. Eventually switch IV Cardizem to PO Code(s): I48.91 - UNSPECIFIED ATRIAL FIBRILLATION (11) Left knee pain Assessment/Plan: left knee pain, soft tissue swelling no falls, prior cortisone injection XRay ordered and oending dopplers negative for DVT c/w Lidoderm patch c/w PT Code(s): M25.562 - PAIN IN LEFT KNEE Visit type - Emergency Visit Emergency Visit: Yes ED Registration Date: 05/20/19 Care time: The patient presented to the Emergency Department on the above date and was hospitalized for further evaluation of their emergent condition. - New Patient This patient is new to me today: No - Critical Care Critical Care patient: No - Discharge Referral Referred to [facility] Med P.C.: No
[2019-05-25] MEDS ORDERED: PT OWN MED DRAWER 7, Y5N ONE ×2 (09:57→21:18)
[2019-05-25] MEDS: LIDOCAINE 5% TOPICAL PATCH TP SCH (10:01)
[2019-05-25] MEDS: SOTALOL HCL 80 MG TABLET (FP) PO SCH ×2 (10:03→22:45)
[2019-05-25] MEDS: POLYETHYLENE GLYCOL 3350 119 GM BTL PO SCH (10:03)
[2019-05-25] MEDS: PANTOPRAZOLE 40 MG TABLET PO SCH (10:03)
--- NOTE | 2019-05-25 10:13 | PN ---
Progress Note, Physician Chief Complaint: Events noted Post synchronized cardioversion yesterday to sinus rhythm History of Present Illness: Patient was seen and examined. Awake and alert. Chart was reviewed Denies chest pain or SOB Remains in sinus rhythm at 80-90 bpm Complains of left knee pain due to cyst - Current Medication List Current Medications: Active Medications Docusate Sodium (Colace -) 100 mg PO TID [facility] Last Admin: 05/25/19 06:24 Dose: 100 mg Diltiazem HCl 125 mg/ Sodium (Chloride) 125 mls @ 10 mls/hr IVPB TITR [facility]; Protocol Last Titration: 05/24/19 15:50 Dose: 0 mg/hr, 0 mls/hr Levothyroxine Sodium 125 mcg/ (Levothyroxine Sodium 50 mcg) 175 mcg PO DAILY@ 0700 [facility] Last Admin: 05/25/19 06:24 Dose: 175 mcg Lidocaine (Lidoderm Patch -) 1 patch TP DAILY [facility] Last Admin: 05/25/19 10:01 Dose: 1 patch Metoprolol Tartrate (Lopressor Injection -) 5 mg IVPUSH Q4H PRN PRN Reason: TACHYCARDIA Last Admin: 05/22/19 10:11 Dose: 5 mg Miscellaneous (Lidoderm Patch Removal) 1 each MC DAILY@2200 [facility] Last Admin: 05/24/19 22:30 Dose: 1 each Pantoprazole Sodium (Protonix -) 40 mg PO DAILY [facility] Last Admin: 05/25/19 10:03 Dose: 40 mg Polyethylene Glycol (Miralax (For Daily Use) -) 17 gm PO DAILY [facility] Last Admin: 05/25/19 10:03 Dose: 17 grams Sotalol HCl (Betapace -) 80 mg PO BID [facility] Last Admin: 05/25/19 10:03 Dose: 80 mg Warfarin Sodium (Coumadin -) 10 mg PO DAILY@1800 [facility] Last Admin: 05/24/19 18:43 Dose: 10 mg - Objective Vital Signs: Vital Signs Temperature 98.6 F 05/25/19 09:00 Pulse Rate 89 05/25/19 09:00 Respiratory Rate 20 05/25/19 09:00 Blood Pressure 108/68 05/25/19 09:00 O2 Sat by Pulse Oximetry (%) 98 05/24/19 21:00 Neck: Yes: Supple Cardiovascular: Yes: Regular Rate and Rhythm, S1, S2, Other (Mechanical click) Respiratory: Yes: CTA Bilaterally Gastrointestinal: Yes: Normal Bowel Sounds, Soft. No: Tenderness Edema: Yes (left knee) Additional Findings/Remarks: - Review of Systems Constitutional: denies: Chills, Fever Cardiovascular: reports: Palpitations, denies: Shortness of Breath. denies: Chest Pain Respiratory: denies Cough, SOB. denies: Hemoptysis, Orthopnea, PND Gastrointestinal: denies: Abdominal Pain, Constipation, Diarrhea, Melena, Nausea , Rectal Bleeding, Vomiting Genitourinary: denies: Dysuria, Hematuria Musculoskeletal: denies Joint Pain. denies: Back Pain Neurological: denies: Dizziness, Headache, Seizure, Syncope Labs: CBC, BMP 05/25/19 05:20 05/25/19 05:20 INR, PTT INR 2.21 (0.83-1.09) H 05/25/19 05:20 Problem List - Problems (1) Atrial fibrillation with rapid ventricular response Code(s): I48.91 - UNSPECIFIED ATRIAL FIBRILLATION (2) HLD (hyperlipidemia) Code(s): E78.5 - HYPERLIPIDEMIA, UNSPECIFIED (3) HTN (hypertension) Code(s): I10 - ESSENTIAL (PRIMARY) HYPERTENSION Qualifiers: Hypertension type: essential hypertension Qualified Code(s): I10 - Essential (primary) hypertension (4) Demand ischemia Code(s): I24.8 - OTHER FORMS OF ACUTE ISCHEMIC HEART DISEASE (5) Hypothyroidism Code(s): E03.9 - HYPOTHYROIDISM, UNSPECIFIED Qualifiers: Hypothyroidism type: unspecified Qualified Code(s): E03.9 - Hypothyroidism , unspecified (6) Noncompliance with medication regimen Code(s): Z91.14 - PATIENT'S OTHER NONCOMPLIANCE WITH MEDICATION REGIMEN (7) Rheumatic heart disease Code(s): I09.9 - RHEUMATIC HEART DISEASE, UNSPECIFIED (8) S/P heart valve replacement with mechanical valve Code(s): Z95.2 - PRESENCE OF PROSTHETIC HEART VALVE Assessment/Plan 1. Paroxysmal atrial fibrillation post synchronized cardioversion to sinus rhythm 2. 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 Diastolic LV dysfunction with class 0 NYHA classification LV failure 4. CAD, demand ischemic injury in context of recurrent paroxysmal AF with RVR 5. Hypothyroidism 6. Medication noncompliance with Sotalol - currently restarted PLAN: 1. Continue Coumadin as per INR, maintain between 2.5-3.5 in view of mechanical valves 2. Continue Betapace 80 mg BID with close monitoring of QTc 3. Patient to F/U with her senior courtroom clerk Dr. Meet Davies/Barbra upon discharge. Follow up recent echocardiography report from her office 4. Management left knee as per [facility] Further plans are to follow. Dani Gallegos MD
[2019-05-25] MEDS ORDERED: ACETAMINOPHEN 1000 MG/100 ML VIAL (NON FORMULARY) IVPB PRN (10:18)
[2019-05-25] MEDS: DILTIAZEM INJECTION 125 MG in SODIUM CHLORIDE 100 ML IVPB SCH (14:48)
[2019-05-25] MEDS ORDERED: WARFARIN NA 5 MG TABLET (UD) PO SCH ×2 (18:00→18:22)
[2019-05-25] MEDS: LIDOCAINE PATCH REMOVAL MC SCH (22:45)
[2019-05-26 05:41] VITALS: PULSE 74
[2019-05-26 05:54] LABS: BASO % 0.5 % (0-2.0); EOS % 2.1 % (0-4.5); HEMATOCRIT 34.7 % (32.4-45.2); HEMOGLOBIN 11.3 GM/dL (10.7-15.3); LYMPH % 21.2 % (8-40); MCHC 32.5 g/dl (32.0-36.0); MEAN CELL VOLUME 86.2 fl (80-96); MEAN PLT VOLUME 9.9 fl (7.5-11.1); MONO % 11.9 % (3.8-10.2); NEUT % 64.3 % (42.8-82.8); PLATELET COUNT 236 K/MM3 (134-434); RBC 4.02 M/mm3 (3.60-5.2); RDW 16.1 % (11.6-15.6); WHITE BLOOD COUNT 6.7 K/mm3 (4.0-10.0)
[2019-05-26] MEDS ORDERED: LEVOTHYROXINE NA 50 MCG TABLET (FP) ONE (06:03)
[2019-05-26] MEDS ORDERED: LEVOTHYROXINE NA 125 MCG TABLET (FP) ONE (06:03)
[2019-05-26] MEDS: DOCUSATE SODIUM 100 MG CAPSULE (FP) PO SCH (06:40)
[2019-05-26] MEDS: LEVOTHYROXINE 125 MCG, LEVOTHYROXINE 50 MCG PO SCH (06:40)
[2019-05-26 06:43] LABS: ALBUMIN 2.9 g/dl (3.4-5.0); BILIRUBIN,TOTAL 0.3 mg/dL (0.2-1); BLOOD UREA NITROGEN 19.5 mg/dL (7-18); CALCIUM 8.3 mg/dL (8.5-10.1); CREATININE 0.8 mg/dL (0.55-1.3); MAGNESIUM 2.4 mg/dL (1.8-2.4); POTASSIUM 4.3 mmol/L (3.5-5.1); TOT PROT 5.8 g/dl (6.4-8.2)
--- NOTE | 2019-05-26 07:30 | DS ---
Physical Exam: SUBJECTIVE: Patient seen and examined Patient is 66 year-old female with a significant for HTN, HLD, rheumatic heart disease s/p mechanical aortic and mitral valves, afib/aflutter with RVR on coumadin, and hypothyroidism, multiple cardioversions in past most recently 2106. Multiple admissions for arrhythmias secondary to noncompliance with meds. OBJECTIVE: Vital Signs Period Temp Pulse Resp BP Sys/Gonzalez Pulse Ox Last 24 Hr 98.4 F-98.6 F 74-89 14-20 108-122/68-89 98-98 PHYSICAL EXAM GENERAL: The patient is awake, alert, and fully oriented, in no acute distress. HEAD: Normal with no signs of trauma. EYES: PERRL, extraocular movements intact, sclera anicteric, conjunctiva clear. ENT: Ears normal, nares patent, oropharynx clear without exudates, moist mucous membranes. NECK: Trachea midline, full range of motion, supple. LUNGS: Breath sounds equal, clear to auscultation bilaterally, no wheezes, no crackles, no accessory muscle use. HEART: Regular rate and rhythm, S1, S2 without murmur, rub or gallop. ABDOMEN: Soft, nontender, nondistended, normoactive bowel sounds, no guarding, no rebound, no hepatosplenomegaly, no masses. EXTREMITIES: 2+ pulses, warm, well-perfused, no edema. NEUROLOGICAL: Cranial nerves II through XII grossly intact. Normal speech, gait not observed. PSYCH: Normal mood, normal affect. SKIN: Warm, dry, normal turgor, no rashes or lesions noted. LABS Laboratory Results - last 24 hr 05/26/19 05/26/19 05:25 05:25 WBC 6.7 RBC 4.02 Hgb 11.3 Hct 34.7 MCV 86.2 MCH 28.0 MCHC 32.5 RDW 16.1 H Plt Count 236 MPV 9.9 Absolute Neuts (auto) 4.3 Neutrophils % 64.3 Lymphocytes % 21.2 D Monocytes % 11.9 H Eosinophils % 2.1 D Basophils % 0.5 Nucleated RBC % 0 Sodium 140 Potassium 4.3 Chloride 109 H Carbon Dioxide 27 Anion Gap 3 L BUN 19.5 H Creatinine 0.8 Est GFR (CKD-EPI)AfAm 87.18 Est GFR (CKD-EPI)NonAf 75.22 Random Glucose 99 Calcium 8.3 L Magnesium 2.4 Total Bilirubin 0.3 AST 18 ALT 25 Alkaline Phosphatase 88 Total Protein 5.8 L Albumin 2.9 L HOSPITAL COURSE: Date of Admission:05/20/19 Date of Discharge: 05/26/19 Problems (1) HTN (hypertension) Assessment/Plan: c/w sotolol home dose 80mg BID Code(s): I10 - ESSENTIAL (PRIMARY) HYPERTENSION Qualifiers: Hypertension type: essential hypertension Qualified Code(s): I10 - Essential (primary) hypertension (2) Atrial flutter with rapid ventricular response Assessment/Plan: s/p cardioversion with return to SR 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 Code(s): I48.92 - UNSPECIFIED ATRIAL FLUTTER (3) History of cardioversion Assessment/Plan: Continue Betapace 80 mg BID Code(s): Z98.89 - OTHER SPECIFIED POSTPROCEDURAL STATES * DO NOT USE * (4) Hypothyroidism Assessment/Plan: c/w synthroid 125mcg Code(s): E03.9 - HYPOTHYROIDISM, UNSPECIFIED Qualifiers: Hypothyroidism type: unspecified Qualified Code(s): E03.9 - Hypothyroidism , unspecified (5) Prophylactic measure Assessment/Plan: FEN Fluids: adequate PO intake Electrolytes: stable Nutrition: c/w Sodium controlled diet DVT c/ w warfarin Dispo discharge to home without services Code(s): Z29.9 - ENCOUNTER FOR PROPHYLACTIC MEASURES, UNSPECIFIED (6) HLD (hyperlipidemia) Assessment/Plan: diet controlled Code(s): E78.5 - HYPERLIPIDEMIA, UNSPECIFIED (7) Rheumatic heart disease Assessment/Plan: history of s/p MVR/AVR mechanical Code(s): I09.9 - RHEUMATIC HEART DISEASE, UNSPECIFIED (8) Noncompliance with medication regimen Assessment/Plan: cut home sotolol dose prior to admission multiple admissions in past d/t non compliance counseled pr on importance to adhering to regimine verbalized understanding Code(s): Z91.14 - PATIENT'S OTHER NONCOMPLIANCE WITH MEDICATION REGIMEN (9) Obesity (BMI 30.0-34.9) Assessment/Plan: counseled on weight reduction recently had THR and has begun to lose weight Code(s): E66.9 - OBESITY, UNSPECIFIED (10) Atrial fibrillation with rapid ventricular response Assessment/Plan: On Sotalol HCL 80mg BID given several dose of dilatizem/metoprolol/adensosine with some slowing in Ed started on diltiazem gtt converted with return to NSR Continue Betapace 80 mg BID with close monitoring of QTc, Cardizem gtt for rate- control. Synchronized cardioversion this afternoon. Keep NPO. May give addition dose of Betapace if needed. Lopressor IV PRN. Eventually switch IV Cardizem to PO Code(s): I48.91 - UNSPECIFIED ATRIAL FIBRILLATION (11) Left knee pain Assessment/Plan: left knee pain, soft tissue swelling no falls, prior cortisone injection XRay negative for acute pathology. if pain persists can f/u with MRI as outpt dopplers negative for DVT c/w Lidoderm patch c/w PT Code(s): M25.562 - PAIN IN LEFT KNEE Medcially stable for discharge to home Minutes to complete discharge: 40 Discharge Summary Problems reviewed: Yes Reason For Visit: AFIB W/RAPID VENTRICULAR RESPONSE Current Active Problems Atrial fibrillation with rapid ventricular response (Acute) HLD (hyperlipidemia) (Acute) HTN (hypertension) (Acute) Left knee pain (Acute) Obesity (BMI 30.0-34.9) (Acute) Prophylactic measure (Acute) Hospital Course: Date of Admission:05/20/19 Date of Discharge: 05/26/19 Problems (1) HTN (hypertension) Assessment/Plan: c/w sotolol home dose 80mg BID Code(s): I10 - ESSENTIAL (PRIMARY) HYPERTENSION Qualifiers: Hypertension type: essential hypertension Qualified Code(s): I10 - Essential (primary) hypertension (2) Atrial flutter with rapid ventricular response Assessment/Plan: s/p cardioversion with return to SR 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 Code(s): I48.92 - UNSPECIFIED ATRIAL FLUTTER (3) History of cardioversion Assessment/Plan: Continue Betapace 80 mg BID Code(s): Z98.89 - OTHER SPECIFIED POSTPROCEDURAL STATES * DO NOT USE * (4) Hypothyroidism Assessment/Plan: c/w synthroid 125mcg Code(s): E03.9 - HYPOTHYROIDISM, UNSPECIFIED Qualifiers: Hypothyroidism type: unspecified Qualified Code(s): E03.9 - Hypothyroidism , unspecified (5) Prophylactic measure Assessment/Plan: FEN Fluids: adequate PO intake Electrolytes: stable Nutrition: c/w Sodium controlled diet DVT c/ w warfarin Dispo discharge to home without services Code(s): Z29.9 - ENCOUNTER FOR PROPHYLACTIC MEASURES, UNSPECIFIED (6) HLD (hyperlipidemia) Assessment/Plan: diet controlled Code(s): E78.5 - HYPERLIPIDEMIA, UNSPECIFIED (7) Rheumatic heart disease Assessment/Plan: history of s/p MVR/AVR mechanical Code(s): I09.9 - RHEUMATIC HEART DISEASE, UNSPECIFIED (8) Noncompliance with medication regimen Assessment/Plan: cut home sotolol dose prior to admission multiple admissions in past d/t non compliance counseled pr on importance to adhering to regimine verbalized understanding Code(s): Z91.14 - PATIENT'S OTHER NONCOMPLIANCE WITH MEDICATION REGIMEN (9) Obesity (BMI 30.0-34.9) Assessment/Plan: counseled on weight reduction recently had THR and has begun to lose weight Code(s): E66.9 - OBESITY, UNSPECIFIED (10) Atrial fibrillation with rapid ventricular response Assessment/Plan: On Sotalol HCL 80mg BID given several dose of dilatizem/metoprolol/adensosine with some slowing in Ed started on diltiazem gtt converted with return to NSR Continue Betapace 80 mg BID with close monitoring of QTc, Cardizem gtt for rate- control. Synchronized cardioversion this afternoon. Keep NPO. May give addition dose of Betapace if needed. Lopressor IV PRN. Eventually switch IV Cardizem to PO Code(s): I48.91 - UNSPECIFIED ATRIAL FIBRILLATION (11) Left knee pain Assessment/Plan: left knee pain, soft tissue swelling no falls, prior cortisone injection XRay negative for acute pathology. if pain persists can f/u with MRI as outpt dopplers negative for DVT c/w Lidoderm patch c/w PT Code(s): M25.562 - PAIN IN LEFT KNEE Condition: Improved - Instructions Diet, Activity, Other Instructions: DISCHARGE YOUR VISIT You came to the hospital because your heart rate was high and you were found to be in atrial fibrillation. It was attempted to control your heart rate with multiple medications unsuccessfully and a cardioverson was preformed. You then returned back to a sinus rhythm. Continue the soltolol at 80mg twice a day. It is important that you do not miss a dose even if you feel fine-this will keep your heart rate regular and rate controlled. You developed some swelling and pain to your left knee. An ultrasound was done that did not show any clots in your legs and a xray was done that was normal. Continue with the lidoderm patch and follow with Dr Thomason MEDICATIONS Please continue to take your home medications as prescribed. There was no changes DIET Continue your home diet. Continue with your exercise plan and weight loss. ADDITIONAL CARE Please make an appointment to see your primary care provider, Dr Davies 1 week from today. ADDITIONAL INFORMATION Please call 911 or come directly to the emergency department if you experience unusual headache, vision change, shortness of breath, chest pain, numbness, tingling, loss of alertness/awareness, loss of function, unusual bleeding or any alarming symptoms. Thank you for allowing me to care for you. Arnoldo Parker, [facility], [facility] [phone] Referrals: Pancho Thomason MD [Staff Physician] - - Home Medications Comprehensive Discharge Medication List: Ambulatory Orders Sotalol HCl [Betapace -] 80 mg PO BID #60 tablet 05/27/17 Pantoprazole Sodium [Protonix -] 40 mg PO DAILY #40 tablet.ec 02/06/19 Warfarin Na [Coumadin -] 10 mg PO DAILY 05/20/19 Duloxetine HCl [Cymbalta -] 30 mg PO DAILY 05/24/19 Docusate Sodium [Colace -] 100 mg PO TID #90 capsule 05/25/19 Levothyroxine [Synthroid -] 125 mcg PO DAILY@0700 tablet 05/25/19 Lidocaine 5% Patch [Lidoderm -] 1 patch TP DAILY #30 patch 05/25/19 Polyethylene Glycol 3350 [Miralax 119 gm Btl -] 17 gm PO DAILY #1 bottle Warfarin Na [Coumadin -] 10 mg PO DAILY@1800 tablet 05/25/19 Problem List - Problems (1) HTN (hypertension) Code(s): I10 - ESSENTIAL (PRIMARY) HYPERTENSION Qualifiers: Hypertension type: essential hypertension Qualified Code(s): I10 - Essential (primary) hypertension (2) Atrial flutter with rapid ventricular response Code(s): I48.92 - UNSPECIFIED ATRIAL FLUTTER (3) History of cardioversion Code(s): Z98.89 - OTHER SPECIFIED POSTPROCEDURAL STATES * DO NOT USE * (4) Hypothyroidism Code(s): E03.9 - HYPOTHYROIDISM, UNSPECIFIED Qualifiers: Hypothyroidism type: unspecified Qualified Code(s): E03.9 - Hypothyroidism , unspecified (5) Prophylactic measure Code(s): Z29.9 - ENCOUNTER FOR PROPHYLACTIC MEASURES, UNSPECIFIED (6) HLD (hyperlipidemia) Code(s): E78.5 - HYPERLIPIDEMIA, UNSPECIFIED (7) Rheumatic heart disease Code(s): I09.9 - RHEUMATIC HEART DISEASE, UNSPECIFIED (8) Noncompliance with medication regimen Code(s): Z91.14 - PATIENT'S OTHER NONCOMPLIANCE WITH MEDICATION REGIMEN (9) Obesity (BMI 30.0-34.9) Code(s): E66.9 - OBESITY, UNSPECIFIED (10) Atrial fibrillation with rapid ventricular response Code(s): I48.91 - UNSPECIFIED ATRIAL FIBRILLATION (11) Left knee pain Code(s): M25.562 - PAIN IN LEFT KNEE This patient is new to me today: No Emergency Visit: Yes ED Registration Date: 05/20/19 Care time: The patient presented to the Emergency Department on the above date and was hospitalized for further evaluation of their emergent condition. Critical Care patient: No - Discharge Referral Referred to [facility] Med [facility].: No
[2019-05-26 07:32] LABS: INR 2.47 (0.83-1.09); PROTHROMBIN TIME (PATIENT) 29.4 SEC (9.7-13.0)
[2019-05-26] MEDS ORDERED: PT OWN MED DRAWER 7, Y5N ONE ×2 (09:19→10:28)
[2019-05-26] MEDS: PANTOPRAZOLE 40 MG TABLET PO SCH (09:23)
[2019-05-26] MEDS: LIDOCAINE 5% TOPICAL PATCH TP SCH (09:23)
[2019-05-26] MEDS: POLYETHYLENE GLYCOL 3350 119 GM BTL PO SCH (10:08)
[2019-05-26] MEDS: SOTALOL HCL 80 MG TABLET (FP) PO SCH (10:30)
--- NOTE | 2019-05-26 12:16 | PN ---
Progress Note, Physician History of Present Illness: Remains in SR post DCCV. Left knee xrays show DJD. - Current Medication List Current Medications: Active Medications Docusate Sodium (Colace -) 100 mg PO TID [facility] Last Admin: 05/26/19 06:40 Dose: 100 mg Levothyroxine Sodium 125 mcg/ (Levothyroxine Sodium 50 mcg) 175 mcg PO DAILY@ 0700 [facility] Last Admin: 05/26/19 06:40 Dose: 175 mcg Lidocaine (Lidoderm Patch -) 1 patch TP DAILY [facility] Last Admin: 05/26/19 09:23 Dose: 1 patch Metoprolol Tartrate (Lopressor Injection -) 5 mg IVPUSH Q4H PRN PRN Reason: TACHYCARDIA Last Admin: 05/22/19 10:11 Dose: 5 mg Miscellaneous (Lidoderm Patch Removal) 1 each MC DAILY@2200 [facility] Last Admin: 05/25/19 22:45 Dose: Not Given Pantoprazole Sodium (Protonix -) 40 mg PO DAILY [facility] Last Admin: 05/26/19 09:23 Dose: 40 mg Polyethylene Glycol (Miralax (For Daily Use) -) 17 gm PO DAILY [facility] Last Admin: 05/26/19 10:08 Dose: 17 grams Sotalol HCl (Betapace -) 80 mg PO BID [facility] Last Admin: 05/26/19 10:30 Dose: 80 mg Warfarin Sodium (Coumadin -) 10 mg PO DAILY@1800 [facility] Last Admin: 05/25/19 21:44 Dose: Not Given - Objective Vital Signs: Vital Signs Temperature 97.3 F L 05/26/19 08:00 Pulse Rate 74 05/26/19 08:00 Respiratory Rate 15 05/26/19 08:00 Blood Pressure 131/80 05/26/19 08:00 O2 Sat by Pulse Oximetry (%) 99 05/26/19 08:15 Constitutional: Yes: No Distress, Calm Neck: Yes: Supple Cardiovascular: Yes: Regular Rate and Rhythm, Other (Dare mechanical valve sounds) Respiratory: Yes: Regular, CTA Bilaterally Gastrointestinal: Yes: Normal Bowel Sounds, Soft Edema: No Labs: CBC, BMP 05/26/19 05:25 05/26/19 05:25 INR, PTT INR 2.47 (0.83-1.09) H 05/26/19 05:25 - ....Imaging EKG: Report Reviewed (Tele: NSR) Problem List - Problems (1) Atrial fibrillation with rapid ventricular response Code(s): I48.91 - UNSPECIFIED ATRIAL FIBRILLATION (2) HTN (hypertension) Code(s): I10 - ESSENTIAL (PRIMARY) HYPERTENSION Qualifiers: Hypertension type: essential hypertension Qualified Code(s): I10 - Essential (primary) hypertension (3) History of cardioversion Code(s): Z98.89 - OTHER SPECIFIED POSTPROCEDURAL STATES * DO NOT USE * (4) Noncompliance with medication regimen Code(s): Z91.14 - PATIENT'S OTHER NONCOMPLIANCE WITH MEDICATION REGIMEN (5) Palpitations Code(s): R00.2 - PALPITATIONS (6) Rheumatic heart disease Code(s): I09.9 - RHEUMATIC HEART DISEASE, UNSPECIFIED (7) S/P heart valve replacement with mechanical valve Code(s): Z95.2 - PRESENCE OF PROSTHETIC HEART VALVE (8) Hypothyroidism Code(s): E03.9 - HYPOTHYROIDISM, UNSPECIFIED Qualifiers: Hypothyroidism type: unspecified Qualified Code(s): E03.9 - Hypothyroidism , unspecified Assessment/Plan 05/19/2019 Normal LV size and fxn LVEF 55-60%, normal RV size and fxn, RVSP 32 mmHg, mild SAEID, mod LAE, mech MV with tr MR, mech AV with mild AR, mild-mod TR 1. Paroxysmal atrial fibrillation post synchronized cardioversion to sinus rhythm 2. 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 Diastolic LV dysfunction with class 0 NYHA classification LV failure 4. CAD, demand ischemic injury in context of recurrent paroxysmal AF with RVR 5. Hypothyroidism 6. Medication noncompliance with Sotalol - currently restarted PLAN: 1. Continue Coumadin as per INR, maintain between 2.5-3.5 in view of mechanical valves 2. Continue Betapace 80 mg BID with close monitoring of QTc 3. Patient to F/U with her merchandising consultant Dr. Meet Davies/Barbra upon discharge. 4. Management left knee as per primary medical group
[2019-05-26 12:50] VITALS: BP 142/79; TEMP 98.2
--- NOTE | 2019-05-26 16:35 | EKG ---
Test Reason : Blood Pressure : / mmHG Vent. Rate : 073 BPM Atrial Rate : 073 BPM P-R Int : 164 ms QRS Dur : 096 ms QT Int : 418 ms P-R-T Axes : 079 050 108 degrees QTc Int : 460 ms NORMAL SINUS RHYTHM NONSPECIFIC ST AND T WAVE ABNORMALITY ABNORMAL ECG Confirmed by MD ZELALEM, DANIEL ([id number]) on 05/26/2019 4:35:20 PM Referred By: MELISSA AGUILAR Confirmed By:DANIEL MASTERSON MD
== END 2019-05-26 14:42 | disposition home or self-care (01) | DRG 309 ==
LOC: FER 06:21 → FM/S 14:43 → J2W 19:36
PROVIDERS: ADMIT Internal Medicine; ATTEND Nurse Practitioner Acute Care
PROC: 5A2204Z Restoration of Cardiac Rhythm, Single (ICD-10-PCS; principal; 2019-05-26)
DX: I48.0 Paroxysmal atrial fibrillation (principal); I50.30 Unspecified diastolic (congestive) heart failure; I48.92 Unspecified atrial flutter; E03.9 Hypothyroidism, unspecified; I11.0 Hypertensive heart disease with heart failure; F32.9 Major depressive disorder, single episode, unspecified; E78.5 Hyperlipidemia, unspecified; E66.9 Obesity, unspecified; I09.9 Rheumatic heart disease, unspecified; I25.10 Atherosclerotic heart disease of native coronary artery without angina pectoris; R00.2 Palpitations; Z95.2 Presence of prosthetic heart valve; Z96.649 Presence of unspecified artificial hip joint; Z79.01 Long term (current) use of anticoagulants; Z68.28 Body mass index [BMI] 28.0-28.9, adult; Z91.14 Patient's other noncompliance with medication regimen; M25.562 Pain in left knee
CPT/HCPCS: 36415; 71045-TC-FY; 73564-TC-LT-FY; 80053; 81003; 81015; 82550; 83735; 84436; 84439; 84443; 84479; 84481; 84484; 85025; 85610; 93005; 93010; 93971-TC; 97116-GP; 97161-GP; 99285-25; J0131

== ENCOUNTER 2019-06-20 21:44 | Emergency (ER) | payer OTHER ==
[2019-06-20 22:04] VITALS: BP 158/82; PULSE 82; TEMP 98.6; BMI 34.4
[2019-06-20] MEDS ORDERED: ONDANSETRON 4 MG/2 ML VIAL IVPUSH ONE (22:45)
--- NOTE | 2019-06-20 22:45 | PDOC ---
History of Present Illness - General Chief Complaint: Nausea/Vomiting Stated Complaint: VOMITED X2 Time Seen by Provider: 06/20/19 21:51 - History of Present Illness Initial Comments: 06/20/19 22:39 This 68-year-old woman with a history of A. fib, mechanical aortic/mitral heart valves (1999), HTN, HLD and hip replacement (02/16)presents by ambulance with a history of vomiting twice within the last hour. Patient states that she ate lunch about 1 PM (meal of peppers, which patient normally finds difficult to digest). A few hours after lunch, she began to have epigastric discomfort with nausea starting few hours prior to presentation. At about 8 PM, she vomited twice (partially digested food; no coffee grounds or blood). She has had 2 normal bowel movements today; no recent diarrhea. She states she took her temperature twice during the day; in the afternoon it was 98 F, this evening it was 100F. She has taken no medications since then. She denies runny nose/nasal congestion, sore throat, cough, shortness of breath. She states she has had mild generalized chest pain for the last hour.. No palpitations or irr egular heartbeats noted. No known Covid 19 contacts; no recent travel Medications as noted below Past History - Past Medical History Allergies/Adverse Reactions: Allergies Allergy/AdvReac Type Severity Reaction Status Date / Time No Known Allergies Allergy Verified 06/20/19 21:48 Home Medications: Ambulatory Orders Sotalol HCl [Betapace -] 80 mg PO BID #60 tablet 05/27/17 Pantoprazole Sodium [Protonix -] 40 mg PO DAILY #40 tablet.ec 02/06/19 Warfarin Na [Coumadin -] 10 mg PO DAILY 05/20/19 Duloxetine HCl [Cymbalta -] 30 mg PO DAILY 05/24/19 Docusate Sodium [Colace -] 100 mg PO TID #90 capsule 05/25/19 Levothyroxine [Synthroid -] 125 mcg PO DAILY@0700 tablet 05/25/19 Lidocaine 5% Patch [Lidoderm -] 1 patch TP DAILY #30 patch 05/25/19 Polyethylene Glycol 3350 [Miralax 119 gm Btl -] 17 gm PO DAILY #1 bottle 05/25/19 Warfarin Na [Coumadin -] 10 mg PO DAILY@1800 tablet 05/25/19 Anemia: No Asthma: No Cancer: No Cardiac Disorders: Yes (RHEUMATIC FEVER, MITRAL AND AORTIC VALVE REPLACEMENT,AFlutter, AFIB) CVA: No COPD: No CHF: No Dementia: No Diabetes: No GI Disorders: No Disorders: No HTN: Yes Hypercholesterolemia: No Liver Disease: No Seizures: No Thyroid Disease: Yes (HYPOTHYROIDISM) - Surgical History Abdominal Surgery: No Appendectomy: No Cardiac Surgery: Yes (AORTIC AND MITRIAL VALVE REPLACEMENT ARTIFICIAL 1999) Cholecystectomy: No Lung Surgery: No Neurologic Surgery: No Orthopedic Surgery: No - Psycho Social/Smoking Cessation Hx Smoking History: Never smoked Have you smoked in the past 12 months: No Number of Cigarettes Smoked Daily: 0 Information on smoking cessation initiated: No Hx Alcohol Use: No Drug/Substance Use Hx: No Substance Use Type: None Hx Substance Use Treatment: No Review of Systems - Review of Systems Able to Perform ROS?: Yes Comments:: 12 point review of systems is negative except for what is noted in the history of present illness *Physical Exam - Vital Signs Last Vital Signs Temp Pulse Resp BP Pulse Ox 98.6 F 82 16 158/82 97 06/20/19 21:52 06/20/19 21:52 06/20/19 21:52 06/20/19 21:52 06/20/19 21:52 - Physical Exam GENERAL: Adult female, alert and oriented x3, no acute distress HEAD: Normal with no signs of trauma. EYES: PERRLA, EOMI, sclera anicteric, conjunctiva clear. ENT: Ears normal, nares patent, oropharynx clear without exudates. Moist mucous membranes. NECK: Normal range of motion, supple without lymphadenopathy, JVD, or masses. LUNGS: Breath sounds equal, clear to auscultation bilaterally. No wheezes, and no crackles. HEART. Regular rate and rhythm; no murmurs; positive mechanical valve clicks heard ABDOMEN:.normal bowel sounds . Distended, soft, generalized mild tenderness without rebound or involuntary guarding EXTREMITIES: Normal range of motion, no edema. No clubbing or cyanosis. No erythema, or tenderness. NEUROLOGICAL: Cranial nerves II through XII grossly intact. Normal speech. No focal neurological deficits. Twelve-lead electrocardiogram is performed: Normal sinus rhythm at 81 bpm; there are nonspecific ST and T wave abnormalities; axis and intervals are normal. No STEMI evident. No evidence of acute cardiac arrhythmia noted ED Treatment Course - LABORATORY CBC & Chemistry Diagram: 06/21/19 01:05 06/20/19 23:05 Medical Decision Making - Medical Decision Making As noted above, 68-year-old woman presents with generalized abdominal discomfort/nausea and 2 episodes of vomiting prior to the arrival in the emergency room. She notes bloating occurring after eating a hard to digest meal of peppers. She has had no diarrhea. She notes 1 measurement of 100 F this afternoon but was normal (98 F) upon retaking a few hours later. She had not taken any antipyretics in the interim. She denies any other symptoms except for mild generalized chest discomfort in the last hour prior to presentation. Exam as noted with patient presenting with normal vital signs and normal temperature (98.6 F). Exam notable for mildly distended, soft abdomen with mild generalized tenderness; no point tenderness, rebound or involuntary guarding present. Because of the patient's mild chest pain and history of cardiac disease, twelve- lead electrocardiogram was taken and noted as above: There was no significant change as compared to most recent EKG tracing of 05/26/2019 IV access obtained; CBC, chemistry profile and troponin evaluated. Patient received Zofran 4 mg IV. After Zofran IV, the patient reported resolution of her nausea, abdominal discomfort and chest discomfort. Laboratory evaluation notable for elevation of WBC/hemoglobin and hematocrit (17/15.5/45.5 respectively) suggesting hemoconcentration. BUN was elevated also in comparison to creatinine (19/0.8) Troponin was not elevated. Patient received normal saline 500 mL IV prior to repeat troponin and CBC after 2 hours. Repeat troponin is again not elevated. WBC/hemoglobin/hematocrit significantly decreased after IV hydration (14.5/14.2/44.3 respectively). The patient continues to feel comfortable, although somewhat anxious. Patient was discharged with instructions to maintain a clear liquid diet and advance diet cautiously. Outpatient prescription for Zofran ODT is not indicated because of significant interaction with sotalol which patient takes daily. She should contact her PMD, Dr. Perdue, by telephone tomorrow and follow-up as scheduled. She should return to the emergency room if she has recurrent vomiting, abdominal/chest pain or fever Discharge - Discharge Information Problems reviewed: Yes Clinical Impression/Diagnosis: Nausea and vomiting Condition: Stable Disposition: HOME - Follow up/Referral Referrals: Grayson Perdue MD [Primary Care Provider] - - Patient Discharge Instructions Patient Printed Discharge Instructions: DI for Vomiting -- Adult Additional Instructions: Light diet; advance diet cautiously Drink plenty of clear liquids Return to ER if you have recurrent vomiting, abdominal pain or develop persistent chest pain Contact Dr. Perdue and your wooden box maker regarding today's ER visit and follow-up as scheduled - Post Discharge Activity
[2019-06-20] MEDS ORDERED: ONDANSETRON 4 MG/2 ML VIAL ONE (23:02)
[2019-06-20 23:21] LABS: HEMOGLOBIN 15.5 GM/dl (10.7-15.3); MCH 28.1 pg (25.7-33.7); MCHC 32.3 g/dl (32.0-36.0); MEAN PLT VOLUME 9.3 fl (7.5-11.1); PLATELET COUNT 337 K/MM3 (134-434); RBC 5.51 M/mm3 (3.60-5.2); RDW 15.9 % (11.6-15.6)
[2019-06-20 23:31] LABS: CREATININE 0.8 mg/dl (0.55-1.3); POTASSIUM 4.5 mmol/L (3.5-5.1); TOT PROT 7.5 g/dl (6.4-8.2)
[2019-06-20] MEDS ORDERED: SODIUM CHLORIDE 500 ML IV STA (23:43)
[2019-06-20 23:52] LABS: PLATELET ESTIMATE ADEQUATE; TOXIC GRANULATION 2+
[2019-06-21 01:39] LABS: BASO % 0.2 % (0-2.0); EOS % 0.3 % (0-4.5); HEMATOCRIT 44.3 % (32.4-45.2); HEMOGLOBIN 14.2 GM/dL (10.7-15.3); LYMPH % 7.2 % (8-40); MCH 27.6 pg (25.7-33.7); MEAN CELL VOLUME 86.1 fl (80-96); MEAN PLT VOLUME 10.1 fl (7.5-11.1); MONO % 7.2 % (3.8-10.2); NEUT % 85.1 % (42.8-82.8); PLATELET COUNT 286 K/MM3 (134-434); RBC 5.14 M/mm3 (3.60-5.2); RDW 16.5 % (11.6-15.6); WHITE BLOOD COUNT 14.5 K/mm3 (4.0-10.0)
--- NOTE | 2019-06-21 10:28 | EKG ---
Test Reason : Blood Pressure : / mmHG Vent. Rate : 081 BPM Atrial Rate : 081 BPM P-R Int : 146 ms QRS Dur : 094 ms QT Int : 430 ms P-R-T Axes : 059 055 123 degrees QTc Int : 499 ms NORMAL SINUS RHYTHM Lateral ST T changes consider ischemia ABNORMAL ECG WHEN COMPARED WITH ECG OF 26-MAY-2019 09:23, ST T changes now present Confirmed by Tom Dias ([id number]) on 06/21/2019 10:28:03 AM Referred By: MD LOUIS Confirmed By:Tom Dias
== END 2019-06-21 02:22 | disposition home or self-care (01) ==
LOC: FER 21:44
PROC: 3E033GC Introduction of Other Therapeutic Substance into Peripheral Vein, Percutaneous Approach (ICD-10-PCS; principal; 2019-06-20)
PROC: 3E0337Z Introduction of Electrolytic and Water Balance Substance into Peripheral Vein, Percutaneous Approach (ICD-10-PCS; 2019-06-20)
DX: R11.2 Nausea with vomiting, unspecified (principal); R10.84 Generalized abdominal pain
CPT/HCPCS: 36415; 80053; 82550; 84484; 85025; 93005; 99284-25

== ENCOUNTER 2020-03-22 07:01 | Inpatient (IN) | payer OTHER ==
[2020-03-22 07:15] VITALS: BMI 35.7
[2020-03-22] MEDS ORDERED: dilTIAZem HCL 50 MG/10 ML - 10 ML VIAL IVPUSH ONE ×2 (07:56→08:18)
[2020-03-22] MEDS ORDERED: dilTIAZem HCL 125 MG/25 ML - 25 ML VIAL ONE (07:58)
[2020-03-22 08:18] LABS: BASO % 1.1 % (0-2.0); EOS % 1.6 % (0-4.5); HEMATOCRIT 42.2 % (32.4-45.2); LYMPH % 20.9 % (8-40); MCH 29.6 pg (25.7-33.7); MCHC 33.2 g/dl (32.0-36.0); MEAN PLT VOLUME 10.2 fl (7.5-11.1); MONO % 12.3 % (3.8-10.2); NEUT % 64.1 % (42.8-82.8); PLATELET COUNT 303 K/MM3 (134-434); RBC 4.74 M/mm3 (3.60-5.2); RDW 14.4 % (11.6-15.6); WHITE BLOOD COUNT 7.1 K/mm3 (4.0-10.8)
[2020-03-22 08:23] LABS: ACTIVATED PTT 52.8 SECONDS (25.2-36.5)
[2020-03-22 08:27] LABS: ALBUMIN 3.4 g/dl (3.4-5.0); BILIRUBIN,TOTAL 0.5 mg/dl (0.2-1); CREATININE 0.8 mg/dl (0.55-1.3); TOT PROT 6.7 g/dl (6.4-8.2)
[2020-03-22 08:28] LABS: INR 3.42 (0.82-1.09); PROTHROMBIN TIME (PATIENT) 35.3 SEC (10.2-13.0)
[2020-03-22] MEDS ORDERED: dilTIAZem HCL 30 MG TABLET ONE (09:07)
[2020-03-22] MEDS ORDERED: SODIUM CHLORIDE 0.9% 500 ML INFUS.BAG IV ONE ×2 (09:31→10:49)
[2020-03-22] MEDS ORDERED: dilTIAZem HCL 50 MG/10 ML - 10 ML VIAL ONE (09:39)
[2020-03-22] MEDS ORDERED: METOPROLOL TARTRATE 5 MG/5 ML VIAL IVPUSH ONE ×3 (10:14→11:51)
[2020-03-22] MEDS ORDERED: METOPROLOL TARTRATE 5 MG/5 ML VIAL ONE ×3 (10:33→12:18)
[2020-03-22 11:52] LABS: EPITHELIAL CELLS MANY /hpf
[2020-03-22] MEDS: LEVOTHYROXINE NA 125 MCG TABLET (FP) PO SCH (14:09)
[2020-03-22] MEDS: SOTALOL HCL 80 MG TABLET (FP) PO SCH ×2 (14:09→22:02)
[2020-03-22] MEDS: WARFARIN NA 10 MG TABLET PO SCH (17:30)
[2020-03-22] MEDS: dilTIAZem HCL 30 MG TABLET PO SCH ×2 (17:53→22:02)
[2020-03-22 22:53] LABS: ALBUMIN 2.9 g/dl (3.4-5.0); BILIRUBIN,TOTAL 0.3 mg/dL (0.2-1); BLOOD UREA NITROGEN 18.3 mg/dL (7-18); CALCIUM 8.5 mg/dL (8.5-10.1); CREATININE 0.9 mg/dL (0.55-1.3); TOT PROT 5.9 g/dl (6.4-8.2)
[2020-03-23] MEDS: dilTIAZem HCL 30 MG TABLET PO SCH (06:58)
[2020-03-23] MEDS: LEVOTHYROXINE NA 125 MCG TABLET (FP) PO SCH (06:58)
[2020-03-23 07:30] LABS: BASO % 0.5 % (0-2.0); EOS % 1.9 % (0-4.5); HEMATOCRIT 40.3 % (32.4-45.2); HEMOGLOBIN 12.8 GM/dL (10.7-15.3); LYMPH % 28.7 % (8-40); MCH 28.5 pg (25.7-33.7); MCHC 31.7 g/dl (32.0-36.0); MEAN CELL VOLUME 89.9 fl (80-96); MEAN PLT VOLUME 10.6 fl (7.5-11.1); MONO % 11.1 % (3.8-10.2); NEUT % 57.8 % (42.8-82.8); PLATELET COUNT 254 K/MM3 (134-434); RBC 4.48 M/mm3 (3.60-5.2); RDW 15.1 % (11.6-15.6); WHITE BLOOD COUNT 6.2 K/mm3 (4.0-10.0)
[2020-03-23] MEDS: SOTALOL HCL 80 MG TABLET (FP) PO SCH ×2 (09:55→23:33)
[2020-03-23 10:09] LABS: ACTIVATED PTT 58.7 SECONDS (25.2-36.5); INR 3.92 (0.83-1.09); PROTHROMBIN TIME (PATIENT) 46.3 SEC (9.7-13.0)
[2020-03-23 15:04] LABS: BILIRUBIN,TOTAL 0.3 mg/dL (0.2-1); BLOOD UREA NITROGEN 18.7 mg/dL (7-18); CALCIUM 8.4 mg/dL (8.5-10.1); CREATININE 0.8 mg/dL (0.55-1.3); MAGNESIUM 1.9 mg/dL (1.8-2.4); PHOSPHOROUS 3.8 mg/dL (2.5-4.9)
[2020-03-23] MEDS: WARFARIN NA 10 MG TABLET PO SCH (17:21)
[2020-03-23 22:00] LABS: INR 3.93 (0.83-1.09); PROTHROMBIN TIME (PATIENT) 45.7 SEC (9.7-13.0)
[2020-03-24] MEDS: LEVOTHYROXINE NA 125 MCG TABLET (FP) PO SCH (06:01)
[2020-03-24 07:42] LABS: BLOOD UREA NITROGEN 19.1 mg/dL (7-18); CALCIUM 8.5 mg/dL (8.5-10.1)
[2020-03-24 07:46] LABS: CREATININE 0.9 mg/dL (0.55-1.3)
[2020-03-24 07:47] LABS: BILIRUBIN,TOTAL 0.4 mg/dL (0.2-1)
[2020-03-24 07:51] LABS: BASO % 0.7 % (0-2.0); EOS % 2.9 % (0-4.5); HEMATOCRIT 38.9 % (32.4-45.2); HEMOGLOBIN 12.5 GM/dL (10.7-15.3); MCH 28.6 pg (25.7-33.7); MCHC 32.3 g/dl (32.0-36.0); MEAN CELL VOLUME 88.6 fl (80-96); MONO % 11.2 % (3.8-10.2); NEUT % 57.2 % (42.8-82.8); PLATELET COUNT 250 K/MM3 (134-434); RBC 4.39 M/mm3 (3.60-5.2); RDW 15.2 % (11.6-15.6)
[2020-03-24] MEDS: SOTALOL HCL 80 MG TABLET (FP) PO SCH ×2 (09:50→22:48)
[2020-03-24] MEDS ORDERED: WARFARIN NA 7.5 MG TABLET PO ONE (18:00)
[2020-03-25 03:53] VITALS: TEMP 98.2
[2020-03-25] MEDS: LEVOTHYROXINE NA 125 MCG TABLET (FP) PO SCH (07:02)
[2020-03-25 07:52] LABS: CALCIUM 8.5 mg/dL (8.5-10.1); CREATININE 0.9 mg/dL (0.55-1.3)
[2020-03-25 08:00] LABS: BASO % 0.8 % (0-2.0); EOS % 2.8 % (0-4.5); HEMATOCRIT 38.3 % (32.4-45.2); HEMOGLOBIN 12.6 GM/dL (10.7-15.3); LYMPH % 24.9 % (8-40); MCH 29.1 pg (25.7-33.7); MEAN CELL VOLUME 88.3 fl (80-96); MEAN PLT VOLUME 10.2 fl (7.5-11.1); MONO % 10.4 % (3.8-10.2); NEUT % 61.1 % (42.8-82.8); PLATELET COUNT 249 K/MM3 (134-434); RBC 4.33 M/mm3 (3.60-5.2); RDW 14.9 % (11.6-15.6)
[2020-03-25 08:29] LABS: INR 2.27 (0.83-1.09); PROTHROMBIN TIME (PATIENT) 26.8 SEC (9.7-13.0)
[2020-03-25 09:45] VITALS: BP 149/79; PULSE 75
[2020-03-25] MEDS: SOTALOL HCL 80 MG TABLET (FP) PO SCH (09:46)
[2020-03-25] MEDS ORDERED: WARFARIN NA 10 MG TABLET PO ONE (18:00)
== END 2020-03-25 15:40 | disposition home or self-care (01) | DRG 309 ==
LOC: FER 07:01 → J4W 16:41
PROVIDERS: ATTEND Nurse Practitioner Family
DX: I48.0 Paroxysmal atrial fibrillation (principal); I50.30 Unspecified diastolic (congestive) heart failure; I48.92 Unspecified atrial flutter; E78.5 Hyperlipidemia, unspecified; E03.9 Hypothyroidism, unspecified; Z96.649 Presence of unspecified artificial hip joint; I09.9 Rheumatic heart disease, unspecified; I27.20 Pulmonary hypertension, unspecified; I11.0 Hypertensive heart disease with heart failure; R00.2 Palpitations; I07.1 Rheumatic tricuspid insufficiency; Z91.14 Patient's other noncompliance with medication regimen; Z95.2 Presence of prosthetic heart valve; Z79.01 Long term (current) use of anticoagulants; E66.9 Obesity, unspecified; Z68.35 Body mass index [BMI] 35.0-35.9, adult
CPT/HCPCS: 36415; 71045-TC-FY; 80048; 80053; 80061; 81003; 81015; 82550; 83036; 83721; 83735; 84100; 84436; 84443; 84479; 84484; 85025; 85610; 85730; 93005; 99285-25; C9803; U0003

== ENCOUNTER 2020-03-31 02:00 | Inpatient (IN) | payer OTHER ==
[2020-03-31 02:29] VITALS: BMI 35.7
[2020-03-31 02:34] LABS: BASO % 0.4 % (0-2.0); EOS % 0.9 % (0-4.5); HEMATOCRIT 39.5 % (32.4-45.2); HEMOGLOBIN 12.9 GM/dL (10.7-15.3); LYMPH % 25.1 % (8-40); MCH 29.1 pg (25.7-33.7); MCHC 32.7 g/dl (32.0-36.0); MEAN PLT VOLUME 10.7 fl (7.5-11.1); MONO % 17.7 % (3.8-10.2); NEUT % 55.9 % (42.8-82.8); PLATELET COUNT 247 K/MM3 (134-434); RBC 4.44 M/mm3 (3.60-5.2); RDW 15.2 % (11.6-15.6); WHITE BLOOD COUNT 5.7 K/mm3 (4.0-10.0)
[2020-03-31 02:41] LABS: INR 2.09 (0.83-1.09); PROTHROMBIN TIME (PATIENT) 25.2 SEC (9.7-13.0)
[2020-03-31 02:43] LABS: CHLORIDE 110 mmol/L (98-107); SODIUM 142 mmol/L (136-145)
[2020-03-31 02:44] LABS: ACTIVATED PTT 44.6 SECONDS (25.2-36.5)
[2020-03-31 02:45] LABS: CALCIUM 7.8 mg/dL (8.5-10.1)
[2020-03-31 02:46] LABS: ALBUMIN 3.2 g/dl (3.4-5.0); ANION GAP 7 MMOL/L (8-16); CO2 25 mmol/L (21-32); GLUCOSE,RANDOM 99 mg/dL (74-106)
[2020-03-31 02:49] LABS: CREATININE 0.9 mg/dL (0.55-1.3); SGOT/AST 36 U/L (15-37); SGPT/ALT 42 U/L (13-61)
[2020-03-31 02:50] LABS: BILIRUBIN,TOTAL 0.3 mg/dL (0.2-1)
[2020-03-31 02:51] LABS: TOT PROT 6.3 g/dl (6.4-8.2)
[2020-03-31 02:52] LABS: ALK PHOS 87 U/L (45-117)
[2020-03-31] MEDS ORDERED: dilTIAZem HCL 50 MG/10 ML - 10 ML VIAL IVPUSH ONE ×3 (03:30→09:15)
[2020-03-31] MEDS ORDERED: dilTIAZem HCL 125 MG/25 ML - 25 ML VIAL ONE ×3 (03:37→09:37)
[2020-03-31] MEDS ORDERED: SODIUM CHLORIDE 1,000 ML IV SCH (07:00)
[2020-03-31] MEDS ORDERED: dilTIAZem HCL 30 MG TABLET PO ONE (09:15)
[2020-03-31] MEDS ORDERED: dilTIAZem HCL 30 MG TABLET ONE (09:36)
[2020-03-31] MEDS ORDERED: SOTALOL HCL 80 MG TABLET (FP) PO ONE ×2 (10:00→18:59)
[2020-03-31] MEDS ORDERED: dilTIAZem HCL 50 MG/10 ML - 10 ML VIAL ONE (11:59)
[2020-03-31] MEDS ORDERED: ONDANSETRON 4 MG/2 ML VIAL ONE (13:26)
[2020-03-31 14:03] LABS: INR 2.16 (0.83-1.09); PROTHROMBIN TIME (PATIENT) 25.5 SEC (9.7-13.0)
[2020-03-31] MEDS ORDERED: DIGOXIN 0.5 MG/2 ML AMPUL IVPUSH ONE ×2 (15:06→21:00)
[2020-03-31] MEDS ORDERED: DIGOXIN 0.5 MG/2 ML AMPUL ONE (15:13)
[2020-03-31] MEDS ORDERED: METOPROLOL TARTRATE 5 MG/5 ML VIAL IVPUSH ONE ×3 (16:56→18:38)
[2020-03-31] MEDS ORDERED: METOPROLOL TARTRATE 5 MG/5 ML VIAL ONE ×3 (17:16→18:43)
[2020-03-31] MEDS ORDERED: SODIUM CHLORIDE 0.9% 500 ML INFUS.BAG IV ONE (17:45)
[2020-03-31] MEDS ORDERED: WARFARIN NA 5 MG TABLET ONE (18:03)
[2020-03-31] MEDS: WARFARIN NA 10 MG TABLET PO SCH (18:10)
[2020-03-31] MEDS: LACTATED RINGERS SOLUTION 1,000 ML/1,000 ML INFUS.BAG IV SCH (20:45)
[2020-03-31] MEDS: dilTIAZem HCL 30 MG TABLET PO SCH (21:22)
[2020-03-31] MEDS: SOTALOL HCL 80 MG TABLET (FP) PO SCH (21:22)
[2020-03-31] MEDS ORDERED: SOTALOL HCL 80 MG TABLET (FP) PO SCH (22:00)
[2020-04-01] MEDS ORDERED: MELATONIN 5 MG TABLETS PO ONE (00:15)
[2020-04-01] MEDS: dilTIAZem HCL 30 MG TABLET PO SCH ×3 (06:58→21:46)
[2020-04-01] MEDS: LEVOTHYROXINE NA 125 MCG TABLET (FP) PO SCH (06:58)
[2020-04-01 07:51] LABS: BASO % 0.4 % (0-2.0); HEMATOCRIT 40.2 % (32.4-45.2); HEMOGLOBIN 13.2 GM/dL (10.7-15.3); LYMPH % 27.8 % (8-40); MCH 29.1 pg (25.7-33.7); MCHC 32.8 g/dl (32.0-36.0); MEAN CELL VOLUME 88.5 fl (80-96); MEAN PLT VOLUME 9.8 fl (7.5-11.1); MONO % 11.3 % (3.8-10.2); NEUT % 59.5 % (42.8-82.8); PLATELET COUNT 242 K/MM3 (134-434); RBC 4.54 M/mm3 (3.60-5.2); RDW 14.8 % (11.6-15.6); WHITE BLOOD COUNT 4.5 K/mm3 (4.0-10.0)
[2020-04-01 07:52] LABS: INR 2.57 (0.83-1.09); PROTHROMBIN TIME (PATIENT) 30.3 SEC (9.7-13.0)
[2020-04-01 08:13] LABS: CALCIUM 8.3 mg/dL (8.5-10.1)
[2020-04-01 08:14] LABS: BLOOD UREA NITROGEN 13.6 mg/dL (7-18); MAGNESIUM 1.8 mg/dL (1.8-2.4)
[2020-04-01 08:17] LABS: CREATININE 0.8 mg/dL (0.55-1.3); PHOSPHOROUS 3.3 mg/dL (2.5-4.9)
[2020-04-01 08:18] LABS: BILIRUBIN,TOTAL 0.4 mg/dL (0.2-1)
[2020-04-01] MEDS ORDERED: PT OWN MED DRAWER 7, Y5N ONE ×2 (08:35→17:27)
[2020-04-01] MEDS: SOTALOL HCL 80 MG TABLET (FP) PO SCH ×2 (09:46→21:46)
[2020-04-01] MEDS ORDERED: MAGNESIUM 2GM/50ML STERILE WATER IVPB IVPB ONE (10:30)
[2020-04-01] MEDS ORDERED: WARFARIN NA 2 MG TABLET PO ONE (13:54)
[2020-04-01] MEDS: WARFARIN NA 10 MG TABLET PO SCH (17:28)
[2020-04-01] MEDS ORDERED: ACETAMINOPHEN 325 MG TABLET (FP) PO ONE (18:45)
[2020-04-01 21:12] LABS: EPI CELLS 3 /uL (0-25.1); HYALINE CASTS 0 /uL (0-3.1); URINE APPEARANCE CLEAR; URINE BACTERIA 33 /uL (0-1359); URINE BILIRUBIN NEGATIVE (NEGATIVE); URINE COLOR YELLOW; URINE GLUCOSE (UA) NEGATIVE (NEGATIVE); URINE KETONE NEGATIVE (NEGATIVE); URINE LEUK ESTERASE NEGATIVE (NEGATIVE); URINE NITRITE NEGATIVE (NEGATIVE); URINE PROTEIN NEGATIVE (NEGATIVE); URINE RBC 13 /uL (0-23.9); URINE WBC 2 /uL (0-25.8)
[2020-04-02 02:54] LABS: HEMATOCRIT 43.3 % (32.4-45.2); HEMOGLOBIN 13.9 GM/dL (10.7-15.3); MCH 28.4 pg (25.7-33.7); MCHC 32.2 g/dl (32.0-36.0); MEAN CELL VOLUME 88.2 fl (80-96); MEAN PLT VOLUME 10.5 fl (7.5-11.1); PLATELET COUNT 259 K/MM3 (134-434); RBC 4.91 M/mm3 (3.60-5.2); RDW 15.2 % (11.6-15.6)
[2020-04-02 03:04] LABS: INR 2.86 (0.83-1.09); PROTHROMBIN TIME (PATIENT) 34.1 SEC (9.7-13.0)
[2020-04-02 03:09] LABS: BLOOD UREA NITROGEN 18.6 mg/dL (7-18); MAGNESIUM 1.9 mg/dL (1.8-2.4)
[2020-04-02 03:13] LABS: PHOSPHOROUS 3.2 mg/dL (2.5-4.9)
[2020-04-02] MEDS: dilTIAZem HCL 30 MG TABLET PO SCH ×2 (06:09→13:56)
[2020-04-02] MEDS: LEVOTHYROXINE NA 125 MCG TABLET (FP) PO SCH (06:09)
[2020-04-02] MEDS ORDERED: ACETAMINOPHEN 325 MG TABLET (FP) PO ONE (06:20)
[2020-04-02] MEDS ORDERED: PT OWN MED DRAWER 7, Y5N ONE ×2 (08:28→18:10)
[2020-04-02] MEDS: SOTALOL HCL 80 MG TABLET (FP) PO SCH ×2 (08:31→09:29)
[2020-04-02] MEDS: ZINC SULFATE 220 MG CAPSULE (FP) PO SCH ×2 (10:38→22:17)
[2020-04-02] MEDS: CHOLECALCIFEROL (VIT D3) 1,000 UNIT (25 MCG) TABLET PO SCH (10:38)
[2020-04-02] MEDS: ASCORBIC ACID 500 MG TABLET (FP) PO SCH (10:38)
[2020-04-02] MEDS: FAMOTIDINE 20 MG TABLET PO SCH (10:38)
[2020-04-02] MEDS ORDERED: AMIODARONE HCL 150 MG/3 ML VIAL IVPUSH ONE (12:45)
[2020-04-02] MEDS ORDERED: AMIODARONE HCL INJECTION 450 MG in DEXTROSE 5%-WATER - 241 ML IVPB SCH (12:45)
[2020-04-02] MEDS ORDERED: AMIODARONE HCL INJECTION 150 MG in DEXTROSE 5%-WATER - 100 ML IVPB ONE (13:13)
[2020-04-02] MEDS ORDERED: WARFARIN NA 10 MG TABLET PO SCH (13:17)
[2020-04-02] MEDS ORDERED: AMIODARONE IN DEXTROSE,ISO-OSM 150 MG/100 ML BAG IVPB ONE ×2 (13:18→18:24)
[2020-04-02] MEDS: LACTATED RINGERS SOLUTION 1,000 ML/1,000 ML INFUS.BAG IV SCH ×2 (14:27→21:00)
[2020-04-02] MEDS ORDERED: AMIODARONE IN DEXTROSE,ISO-OSM 360 MG/200 ML BAG ONE (16:01)
[2020-04-02] MEDS ORDERED: AMIODARONE IN DEXTROSE,ISO-OSM 360 MG/200 ML BAG IVPB SCH (16:12)
[2020-04-02 16:33] LABS: INR 3.59 (0.83-1.09); PROTHROMBIN TIME (PATIENT) 41.9 SEC (9.7-13.0)
[2020-04-02] MEDS ORDERED: WARFARIN NA 10 MG, WARFARIN NA 2 MG PO SCH (18:00)
[2020-04-02] MEDS ORDERED: METOPROLOL TARTRATE 5 MG/5 ML VIAL IVPUSH PRN ×3 (18:14→20:17)
[2020-04-02] MEDS: AMIODARONE HCL 200 MG TABLET PO SCH (22:17)
[2020-04-02] MEDS: METOPROLOL TARTRATE 50 MG TABLET (FP) PO SCH (22:17)
[2020-04-03] MEDS ORDERED: METOPROLOL TARTRATE 5 MG/5 ML VIAL IVPUSH ONE (01:42)
[2020-04-03] MEDS ORDERED: LACTATED RINGERS SOLUTION 1000 ML INFUS.BAG IV ONE (01:44)
[2020-04-03] MEDS: LEVOTHYROXINE NA 125 MCG TABLET (FP) PO SCH (06:18)
[2020-04-03 06:52] LABS: HEMATOCRIT 39.7 % (32.4-45.2); HEMOGLOBIN 12.8 GM/dL (10.7-15.3); MCH 28.5 pg (25.7-33.7); MCHC 32.4 g/dl (32.0-36.0); MEAN PLT VOLUME 11.1 fl (7.5-11.1); PLATELET COUNT 216 K/MM3 (134-434); RBC 4.51 M/mm3 (3.60-5.2); RDW 15.2 % (11.6-15.6); WHITE BLOOD COUNT 5.1 K/mm3 (4.0-10.0)
[2020-04-03 07:14] LABS: BLOOD UREA NITROGEN 17.4 mg/dL (7-18)
[2020-04-03 07:18] LABS: PHOSPHOROUS 3.2 mg/dL (2.5-4.9)
[2020-04-03] MEDS: AMIODARONE HCL 200 MG TABLET PO SCH ×2 (09:59→21:25)
[2020-04-03] MEDS: ASCORBIC ACID 500 MG TABLET (FP) PO SCH (09:59)
[2020-04-03] MEDS: METOPROLOL TARTRATE 50 MG TABLET (FP) PO SCH ×2 (09:59→21:25)
[2020-04-03] MEDS: ZINC SULFATE 220 MG CAPSULE (FP) PO SCH ×2 (09:59→21:26)
[2020-04-03] MEDS: FAMOTIDINE 20 MG TABLET PO SCH (09:59)
[2020-04-03] MEDS: CHOLECALCIFEROL (VIT D3) 1,000 UNIT (25 MCG) TABLET PO SCH (09:59)
[2020-04-03] MEDS ORDERED: dilTIAZem HCL 25 MG/5 ML - 5 ML VIAL ONE (10:34)
[2020-04-03] MEDS ORDERED: dilTIAZem HCL 50 MG/10 ML - 10 ML VIAL IVPUSH ONE (10:34)
[2020-04-03] MEDS ORDERED: dilTIAZem HCL 125 MG/25 ML - 25 ML VIAL ONE (10:37)
[2020-04-03] MEDS ORDERED: MENTHOL/PHENOL 1 EACH UD MM PRN ×2 (11:00→17:21)
[2020-04-03] MEDS ORDERED: guaiFENesin 200 MG/10 ML 10 ML UNIT-DOSE CUPS PO PRN ×2 (11:01→17:21)
[2020-04-03] MEDS ORDERED: AMIODARONE IN DEXTROSE,ISO-OSM 360 MG/200 ML BAG IVPB SCH (12:45)
[2020-04-03 15:54] LABS: PROTHROMBIN TIME (PATIENT) 47.8 SEC (9.7-13.0)
[2020-04-03 16:46] LABS: INR 4.05 (0.83-1.09)
[2020-04-03] MEDS ORDERED: METOPROLOL TARTRATE 5 MG/5 ML VIAL IVPUSH PRN (17:21)
[2020-04-03] MEDS: WARFARIN NA 10 MG, WARFARIN NA 2 MG PO SCH (18:09)
[2020-04-03] MEDS: LACTATED RINGERS SOLUTION 1,000 ML/1,000 ML INFUS.BAG IV SCH (18:11)
[2020-04-03] MEDS: ACETAMINOPHEN 325 MG TABLET (FP) PO PRN (22:05)
[2020-04-04] MEDS: LEVOTHYROXINE NA 125 MCG TABLET (FP) PO SCH (06:06)
[2020-04-04 07:37] LABS: INR 3.81 (0.83-1.09); PROTHROMBIN TIME (PATIENT) 45.1 SEC (9.7-13.0)
[2020-04-04 07:40] LABS: ALBUMIN 2.8 g/dl (3.4-5.0); CALCIUM 7.6 mg/dL (8.5-10.1)
[2020-04-04 07:41] LABS: BLOOD UREA NITROGEN 19.6 mg/dL (7-18); MAGNESIUM 1.8 mg/dL (1.8-2.4)
[2020-04-04 07:43] LABS: CREATININE 0.9 mg/dL (0.55-1.3)
[2020-04-04 07:44] LABS: BASO % 0.4 % (0-2.0); EOS % 0.2 % (0-4.5); HEMATOCRIT 38.3 % (32.4-45.2); HEMOGLOBIN 12.8 GM/dL (10.7-15.3); LYMPH % 27.3 % (8-40); MCH 28.9 pg (25.7-33.7); MCHC 33.3 g/dl (32.0-36.0); MEAN CELL VOLUME 86.8 fl (80-96); MEAN PLT VOLUME 10.7 fl (7.5-11.1); MONO % 8.7 % (3.8-10.2); NEUT % 63.4 % (42.8-82.8); PHOSPHOROUS 3.6 mg/dL (2.5-4.9); PLATELET COUNT 219 K/MM3 (134-434); RBC 4.42 M/mm3 (3.60-5.2); RDW 15.3 % (11.6-15.6); WHITE BLOOD COUNT 4.3 K/mm3 (4.0-10.0)
[2020-04-04 07:45] LABS: BILIRUBIN,TOTAL 0.5 mg/dL (0.2-1); TOT PROT 5.7 g/dl (6.4-8.2)
[2020-04-04] MEDS: AMIODARONE HCL 200 MG TABLET PO SCH (10:08)
[2020-04-04] MEDS: CHOLECALCIFEROL (VIT D3) 1,000 UNIT (25 MCG) TABLET PO SCH (10:08)
[2020-04-04] MEDS: ASCORBIC ACID 500 MG TABLET (FP) PO SCH (10:08)
[2020-04-04] MEDS: METOPROLOL TARTRATE 50 MG TABLET (FP) PO SCH (10:08)
[2020-04-04] MEDS: FAMOTIDINE 20 MG TABLET PO SCH (10:08)
[2020-04-04] MEDS: ZINC SULFATE 220 MG CAPSULE (FP) PO SCH ×2 (10:08→21:21)
[2020-04-04] MEDS ORDERED: PROPOFOL 20 ML ONE (12:45)
[2020-04-04] MEDS ORDERED: ONDANSETRON 4 MG/2 ML VIAL IVPUSH PRN (12:47)
[2020-04-04] MEDS ORDERED: PROMETHAZINE HCL 25 MG/1 ML VIAL IVPB PRN (12:47)
[2020-04-04] MEDS ORDERED: LACTATED RINGERS SOLUTION 1,000 ML IV SCH (13:00)
[2020-04-04] MEDS ORDERED: ACETAMINOPHEN INJECTION 100 ML IVPB ONE (13:36)
[2020-04-04] MEDS ORDERED: ACETAMINOPHEN 1000 MG/100 ML BAG IVPB ONE (13:40)
[2020-04-04] MEDS: LACTATED RINGERS SOLUTION 1,000 ML/1,000 ML INFUS.BAG IV SCH (15:59)
[2020-04-04] MEDS: WARFARIN NA 10 MG, WARFARIN NA 2 MG PO SCH (17:34)
[2020-04-04] MEDS: SOTALOL HCL 80 MG TABLET (FP) PO SCH (21:20)
[2020-04-05] MEDS: ACETAMINOPHEN 325 MG TABLET (FP) PO PRN ×2 (01:18→15:42)
[2020-04-05] MEDS ORDERED: PT OWN MED DRAWER 7, Y5N ONE ×2 (06:21→08:48)
[2020-04-05] MEDS: LEVOTHYROXINE NA 125 MCG TABLET (FP) PO SCH (06:26)
[2020-04-05 08:09] LABS: BASO % 0.3 % (0-2.0); HEMATOCRIT 33.6 % (32.4-45.2); LYMPH % 25.1 % (8-40); MCH 28.8 pg (25.7-33.7); MCHC 32.9 g/dl (32.0-36.0); MEAN CELL VOLUME 87.5 fl (80-96); MEAN PLT VOLUME 10.3 fl (7.5-11.1); MONO % 9.6 % (3.8-10.2); PLATELET COUNT 192 K/MM3 (134-434); RBC 3.83 M/mm3 (3.60-5.2); RDW 15.6 % (11.6-15.6); WHITE BLOOD COUNT 3.7 K/mm3 (4.0-10.0)
[2020-04-05 08:28] LABS: ALBUMIN 2.7 g/dl (3.4-5.0); CALCIUM 7.8 mg/dL (8.5-10.1)
[2020-04-05 08:29] LABS: MAGNESIUM 1.9 mg/dL (1.8-2.4)
[2020-04-05 08:32] LABS: CREATININE 0.9 mg/dL (0.55-1.3)
[2020-04-05 08:33] LABS: BILIRUBIN,TOTAL 0.5 mg/dL (0.2-1); TOT PROT 5.6 g/dl (6.4-8.2)
[2020-04-05 08:39] LABS: INR 2.77 (0.83-1.09); PROTHROMBIN TIME (PATIENT) 33.1 SEC (9.7-13.0)
[2020-04-05] MEDS: ZINC SULFATE 220 MG CAPSULE (FP) PO SCH ×2 (08:59→21:54)
[2020-04-05] MEDS: ASCORBIC ACID 500 MG TABLET (FP) PO SCH (08:59)
[2020-04-05] MEDS: SOTALOL HCL 80 MG TABLET (FP) PO SCH ×2 (08:59→21:54)
[2020-04-05] MEDS: FAMOTIDINE 20 MG TABLET PO SCH (09:00)
[2020-04-05] MEDS: CHOLECALCIFEROL (VIT D3) 1,000 UNIT (25 MCG) TABLET PO SCH (09:00)
[2020-04-05] MEDS ORDERED: FUROSEMIDE 40 MG/4 ML INJECTABLE VIAL IVPUSH ONE (16:18)
[2020-04-05] MEDS ORDERED: WARFARIN NA 10 MG TABLET ONE (17:00)
[2020-04-05] MEDS ORDERED: WARFARIN NA 2 MG TABLET ONE (17:00)
[2020-04-05] MEDS: WARFARIN NA 10 MG, WARFARIN NA 2 MG PO SCH (18:03)
[2020-04-05] MEDS: MELATONIN 5 MG TABLETS PO PRN (22:14)
[2020-04-06] MEDS: LEVOTHYROXINE NA 125 MCG TABLET (FP) PO SCH (07:26)
[2020-04-06 07:47] LABS: INR 2.42 (0.83-1.09)
[2020-04-06 08:09] LABS: BASO % 0.4 % (0-2.0); EOS % 0.3 % (0-4.5); HEMATOCRIT 35.2 % (32.4-45.2); HEMOGLOBIN 11.7 GM/dL (10.7-15.3); LYMPH % 25.1 % (8-40); MCHC 33.1 g/dl (32.0-36.0); MEAN CELL VOLUME 87.7 fl (80-96); MEAN PLT VOLUME 10.7 fl (7.5-11.1); MONO % 9.2 % (3.8-10.2); PLATELET COUNT 204 K/MM3 (134-434); RBC 4.02 M/mm3 (3.60-5.2); RDW 14.8 % (11.6-15.6); WHITE BLOOD COUNT 3.6 K/mm3 (4.0-10.0)
[2020-04-06 08:13] LABS: CALCIUM 7.7 mg/dL (8.5-10.1)
[2020-04-06 08:14] LABS: ALBUMIN 2.8 g/dl (3.4-5.0); BLOOD UREA NITROGEN 18.7 mg/dL (7-18); MAGNESIUM 1.7 mg/dL (1.8-2.4)
[2020-04-06 08:17] LABS: CREATININE 0.9 mg/dL (0.55-1.3)
[2020-04-06 08:19] LABS: BILIRUBIN,TOTAL 0.8 mg/dL (0.2-1); TOT PROT 5.7 g/dl (6.4-8.2)
[2020-04-06] MEDS ORDERED: MAGNESIUM OXIDE 400 MG TABLET (FP) PO ONE (08:30)
[2020-04-06] MEDS: FAMOTIDINE 20 MG TABLET PO SCH (11:28)
[2020-04-06] MEDS: ZINC SULFATE 220 MG CAPSULE (FP) PO SCH ×2 (11:28→22:57)
[2020-04-06] MEDS: SOTALOL HCL 80 MG TABLET (FP) PO SCH ×2 (11:28→22:56)
[2020-04-06] MEDS: CHOLECALCIFEROL (VIT D3) 1,000 UNIT (25 MCG) TABLET PO SCH (11:28)
[2020-04-06] MEDS: ACETAMINOPHEN 325 MG TABLET (FP) PO PRN ×2 (11:29→18:45)
[2020-04-06] MEDS: ASCORBIC ACID 500 MG TABLET (FP) PO SCH (11:29)
[2020-04-06] MEDS ORDERED: REMDESIVIR 200 MG in SODIUM CHLORIDE 210 ML IVPB ONE (14:00)
[2020-04-06] MEDS ORDERED: dilTIAZem HCL 50 MG/10 ML - 10 ML VIAL IVPUSH ONE (14:29)
[2020-04-06] MEDS: DEXAMETHASONE SOD PHOSPHATE 4 MG/1 ML VIAL IVPUSH SCH (15:47)
[2020-04-06] MEDS ORDERED: dilTIAZem HCL 50 MG/10 ML - 10 ML VIAL IVPUSH PRN (16:53)
[2020-04-06] MEDS ORDERED: WARFARIN NA 2 MG TABLET ONE (17:51)
[2020-04-06] MEDS ORDERED: WARFARIN NA 10 MG TABLET ONE (17:52)
[2020-04-06] MEDS: WARFARIN NA 10 MG, WARFARIN NA 2 MG PO SCH (18:46)
[2020-04-07] MEDS: LEVOTHYROXINE NA 125 MCG TABLET (FP) PO SCH (06:19)
[2020-04-07 08:18] LABS: BASO % 0.1 % (0-2.0); EOS % 0.1 % (0-4.5); HEMATOCRIT 39.5 % (32.4-45.2); MCH 29.2 pg (25.7-33.7); MEAN CELL VOLUME 88.7 fl (80-96); MEAN PLT VOLUME 10.4 fl (7.5-11.1); MONO % 10.3 % (3.8-10.2); NEUT % 67.5 % (42.8-82.8); PLATELET COUNT 247 K/MM3 (134-434); RBC 4.45 M/mm3 (3.60-5.2); RDW 15.5 % (11.6-15.6)
[2020-04-07 08:37] LABS: ALBUMIN 2.9 g/dl (3.4-5.0); BLOOD UREA NITROGEN 25.6 mg/dL (7-18); MAGNESIUM 2.1 mg/dL (1.8-2.4)
[2020-04-07 08:40] LABS: CREATININE 0.9 mg/dL (0.55-1.3)
[2020-04-07 08:41] LABS: BILIRUBIN,TOTAL 0.5 mg/dL (0.2-1); TOT PROT 6.4 g/dl (6.4-8.2)
[2020-04-07] MEDS: FAMOTIDINE 20 MG TABLET PO SCH (11:02)
[2020-04-07] MEDS: ZINC SULFATE 220 MG CAPSULE (FP) PO SCH ×2 (11:02→21:42)
[2020-04-07] MEDS: ASCORBIC ACID 500 MG TABLET (FP) PO SCH (11:02)
[2020-04-07] MEDS: CHOLECALCIFEROL (VIT D3) 1,000 UNIT (25 MCG) TABLET PO SCH (11:03)
[2020-04-07] MEDS: DEXAMETHASONE SOD PHOSPHATE 4 MG/1 ML VIAL IVPUSH SCH (11:57)
[2020-04-07 12:12] LABS: INR 3.46 (0.83-1.09); PROTHROMBIN TIME (PATIENT) 41.1 SEC (9.7-13.0)
[2020-04-07] MEDS ORDERED: PT OWN MED DRAWER 7, Y5N ONE (13:32)
[2020-04-07] MEDS: SOTALOL HCL 80 MG TABLET (FP) PO SCH ×2 (14:47→21:42)
[2020-04-07] MEDS: REMDESIVIR 100 MG in SODIUM CHLORIDE 230 ML IVPB SCH (14:57)
[2020-04-07] MEDS ORDERED: WARFARIN NA 5 MG TABLET PO ONE (18:00)
[2020-04-08] MEDS: LEVOTHYROXINE NA 125 MCG TABLET (FP) PO SCH (06:09)
[2020-04-08 06:51] LABS: BASO % 0.1 % (0-2.0); EOS % 0.1 % (0-4.5); HEMATOCRIT 36.7 % (32.4-45.2); HEMOGLOBIN 11.9 GM/dL (10.7-15.3); MCH 28.6 pg (25.7-33.7); MCHC 32.6 g/dl (32.0-36.0); MEAN CELL VOLUME 87.9 fl (80-96); MEAN PLT VOLUME 9.8 fl (7.5-11.1); MONO % 9.4 % (3.8-10.2); NEUT % 76.4 % (42.8-82.8); PLATELET COUNT 260 K/MM3 (134-434); RBC 4.17 M/mm3 (3.60-5.2); RDW 15.6 % (11.6-15.6); WHITE BLOOD COUNT 4.6 K/mm3 (4.0-10.0)
[2020-04-08 07:07] LABS: INR 3.85 (0.83-1.09); PROTHROMBIN TIME (PATIENT) 45.5 SEC (9.7-13.0)
[2020-04-08 07:19] LABS: CALCIUM 8.2 mg/dL (8.5-10.1)
[2020-04-08 07:20] LABS: ALBUMIN 2.7 g/dl (3.4-5.0); BLOOD UREA NITROGEN 24.2 mg/dL (7-18); MAGNESIUM 2.2 mg/dL (1.8-2.4)
[2020-04-08 07:23] LABS: CREATININE 0.8 mg/dL (0.55-1.3)
[2020-04-08 07:25] LABS: BILIRUBIN,TOTAL 0.4 mg/dL (0.2-1); TOT PROT 5.7 g/dl (6.4-8.2)
[2020-04-08] MEDS: SOTALOL HCL 80 MG TABLET (FP) PO SCH ×2 (10:13→21:27)
[2020-04-08] MEDS: ZINC SULFATE 220 MG CAPSULE (FP) PO SCH ×2 (10:13→21:27)
[2020-04-08] MEDS: CHOLECALCIFEROL (VIT D3) 1,000 UNIT (25 MCG) TABLET PO SCH (10:13)
[2020-04-08] MEDS: DEXAMETHASONE SOD PHOSPHATE 4 MG/1 ML VIAL IVPUSH SCH (10:14)
[2020-04-08] MEDS: ASCORBIC ACID 500 MG TABLET (FP) PO SCH (10:14)
[2020-04-08] MEDS: FAMOTIDINE 20 MG TABLET PO SCH (10:16)
[2020-04-08] MEDS: REMDESIVIR 100 MG in SODIUM CHLORIDE 230 ML IVPB SCH (14:08)
[2020-04-09] MEDS: LEVOTHYROXINE NA 125 MCG TABLET (FP) PO SCH (06:08)
[2020-04-09 07:55] LABS: BASO % 0.1 % (0-2.0); HEMATOCRIT 38.6 % (32.4-45.2); HEMOGLOBIN 12.4 GM/dL (10.7-15.3); LYMPH % 9.1 % (8-40); MCH 28.4 pg (25.7-33.7); MCHC 32.1 g/dl (32.0-36.0); MEAN CELL VOLUME 88.6 fl (80-96); MEAN PLT VOLUME 10.5 fl (7.5-11.1); MONO % 8.7 % (3.8-10.2); NEUT % 82.1 % (42.8-82.8); PLATELET COUNT 301 K/MM3 (134-434); RBC 4.35 M/mm3 (3.60-5.2); RDW 15.5 % (11.6-15.6); WHITE BLOOD COUNT 5.9 K/mm3 (4.0-10.0)
[2020-04-09 07:58] LABS: INR 3.84 (0.83-1.09); PROTHROMBIN TIME (PATIENT) 44.7 SEC (9.7-13.0)
[2020-04-09 08:10] LABS: ALBUMIN 2.9 g/dl (3.4-5.0); CALCIUM 8.2 mg/dL (8.5-10.1)
[2020-04-09 08:11] LABS: BLOOD UREA NITROGEN 25.6 mg/dL (7-18); MAGNESIUM 2.2 mg/dL (1.8-2.4)
[2020-04-09 08:14] LABS: CREATININE 0.9 mg/dL (0.55-1.3)
[2020-04-09 08:16] LABS: BILIRUBIN,TOTAL 0.5 mg/dL (0.2-1); TOT PROT 6.2 g/dl (6.4-8.2)
[2020-04-09] MEDS ORDERED: SODIUM ZIRCONIUM CYCLOSILICATE (LOKELMA) 5 GM PACKET PO ONE (08:28)
[2020-04-09] MEDS: DEXAMETHASONE SOD PHOSPHATE 4 MG/1 ML VIAL IVPUSH SCH (09:50)
[2020-04-09] MEDS: FAMOTIDINE 20 MG TABLET PO SCH (09:51)
[2020-04-09] MEDS: ZINC SULFATE 220 MG CAPSULE (FP) PO SCH ×2 (09:51→22:11)
[2020-04-09] MEDS: CHOLECALCIFEROL (VIT D3) 1,000 UNIT (25 MCG) TABLET PO SCH (09:51)
[2020-04-09] MEDS: SOTALOL HCL 80 MG TABLET (FP) PO SCH ×2 (09:51→22:11)
[2020-04-09] MEDS: ASCORBIC ACID 500 MG TABLET (FP) PO SCH (09:51)
[2020-04-09] MEDS: REMDESIVIR 100 MG in SODIUM CHLORIDE 230 ML IVPB SCH (14:40)
[2020-04-09] MEDS: MELATONIN 5 MG TABLETS PO PRN (22:11)
[2020-04-10] MEDS: LEVOTHYROXINE NA 125 MCG TABLET (FP) PO SCH (06:01)
[2020-04-10 08:27] LABS: BASO % 0.1 % (0-2.0); HEMATOCRIT 37.6 % (32.4-45.2); HEMOGLOBIN 12.2 GM/dL (10.7-15.3); LYMPH % 9.3 % (8-40); MCH 28.6 pg (25.7-33.7); MCHC 32.6 g/dl (32.0-36.0); MEAN CELL VOLUME 87.7 fl (80-96); MONO % 10.2 % (3.8-10.2); NEUT % 80.4 % (42.8-82.8); PLATELET COUNT 314 K/MM3 (134-434); RBC 4.29 M/mm3 (3.60-5.2); RDW 15.5 % (11.6-15.6); WHITE BLOOD COUNT 6.6 K/mm3 (4.0-10.0)
[2020-04-10 08:34] LABS: INR 3.8 (0.83-1.09); PROTHROMBIN TIME (PATIENT) 44.2 SEC (9.7-13.0)
[2020-04-10 09:02] LABS: ALBUMIN 2.8 g/dl (3.4-5.0)
[2020-04-10 09:03] LABS: CALCIUM 7.9 mg/dL (8.5-10.1)
[2020-04-10 09:04] LABS: BILIRUBIN,TOTAL 0.6 mg/dL (0.2-1); BLOOD UREA NITROGEN 25.8 mg/dL (7-18); TOT PROT 5.9 g/dl (6.4-8.2)
[2020-04-10 09:05] LABS: CREATININE 0.8 mg/dL (0.55-1.3)
[2020-04-10] MEDS: SOTALOL HCL 80 MG TABLET (FP) PO SCH (09:43)
[2020-04-10] MEDS: FAMOTIDINE 20 MG TABLET PO SCH (09:44)
[2020-04-10] MEDS: ZINC SULFATE 220 MG CAPSULE (FP) PO SCH (09:44)
[2020-04-10] MEDS: CHOLECALCIFEROL (VIT D3) 1,000 UNIT (25 MCG) TABLET PO SCH (09:44)
[2020-04-10] MEDS: DEXAMETHASONE SOD PHOSPHATE 4 MG/1 ML VIAL IVPUSH SCH (09:45)
[2020-04-10] MEDS: ASCORBIC ACID 500 MG TABLET (FP) PO SCH (09:45)
[2020-04-10] MEDS: REMDESIVIR 100 MG in SODIUM CHLORIDE 230 ML IVPB SCH (15:28)
[2020-04-10 16:03] VITALS: BP 119/82; PULSE 86; TEMP 98
[2020-04-13 21:06] LABS: HEP B CORE AB, TOT Negative (Negative)
== END 2020-04-10 18:33 | disposition home or self-care (01) | DRG 308 ==
LOC: JER 02:00 → JERBED 11:39 → JICU 20:42 → J4W 04-03 16:40 → J4S 04-06 19:05
PROVIDERS: ADMIT Internal Medicine; ATTEND Nurse Practitioner Family
PROC: XW033E5 Introduction of Remdesivir Anti-infective into Peripheral Vein, Percutaneous Approach, New Technology Group 5 (ICD-10-PCS; principal; 2020-04-07)
PROC: XW13325 Transfusion of Convalescent Plasma (Nonautologous) into Peripheral Vein, Percutaneous Approach, New Technology Group 5 (ICD-10-PCS; 2020-04-07)
DX: I48.91 Unspecified atrial fibrillation (principal); U07.1 COVID-19; E03.9 Hypothyroidism, unspecified; I48.92 Unspecified atrial flutter; I09.9 Rheumatic heart disease, unspecified; E78.5 Hyperlipidemia, unspecified; I10 Essential (primary) hypertension; Z95.2 Presence of prosthetic heart valve; E66.9 Obesity, unspecified; Z68.35 Body mass index [BMI] 35.0-35.9, adult
CPT/HCPCS: 36415; 36430; 71045-TC-FY; 76705-TC; 80048; 80053; 80162; 81003; 82728; 83615; 83735; 84100; 84132; 84443; 84484; 85025; 85027; 85379; 85610; 85730; 86140; 86704; 86706; 86707; 86708; 86709; 86850; 86900; 86901; 87040; 87086; 87340; 87902; 93005; 93010; 94010; 94760; 94761; 99285-25; C9399; C9803; J0131; J0282; P9017; U0003

== ENCOUNTER 2020-05-04 10:13 | Emergency (ER) | payer OTHER ==
[2020-05-04 10:38] VITALS: BMI 29.7
[2020-05-04] MEDS ORDERED: SODIUM CHLORIDE 500 ML IV STA (10:44)
[2020-05-04 11:15] LABS: HEMATOCRIT 37.2 % (32.4-45.2); HEMOGLOBIN 11.5 GM/dl (10.7-15.3); MCH 28.4 pg (25.7-33.7); MCHC 30.9 g/dl (32.0-36.0); MEAN CELL VOLUME 91.8 fl (80-96); MEAN PLT VOLUME 10.3 fl (7.5-11.1); PLATELET COUNT 327 K/MM3 (134-434); RBC 4.05 M/mm3 (3.60-5.2); RDW 17.8 % (11.6-15.6); WHITE BLOOD COUNT 5.3 K/mm3 (4.0-10.8)
[2020-05-04 11:21] LABS: ALBUMIN 3.2 g/dl (3.4-5.0); BILIRUBIN,TOTAL 0.7 mg/dl (0.2-1); CALCIUM 8.5 mg/dl (8.5-10); CREATININE 0.7 mg/dl (0.55-1.3); MAGNESIUM 1.8 mg/dL (1.8-2.4); TOT PROT 6.1 g/dl (6.4-8.2)
[2020-05-04 11:24] LABS: ADD RBC MORPHOLOGY YES
[2020-05-04 11:28] LABS: ACTIVATED PTT 49.2 SECONDS (25.2-36.5)
[2020-05-04 11:33] LABS: INR 4.76 (0.82-1.09); PROTHROMBIN TIME (PATIENT) 48.1 SEC (10.2-13.0)
[2020-05-04 12:18] LABS: N-TERMINAL BNP 2869.1 pg/ml (5-125)
[2020-05-04 13:02] LABS: ANISOCYTOSIS 2+
[2020-05-04 13:03] LABS: PLATELET ESTIMATE ADEQUATE
[2020-05-04] MEDS ORDERED: FUROSEMIDE 40 MG/4 ML INJECTABLE VIAL IVPUSH ONE (13:12)
[2020-05-04] MEDS ORDERED: FUROSEMIDE 100 MG/10 ML INJECTABLE VIAL ONE (13:18)
[2020-05-04] MEDS ORDERED: dilTIAZem HCL 30 MG TABLET ONE (14:34)
[2020-05-04] MEDS ORDERED: guaiFENesin 200 MG/10 ML 10 ML UNIT-DOSE CUPS PO ONE (14:39)
[2020-05-04] MEDS ORDERED: guaiFENesin/CODEINE 10 ML UNIT-DOSE CUPS ONE (14:40)
[2020-05-04 17:25] VITALS: BP 85/56; PULSE 107; TEMP 98
== END 2020-05-04 17:28 | disposition home or self-care (01) ==
LOC: FER 10:13
PROC: 3E033GC Introduction of Other Therapeutic Substance into Peripheral Vein, Percutaneous Approach (ICD-10-PCS; principal; 2020-05-04)
PROC: 3E0337Z Introduction of Electrolytic and Water Balance Substance into Peripheral Vein, Percutaneous Approach (ICD-10-PCS; 2020-05-04)
DX: I48.20 Chronic atrial fibrillation, unspecified (principal); R05 Cough; R00.2 Palpitations
CPT/HCPCS: 36415; 71045-TC-FY; 71275-TC; 80053; 82550; 83735; 83880; 84439; 84443; 84484; 85025; 85610; 85730; 93005; 99285-25; Q9967

== ENCOUNTER 2020-07-11 11:35 | Emergency (ER) | payer OTHER ==
[2020-07-11 11:43] VITALS: BP 134/72; PULSE 63; TEMP 97.5; BMI 36.8
[2020-07-11] MEDS ORDERED: ACETAMINOPHEN 500 MG TABLET (FP) PO ONE (12:10)
[2020-07-11] MEDS ORDERED: ACETAMINOPHEN 500 MG TABLET (FP) ONE (12:14)
[2020-07-11] MEDS ORDERED: LIDOCAINE HCL 1% PRESERVATIVE FREE - 30ML VIAL IJ ONE (13:18)
[2020-07-11] MEDS ORDERED: LIDOCAINE HCL 1%, 10 MG/ML (20ML VIAL) ONE (13:24)
[2020-07-11] MEDS ORDERED: oxyCODONE HCL 5 MG TABLET PO ONE (13:28)
[2020-07-11] MEDS ORDERED: oxyCODONE HCL 5 MG TABLET ONE (13:31)
== END 2020-07-11 16:20 | disposition home or self-care (01) ==
LOC: FER 11:35
DX: S52.022A Displaced fracture of olecranon process without intraarticular extension of left ulna, initial encounter for closed fracture (principal)
CPT/HCPCS: 73070-TC-LT-FY; 73090-TC-LT-FY; 99285-25

== ENCOUNTER 2020-07-13 06:17 | Emergency (ER) | payer OTHER ==
[2020-07-13 06:30] VITALS: BP 133/75; PULSE 74; TEMP 98.9; BMI 35.4
== END 2020-07-13 06:48 | disposition home or self-care (01) ==
LOC: FER 06:17
DX: S42.402D Unspecified fracture of lower end of left humerus, subsequent encounter for fracture with routine healing (principal)
CPT/HCPCS: 99283-25

== ENCOUNTER 2020-07-14 05:06 | Emergency (ER) | payer OTHER ==
[2020-07-14 05:13] VITALS: BP 138/76; BMI 34.2
== END 2020-07-14 05:36 | disposition home or self-care (01) ==
LOC: FER 05:06
DX: S42.402A Unspecified fracture of lower end of left humerus, initial encounter for closed fracture (principal)
CPT/HCPCS: 99281-25

== ENCOUNTER 2020-07-17 10:15 | Inpatient (IN) | payer OTHER ==
[2020-07-17 10:54] LABS: BASO % 1.3 % (0-2.0); HEMATOCRIT 38.9 % (32.4-45.2); HEMOGLOBIN 12.9 GM/dl (10.7-15.3); LYMPH % 15.2 % (8-40); MCH 29.9 pg (25.7-33.7); MCHC 33.3 g/dl (32.0-36.0); MEAN CELL VOLUME 89.7 fl (80-96); MEAN PLT VOLUME 9.8 fl (7.5-11.1); MONO % 10.7 % (3.8-10.2); NEUT % 70.8 % (42.8-82.8); PLATELET COUNT 375 K/MM3 (134-434); RBC 4.34 M/mm3 (3.60-5.2); RDW 14.9 % (11.6-15.6); WHITE BLOOD COUNT 8.2 K/mm3 (4.0-10.8)
[2020-07-17 11:08] LABS: ACTIVATED PTT 32.1 SECONDS (25.2-36.5)
[2020-07-17 11:10] LABS: ALBUMIN 3.5 g/dl (3.4-5.0); BILIRUBIN,TOTAL 0.6 mg/dl (0.2-1); CALCIUM 8.8 mg/dl (8.5-10); CREATININE 0.9 mg/dl (0.55-1.3); MAGNESIUM 1.9 mg/dL (1.8-2.4); PHOSPHOROUS 3.2 mg/dl (2.5-4.9); TOT PROT 6.5 g/dl (6.4-8.2)
[2020-07-17 11:13] LABS: INR 1.43 (0.82-1.09); PROTHROMBIN TIME (PATIENT) 15.6 SEC (10.2-13.0)
[2020-07-17] MEDS ORDERED: PANTOPRAZOLE 20 MG TABLET PO PRN (12:13)
[2020-07-17] MEDS ORDERED: HEPARIN NA (PORCINE) 5,000 UNITS/ML 1ML VIAL IVPUSH ONE (13:32)
[2020-07-17] MEDS ORDERED: HEPARIN NA (PORCINE) 5,000 UNITS/ML 1ML VIAL IVPUSH PRN ×2 (13:37)
[2020-07-17] MEDS ORDERED: HEPARIN INFUSION - 25,000 UNITS/500 ML INFUS.BAG IVPB ONE (13:58)
[2020-07-17] MEDS ORDERED: HEPARIN NA (PORCINE) 5,000 UNITS/ML 1ML VIAL ONE (13:58)
[2020-07-17] MEDS ORDERED: oxyCODONE HCL 5 MG TABLET ONE (14:00)
[2020-07-17] MEDS: oxyCODONE HCL 5 MG TABLET PO PRN ×2 (14:05→18:20)
[2020-07-17] MEDS: HEPARIN SOD,PORK IN 0.45% NACL 25,000 UNITS/500 ML INFUS.BAG IVPB SCH (14:10)
[2020-07-17 15:07] VITALS: BMI 37.0
[2020-07-17] MEDS ORDERED: PT OWN MED DRAWER 7, Y5N ONE (21:09)
[2020-07-17] MEDS: SOTALOL HCL 80 MG TABLET (FP) PO SCH (21:27)
[2020-07-18] MEDS: oxyCODONE HCL 5 MG TABLET PO PRN ×4 (02:04→22:09)
[2020-07-18] MEDS ORDERED: LEVOTHYROXINE NA 100 MCG TABLET (FP) ONE (06:06)
[2020-07-18] MEDS ORDERED: LEVOTHYROXINE NA 75 MCG TABLET (FP) ONE (06:06)
[2020-07-18] MEDS ORDERED: LEVOTHYROXINE 75 MCG, LEVOTHYROXINE 100 MCG PO SCH (07:00)
[2020-07-18 07:51] LABS: ALBUMIN 2.9 g/dl (3.4-5.0); BILIRUBIN,TOTAL 0.6 mg/dl (0.2-1); CALCIUM 8.4 mg/dl (8.5-10); CREATININE 0.8 mg/dl (0.55-1.3); MAGNESIUM 1.9 mg/dL (1.8-2.4); TOT PROT 5.6 g/dl (6.4-8.2)
[2020-07-18 07:54] LABS: BASO % 1.5 % (0-2.0); EOS % 2.6 % (0-4.5); HEMATOCRIT 37.2 % (32.4-45.2); HEMOGLOBIN 12.1 GM/dl (10.7-15.3); LYMPH % 21.3 % (8-40); MCH 29.3 pg (25.7-33.7); MCHC 32.5 g/dl (32.0-36.0); MEAN CELL VOLUME 90.2 fl (80-96); MEAN PLT VOLUME 9.9 fl (7.5-11.1); MONO % 11.6 % (3.8-10.2); PLATELET COUNT 315 K/MM3 (134-434); RBC 4.13 M/mm3 (3.60-5.2); RDW 14.5 % (11.6-15.6); WHITE BLOOD COUNT 6.9 K/mm3 (4.0-10.8)
[2020-07-18] MEDS: SOTALOL HCL 80 MG TABLET (FP) PO SCH ×2 (09:15→21:39)
[2020-07-18] MEDS: PANTOPRAZOLE 20 MG TABLET PO SCH (09:16)
[2020-07-18] MEDS ORDERED: LEVOTHYROXINE NA 100 MCG TABLET (FP) PO SCH (10:00)
[2020-07-18] MEDS: HEPARIN SOD,PORK IN 0.45% NACL 25,000 UNITS/500 ML INFUS.BAG IVPB SCH (13:57)
[2020-07-18] MEDS ORDERED: SODIUM CHLORIDE IV SCH (14:00)
[2020-07-18] MEDS ORDERED: HEPARIN IV SCH (14:00)
[2020-07-19] MEDS: oxyCODONE HCL 5 MG TABLET PO PRN (04:18)
[2020-07-19] MEDS: LEVOTHYROXINE NA 100 MCG TABLET (FP) PO SCH (06:10)
[2020-07-19 08:04] LABS: HEMOGLOBIN 11.5 GM/dl (10.7-15.3); MCHC 31.1 g/dl (32.0-36.0); MEAN CELL VOLUME 90.1 fl (80-96); MEAN PLT VOLUME 9.4 fl (7.5-11.1); PLATELET COUNT 331 K/MM3 (134-434); RDW 14.6 % (11.6-15.6); WHITE BLOOD COUNT 7.4 K/mm3 (4.0-10.8)
[2020-07-19] MEDS: SOTALOL HCL 80 MG TABLET (FP) PO SCH ×2 (09:14→21:37)
[2020-07-19] MEDS: PANTOPRAZOLE 20 MG TABLET PO SCH (09:18)
[2020-07-19 11:46] LABS: INR 1.22 (0.82-1.09); PROTHROMBIN TIME (PATIENT) 13.5 SEC (10.2-13.0)
[2020-07-19] MEDS ORDERED: MIDAZOLAM HCL 2 MG/2 ML SINGLE DOSE VIAL ONE (12:35)
[2020-07-19] MEDS ORDERED: BUPIVACAINE HCL/PF 0.5% (5 MG/ML) 30 ML VIAL IJ ONE (12:35)
[2020-07-19] MEDS ORDERED: PROPOFOL 20 ML ONE ×2 (13:00)
[2020-07-19] MEDS ORDERED: KETOROLAC TROMETHAMINE 30 MG/1 ML VIAL ONE (13:02)
[2020-07-19] MEDS ORDERED: DEXAMETHASONE SOD PHOSPHATE 4 MG/1 ML VIAL ONE (13:02)
[2020-07-19] MEDS ORDERED: ONDANSETRON 4 MG/2 ML VIAL ONE (13:02)
[2020-07-19] MEDS ORDERED: ceFAZolin SODIUM 1 GM VIAL ONE (13:02)
[2020-07-19] MEDS ORDERED: EPHEDRINE SULFATE/0.9% NACL/PF 50 MG/10 ML SYRINGE NR ONE (13:12)
[2020-07-19] MEDS ORDERED: PROMETHAZINE HCL 25 MG/1 ML VIAL IVPUSH PRN (14:53)
[2020-07-19] MEDS ORDERED: ONDANSETRON 4 MG/2 ML VIAL IVPUSH PRN (14:53)
[2020-07-19] MEDS ORDERED: HEPARIN NA (PORCINE) 5,000 UNITS/ML 1ML VIAL IVPUSH PRN (15:23)
[2020-07-19] MEDS: WARFARIN NA 5 MG TABLET PO SCH (17:43)
[2020-07-19] MEDS ORDERED: oxyCODONE HCL 5 MG TABLET PO SCH (20:00)
[2020-07-19] MEDS: oxyCODONE HCL 5 MG TABLET PO SCH (20:00)
[2020-07-19] MEDS: HEPARIN - 25,000 UNIT in SODIUM CHLORIDE 495 ML IV SCH (21:00)
[2020-07-19] MEDS: DOCUSATE SODIUM 100 MG CAPSULE (FP) PO SCH (21:37)
[2020-07-20] MEDS ORDERED: LOCK ITEM NR ONE (04:05)
[2020-07-20] MEDS: oxyCODONE HCL 5 MG TABLET PO SCH ×4 (04:11→13:29)
[2020-07-20] MEDS: LEVOTHYROXINE NA 100 MCG TABLET (FP) PO SCH (06:04)
[2020-07-20 07:56] LABS: BASO % 0.9 % (0-2.0); HEMATOCRIT 37.2 % (32.4-45.2); HEMOGLOBIN 12.4 GM/dl (10.7-15.3); LYMPH % 6.3 % (8-40); MCH 29.6 pg (25.7-33.7); MCHC 33.2 g/dl (32.0-36.0); MEAN CELL VOLUME 89.1 fl (80-96); MEAN PLT VOLUME 10.7 fl (7.5-11.1); MONO % 4.4 % (3.8-10.2); NEUT % 88.4 % (42.8-82.8); PLATELET COUNT 337 K/MM3 (134-434); RBC 4.18 M/mm3 (3.60-5.2); RDW 14.4 % (11.6-15.6); WHITE BLOOD COUNT 13.5 K/mm3 (4.0-10.8)
[2020-07-20 08:55] LABS: ACTIVATED PTT 49.3 SECONDS (25.2-36.5); INR 1.28 (0.82-1.09); PROTHROMBIN TIME (PATIENT) 14.1 SEC (10.2-13.0)
[2020-07-20 09:04] LABS: ALBUMIN 3.4 g/dl (3.4-5.0); BILIRUBIN,TOTAL 0.5 mg/dl (0.2-1); CALCIUM 8.8 mg/dl (8.5-10); CREATININE 0.9 mg/dl (0.55-1.3); TOT PROT 6.7 g/dl (6.4-8.2)
[2020-07-20] MEDS: HEPARIN NA (PORCINE) 5,000 UNITS/ML 1ML VIAL IVPUSH PRN (09:05)
[2020-07-20] MEDS: HEPARIN - 25,000 UNIT in SODIUM CHLORIDE 495 ML IV SCH (09:05)
[2020-07-20] MEDS: DOCUSATE SODIUM 100 MG CAPSULE (FP) PO SCH ×2 (09:32→21:09)
[2020-07-20] MEDS: SOTALOL HCL 80 MG TABLET (FP) PO SCH ×2 (09:32→21:09)
[2020-07-20] MEDS: PANTOPRAZOLE 20 MG TABLET PO SCH (09:32)
[2020-07-20] MEDS ORDERED: oxyCODONE HCL 5 MG TABLET PO PRN (12:00)
[2020-07-20] MEDS: WARFARIN NA 5 MG TABLET PO SCH (18:15)
[2020-07-20] MEDS: oxyCODONE HCL 5 MG TABLET PO PRN (21:09)
[2020-07-21] MEDS: oxyCODONE HCL 5 MG TABLET PO PRN ×2 (06:13→21:32)
[2020-07-21] MEDS: LEVOTHYROXINE NA 100 MCG TABLET (FP) PO SCH (06:13)
[2020-07-21] MEDS: HEPARIN - 25,000 UNIT in SODIUM CHLORIDE 495 ML IV SCH ×4 (07:20→21:36)
[2020-07-21 08:25] LABS: ACTIVATED PTT 73.3 SECONDS (25.2-36.5); INR 1.46 (0.82-1.09); PROTHROMBIN TIME (PATIENT) 15.9 SEC (10.2-13.0)
[2020-07-21 08:34] LABS: MCH 29.1 pg (25.7-33.7); RBC 3.96 M/mm3 (3.60-5.2); WHITE BLOOD COUNT 8.6 K/mm3 (4.0-10.8)
[2020-07-21 08:36] LABS: HEMATOCRIT 35.4 % (32.4-45.2); HEMOGLOBIN 11.6 GM/dl (10.7-15.3); MCHC 32.6 g/dl (32.0-36.0); MEAN CELL VOLUME 89.3 fl (80-96); MEAN PLT VOLUME 9.7 fl (7.5-11.1); PLATELET COUNT 318 K/MM3 (134-434); RDW 14.5 % (11.6-15.6)
[2020-07-21] MEDS: DOCUSATE SODIUM 100 MG CAPSULE (FP) PO SCH ×2 (09:05→21:31)
[2020-07-21] MEDS: PANTOPRAZOLE 20 MG TABLET PO SCH (09:05)
[2020-07-21] MEDS: SOTALOL HCL 80 MG TABLET (FP) PO SCH ×2 (09:16→21:31)
[2020-07-21] MEDS ORDERED: WARFARIN NA 2 MG TABLET ONE (16:32)
[2020-07-21] MEDS ORDERED: WARFARIN NA 10 MG TABLET ONE (16:32)
[2020-07-21] MEDS: WARFARIN NA 10 MG, WARFARIN NA 2 MG PO SCH (17:11)
[2020-07-21] MEDS ORDERED: WARFARIN NA 5 MG TABLET PO SCH (18:00)
[2020-07-22] MEDS: oxyCODONE HCL 5 MG TABLET PO PRN ×2 (03:56→21:29)
[2020-07-22] MEDS: LEVOTHYROXINE NA 100 MCG TABLET (FP) PO SCH (06:24)
[2020-07-22 08:13] LABS: HEMATOCRIT 37.3 % (32.4-45.2); HEMOGLOBIN 12.2 GM/dl (10.7-15.3); MCH 29.1 pg (25.7-33.7); MCHC 32.6 g/dl (32.0-36.0); MEAN CELL VOLUME 89.5 fl (80-96); MEAN PLT VOLUME 10.1 fl (7.5-11.1); PLATELET COUNT 322 K/MM3 (134-434); RBC 4.17 M/mm3 (3.60-5.2); RDW 14.9 % (11.6-15.6); WHITE BLOOD COUNT 7.6 K/mm3 (4.0-10.8)
[2020-07-22 08:39] LABS: ACTIVATED PTT 86.4 SECONDS (25.2-36.5)
[2020-07-22 08:44] LABS: INR 1.77 (0.82-1.09); PROTHROMBIN TIME (PATIENT) 19.1 SEC (10.2-13.0)
[2020-07-22] MEDS: SOTALOL HCL 80 MG TABLET (FP) PO SCH ×2 (09:38→21:28)
[2020-07-22] MEDS: DOCUSATE SODIUM 100 MG CAPSULE (FP) PO SCH ×2 (09:39→21:29)
[2020-07-22] MEDS: PANTOPRAZOLE 20 MG TABLET PO SCH (09:39)
[2020-07-22] MEDS ORDERED: WARFARIN NA 2 MG TABLET ONE (17:04)
[2020-07-22] MEDS ORDERED: WARFARIN NA 10 MG TABLET ONE (17:04)
[2020-07-22] MEDS: WARFARIN NA 10 MG, WARFARIN NA 2 MG PO SCH (17:51)
[2020-07-22] MEDS: ACETAMINOPHEN 325 MG TABLET (FP) PO PRN (22:26)
[2020-07-23] MEDS: HEPARIN - 25,000 UNIT in SODIUM CHLORIDE 495 ML IV SCH (03:36)
[2020-07-23] MEDS: ACETAMINOPHEN 325 MG TABLET (FP) PO PRN ×2 (06:00→21:42)
[2020-07-23] MEDS: LEVOTHYROXINE NA 100 MCG TABLET (FP) PO SCH (06:00)
[2020-07-23 08:11] LABS: HEMATOCRIT 38.2 % (32.4-45.2); HEMOGLOBIN 12.3 GM/dl (10.7-15.3); MCH 28.9 pg (25.7-33.7); MCHC 32.2 g/dl (32.0-36.0); MEAN CELL VOLUME 89.7 fl (80-96); MEAN PLT VOLUME 10.5 fl (7.5-11.1); PLATELET COUNT 311 K/MM3 (134-434); RBC 4.25 M/mm3 (3.60-5.2); WHITE BLOOD COUNT 7.2 K/mm3 (4.0-10.8)
[2020-07-23 08:18] LABS: INR 2.11 (0.82-1.09); PROTHROMBIN TIME (PATIENT) 22.5 SEC (10.2-13.0)
[2020-07-23] MEDS: PANTOPRAZOLE 20 MG TABLET PO SCH (10:17)
[2020-07-23] MEDS: SOTALOL HCL 80 MG TABLET (FP) PO SCH ×2 (10:17→21:37)
[2020-07-23] MEDS: DOCUSATE SODIUM 100 MG CAPSULE (FP) PO SCH ×2 (10:17→21:38)
[2020-07-23 17:30] LABS: INR 2.21 (0.82-1.09); PROTHROMBIN TIME (PATIENT) 23.5 SEC (10.2-13.0)
[2020-07-23] MEDS ORDERED: WARFARIN NA 10 MG TABLET ONE (18:42)
[2020-07-23] MEDS ORDERED: WARFARIN NA 2 MG TABLET ONE (18:42)
[2020-07-23] MEDS: WARFARIN NA 10 MG, WARFARIN NA 2 MG PO SCH (18:45)
[2020-07-23] MEDS ORDERED: oxyCODONE HCL 5 MG TABLET PO ONE (23:02)
[2020-07-24] MEDS: HEPARIN NA (PORCINE) 5,000 UNITS/ML 1ML VIAL IVPUSH PRN (05:14)
[2020-07-24] MEDS: HEPARIN - 25,000 UNIT in SODIUM CHLORIDE 495 ML IV SCH (05:23)
[2020-07-24] MEDS: LEVOTHYROXINE NA 100 MCG TABLET (FP) PO SCH (06:07)
[2020-07-24 07:57] LABS: HEMATOCRIT 38.3 % (32.4-45.2); HEMOGLOBIN 12.3 GM/dl (10.7-15.3); MCH 28.5 pg (25.7-33.7); MCHC 32.1 g/dl (32.0-36.0); MEAN PLT VOLUME 10.2 fl (7.5-11.1); PLATELET COUNT 346 K/MM3 (134-434); RBC 4.31 M/mm3 (3.60-5.2); WHITE BLOOD COUNT 7.3 K/mm3 (4.0-10.8)
[2020-07-24] MEDS ORDERED: oxyCODONE HCL 5 MG TABLET PO PRN (08:21)
[2020-07-24 08:29] LABS: CREATININE 0.9 mg/dl (0.55-1.3)
[2020-07-24 08:52] VITALS: BP 127/74; PULSE 64; TEMP 98.5
[2020-07-24 09:18] LABS: INR 2.31 (0.82-1.09); PROTHROMBIN TIME (PATIENT) 24.5 SEC (10.2-13.0)
[2020-07-24] MEDS: SOTALOL HCL 80 MG TABLET (FP) PO SCH (09:34)
[2020-07-24] MEDS: DOCUSATE SODIUM 100 MG CAPSULE (FP) PO SCH (09:34)
[2020-07-24] MEDS: PANTOPRAZOLE 20 MG TABLET PO SCH (09:34)
[2020-07-24 11:02] LABS: ACTIVATED PTT 129.6 SECONDS (25.2-36.5)
== END 2020-07-24 14:36 | disposition home or self-care (01) | DRG 501 ==
LOC: FER 10:15 → FM/S 13:14
PROVIDERS: ADMIT Internal Medicine; ATTEND Nurse Practitioner Acute Care
PROC: 0MQ40ZZ Repair Left Elbow Bursa and Ligament, Open Approach (ICD-10-PCS; 2020-07-19)
PROC: 0PBJ0ZZ Excision of Left Radius, Open Approach (ICD-10-PCS; 2020-07-19)
PROC: 0PSL04Z Reposition Left Ulna with Internal Fixation Device, Open Approach (ICD-10-PCS; principal; 2020-07-19 13:22)
DX: S52.032A Displaced fracture of olecranon process with intraarticular extension of left ulna, initial encounter for closed fracture (principal); I48.92 Unspecified atrial flutter; I50.32 Chronic diastolic (congestive) heart failure; S52.182A Other fracture of upper end of left radius, initial encounter for closed fracture; M79.602 Pain in left arm; E03.9 Hypothyroidism, unspecified; I10 Essential (primary) hypertension; I11.0 Hypertensive heart disease with heart failure; I09.9 Rheumatic heart disease, unspecified; F32.9 Major depressive disorder, single episode, unspecified; E78.5 Hyperlipidemia, unspecified; I48.0 Paroxysmal atrial fibrillation; W18.39XA Other fall on same level, initial encounter; Y92.89 Other specified places as the place of occurrence of the external cause; Y99.8 Other external cause status; Z95.2 Presence of prosthetic heart valve; Z79.01 Long term (current) use of anticoagulants
CPT/HCPCS: 36415; 71045-TC-FY; 73070-TC-LT-FY; 80048; 80053; 83735; 84100; 84443; 85025; 85027; 85610; 85730; 86850; 86900; 86901; 93005; 94760; 97116-GP; 97161-GP; 99281-25; 99285-25; C9803; J1644; U0003; U0005

== ENCOUNTER 2020-08-25 05:48 | Emergency (ER) | payer OTHER ==
[2020-08-25 06:03] VITALS: TEMP 97.7; BMI 36.0
[2020-08-25] MEDS ORDERED: KETOROLAC TROMETHAMINE 30 MG/1 ML VIAL IVPUSH ONE (06:30)
[2020-08-25] MEDS ORDERED: SODIUM CHLORIDE 1,000 ML ONE (06:30)
[2020-08-25] MEDS ORDERED: KETOROLAC TROMETHAMINE 30 MG/1 ML VIAL ONE (06:54)
[2020-08-25 07:42] LABS: BASO % 0.5 % (0-2.0); EOS % 0.4 % (0-4.5); HEMATOCRIT 35.4 % (32.4-45.2); HEMOGLOBIN 11.4 GM/dl (10.7-15.3); LYMPH % 9.6 % (8-40); MCH 28.7 pg (25.7-33.7); MCHC 32.3 g/dl (32.0-36.0); MEAN CELL VOLUME 88.8 fl (80-96); MEAN PLT VOLUME 9.9 fl (7.5-11.1); MONO % 4.5 % (3.8-10.2); PLATELET COUNT 416 K/MM3 (134-434); RBC 3.98 M/mm3 (3.60-5.2); RDW 15.3 % (11.6-15.6); WHITE BLOOD COUNT 9.9 K/mm3 (4.0-10.8)
[2020-08-25 08:28] LABS: ALBUMIN 3.2 g/dl (3.4-5.0); BILIRUBIN,TOTAL 0.3 mg/dl (0.2-1); CALCIUM 8.5 mg/dl (8.5-10); CREATININE 0.8 mg/dl (0.55-1.3)
[2020-08-25] MEDS ORDERED: FAMOTIDINE 20 MG/50 ML IVPB 20 MG/50 ML MG IVPB ONE ×2 (09:10→09:14)
[2020-08-25 09:45] VITALS: BP 124/72; PULSE 82
== END 2020-08-25 09:47 | disposition home or self-care (01) ==
LOC: FER 05:48
PROC: 3E033GC Introduction of Other Therapeutic Substance into Peripheral Vein, Percutaneous Approach (ICD-10-PCS; principal; 2020-08-25)
PROC: 3E0333Z Introduction of Anti-inflammatory into Peripheral Vein, Percutaneous Approach (ICD-10-PCS; 2020-08-25)
PROC: 3E0337Z Introduction of Electrolytic and Water Balance Substance into Peripheral Vein, Percutaneous Approach (ICD-10-PCS; 2020-08-25)
DX: R10.13 Epigastric pain (principal); R11.0 Nausea
CPT/HCPCS: 36415; 76705-TC; 80053; 83690; 85025; 93005; 99285-25; C9803; U0003; U0005

== ENCOUNTER 2020-10-15 14:33 | Inpatient (IN) | payer OTHER ==
[2020-10-15] MEDS ORDERED: ONDANSETRON 4 MG/2 ML VIAL IVPUSH ONE (15:24)
[2020-10-15] MEDS ORDERED: FAMOTIDINE 20 MG/50 ML IVPB 20 MG/50 ML MG IVPB ONE ×2 (15:24→15:50)
[2020-10-15] MEDS ORDERED: LACTATED RINGERS SOLUTION 1000 ML INFUS.BAG IV ONE (15:24)
[2020-10-15] MEDS ORDERED: ACETAMINOPHEN 1000 MG/100 ML VIAL (NON FORMULARY) IVPB ONE ×2 (15:24→22:55)
[2020-10-15] MEDS ORDERED: ACETAMINOPHEN INJECTION 100 ML IVPB ONE (15:50)
[2020-10-15] MEDS ORDERED: ONDANSETRON 4 MG/2 ML VIAL ONE (15:50)
[2020-10-15 15:54] LABS: BASO % 0.5 % (0-2.0); EOS % 0.1 % (0-4.5); HEMOGLOBIN 13.1 GM/dl (10.7-15.3); LYMPH % 7.6 % (8-40); MCH 28.6 pg (25.7-33.7); MCHC 32.7 g/dl (32.0-36.0); MEAN CELL VOLUME 87.6 fl (80-96); MEAN PLT VOLUME 9.8 fl (7.5-11.1); MONO % 4.2 % (3.8-10.2); NEUT % 87.6 % (42.8-82.8); PLATELET COUNT 343 10^3/uL (134-434); RBC 4.57 M/mm3 (3.60-5.2); RDW 14.8 % (11.6-15.6); WHITE BLOOD COUNT 11.7 K/mm3 (4.0-10.8)
[2020-10-15] MEDS ORDERED: MAGNESIUM SULF 50% (8.12 MEQ/2 ML-1 GM VIAL) IVPB ONE (15:56)
[2020-10-15 16:18] LABS: ACTIVATED PTT 41.9 SECONDS (25.2-36.5)
[2020-10-15 16:19] LABS: ALBUMIN 3.8 g/dl (3.4-5.0); ALK PHOS 100 U/L (45-117); ANION GAP 10 MMOL/L (8-16); BILIRUBIN,TOTAL 0.8 mg/dl (0.2-1); CALCIUM 8.7 mg/dl (8.5-10); CHLORIDE 100 mmol/L (98-107); CO2 24 mmol/L (21-32); GLUCOSE,RANDOM 124 mg/dl (74-106); MAGNESIUM 1.9 mg/dL (1.8-2.4); SGOT/AST 29 U/L (15-37); SGPT/ALT 30 U/L (13-61); SODIUM 134 mmol/L (136-145); TOT PROT 6.9 g/dl (6.4-8.2)
[2020-10-15 16:22] LABS: INR 2.67 (0.82-1.09)
[2020-10-15] MEDS ORDERED: MAGNESIUM 1GM/D5W - 1 GM/100 ML IVPB IVPB ONE (16:25)
[2020-10-15 17:22] LABS: LIPASE 162 U/L (73-393)
[2020-10-15] MEDS ORDERED: CEFTRIAXONE 1 GM in DEXTROSE 5%-WATER - 100 ML IVPB ONE (18:01)
[2020-10-15 18:34] LABS: EPITHELIAL CELLS FEW /hpf
[2020-10-15] MEDS ORDERED: cefTRIAXone SODIUM 1 GM VIAL ONE (18:44)
[2020-10-15] MEDS ORDERED: ACETAMINOPHEN 500 MG TABLET (FP) ONE (22:57)
[2020-10-15] MEDS ORDERED: ACETAMINOPHEN 500 MG TABLET (FP) PO ONE (22:58)
[2020-10-16] MEDS ORDERED: MORPHINE SULFATE 2 MG/ML VIAL IVPUSH ONE ×2 (03:28→15:05)
[2020-10-16] MEDS ORDERED: POLYETHYLENE GLYCOL 3350 119 GM BTL PO ONE (05:20)
[2020-10-16] MEDS ORDERED: ACETAMINOPHEN 325 MG TABLET (FP) PO PRN (05:20)
[2020-10-16] MEDS ORDERED: KETOROLAC TROMETHAMINE 15 MG/ML VIAL IVPUSH PRN (05:20)
[2020-10-16] MEDS ORDERED: LEVOTHYROXINE NA 50 MCG TABLET (FP) ONE (06:40)
[2020-10-16] MEDS ORDERED: LEVOTHYROXINE NA 125 MCG TABLET (FP) ONE (06:40)
[2020-10-16] MEDS: LEVOTHYROXINE 125 MCG, LEVOTHYROXINE 50 MCG PO SCH (06:53)
[2020-10-16 08:15] LABS: BASO % 0.4 % (0-2.0); EOS % 0.1 % (0-4.5); HEMATOCRIT 37.1 % (32.4-45.2); HEMOGLOBIN 12.1 GM/dL (10.7-15.3); MCH 27.8 pg (25.7-33.7); MCHC 32.6 g/dl (32.0-36.0); MEAN CELL VOLUME 85.4 fl (80-96); MEAN PLT VOLUME 9.3 fl (7.5-11.1); MONO % 6.6 % (3.8-10.2); NEUT % 85.9 % (42.8-82.8); PLATELET COUNT 269 10^3/uL (134-434); RBC 4.34 M/mm3 (3.60-5.2); RDW 15.7 % (11.6-15.6); WHITE BLOOD COUNT 11.6 K/mm3 (4.0-10.0)
[2020-10-16 08:37] LABS: BLOOD UREA NITROGEN 14.7 mg/dL (7-18); CALCIUM 8.5 mg/dL (8.5-10.1)
[2020-10-16 08:39] LABS: MAGNESIUM 2.2 mg/dL (1.8-2.4)
[2020-10-16 08:40] LABS: CREATININE 1.1 mg/dL (0.55-1.3)
[2020-10-16 08:41] LABS: BILIRUBIN,TOTAL 0.5 mg/dL (0.2-1); TOT PROT 6.3 g/dl (6.4-8.2)
[2020-10-16] MEDS ORDERED: LEVOTHYROXINE NA 100 MCG TABLET (FP) PO SCH (10:00)
[2020-10-16] MEDS ORDERED: FAMOTIDINE 20 MG TABLET PO SCH (10:00)
[2020-10-16] MEDS ORDERED: PT OWN MED DRAWER 7, Y5N ONE ×2 (11:04→20:33)
[2020-10-16] MEDS: MORPHINE SULFATE 2 MG/ML VIAL IVPUSH PRN (11:30)
[2020-10-16] MEDS: CHOLECALCIFEROL (VIT D3) 1,000 UNIT (25 MCG) TABLET PO SCH (11:31)
[2020-10-16] MEDS: ZINC SULFATE 220 MG CAPSULE (FP) PO SCH (11:31)
[2020-10-16] MEDS: ASCORBIC ACID 500 MG TABLET (FP) PO SCH ×2 (11:31→21:39)
[2020-10-16] MEDS: TAMSULOSIN HCL 0.4 MG CAP PO SCH (11:32)
[2020-10-16] MEDS: POLYETHYLENE GLYCOL 3350 119 GM BTL PO SCH ×2 (11:32→21:39)
[2020-10-16] MEDS ORDERED: HEPARIN NA (PORCINE) 5,000 UNITS/ML 1ML VIAL IVPUSH PRN ×2 (12:10)
[2020-10-16] MEDS ORDERED: HEPARIN SOD,PORK IN 0.45% NACL 25,000 UNITS/500 ML INFUS.BAG IVPB SCH (12:15)
[2020-10-16 17:09] LABS: INR 2.83 (0.83-1.09); PROTHROMBIN TIME (PATIENT) 33.2 SEC (9.7-13.0)
[2020-10-16] MEDS ORDERED: WARFARIN NA 10 MG TABLET PO SCH (18:00)
[2020-10-16] MEDS ORDERED: cefTRIAXone SODIUM 1 GM VIAL ONE (19:45)
[2020-10-16] MEDS ORDERED: DEXTROSE 5%-WATER - 50 ML IVPB ONE (19:46)
[2020-10-16] MEDS: CEFTRIAXONE 1 GM in DEXTROSE 5%-WATER - 50 ML IVPB SCH (19:49)
[2020-10-16] MEDS: SOTALOL HCL 80 MG TABLET (FP) PO SCH (21:38)
[2020-10-17] MEDS ORDERED: LEVOTHYROXINE NA 125 MCG TABLET (FP) ONE (05:40)
[2020-10-17] MEDS ORDERED: LEVOTHYROXINE NA 50 MCG TABLET (FP) ONE (05:40)
[2020-10-17] MEDS: LEVOTHYROXINE 125 MCG, LEVOTHYROXINE 50 MCG PO SCH (06:09)
[2020-10-17 07:46] LABS: INR 1.96 (0.83-1.09); PROTHROMBIN TIME (PATIENT) 23.3 SEC (9.7-13.0)
[2020-10-17 07:59] LABS: ALBUMIN 3.2 g/dl (3.4-5.0); BLOOD UREA NITROGEN 15.4 mg/dL (7-18); MAGNESIUM 2.3 mg/dL (1.8-2.4)
[2020-10-17 08:02] LABS: CREATININE 1.2 mg/dL (0.55-1.3)
[2020-10-17 08:04] LABS: BILIRUBIN,TOTAL 0.8 mg/dL (0.2-1); TOT PROT 6.8 g/dl (6.4-8.2)
[2020-10-17] MEDS ORDERED: cefTRIAXone SODIUM 1 GM VIAL ONE (08:39)
[2020-10-17] MEDS ORDERED: DEXTROSE 5%-WATER - 50 ML IVPB ONE (08:39)
[2020-10-17] MEDS: PANTOPRAZOLE SODIUM 40 MG VIAL IVPUSH SCH (09:01)
[2020-10-17] MEDS: SOTALOL HCL 80 MG TABLET (FP) PO SCH ×2 (09:02→21:35)
[2020-10-17] MEDS: CEFTRIAXONE 1 GM in DEXTROSE 5%-WATER - 50 ML IVPB SCH (09:02)
[2020-10-17] MEDS: CHOLECALCIFEROL (VIT D3) 1,000 UNIT (25 MCG) TABLET PO SCH (09:02)
[2020-10-17] MEDS: TAMSULOSIN HCL 0.4 MG CAP PO SCH (09:02)
[2020-10-17] MEDS: ZINC SULFATE 220 MG CAPSULE (FP) PO SCH (09:03)
[2020-10-17] MEDS: POLYETHYLENE GLYCOL 3350 119 GM BTL PO SCH ×3 (09:04→21:40)
[2020-10-17] MEDS: ASCORBIC ACID 500 MG TABLET (FP) PO SCH ×2 (09:04→21:35)
[2020-10-17] MEDS ORDERED: HEPARIN NA (PORCINE) 5,000 UNITS/ML 1ML VIAL IVPUSH PRN ×2 (12:13)
[2020-10-17] MEDS ORDERED: HEPARIN INFUSION - 25,000 UNITS/500 ML INFUS.BAG IVPB SCH (12:15)
[2020-10-17] MEDS: MORPHINE SULFATE 2 MG/ML VIAL IVPUSH PRN ×2 (13:05→17:06)
[2020-10-17 17:37] VITALS: BMI 33.4
[2020-10-17] MEDS ORDERED: PT OWN MED DRAWER 7, Y5N ONE (20:42)
[2020-10-18] MEDS: LEVOTHYROXINE 125 MCG, LEVOTHYROXINE 50 MCG PO SCH (06:19)
[2020-10-18 09:04] LABS: HEMATOCRIT 40.8 % (32.4-45.2); HEMOGLOBIN 13.1 GM/dL (10.7-15.3); MCH 27.7 pg (25.7-33.7); MCHC 32.2 g/dl (32.0-36.0); MEAN PLT VOLUME 9.5 fl (7.5-11.1); PLATELET COUNT 300 10^3/uL (134-434); RBC 4.75 M/mm3 (3.60-5.2); RDW 15.4 % (11.6-15.6); WHITE BLOOD COUNT 10.1 K/mm3 (4.0-10.0)
[2020-10-18 09:10] LABS: ACTIVATED PTT 54.7 SECONDS (25.2-36.5)
[2020-10-18 09:26] LABS: ALBUMIN 3.2 g/dl (3.4-5.0)
[2020-10-18 09:29] LABS: BLOOD UREA NITROGEN 18.7 mg/dL (7-18); CALCIUM 9.1 mg/dL (8.5-10.1); MAGNESIUM 2.5 mg/dL (1.8-2.4)
[2020-10-18 09:32] LABS: CREATININE 1.3 mg/dL (0.55-1.3)
[2020-10-18 09:34] LABS: BILIRUBIN,TOTAL 0.4 mg/dL (0.2-1); TOT PROT 6.7 g/dl (6.4-8.2)
[2020-10-18 09:42] LABS: INR 1.51 (0.83-1.09); PROTHROMBIN TIME (PATIENT) 18.1 SEC (9.7-13.0)
[2020-10-18] MEDS ORDERED: cefTRIAXone SODIUM 1 GM VIAL ONE (09:56)
[2020-10-18] MEDS ORDERED: PT OWN MED DRAWER 7, Y5N ONE (09:56)
[2020-10-18] MEDS ORDERED: DEXTROSE 5%-WATER - 50 ML IVPB ONE (09:56)
[2020-10-18] MEDS: SOTALOL HCL 80 MG TABLET (FP) PO SCH ×2 (09:58→21:28)
[2020-10-18] MEDS: CEFTRIAXONE 1 GM in DEXTROSE 5%-WATER - 50 ML IVPB SCH (09:58)
[2020-10-18] MEDS: POLYETHYLENE GLYCOL 3350 119 GM BTL PO SCH (09:59)
[2020-10-18] MEDS: ZINC SULFATE 220 MG CAPSULE (FP) PO SCH (09:59)
[2020-10-18] MEDS: CHOLECALCIFEROL (VIT D3) 1,000 UNIT (25 MCG) TABLET PO SCH (09:59)
[2020-10-18] MEDS: ASCORBIC ACID 500 MG TABLET (FP) PO SCH ×2 (09:59→21:28)
[2020-10-18] MEDS: TAMSULOSIN HCL 0.4 MG CAP PO SCH (09:59)
[2020-10-18] MEDS: PANTOPRAZOLE SODIUM 40 MG VIAL IVPUSH SCH (10:02)
[2020-10-18] MEDS: MORPHINE SULFATE 2 MG/ML VIAL IVPUSH PRN (10:43)
[2020-10-18] MEDS ORDERED: MORPHINE SULFATE 2 MG/ML VIAL IVPUSH ONE (12:18)
[2020-10-18] MEDS ORDERED: MIDAZOLAM HCL 2 MG/2 ML SINGLE DOSE VIAL ONE (14:23)
[2020-10-18] MEDS ORDERED: DEXAMETHASONE SOD PHOSPHATE 4 MG/1 ML VIAL ONE (14:23)
[2020-10-18] MEDS ORDERED: PROPOFOL 20 ML ONE (14:23)
[2020-10-18] MEDS ORDERED: IOHEXOL 300 MG/ML INFUS..BTL IV ONE ×2 (14:50)
[2020-10-18] MEDS ORDERED: ONDANSETRON 4 MG/2 ML VIAL IVPUSH PRN (15:28)
[2020-10-18] MEDS ORDERED: MORPHINE SULFATE 2 MG/ML VIAL IVPUSH PRN (15:36)
[2020-10-18] MEDS ORDERED: ACETAMINOPHEN 325 MG TABLET (FP) PO PRN (15:36)
[2020-10-18] MEDS ORDERED: HEPARIN NA (PORCINE) 5,000 UNITS/ML 1ML VIAL IVPUSH PRN ×2 (16:07)
[2020-10-18] MEDS: HEPARIN INFUSION - 25,000 UNITS/500 ML INFUS.BAG IVPB SCH (16:49)
[2020-10-18] MEDS ORDERED: WARFARIN NA 5 MG TABLET PO ONE (18:00)
[2020-10-18] MEDS ORDERED: WARFARIN NA 2 MG TABLET PO ONE (18:00)
[2020-10-18] MEDS: POLYETHYLENE GLYCOL (HEALTHYLAX) 3350 17 GM PACKET PO SCH (21:28)
[2020-10-19] MEDS: LACTATED RINGERS SOLUTION 1,000 ML IV SCH ×3 (05:11→17:20)
[2020-10-19] MEDS ORDERED: LEVOTHYROXINE NA 125 MCG TABLET (FP) ONE ×2 (05:59→06:42)
[2020-10-19] MEDS ORDERED: LEVOTHYROXINE NA 50 MCG TABLET (FP) ONE ×2 (06:00→06:42)
[2020-10-19] MEDS: LEVOTHYROXINE 125 MCG, LEVOTHYROXINE 50 MCG PO SCH (06:44)
[2020-10-19 08:36] LABS: HEMATOCRIT 37.8 % (32.4-45.2); HEMOGLOBIN 12.1 GM/dL (10.7-15.3); MCH 27.6 pg (25.7-33.7); MCHC 32.1 g/dl (32.0-36.0); MEAN CELL VOLUME 85.9 fl (80-96); MEAN PLT VOLUME 9.7 fl (7.5-11.1); PLATELET COUNT 321 10^3/uL (134-434); RDW 15.6 % (11.6-15.6); WHITE BLOOD COUNT 9.6 K/mm3 (4.0-10.0)
[2020-10-19 08:47] LABS: INR 1.32 (0.83-1.09); PROTHROMBIN TIME (PATIENT) 15.8 SEC (9.7-13.0)
[2020-10-19 09:03] LABS: CALCIUM 8.7 mg/dL (8.5-10.1)
[2020-10-19 09:05] LABS: ALBUMIN 2.8 g/dl (3.4-5.0); BLOOD UREA NITROGEN 23.4 mg/dL (7-18); MAGNESIUM 2.2 mg/dL (1.8-2.4)
[2020-10-19 09:07] LABS: CREATININE 0.8 mg/dL (0.55-1.3)
[2020-10-19 09:08] LABS: BILIRUBIN,TOTAL 0.3 mg/dL (0.2-1); TOT PROT 6.1 g/dl (6.4-8.2)
[2020-10-19] MEDS ORDERED: cefTRIAXone SODIUM 1 GM VIAL ONE (09:50)
[2020-10-19] MEDS ORDERED: PT OWN MED DRAWER 7, Y5N ONE ×4 (09:50→21:20)
[2020-10-19] MEDS ORDERED: DEXTROSE 5%-WATER - 50 ML IVPB ONE (09:51)
[2020-10-19] MEDS: ZINC SULFATE 220 MG CAPSULE (FP) PO SCH (09:53)
[2020-10-19] MEDS: CHOLECALCIFEROL (VIT D3) 1,000 UNIT (25 MCG) TABLET PO SCH (09:53)
[2020-10-19] MEDS: CEFTRIAXONE 1 GM in DEXTROSE 5%-WATER - 50 ML IVPB SCH (09:53)
[2020-10-19] MEDS: PANTOPRAZOLE SODIUM 40 MG VIAL IVPUSH SCH (09:53)
[2020-10-19] MEDS: TAMSULOSIN HCL 0.4 MG CAP PO SCH (09:53)
[2020-10-19] MEDS: POLYETHYLENE GLYCOL (HEALTHYLAX) 3350 17 GM PACKET PO SCH ×2 (09:53→22:22)
[2020-10-19] MEDS: ASCORBIC ACID 500 MG TABLET (FP) PO SCH ×2 (09:53→22:22)
[2020-10-19] MEDS: SOTALOL HCL 80 MG TABLET (FP) PO SCH ×2 (09:54→22:22)
[2020-10-19] MEDS: HEPARIN INFUSION - 25,000 UNITS/500 ML INFUS.BAG IVPB SCH ×3 (10:18→16:15)
[2020-10-19] MEDS: WARFARIN NA 10 MG TABLET PO SCH (17:15)
[2020-10-20] MEDS ORDERED: LEVOTHYROXINE NA 50 MCG TABLET (FP) ONE (05:49)
[2020-10-20] MEDS ORDERED: LEVOTHYROXINE NA 125 MCG TABLET (FP) ONE (05:49)
[2020-10-20] MEDS: LEVOTHYROXINE 125 MCG, LEVOTHYROXINE 50 MCG PO SCH (06:27)
[2020-10-20 08:49] LABS: INR 1.49 (0.83-1.09); PROTHROMBIN TIME (PATIENT) 17.8 SEC (9.7-13.0)
[2020-10-20] MEDS ORDERED: PT OWN MED DRAWER 7, Y5N ONE ×4 (09:22→21:56)
[2020-10-20] MEDS: HEPARIN INFUSION - 25,000 UNITS/500 ML INFUS.BAG IVPB SCH (09:30)
[2020-10-20 09:36] LABS: HEMATOCRIT 34.2 % (32.4-45.2); HEMOGLOBIN 11.2 GM/dL (10.7-15.3); MCH 28.1 pg (25.7-33.7); MCHC 32.8 g/dl (32.0-36.0); MEAN CELL VOLUME 85.8 fl (80-96); MEAN PLT VOLUME 9.4 fl (7.5-11.1); PLATELET COUNT 306 10^3/uL (134-434); RBC 3.99 M/mm3 (3.60-5.2); RDW 15.5 % (11.6-15.6); WHITE BLOOD COUNT 7.6 K/mm3 (4.0-10.0)
[2020-10-20 10:05] LABS: BLOOD UREA NITROGEN 20.7 mg/dL (7-18); CALCIUM 8.5 mg/dL (8.5-10.1)
[2020-10-20 10:06] LABS: ALBUMIN 2.6 g/dl (3.4-5.0)
[2020-10-20 10:09] LABS: CREATININE 0.8 mg/dL (0.55-1.3)
[2020-10-20 10:10] LABS: BILIRUBIN,TOTAL 0.2 mg/dL (0.2-1)
[2020-10-20 10:11] LABS: TOT PROT 5.7 g/dl (6.4-8.2)
[2020-10-20] MEDS ORDERED: cefTRIAXone SODIUM 1 GM VIAL ONE (11:19)
[2020-10-20] MEDS ORDERED: DEXTROSE 5%-WATER - 50 ML IVPB ONE (11:20)
[2020-10-20] MEDS: ZINC SULFATE 220 MG CAPSULE (FP) PO SCH (11:23)
[2020-10-20] MEDS: CHOLECALCIFEROL (VIT D3) 1,000 UNIT (25 MCG) TABLET PO SCH (11:24)
[2020-10-20] MEDS: ASCORBIC ACID 500 MG TABLET (FP) PO SCH ×2 (11:24→21:57)
[2020-10-20] MEDS: CEFTRIAXONE 1 GM in DEXTROSE 5%-WATER - 50 ML IVPB SCH (11:25)
[2020-10-20] MEDS: PANTOPRAZOLE SODIUM 40 MG VIAL IVPUSH SCH (11:25)
[2020-10-20] MEDS: POLYETHYLENE GLYCOL (HEALTHYLAX) 3350 17 GM PACKET PO SCH ×2 (11:26→21:57)
[2020-10-20] MEDS: TAMSULOSIN HCL 0.4 MG CAP PO SCH (11:32)
[2020-10-20] MEDS: SOTALOL HCL 80 MG TABLET (FP) PO SCH ×2 (11:33→21:57)
[2020-10-20] MEDS: LACTATED RINGERS SOLUTION 1,000 ML IV SCH ×2 (11:44→17:14)
[2020-10-20] MEDS: WARFARIN NA 10 MG TABLET PO SCH (18:57)
[2020-10-21] MEDS: HEPARIN INFUSION - 25,000 UNITS/500 ML INFUS.BAG IVPB SCH ×3 (01:46→18:11)
[2020-10-21] MEDS: LEVOTHYROXINE 125 MCG, LEVOTHYROXINE 50 MCG PO SCH (06:07)
[2020-10-21] MEDS ORDERED: LEVOTHYROXINE NA 125 MCG TABLET (FP) ONE (06:07)
[2020-10-21] MEDS ORDERED: LEVOTHYROXINE NA 50 MCG TABLET (FP) ONE (06:07)
[2020-10-21 09:06] LABS: HEMATOCRIT 35.4 % (32.4-45.2); HEMOGLOBIN 11.7 GM/dL (10.7-15.3); INR 1.65 (0.83-1.09); MCHC 32.9 g/dl (32.0-36.0); MEAN CELL VOLUME 85.2 fl (80-96); MEAN PLT VOLUME 9.4 fl (7.5-11.1); PLATELET COUNT 295 10^3/uL (134-434); RBC 4.16 M/mm3 (3.60-5.2); RDW 15.3 % (11.6-15.6)
[2020-10-21 09:39] LABS: ALBUMIN 2.8 g/dl (3.4-5.0); BILIRUBIN,TOTAL 0.2 mg/dL (0.2-1); BLOOD UREA NITROGEN 14.7 mg/dL (7-18); CALCIUM 8.7 mg/dL (8.5-10.1); CREATININE 0.8 mg/dL (0.55-1.3); TOT PROT 5.9 g/dl (6.4-8.2)
[2020-10-21] MEDS ORDERED: PT OWN MED DRAWER 7, Y5N ONE (10:55)
[2020-10-21] MEDS ORDERED: DEXTROSE 5%-WATER - 50 ML IVPB ONE (10:55)
[2020-10-21] MEDS ORDERED: cefTRIAXone SODIUM 1 GM VIAL ONE (10:55)
[2020-10-21] MEDS: CEFTRIAXONE 1 GM in DEXTROSE 5%-WATER - 50 ML IVPB SCH (11:09)
[2020-10-21] MEDS: LACTATED RINGERS SOLUTION 1,000 ML IV SCH ×2 (11:09→16:51)
[2020-10-21] MEDS: POLYETHYLENE GLYCOL (HEALTHYLAX) 3350 17 GM PACKET PO SCH ×2 (11:09→21:51)
[2020-10-21] MEDS: CHOLECALCIFEROL (VIT D3) 1,000 UNIT (25 MCG) TABLET PO SCH (11:09)
[2020-10-21] MEDS: TAMSULOSIN HCL 0.4 MG CAP PO SCH (11:10)
[2020-10-21] MEDS: ASCORBIC ACID 500 MG TABLET (FP) PO SCH ×2 (11:10→21:51)
[2020-10-21] MEDS: SOTALOL HCL 80 MG TABLET (FP) PO SCH ×2 (11:10→22:21)
[2020-10-21] MEDS: ZINC SULFATE 220 MG CAPSULE (FP) PO SCH (11:10)
[2020-10-21] MEDS: PANTOPRAZOLE 40 MG TABLET PO SCH (11:13)
[2020-10-21] MEDS: WARFARIN NA 10 MG TABLET PO SCH (17:47)
[2020-10-22] MEDS ORDERED: LEVOTHYROXINE NA 125 MCG TABLET (FP) ONE (05:48)
[2020-10-22] MEDS ORDERED: LEVOTHYROXINE NA 50 MCG TABLET (FP) ONE (05:48)
[2020-10-22] MEDS: LEVOTHYROXINE 125 MCG, LEVOTHYROXINE 50 MCG PO SCH (06:11)
[2020-10-22 07:29] LABS: INR 1.8 (0.83-1.09); PROTHROMBIN TIME (PATIENT) 21.8 SEC (9.7-13.0)
[2020-10-22 07:32] LABS: ACTIVATED PTT 79.6 SECONDS (25.2-36.5)
[2020-10-22 07:33] LABS: BASO % 0.8 % (0-2.0); EOS % 3.1 % (0-4.5); HEMATOCRIT 34.9 % (32.4-45.2); HEMOGLOBIN 11.5 GM/dL (10.7-15.3); LYMPH % 24.9 % (8-40); MCH 28.1 pg (25.7-33.7); MCHC 32.9 g/dl (32.0-36.0); MEAN CELL VOLUME 85.4 fl (80-96); MEAN PLT VOLUME 9.8 fl (7.5-11.1); MONO % 10.7 % (3.8-10.2); NEUT % 60.5 % (42.8-82.8); PLATELET COUNT 297 10^3/uL (134-434); RBC 4.08 M/mm3 (3.60-5.2); RDW 15.3 % (11.6-15.6); WHITE BLOOD COUNT 7.2 K/mm3 (4.0-10.0)
[2020-10-22 07:43] LABS: CALCIUM 8.8 mg/dL (8.5-10.1)
[2020-10-22 07:44] LABS: ALBUMIN 2.7 g/dl (3.4-5.0); BLOOD UREA NITROGEN 15.4 mg/dL (7-18)
[2020-10-22 07:47] LABS: BILIRUBIN,TOTAL 0.2 mg/dL (0.2-1); CREATININE 0.9 mg/dL (0.55-1.3); TOT PROT 5.6 g/dl (6.4-8.2)
[2020-10-22] MEDS ORDERED: cefTRIAXone SODIUM 1 GM VIAL ONE (10:42)
[2020-10-22] MEDS ORDERED: DEXTROSE 5%-WATER - 50 ML IVPB ONE (10:42)
[2020-10-22] MEDS: POLYETHYLENE GLYCOL (HEALTHYLAX) 3350 17 GM PACKET PO SCH ×3 (11:34→21:16)
[2020-10-22] MEDS: CHOLECALCIFEROL (VIT D3) 1,000 UNIT (25 MCG) TABLET PO SCH (11:35)
[2020-10-22] MEDS: CEFTRIAXONE 1 GM in DEXTROSE 5%-WATER - 50 ML IVPB SCH (11:35)
[2020-10-22] MEDS: PANTOPRAZOLE 40 MG TABLET PO SCH (11:35)
[2020-10-22] MEDS: TAMSULOSIN HCL 0.4 MG CAP PO SCH (11:35)
[2020-10-22] MEDS: ASCORBIC ACID 500 MG TABLET (FP) PO SCH ×2 (11:35→21:10)
[2020-10-22] MEDS: ZINC SULFATE 220 MG CAPSULE (FP) PO SCH (11:35)
[2020-10-22] MEDS: SOTALOL HCL 80 MG TABLET (FP) PO SCH ×2 (11:36→21:10)
[2020-10-22] MEDS: LACTATED RINGERS SOLUTION 1,000 ML IV SCH ×2 (13:27→17:14)
[2020-10-22] MEDS: HEPARIN INFUSION - 25,000 UNITS/500 ML INFUS.BAG IVPB SCH ×2 (13:27→17:15)
[2020-10-22] MEDS: WARFARIN NA 10 MG TABLET PO SCH (17:16)
[2020-10-22] MEDS ORDERED: PT OWN MED DRAWER 7, Y5N ONE (20:25)
[2020-10-23] MEDS: LACTATED RINGERS SOLUTION 1,000 ML IV SCH (02:51)
[2020-10-23] MEDS ORDERED: LEVOTHYROXINE NA 50 MCG TABLET (FP) ONE (05:59)
[2020-10-23] MEDS ORDERED: LEVOTHYROXINE NA 125 MCG TABLET (FP) ONE (05:59)
[2020-10-23] MEDS: LEVOTHYROXINE 125 MCG, LEVOTHYROXINE 50 MCG PO SCH (06:12)
[2020-10-23 08:29] LABS: BASO % 0.9 % (0-2.0); EOS % 4.1 % (0-4.5); HEMATOCRIT 35.2 % (32.4-45.2); HEMOGLOBIN 11.5 GM/dL (10.7-15.3); LYMPH % 21.2 % (8-40); MCH 27.9 pg (25.7-33.7); MCHC 32.8 g/dl (32.0-36.0); MEAN CELL VOLUME 85.3 fl (80-96); MEAN PLT VOLUME 9.2 fl (7.5-11.1); MONO % 8.8 % (3.8-10.2); PLATELET COUNT 311 10^3/uL (134-434); RBC 4.13 M/mm3 (3.60-5.2); RDW 15.4 % (11.6-15.6)
[2020-10-23 08:35] LABS: INR 2.02 (0.83-1.09); PROTHROMBIN TIME (PATIENT) 24.4 SEC (9.7-13.0)
[2020-10-23 08:38] LABS: ACTIVATED PTT 89.9 SECONDS (25.2-36.5)
[2020-10-23] MEDS ORDERED: cefTRIAXone SODIUM 1 GM VIAL ONE (09:06)
[2020-10-23] MEDS ORDERED: DEXTROSE 5%-WATER - 50 ML IVPB ONE (09:06)
[2020-10-23 09:25] LABS: ALBUMIN 2.7 g/dl (3.4-5.0); BILIRUBIN,TOTAL 0.2 mg/dL (0.2-1); BLOOD UREA NITROGEN 13.9 mg/dL (7-18); CALCIUM 8.8 mg/dL (8.5-10.1); CREATININE 0.8 mg/dL (0.55-1.3); TOT PROT 5.8 g/dl (6.4-8.2)
[2020-10-23] MEDS: ASCORBIC ACID 500 MG TABLET (FP) PO SCH (10:53)
[2020-10-23] MEDS: ZINC SULFATE 220 MG CAPSULE (FP) PO SCH (10:53)
[2020-10-23] MEDS: PANTOPRAZOLE 40 MG TABLET PO SCH (10:53)
[2020-10-23] MEDS: TAMSULOSIN HCL 0.4 MG CAP PO SCH (10:53)
[2020-10-23] MEDS: CHOLECALCIFEROL (VIT D3) 1,000 UNIT (25 MCG) TABLET PO SCH (10:53)
[2020-10-23] MEDS: POLYETHYLENE GLYCOL (HEALTHYLAX) 3350 17 GM PACKET PO SCH (10:57)
[2020-10-23] MEDS ORDERED: PT OWN MED DRAWER 7, Y5N ONE ×2 (10:58→13:16)
[2020-10-23] MEDS: SOTALOL HCL 80 MG TABLET (FP) PO SCH (11:01)
[2020-10-23] MEDS: CEFTRIAXONE 1 GM in DEXTROSE 5%-WATER - 50 ML IVPB SCH (11:17)
[2020-10-23 12:31] VITALS: BP 142/74; PULSE 73; TEMP 98.4
[2020-10-31 13:06] LABS: SIZE <1; WEIGHT <1
[2020-10-31 13:07] LABS: URIC ACID 100%
== END 2020-10-23 14:02 | disposition home or self-care (01) | DRG 660 ==
LOC: FER 14:33 → J8W 23:40
PROVIDERS: ADMIT Internal Medicine; ATTEND Nurse Practitioner Family
PROC: 0TC78ZZ Extirpation of Matter from Left Ureter, Via Natural or Artificial Opening Endoscopic (ICD-10-PCS; principal; 2020-10-18 14:00)
PROC: 0T778DZ Dilation of Left Ureter with Intraluminal Device, Via Natural or Artificial Opening Endoscopic (ICD-10-PCS; 2020-10-18 14:00)
PROC: BT1FZZZ Fluoroscopy of Left Kidney, Ureter and Bladder (ICD-10-PCS; 2020-10-18 14:00)
DX: N13.6 Pyonephrosis (principal); I48.92 Unspecified atrial flutter; E78.5 Hyperlipidemia, unspecified; I10 Essential (primary) hypertension; E03.9 Hypothyroidism, unspecified; Z95.2 Presence of prosthetic heart valve; K59.09 Other constipation; I25.10 Atherosclerotic heart disease of native coronary artery without angina pectoris; I48.91 Unspecified atrial fibrillation; F32.9 Major depressive disorder, single episode, unspecified; Z96.641 Presence of right artificial hip joint; Z79.01 Long term (current) use of anticoagulants; I09.9 Rheumatic heart disease, unspecified; E66.9 Obesity, unspecified; Z68.33 Body mass index [BMI] 33.0-33.9, adult; I27.20 Pulmonary hypertension, unspecified; K52.9 Noninfective gastroenteritis and colitis, unspecified
CPT/HCPCS: 36415; 71045-TC-FY; 73070-TC-LT-FY; 74177-TC; 76000-TC-FY; 80053; 81003; 81015; 82272; 82360; 82550; 83036; 83690; 83735; 84100; 84436; 84443; 84484; 85025; 85027; 85610; 85730; 86769; 87086; 88300-TC; 93005; 93010; 94760; 97116-GP; 97161-GP; 99285-25; C9803; J0131; J1644; Q9967; U0003; U0005

== ENCOUNTER 2021-08-31 11:31 | Observation (INO) | payer OTHER ==
[2021-08-31] MEDS ORDERED: SODIUM CHLORIDE 0.9% 500 ML INFUS.BAG IV ONE (11:36)
[2021-08-31] MEDS ORDERED: ONDANSETRON 4 MG/2 ML VIAL IVPUSH ONE (11:36)
[2021-08-31] MEDS ORDERED: KETOROLAC TROMETHAMINE 30 MG/1 ML VIAL IVPUSH ONE (11:55)
[2021-08-31] MEDS ORDERED: ACETAMINOPHEN 1000 MG/100 ML BAG IVPB ONE (11:55)
[2021-08-31 12:15] VITALS: BMI 34.9
[2021-08-31 12:51] LABS: HEMATOCRIT 40.2 % (32.4-45.2); HEMOGLOBIN 13.8 G/dL (10.7-15.3); MCH 30.4 pg (25.7-33.7); MCHC 34.4 g/dl (32.0-36.0); MEAN CELL VOLUME 88.4 fl (80-96); RBC 4.55 10^6/uL (3.60-5.2); RDW 15.4 % (11.6-15.6); WHITE BLOOD COUNT 14.3 10^3/uL (4.0-10.8)
[2021-08-31 13:05] LABS: ALBUMIN 3.6 g/dl (3.4-5.0); BILIRUBIN,TOTAL 0.7 mg/dl (0.2-1); CREATININE 1.2 mg/dl (0.55-1.3); TOT PROT 6.8 g/dl (6.4-8.2)
[2021-08-31 14:09] LABS: ADD RBC MORPHOLOGY YES; PLATELET ESTIMATE ADEQUATE
[2021-08-31 14:11] LABS: ANISOCYTOSIS 1+; EPITHELIAL CELLS FEW /hpf
[2021-08-31 14:12] LABS: CALCIUM OXALATE CRYSTALS MANY /hpf (NONE SEEN)
[2021-08-31] MEDS ORDERED: ACETAMINOPHEN 1000 MG/100 ML BAG IVPB PRN (18:01)
[2021-08-31] MEDS ORDERED: SODIUM CHLORIDE 1,000 ML IV SCH (18:15)
[2021-08-31 18:38] LABS: PROTHROMBIN TIME (PATIENT) 61.7 SEC (9.7-13.0)
[2021-08-31 18:41] LABS: INR 5.28 (0.83-1.09)
[2021-08-31] MEDS ORDERED: DEXTROSE 5%-WATER - 50 ML IVPB ONE (21:31)
[2021-08-31] MEDS ORDERED: cefTRIAXone SODIUM 1 GM VIAL ONE (21:31)
[2021-08-31] MEDS: CEFTRIAXONE 1 GM in DEXTROSE 5%-WATER - 50 ML IVPB SCH (21:42)
[2021-09-01] MEDS ORDERED: LEVOTHYROXINE NA 200 MCG TABLET PO SCH (07:00)
[2021-09-01] MEDS ORDERED: TAMSULOSIN HCL 0.4 MG CAP PO SCH (08:30)
[2021-09-01 09:46] LABS: BASO % 0.4 % (0-2.0); EOS % 0.3 % (0-4.5); HEMATOCRIT 35.3 % (32.4-45.2); HEMOGLOBIN 11.5 GM/dL (10.7-15.3); LYMPH % 10.3 % (8-40); MCHC 32.6 g/dl (32.0-36.0); MEAN CELL VOLUME 88.9 fl (80-96); MONO % 12.3 % (3.8-10.2); NEUT % 76.7 % (42.8-82.8); PLATELET COUNT 207 10^3/uL (134-434); RBC 3.97 M/mm3 (3.60-5.2); RDW 15.5 % (11.6-15.6); WHITE BLOOD COUNT 9.7 K/mm3 (4.0-10.0)
[2021-09-01 09:52] LABS: PROTHROMBIN TIME (PATIENT) 50.5 SEC (9.7-13.0)
[2021-09-01] MEDS ORDERED: AMIODARONE HCL 200 MG TABLET PO SCH (10:00)
[2021-09-01] MEDS ORDERED: DEXTROSE 5%-WATER - 50 ML IVPB ONE (10:15)
[2021-09-01] MEDS ORDERED: cefTRIAXone SODIUM 1 GM VIAL ONE (10:15)
[2021-09-01] MEDS: CEFTRIAXONE 1 GM in DEXTROSE 5%-WATER - 50 ML IVPB SCH (10:21)
[2021-09-01 10:22] LABS: CALCIUM 7.9 mg/dL (8.5-10.1)
[2021-09-01 10:23] LABS: ALBUMIN 2.7 g/dl (3.4-5.0); BLOOD UREA NITROGEN 19.5 mg/dL (7-18)
[2021-09-01 10:26] LABS: CREATININE 1.4 mg/dL (0.55-1.3); INR 4.33 (0.83-1.09)
[2021-09-01] MEDS ORDERED: ONDANSETRON 4 MG/2 ML VIAL IVPUSH PRN ×2 (10:26→11:25)
[2021-09-01 10:27] LABS: BILIRUBIN,TOTAL 0.9 mg/dL (0.2-1); TOT PROT 5.6 g/dl (6.4-8.2)
[2021-09-01] MEDS ORDERED: PROPOFOL 20 ML ONE (10:54)
[2021-09-01] MEDS ORDERED: FENTANYL CITRATE/PF 50 MCG/ML VIAL ONE (11:08)
[2021-09-01] MEDS ORDERED: DEXAMETHASONE SOD PHOSPHATE 4 MG/1 ML VIAL ONE (11:13)
[2021-09-01] MEDS ORDERED: ACETAMINOPHEN 1000 MG/100 ML BAG IVPB PRN (11:25)
[2021-09-01] MEDS ORDERED: PHYTONADIONE 10 MG/1 ML AMP IM ONE ×2 (11:30)
[2021-09-01] MEDS: SODIUM CHLORIDE 1,000 ML IV SCH (12:10)
[2021-09-02] MEDS: LEVOTHYROXINE NA 100 MCG TABLET (FP) PO SCH (06:37)
[2021-09-02] MEDS ORDERED: DEXTROSE 5%-WATER - 50 ML IVPB ONE (10:09)
[2021-09-02] MEDS ORDERED: cefTRIAXone SODIUM 1 GM VIAL ONE (10:09)
[2021-09-02] MEDS: TAMSULOSIN HCL 0.4 MG CAP PO SCH (10:12)
[2021-09-02] MEDS: AMIODARONE HCL 200 MG TABLET PO SCH (10:13)
[2021-09-02] MEDS: CEFTRIAXONE 1 GM in DEXTROSE 5%-WATER - 50 ML IVPB SCH (10:13)
[2021-09-02 14:30] LABS: CALCIUM 8.6 mg/dL (8.5-10.1)
[2021-09-02 14:32] LABS: BLOOD UREA NITROGEN 22.6 mg/dL (7-18)
[2021-09-02 14:34] LABS: CREATININE 0.9 mg/dL (0.55-1.3)
[2021-09-02 14:39] LABS: INR 2.92 (0.83-1.09)
[2021-09-02] MEDS ORDERED: WARFARIN NA 5 MG TABLET PO SCH ×2 (18:00)
[2021-09-02] MEDS: SODIUM CHLORIDE 1,000 ML IV SCH (18:21)
[2021-09-03] MEDS: LEVOTHYROXINE NA 100 MCG TABLET (FP) PO SCH (06:29)
[2021-09-03] MEDS: TAMSULOSIN HCL 0.4 MG CAP PO SCH (08:33)
[2021-09-03 08:47] LABS: INR 2.17 (0.83-1.09); PROTHROMBIN TIME (PATIENT) 25.1 SEC (9.7-13.0)
[2021-09-03 08:51] LABS: BASO % 0.5 % (0-2.0); EOS % 1.2 % (0-4.5); HEMATOCRIT 35.3 % (32.4-45.2); HEMOGLOBIN 11.5 GM/dL (10.7-15.3); LYMPH % 16.9 % (8-40); MCHC 32.7 g/dl (32.0-36.0); MEAN CELL VOLUME 88.6 fl (80-96); MEAN PLT VOLUME 10.1 fl (7.5-11.1); NEUT % 72.4 % (42.8-82.8); PLATELET COUNT 287 10^3/uL (134-434); RBC 3.98 M/mm3 (3.60-5.2); RDW 15.3 % (11.6-15.6); WHITE BLOOD COUNT 8.6 K/mm3 (4.0-10.0)
[2021-09-03 09:48] LABS: BLOOD UREA NITROGEN 22.9 mg/dL (7-18); CALCIUM 8.5 mg/dL (8.5-10.1)
[2021-09-03 09:49] LABS: ALBUMIN 2.8 g/dl (3.4-5.0)
[2021-09-03 09:53] LABS: BILIRUBIN,TOTAL 0.6 mg/dL (0.2-1); CREATININE 0.9 mg/dL (0.55-1.3); TOT PROT 5.9 g/dl (6.4-8.2)
[2021-09-03] MEDS ORDERED: cefTRIAXone SODIUM 1 GM VIAL ONE (10:02)
[2021-09-03] MEDS ORDERED: DEXTROSE 5%-WATER - 50 ML IVPB ONE (10:02)
[2021-09-03] MEDS: AMIODARONE HCL 200 MG TABLET PO SCH (10:16)
[2021-09-03] MEDS: CEFTRIAXONE 1 GM in DEXTROSE 5%-WATER - 50 ML IVPB SCH (10:16)
[2021-09-03 11:54] VITALS: BP 133/68; PULSE 71; TEMP 98.1
== END 2021-09-03 12:30 | disposition home or self-care (01) ==
LOC: FER 11:31 → INTOOBSV 14:15 → FM/S 14:15 → MERGE 14:15 → J5S 20:00
PROVIDERS: ADMIT Internal Medicine
PROC: 3E033NZ Introduction of Analgesics, Hypnotics, Sedatives into Peripheral Vein, Percutaneous Approach (ICD-10-PCS; principal; 2021-08-31)
PROC: 3E033GC Introduction of Other Therapeutic Substance into Peripheral Vein, Percutaneous Approach (ICD-10-PCS; 2021-08-31)
PROC: 3E0337Z Introduction of Electrolytic and Water Balance Substance into Peripheral Vein, Percutaneous Approach (ICD-10-PCS; 2021-08-31)
PROC: BT1FZZZ Fluoroscopy of Left Kidney, Ureter and Bladder (ICD-10-PCS; 2021-08-31)
PROC: 0T7B8DZ Dilation of Bladder with Intraluminal Device, Via Natural or Artificial Opening Endoscopic (ICD-10-PCS; 2021-08-31)
PROC: 3E03329 Introduction of Other Anti-infective into Peripheral Vein, Percutaneous Approach (ICD-10-PCS; 2021-08-31)
DX: N13.2 Hydronephrosis with renal and ureteral calculous obstruction (principal); I11.0 Hypertensive heart disease with heart failure; I48.0 Paroxysmal atrial fibrillation; I50.31 Acute diastolic (congestive) heart failure; R11.0 Nausea; M10.9 Gout, unspecified; I09.9 Rheumatic heart disease, unspecified; E66.9 Obesity, unspecified; Z86.16 Personal history of COVID-19; Z68.35 Body mass index [BMI] 35.0-35.9, adult; R50.9 Fever, unspecified; Z95.2 Presence of prosthetic heart valve; E06.3 Autoimmune thyroiditis; R35.0 Frequency of micturition; Z79.01 Long term (current) use of anticoagulants; K76.0 Fatty (change of) liver, not elsewhere classified
CPT/HCPCS: 96361; 96365; 96366; 96375; S2070; 36415; 71045-TC-FY; 74176-TC; 76000-TC-FY; 76775-TC; 76856-TC; 80048; 80053; 81003; 81015; 83735; 85025; 85610; 86850; 86900; 86901; 87086; 93005; 94010; 94760; 97116-GP; 97161-GP; 99285-25; C9803-CS; G0378; U0003; U0005

== ENCOUNTER 2021-10-02 04:35 | Day surgery (SDC) | payer OTHER ==
[2021-09-27 11:26] VITALS: BMI 35.4
[2021-10-02 12:02] LABS: INR 1.36 (0.83-1.09); PROTHROMBIN TIME (PATIENT) 15.7 SEC (9.7-13.0)
[2021-10-02] MEDS ORDERED: ONDANSETRON 4 MG/2 ML VIAL IVPUSH PRN ×2 (13:02→14:21)
[2021-10-02] MEDS ORDERED: oxyCODONE HCL 5 MG TABLET PO PRN ×3 (13:02→14:21)
[2021-10-02] MEDS ORDERED: ACETAMINOPHEN 325 MG TABLET (FP) PO PRN (13:02)
[2021-10-02] MEDS ORDERED: PROPOFOL 20 ML ONE ×2 (13:04→13:48)
[2021-10-02] MEDS ORDERED: MIDAZOLAM HCL 2 MG/2 ML SINGLE DOSE VIAL ONE ×2 (13:34→13:48)
[2021-10-02] MEDS ORDERED: ceFAZolin SODIUM 1 GM VIAL ONE (13:35)
[2021-10-02] MEDS ORDERED: ceFAZolin SODIUM 1 GM VIAL IVPB ONE (13:50)
[2021-10-02] MEDS ORDERED: PROMETHAZINE HCL 25 MG/1 ML VIAL IVPUSH PRN (14:21)
[2021-10-02] MEDS ORDERED: LACTATED RINGERS SOLUTION 1,000 ML IV SCH (14:30)
[2021-10-02 17:51] VITALS: TEMP 97.3
[2021-10-02 18:14] VITALS: BP 112/64; PULSE 67
== END 2021-10-02 17:00 | disposition home or self-care (01) ==
LOC: JASU-SURG 04:35
PROVIDERS: ATTEND Urology
PROC: 0TJ98ZZ Inspection of Ureter, Via Natural or Artificial Opening Endoscopic (ICD-10-PCS; principal; 2021-10-02 13:00)
PROC: 0TC78ZZ Extirpation of Matter from Left Ureter, Via Natural or Artificial Opening Endoscopic (ICD-10-PCS; 2021-10-02 13:00)
DX: T83.122A Displacement of indwelling ureteral stent, initial encounter (principal); Y73.1 Therapeutic (nonsurgical) and rehabilitative gastroenterology and urology devices associated with adverse incidents; Y92.9 Unspecified place or not applicable; N20.0 Calculus of kidney
CPT/HCPCS: 36415; 85610; 87086; 88300-TC; 94760

== ENCOUNTER 2022-05-06 06:15 | Inpatient (IN) | payer OTHER ==
[2022-05-02 10:22] VITALS: BMI 33.4
[2022-05-06] MEDS ORDERED: CEFAZOLIN 2 GM in DEXTROSE 5%-WATER - 50 ML IVPB ONE (07:00)
[2022-05-06] MEDS ORDERED: VANCOMYCIN 1 GM in D5W (PRE-DOCKED) 1,000 MG/250 ML IVPB ONE (07:00)
[2022-05-06] MEDS ORDERED: VANCOMYCIN 1,000 MG VIAL (RESTRICTED TO ID ONLY) ONE (07:18)
[2022-05-06] MEDS ORDERED: FENTANYL CITRATE/PF 50 MCG/ML VIAL ONE (07:56)
[2022-05-06] MEDS ORDERED: BUPIVACAINE LIPOSOME/PF (EXPAREL) 266 MG/20 ML VIAL ONE (07:56)
[2022-05-06] MEDS ORDERED: BUPIVACAINE HCL/PF 0.5% (5MG/ML) 10 ML VIAL ONE (07:57)
[2022-05-06] MEDS ORDERED: MIDAZOLAM HCL 2 MG/2 ML SINGLE DOSE VIAL ONE (07:57)
[2022-05-06] MEDS ORDERED: TRANEXAMIC ACID 1000 MG/10 ML VIAL IVPUSH ONE (08:00)
[2022-05-06 08:07] LABS: INR 1.2 (0.83-1.09); PROTHROMBIN TIME (PATIENT) 13.8 SEC (9.7-13.0)
[2022-05-06] MEDS ORDERED: MAGNESIUM HYDROX 2400MG/30ML ORAL SUSPENSION 30 ML CUP PO PRN (08:19)
[2022-05-06] MEDS ORDERED: ONDANSETRON 4 MG/2 ML VIAL IVPUSH PRN (08:19)
[2022-05-06] MEDS ORDERED: DEXAMETHASONE SOD PHOSPHATE 4 MG/1 ML VIAL ONE (08:37)
[2022-05-06] MEDS ORDERED: ceFAZolin SODIUM 1 GM VIAL ONE (08:37)
[2022-05-06] MEDS ORDERED: CLINDAMYCIN 600MG PREMIX IVPB 600 MG/50 ML BAG IVPB ONE (08:40)
[2022-05-06] MEDS ORDERED: BUPIVICAINE 0.25%/MORPH PF/KETOROLAC - 51ML DISP.SYRINGE IA ONE (09:31)
[2022-05-06] MEDS ORDERED: oxyCODONE HCL 5 MG TABLET PO PRN ×2 (11:35)
[2022-05-06] MEDS ORDERED: ACETAMINOPHEN 1000 MG/100 ML BAG IVPB ONE (11:35)
[2022-05-06] MEDS: KETOROLAC TROMETHAMINE 30 MG/1 ML VIAL IVPUSH SCH ×2 (11:43→17:28)
[2022-05-06] MEDS ORDERED: LACTATED RINGERS SOLUTION 1,000 ML IV SCH (11:45)
[2022-05-06] MEDS: PANTOPRAZOLE 40 MG TABLET PO SCH (12:03)
[2022-05-06] MEDS: MULTIVITAMINS (DAILY MVI) TABLET (FP) PO SCH (14:12)
[2022-05-06] MEDS ORDERED: CEFAZOLIN SODIUM 2 GM in DEXTROSE 5%-WATER 100 ML IVPB SCH (17:00)
[2022-05-06] MEDS: CEFAZOLIN SODIUM 2 GM in DEXTROSE 5%-WATER 100 ML IVPB SCH ×2 (17:28→23:28)
[2022-05-06] MEDS: ACETAMINOPHEN 500 MG TABLET (FP) PO SCH ×2 (17:29→23:28)
[2022-05-06 17:52] LABS: HEMATOCRIT 30.2 % (32.4-45.2); HEMOGLOBIN 10.1 G/dL (10.7-15.3); MCHC 33.3 g/dl (32.0-36.0); MEAN PLT VOLUME 9.2 fl (7.5-11.1); PLATELET COUNT 239.5 10^3/uL (134-434); RBC 3.35 10^6/uL (3.60-5.2); RDW 15.7 % (11.6-15.6); WHITE BLOOD COUNT 8.8 10^3/uL (4.0-10.8)
[2022-05-06 18:00] LABS: INR 1.24 (0.83-1.09); PROTHROMBIN TIME (PATIENT) 14.3 SEC (9.7-13.0)
[2022-05-06] MEDS ORDERED: WARFARIN NA 10 MG TABLET PO SCH (18:00)
[2022-05-06 19:27] LABS: ADD RBC MORPHOLOGY YES; PLATELET ESTIMATE ADEQUATE
[2022-05-06 19:29] LABS: ANISOCYTOSIS 1+
[2022-05-06] MEDS: SENNOSIDES/DOCUSATE COMBO (SENNA PLUS) TABLET (UD) PO SCH (21:49)
[2022-05-06] MEDS: oxyCODONE HCL 10 MG SUSTAINED ACTING TABLET PO SCH (21:51)
[2022-05-06] MEDS: GABAPENTIN 300 MG CAPSULE PO SCH (21:52)
[2022-05-07] MEDS: ACETAMINOPHEN 500 MG TABLET (FP) PO SCH ×3 (06:00→18:16)
[2022-05-07] MEDS ORDERED: LEVOTHYROXINE NA 100 MCG TABLET (FP) PO SCH (07:15)
[2022-05-07 07:45] LABS: CALCIUM 8.6 mg/dl (8.5-10)
[2022-05-07 07:47] LABS: HEMATOCRIT 32.3 % (32.4-45.2); HEMOGLOBIN 10.7 G/dL (10.7-15.3); MCH 29.8 pg (25.7-33.7); MCHC 33.2 g/dl (32.0-36.0); MEAN CELL VOLUME 89.8 fl (80-96); MEAN PLT VOLUME 9.4 fl (7.5-11.1); PLATELET COUNT 270.4 10^3/uL (134-434); RDW 16.2 % (11.6-15.6); WHITE BLOOD COUNT 13.2 10^3/uL (4.0-10.8)
[2022-05-07 07:50] LABS: INR 1.21 (0.83-1.09)
[2022-05-07] MEDS: GABAPENTIN 300 MG CAPSULE PO SCH (09:16)
[2022-05-07] MEDS: PANTOPRAZOLE 40 MG TABLET PO SCH (09:18)
[2022-05-07] MEDS: oxyCODONE HCL 10 MG SUSTAINED ACTING TABLET PO SCH (09:18)
[2022-05-07] MEDS: MULTIVITAMINS (DAILY MVI) TABLET (FP) PO SCH (09:18)
[2022-05-07] MEDS: CEFAZOLIN SODIUM 2 GM in DEXTROSE 5%-WATER 100 ML IVPB SCH (09:19)
[2022-05-07] MEDS: SENNOSIDES/DOCUSATE COMBO (SENNA PLUS) TABLET (UD) PO SCH (09:20)
[2022-05-07] MEDS ORDERED: AMIODARONE HCL 200 MG TABLET PO SCH (10:00)
[2022-05-07] MEDS ORDERED: ENOXAPARIN NA (PORCINE) 30 MG/0.3 ML DISP.SYRIN SQ SCH (10:00)
[2022-05-07] MEDS ORDERED: ENOXAPARIN NA (PORCINE) 100 MG/1 ML DISP.SYRIN SQ SCH (14:45)
[2022-05-07 18:08] VITALS: BP 122/67; PULSE 79; RESP 17; TEMP 99
== END 2022-05-07 19:52 | DRG 470 ==
LOC: FM/S 06:15 → EDSTATUS 08:00 → FM/S 13:27
PROVIDERS: ADMIT Internal Medicine; ATTEND Internal Medicine
PROC: 0SRD0J9 Replacement of Left Knee Joint with Synthetic Substitute, Cemented, Open Approach (ICD-10-PCS; principal; 2022-05-06 08:57)
DX: M17.12 Unilateral primary osteoarthritis, left knee (principal); I48.0 Paroxysmal atrial fibrillation; E03.9 Hypothyroidism, unspecified; I10 Essential (primary) hypertension
CPT/HCPCS: 36415; 73560-TC-LT-FY; 80048; 85025; 85027; 85610; 88305-TC; 88311-TC; 94760; 97116-GP; 97162-GP; C1776; C1889

== ENCOUNTER 2023-03-03 12:39 | Emergency (ER) | payer OTHER ==
[2023-03-03 13:13] VITALS: BP 158/91; PULSE 88; RESP 16; TEMP 98.1; BMI 32.6
[2023-03-03] MEDS ORDERED: ACETAMINOPHEN 325 MG TABLET (FP) PO ONE (13:34)
[2023-03-03] MEDS ORDERED: ACETAMINOPHEN 325 MG TABLET (FP) ONE (13:51)
[2023-03-03] MEDS ORDERED: CLINDAMYCIN HCL 150 MG CAPSULE (FP) PO ONE (14:05)
[2023-03-03] MEDS ORDERED: CLINDAMYCIN HCL 150 MG CAPSULE (FP) ONE (14:40)
[2023-03-03 14:41] LABS: INR 2.77 (0.83-1.09); PROTHROMBIN TIME (PATIENT) 31.8 SEC (9.7-13.0)
[2023-03-03 14:42] LABS: HEMATOCRIT 42.2 % (32.4-45.2); HEMOGLOBIN 13.9 G/dL (10.7-15.3); MCH 29.3 pg (25.7-33.7); MEAN CELL VOLUME 88.9 fl (80-96); MEAN PLT VOLUME 9.8 fl (7.5-11.1); PLATELET COUNT 309.8 10^3/uL (134-434); RBC 4.75 10^6/uL (3.60-5.2); RDW 16.7 % (11.6-15.6); WHITE BLOOD COUNT 8.4 10^3/uL (4.0-10.8)
[2023-03-03 14:44] LABS: ACTIVATED PTT 48.3 SECONDS (25.2-36.5)
[2023-03-03 15:18] LABS: PLATELET ESTIMATE ADEQUATE
== END 2023-03-03 15:40 | disposition home or self-care (01) ==
LOC: FER 12:39
DX: S20.01XA Contusion of right breast, initial encounter (principal); W54.8XXA Other contact with dog, initial encounter; Y93.89 Activity, other specified; Y92.019 Unspecified place in single-family (private) house as the place of occurrence of the external cause
CPT/HCPCS: 36415; 85027; 85610; 85730; 99283-25

== ENCOUNTER 2023-04-06 16:53 | Emergency (ER) | payer OTHER ==
[2023-04-06] MEDS ORDERED: SODIUM CHLORIDE 500 ML IV STA (17:04)
[2023-04-06 17:22] VITALS: TEMP 98.6; BMI 33.2
[2023-04-06 17:58] LABS: HEMATOCRIT 43.6 % (32.4-45.2); MCH 28.8 pg (25.7-33.7); MCHC 32.2 g/dl (32.0-36.0); MEAN CELL VOLUME 89.7 fl (80-96); MEAN PLT VOLUME 9.7 fl (7.5-11.1); PLATELET COUNT 293.1 10^3/uL (134-434); RBC 4.86 10^6/uL (3.60-5.2); RDW 16.9 % (11.6-15.6); WHITE BLOOD COUNT 6.9 10^3/uL (4.0-10.8)
[2023-04-06 18:05] LABS: INR 3.67 (0.83-1.09)
[2023-04-06 18:14] LABS: ALBUMIN 4.2 g/dl (3.4-5.0); BILIRUBIN,TOTAL 0.4 mg/dl (0.2-1); CALCIUM 9.3 mg/dl (8.5-10.1); CREATININE 0.9 mg/dl (0.6-1.3); POTASSIUM 4.5 mmol/L (3.5-5.1); TOT PROT 6.9 g/dl (6.4-8.2)
[2023-04-06] MEDS ORDERED: dilTIAZem HCL 50 MG/10 ML - 10 ML VIAL IVPUSH ONE ×2 (19:31→20:01)
[2023-04-06] MEDS ORDERED: dilTIAZem HCL 125 MG/25 ML - 25 ML VIAL ONE (19:38)
[2023-04-06 20:25] VITALS: BP 128/85; PULSE 121; RESP 15
[2023-04-06 20:49] LABS: EPITHELIAL CELLS 0-5 /hpf
== END 2023-04-06 21:05 | disposition home or self-care (01) ==
LOC: FER 16:53
PROC: 3E033GC Introduction of Other Therapeutic Substance into Peripheral Vein, Percutaneous Approach (ICD-10-PCS; principal; 2023-04-06)
PROC: 3E0337Z Introduction of Electrolytic and Water Balance Substance into Peripheral Vein, Percutaneous Approach (ICD-10-PCS; 2023-04-06)
DX: I48.91 Unspecified atrial fibrillation (principal); R00.2 Palpitations; Z20.822 Contact with and (suspected) exposure to COVID-19
CPT/HCPCS: 0241U-QW; 36415; 71045-TC-FY; 80053; 81003; 81015; 84443; 84484; 85027; 85610; 93005; 93010; 96361; 96374; 99285-25

== ENCOUNTER 2023-08-19 15:20 | Emergency (ER) | payer OTHER ==
[2023-08-19 15:33] VITALS: TEMP 97.8; BMI 36.6
[2023-08-19] MEDS: SODIUM CHLORIDE 500 ML IV STA (15:55)
[2023-08-19 16:26] VITALS: RESP 16
[2023-08-19 16:27] LABS: HEMATOCRIT 43.8 % (32.4-45.2); HEMOGLOBIN 13.7 G/dL (10.7-15.3); MCH 28.7 pg (25.7-33.7); MCHC 31.3 g/dl (32.0-36.0); MEAN CELL VOLUME 91.6 fl (80-96); MEAN PLT VOLUME 10.3 fl (7.5-11.1); PLATELET COUNT 283.6 10^3/uL (134-434); RBC 4.78 10^6/uL (3.60-5.2); RDW 15.9 % (11.6-15.6); WHITE BLOOD COUNT 7.5 10^3/uL (4.0-10.8)
[2023-08-19 16:40] LABS: BILIRUBIN,TOTAL 0.6 mg/dl (0.2-1); CALCIUM 9.3 mg/dl (8.5-10.1); MAGNESIUM 1.8 mg/dL (1.8-2.4); TOT PROT 6.4 g/dl (6.4-8.2)
[2023-08-19] MEDS ORDERED: dilTIAZem HCL 125 MG/25 ML - 25 ML VIAL ONE (16:47)
[2023-08-19] MEDS: dilTIAZem HCL 50 MG/10 ML - 10 ML VIAL IVPUSH ONE (16:54)
[2023-08-19 17:01] LABS: PLATELET ESTIMATE ADEQUATE
[2023-08-19] MEDS ORDERED: MAGNESIUM 1GM/D5W - 1 GM/100 ML IVPB IVPB ONE (17:44)
[2023-08-19] MEDS: MAGNESIUM 1GM/D5W - 1 GM/100 ML IVPB IVPB ONE (17:52)
[2023-08-19 18:45] VITALS: BP 132/74; PULSE 114
== END 2023-08-19 18:45 | disposition home or self-care (01) ==
LOC: FER 15:20
PROC: 3E033GC Introduction of Other Therapeutic Substance into Peripheral Vein, Percutaneous Approach (ICD-10-PCS; principal; 2023-08-19)
PROC: 3E033GC Introduction of Other Therapeutic Substance into Peripheral Vein, Percutaneous Approach (ICD-10-PCS; 2023-08-19)
PROC: 3E0337Z Introduction of Electrolytic and Water Balance Substance into Peripheral Vein, Percutaneous Approach (ICD-10-PCS; 2023-08-19)
DX: I47.1 Supraventricular tachycardia (principal); E86.0 Dehydration
CPT/HCPCS: 36415; 71045-TC-FY; 80053; 83735; 84436; 84443; 84484; 85025; 93005; 96361; 96365; 96375; 99285-25

== ENCOUNTER 2024-01-15 12:32 | Emergency (ER) | payer OTHER ==
[2024-01-15 14:06] VITALS: RESP 18; TEMP 97.5; BMI 27.8
[2024-01-15 14:10] LABS: INR 1.86 (0.83-1.09); PROTHROMBIN TIME (PATIENT) 20.8 SEC (9.7-13.0)
[2024-01-15 14:13] LABS: ACTIVATED PTT 45.7 SECONDS (25.2-36.5)
[2024-01-15 14:19] LABS: HEMATOCRIT 43.2 % (32.4-45.2); HEMOGLOBIN 13.3 G/dL (10.7-15.3); MCH 28.9 pg (25.7-33.7); MCHC 30.9 g/dl (32.0-36.0); MEAN CELL VOLUME 93.4 fl (80-96); MEAN PLT VOLUME 9.8 fl (7.5-11.1); PLATELET COUNT 321.3 10^3/uL (134-434); RBC 4.62 10^6/uL (3.60-5.2); RDW 16.2 % (11.6-15.6)
[2024-01-15 14:22] LABS: ALBUMIN 3.9 g/dl (3.4-5.0); BILIRUBIN,TOTAL 0.4 mg/dl (0.2-1); CALCIUM 9.1 mg/dl (8.5-10.1); CREATININE 0.8 mg/dl (0.6-1.3); POTASSIUM 4.4 mmol/L (3.5-5.1); TOT PROT 6.3 g/dl (6.4-8.2)
[2024-01-15 14:51] LABS: PLATELET ESTIMATE ADEQUATE
[2024-01-15 15:00] LABS: EPITHELIAL CELLS 0-5 /hpf
[2024-01-15 15:47] VITALS: BP 153/74; PULSE 67
[2024-01-15 17:54] LABS: N-TERMINAL BNP 456.1 pg/ml (5-125)
== END 2024-01-15 16:50 | disposition left against medical advice (07) ==
LOC: FER 12:32
DX: R07.2 Precordial pain (principal); R10.13 Epigastric pain; R42 Dizziness and giddiness; Z20.822 Contact with and (suspected) exposure to COVID-19
CPT/HCPCS: 0241U-QW; 36415; 71045-TC-FY; 80053; 81003; 81015; 83880; 84439; 84443; 84484; 85027; 85610; 85730; 93005; 99285-25

== ENCOUNTER 2024-06-15 09:25 | Emergency (ER) | payer OTHER ==
[2024-06-15 09:51] VITALS: BP 166/78; PULSE 80; RESP 17; TEMP 98.4; BMI 33.4
== END 2024-06-15 10:12 | disposition home or self-care (01) ==
LOC: FER 09:25
DX: H11.32 Conjunctival hemorrhage, left eye (principal)
CPT/HCPCS: 99283-25

== ENCOUNTER 2024-08-03 17:13 | Emergency (ER) | payer OTHER ==
[2024-08-03 17:26] VITALS: BP 132/92; RESP 16; TEMP 97.7; BMI 33.1
== END 2024-08-03 17:50 | disposition home or self-care (01) ==
LOC: FER 17:13
DX: R00.2 Palpitations (principal)
CPT/HCPCS: 93005; 99283-25